=== PATIENT | female | born 1940 | race African-American/Black ===

== ENCOUNTER 2020-01-01 01:48 | Inpatient (IN) | payer MEDICARE, MEDICAID ==
[2020-01-01] VITALS (19 sets, daily range): BP systolic 102–190; BP diastolic 30–92
[~2020-01-01] VITALS: Ht 160 cm; Wt 103.0 kg
[2020-01-01] MEDS ORDERED: NOREPINEPHRINE VIAL 8 MG in IV DEXTROSE 5% 250 ML IV PRN (02:15)
[2020-01-01 03:23] LABS: BASE EXCESS ABG -8 mmol/L (-3-3); HCO3 ABG 16 mmol/L (21-28); PCO2 ABG 29 mmHg (35-46); PO2 ABG 384 mmHg (65-108); SAT O2 ABG 99 % (92-99)
[2020-01-01] MEDS: EPINEPHrine VIAL 5 MG in IV NORMAL SALINE 250ML 250 ML IV PRN ×4 (03:42→10:17)
[2020-01-01] MEDS ORDERED: IV NORMAL SALINE 1000ML BAG 1,000 ML IV SCH (03:45)
[2020-01-01] MEDS: VASOPRESSIN 20 UNIT in IV DEXTROSE 5% 100ML 100 ML IV PRN ×3 (04:19→20:54)
--- NOTE | 2020-01-01 04:42 | RAD ---
AP chest x-ray HISTORY: Intubated. FINDINGS: Endotracheal tube tip 4 cm above the edwige. Nasogastric tube tip coiled left upper quadrant general radiographic region gastric fundus. Heart size normal. Aortic arch calcified plaque. No pneumothorax. Basilar left lower lobe opacity obscuring the diaphragm may be basilar lower lobe atelectasis/pneumonia, a small left pleural effusion is likely present blunting the angle as well. Right lung is clear. IMPRESSION: Lines and tubes as described above. Basilar left lower lobe atelectasis/infiltrate and a small left pleural effusion along the diaphragm. Electronically signed by: Keshawn Cuellar MD (01/01/2020 4:39 AM) [facility]
[2020-01-01 04:44] LABS: FIO2 ABG 100
[2020-01-01] MEDS: DEXTROSE 5% IV PRN ×4 (05:07→17:52)
[2020-01-01] MEDS: NOREPINEPHRINE IV PRN ×4 (05:07→17:52)
[2020-01-01] MEDS ORDERED: PHENYLEPHRINE INJ 50 MG in IV NORMAL SALINE 250ML 250 ML IV PRN (05:30)
[2020-01-01] MEDS: MIDAZOLAM HCL 100 MG in IV NORMAL SALINE 100ML 100 ML IV PRN ×2 (05:49→16:21)
[2020-01-01] MEDS ORDERED: fentaNYL PF VIAL 100 MCG/2 ML VIAL IV PRN (07:00)
--- NOTE | 2020-01-01 07:30 | NUR ---
Pt admitted to ICU room 112 at 0130. Pt brought on bed by 3 foot piece assembler. Pt being ventilated with oxygenated bag valve mask until transferred into ICU bed. Pt then placed on ventilator. Unable to obtain pt BP upon admission. Pt did have pulse upon admission but only carotid was palpable. Unable to palpate or doppler radial and pedal pulses. Pt has only had 20 ml UO all shift. Call placed to pts THERESA, marcy Perez, multiple times starting when patient was admitted. Call placed to Dr. Colby to update on pt status. Received orders for PRN Epi gtt, PRN Vasopressin gtt, PRN Norsynephrine gtt, NS @ 60/hr, consult pulmonology, consult nephrology. Chris CARDENAS, reached at approx 0530. Chris stated to change pt to DNR status, but to keep intubated at this time and keep life-saving medications going. Request for DNR confirmed by two RNs. Order received from Dr. Colby that it was okay to change code status. While titrating PRN BP medications, unable to obtain BP. BP unable to be documented during titration per protocol. Will pass on and continue to monitor.
[2020-01-01 08:36] LABS: BASE EXCESS ABG -23 mmol/L (-3-3); HCO3 ABG 5 mmol/L (21-28); PO2 ABG 329 mmHg (65-108); SAT O2 ABG 99 % (92-99)
[2020-01-01 08:38] LABS: FIO2 ABG 90; PCO2 ABG 18 mmHg (35-46)
[2020-01-01] MEDS ORDERED: SODIUM BICARB ADULT 8.4% 50 MEQ/50 ML DISP.SYRIN. IV ONE ×2 (08:45)
--- NOTE | 2020-01-01 08:59 | RAD ---
CHEST AP ONLY History: Reason: Central line placement / Spl. Instructions: / History: Comparison: January 01, 2020 Findings: Stable endotracheal tube and enteric tube. Interval placement right IJ central line with tip projecting over the lower SVC. Low lung volumes. Patchy bibasilar opacities. Small left pleural effusion. Surgical clips right upper quadrant. No pneumothorax. Unchanged heart size. Impression: 1. Interval placement right IJ central line. No pneumothorax. 2. Low lung points with patchy bibasilar opacities, likely atelectasis. 3. Small left pleural effusion. Electronically signed by: Jarrell Nunez DO (01/01/2020 8:56 AM) [id number]
--- NOTE | 2020-01-01 09:46 | NUR ---
SS following for discharge planning. SS reviewed pt chart and discussed with pt RN. Pt is currently on the vent. COVID19 positive. Per RN, pt now DNR and showing signs of modeling. Prognosis poor. SS will continue to follow for discharge planning.
[2020-01-01] MEDS ORDERED: ENOXAPARIN 30 MG/0.3 ML SYRINGE. SQ SCH (10:15)
--- NOTE | 2020-01-01 10:22 | CONS ---
DATE OF CONSULTATION: 01/01/2020 PULMONARY CONSULTATION ATTENDING PHYSICIAN: Alfredo Colby MD REASON FOR CONSULTATION: Shock, respiratory failure, COVID pneumonia, ARDS. HISTORY OF PRESENT ILLNESS: The patient is 79 years old who initially presented to [facility] Emergency Room in hypoxic respiratory failure. Her saturations are in the low 80s on 6 liters en route and was placed on a nonrebreather mask. She is known positive for COVID-19. She has severe dementia. The patient was kept in the ER, but due to lack of Intensive Care Unit beds, she was transferred to our facility early this morning. The patient has turned for the worse. She was initially on 1 dose pressor, but now she is requiring 4 vasopressors and blood pressure is not even detectable. The patient's arterial blood gases reveals a pH of 7.08, pCO2 of 18 and a pO2 of 329 with a bicarbonate of only 5. This was obtained on 90% FiO2. She is down to 50% FiO2. Her chest x-ray showed mildly prominent interstitial infiltrates. She is on epinephrine, Levophed, vasopressin and Vishal-Synephrine. Her urine output has been decreasing. I gave 2 amps of bicarbonate. Chemistries from today are pending. PAST MEDICAL HISTORY: History of severe dementia, hypertension, hyperlipidemia, Raynaud's. Hyperthyroidism, status post thyroidectomy. PAST SURGICAL HISTORY: , thyroidectomy, tonsillectomy and cholecystectomy. MEDICATIONS: Upon transfer were reviewed. They include 4 vasopressors. REVIEW OF SYSTEMS: Unable to obtain from the patient. SOCIAL HISTORY: Not available. ALLERGIES: None. PHYSICAL EXAMINATION: GENERAL: On examination which was done via visual, she is on assist control mode. 50% FiO2. Mildly tachypneic. EXTREMITIES: Mottled. There were trace pitting edema. LABORATORY DATA: Reviewed. ABGs as discussed in my history of present illness. Blood glucose 164. Her chemistries are pending. Chest x-ray shows faint interstitial infiltrates. IMPRESSION: 1. Acute hypoxic respiratory failure secondary to multisystem organ failure from COVID pneumonia and acute lung injury. 2. Severe metabolic acidosis, which has worsened in the last 24 hours, likely secondary to acute kidney injury and shock/ lactic acidosis 3. Acute kidney injury. Decreasing urine output. We will obtain chemistry results. 4. Abnormal chest x-ray consistent with COVID-19 pneumonia. 5. COVID-19 positive. RECOMMENDATIONS: 1. Per nursing staff, discussion with the son who is the DPOA, the patient was made DNR early this morning. 2. I will call her son and explain him the poor prognosis and very unlikely chance of survival. I would recommend comfort care. 3. Status post 2 amps of bicarbonate. 4. Continue assist control mode. 5. Continue all vasopressors for now. She is status post IV fluid resuscitation. 6. DVT prophylaxis with Lovenox. 7. Stress ulcer prophylaxis. 8. BS antibiotics 9. IV steroids 10. Discussed with RN and RT. Chart reviewed. Labs reviewed and imaging reviewed. Critical care time 37 minutes. ABBEY BEEBE MD DR: ALANA/gia JOB#: [id number] / [id number] KAY
[2020-01-01 10:29] LABS: BASO % 0 % (0-3); EOS % 0 % (0-3); HEMATOCRIT 42.8 % (36.0-47.0); HEMOGLOBIN 12.7 g/dL (12.0-15.5); LYMPH % 16 % (24-48); MEAN CORPUSCULAR HEMOGLOBIN 31 pg (25-35); MEAN CORPUSCULAR HGB CONC 30 g/dL (31-37); MEAN CORPUSCULAR VOLUME 104 fL (79-100); MONO # 1.8 x10^3/uL (0.0-1.1); MONO % 10 % (0-9); NEUT # 13.7 x10^3/uL (1.8-7.7); NEUT % 74 % (31-73); PLATELET COUNT 86 x10^3/uL (140-400); RED CELL DISTRIBUTION WIDTH 16.1 % (11.5-14.5); WHITE BLOOD COUNT 18.5 x10^3/uL (4.0-11.0)
[2020-01-01] MEDS ORDERED: EPINEPHrine VIAL 10 MG in IV NORMAL SALINE 250ML IV PRN (10:30)
[2020-01-01 10:33] LABS: PROTHROMBIN TIME PATIENT 18.4 SEC (11.7-14.0)
[2020-01-01 10:39] LABS: ALBUMIN 2.1 g/dL (3.4-5.0); ALBUMIN/GLOBULIN RATIO 0.5 (1.0-1.7); CALCIUM 7.6 mg/dL (8.5-10.1); CREATININE 7.7 mg/dL (0.6-1.0); GFR 6.1; MAGNESIUM 2.7 mg/dL (1.8-2.4); POTASSIUM 3.5 mmol/L (3.5-5.1); TOTAL BILIRUBIN 0.5 mg/dL (0.2-1.0); TOTAL PROTEIN 6.5 g/dL (6.4-8.2)
--- NOTE | 2020-01-01 10:42 | PN ---
DATE: 01/01/2020 ADDENDUM I have talked to the patient's son, Alhaji, who is also the DPOA. I explained the multisystem organ failure related to COVID infection. He understands that. I told him we will not do any CPR and he is agreeable with that. If the patient continues to deteriorate, we will consider withdrawing care. He also agrees not to initiate dialysis. We will not escalate the doses of current pressors. Continue supportive care for now. additional time 10 min total cct time for today 45 min ABBEY BEEBE MD DR: ALANA/gia JOB#: [id number] / [id number] KAY
[2020-01-01 10:55] LABS: % BANDS 17 % (0-9); % EOS 1 % (0-5); % LYMPHS 14 % (24-48); % METAS 2 % (0-0); % MONOS 6 % (0-10); % SEGS 60 % (35-66); TOXIC VACUOLATION PRESENT
[2020-01-01 10:56] LABS: ANISOCYTOSIS SLIGHT; PLT ESTIMATE DECREASED (ADEQUATE)
--- NOTE | 2020-01-01 11:41 | PDOC2 ---
CONSULT Date of Consult Date of Consult DATE: 01/01/20 TIME: 11:36 Reason for Consult Reason for Consult: JEROME Referring Physician Referring Physician: ISMAEL Identification/Chief Complaint Chief Complaint SEPSIS Source Source: Chart review History of Present Illness Reason for Visit: THIS IS A 79 YR OLD TRANSFERRED HERE FOR[facility]. ADMITTED THERE WITH HYPOXIC RESP FAILURE AND AN NOW ON THE VENT. SHE IS COVID 19 POS. CURRENTLY ON MULTIPLE PRESSORS AND IN RENAL FAILUER. REQUIRING PRESSOR SUPPORT Past Medical History Past Medical History UNABLE TO OBTAIN Past Surgical History Past Surgical History UNKNOWN Family History Family History: No Significant Social History Drugs: None Lives: with Family Current Medications Current Medications Current Medications Norepinephrine Bitartrate 8 mg/ Dextrose 258 ml @ 12.674 mls/ hr CONT PRN IV PER PROTOCOL Last administered on 01/01/20at 02:25; Start 01/01/20 at 02:15; Stop 01/01/20 at 03:19; Status DC Midazolam HCl 100 mg/Sodium Chloride 100 ml @ 1 mls/hr CONT PRN IV SEE I/O RECORD Last administered on 01/01/20at 05:49; Start 01/01/20 at 02:15 Norepinephrine Bitartrate 16 mg/ Dextrose 266 ml @ 6.534 mls/ hr CONT PRN IV PER PROTOCOL Last administered on 01/01/20at 09:37; Start 01/01/20 at 03:30 Epinephrine HCl 5 mg/Sodium Chloride 255 ml @ 20.043 mls/ hr CONT PRN IV SEE I/O RECORD Last administered on 01/01/20at 10:17; Start 01/01/20 at 03:30; Stop 01/01/20 at 12:00 Sodium Chloride 1,000 ml @ 60 mls/hr [id number] IV Last administered on 01/01/20at 04:07; Start 01/01/20 at 03:45 Vasopressin 20 unit/Dextrose 101 ml @ 12 mls/hr CONT PRN IV SEE I/O RECORD Last administered on 01/01/20at 04:19; Start 01/01/20 at 04:15 Phenylephrine HCl 50 mg/Sodium Chloride 255 ml @ 10.022 mls/ hr CONT PRN IV SEE I/O RECORD Last administered on 01/01/20at 05:42; Start 01/01/20 at 05:30 Fentanyl Citrate (Fentanyl 2ml Vial) 25 mcg PRN Q1HR PRN IV SEE COMMENTS; Start 01/01/20 at 07:00 Fentanyl Citrate (Fentanyl 2ml Vial) 50 mcg PRN Q1HR PRN IV SEE COMMENTS; Start 01/01/20 at 07:00 Sodium Bicarbonate (Sodium Bicarb Adult 8.4% Syr) 50 meq 1X ONCE IV Last administered on 01/01/20at 09:18; Start 01/01/20 at 08:45; Stop 01/01/20 at 08:46; Status DC Sodium Bicarbonate (Sodium Bicarb Adult 8.4% Syr) 50 meq 1X ONCE IV Last administered on 01/01/20at 09:18; Start 01/01/20 at 08:45; Stop 01/01/20 at 08:46; Status DC Enoxaparin Sodium (Lovenox 30mg Syringe) 30 mg Q24H SQ ; Start 01/01/20 at 10:15; Stop 01/01/20 at 10:12; Status DC Famotidine (Pepcid Vial) 20 mg DAILY IVP ; Start 01/01/20 at 11:00 Heparin Sodium (Porcine) (Heparin Sodium) 5,000 unit BID SQ ; Start 01/01/20 at 11:00 Epinephrine HCl 10 mg/Sodium Chloride 250 ml @ 9.825 mls/ hr CONT PRN IV SEE I/O RECORD; Start 01/01/20 at 10:30 Allergies Allergies: Coded Allergies: No Known Drug Allergies (Unverified , 01/01/20) ROS Review of System UNABLE TO OBTAIN Physical Exam General: Other (INTUBATED) HEENT: Atraumatic, Other (T TUBE) Lungs: Clear to auscultation Heart: Regular rate Abdomen: Normal bowel sounds Extremities: Other (CYANOTIC AND CLUBBING OF EXTREMITIES) Skin: No significant lesion Neuro: Other (SEDATED) MUSCULOSKELETAL: Other (ON THE VENT) Vitals VITALS Vital Signs Date Time Temp Pulse Resp B/P (MAP) Pulse Ox O2 Delivery O2 Flow Rate FiO2 01/01/20 10:14 108/30 (56) 01/01/20 10:00 101 16 80 Ventilator 01/01/20 08:00 97.9 97.9 Labs Labs Laboratory Tests Test 01/01/20 03:19 01/01/20 03:24 01/01/20 08:25 01/01/20 08:30 O2 Saturation 99 % (92-99) 99 % (92-99) Arterial Blood pH 7.35 (7.35-7.45) 7.08 (7.35-7.45) Arterial Blood pCO2 at Patient Temp 29 mmHg (35-46) 18 mmHg (35-46) Arterial Blood pO2 at Patient Temp 384 mmHg (65-108) 329 mmHg (65-108) Arterial Blood HCO3 16 mmol/L (21-28) 5 mmol/L (21-28) Arterial Blood Base Excess -8 mmol/L (-3-3) -23 mmol/L (-3-3) FiO2 100 90 Glucose (Fingerstick) 164 mg/dL (70-99) White Blood Count 18.5 x10^3/uL (4.0-11.0) Red Blood Count 4.10 x10^6/uL (3.50-5.40) Hemoglobin 12.7 g/dL (12.0-15.5) Hematocrit 42.8 % (36.0-47.0) Mean Corpuscular Volume 104 fL (79-100) Mean Corpuscular Hemoglobin 31 pg (25-35) Mean Corpuscular Hemoglobin Concent 30 g/dL (31-37) Red Cell Distribution Width 16.1 % (11.5-14.5) Platelet Count 86 x10^3/uL (140-400) Neutrophils (%) (Auto) 74 % (31-73) Lymphocytes (%) (Auto) 16 % (24-48) Monocytes (%) (Auto) 10 % (0-9) Eosinophils (%) (Auto) 0 % (0-3) Basophils (%) (Auto) 0 % (0-3) Neutrophils # (Auto) 13.7 x10^3/uL (1.8-7.7) Lymphocytes # (Auto) 3.0 x10^3/uL (1.0-4.8) Monocytes # (Auto) 1.8 x10^3/uL (0.0-1.1) Eosinophils # (Auto) 0.0 x10^3/uL (0.0-0.7) Basophils # (Auto) 0.0 x10^3/uL (0.0-0.2) Segmented Neutrophils % 60 % (35-66) Band Neutrophils % 17 % (0-9) Lymphocytes % 14 % (24-48) Monocytes % 6 % (0-10) Eosinophils % 1 % (0-5) Metamyelocytes % 2 % (0-0) Toxic Vacuolation Present Platelet Estimate Decreased (ADEQUATE) Anisocytosis Slight Prothrombin Time 18.4 SEC (11.7-14.0) Prothromb Time International Ratio 1.6 (0.8-1.1) Sodium Level 166 mmol/L (136-145) Potassium Level 3.5 mmol/L (3.5-5.1) Chloride Level 123 mmol/L (98-107) Carbon Dioxide Level 8 mmol/L (21-32) Anion Gap 35 (6-14) Blood Urea Nitrogen 106 mg/dL (7-20) Creatinine 7.7 mg/dL (0.6-1.0) Estimated GFR (Cockcroft-Gault) 6.1 BUN/Creatinine Ratio 14 (6-20) Glucose Level 361 mg/dL (70-99) Lactic Acid Level 13.4 mmol/L (0.4-2.0) Calcium Level 7.6 mg/dL (8.5-10.1) Magnesium Level 2.7 mg/dL (1.8-2.4) Total Bilirubin 0.5 mg/dL (0.2-1.0) Aspartate Amino Transf (AST/SGOT) 71 U/L (15-37) Alanine Aminotransferase (ALT/SGPT) 60 U/L (14-59) Alkaline Phosphatase 109 U/L (46-116) Total Protein 6.5 g/dL (6.4-8.2) Albumin 2.1 g/dL (3.4-5.0) Albumin/Globulin Ratio 0.5 (1.0-1.7) Laboratory Tests Test 01/01/20 03:19 01/01/20 03:24 01/01/20 08:25 01/01/20 08:30 O2 Saturation 99 % (92-99) 99 % (92-99) Arterial Blood pH 7.35 (7.35-7.45) 7.08 (7.35-7.45) Arterial Blood pCO2 at Patient Temp 29 mmHg (35-46) 18 mmHg (35-46) Arterial Blood pO2 at Patient Temp 384 mmHg (65-108) 329 mmHg (65-108) Arterial Blood HCO3 16 mmol/L (21-28) 5 mmol/L (21-28) Arterial Blood Base Excess -8 mmol/L (-3-3) -23 mmol/L (-3-3) FiO2 100 90 Glucose (Fingerstick) 164 mg/dL (70-99) White Blood Count 18.5 x10^3/uL (4.0-11.0) Red Blood Count 4.10 x10^6/uL (3.50-5.40) Hemoglobin 12.7 g/dL (12.0-15.5) Hematocrit 42.8 % (36.0-47.0) Mean Corpuscular Volume 104 fL (79-100) Mean Corpuscular Hemoglobin 31 pg (25-35) Mean Corpuscular Hemoglobin Concent 30 g/dL (31-37) Red Cell Distribution Width 16.1 % (11.5-14.5) Platelet Count 86 x10^3/uL (140-400) Neutrophils (%) (Auto) 74 % (31-73) Lymphocytes (%) (Auto) 16 % (24-48) Monocytes (%) (Auto) 10 % (0-9) Eosinophils (%) (Auto) 0 % (0-3) Basophils (%) (Auto) 0 % (0-3) Neutrophils # (Auto) 13.7 x10^3/uL (1.8-7.7) Lymphocytes # (Auto) 3.0 x10^3/uL (1.0-4.8) Monocytes # (Auto) 1.8 x10^3/uL (0.0-1.1) Eosinophils # (Auto) 0.0 x10^3/uL (0.0-0.7) Basophils # (Auto) 0.0 x10^3/uL (0.0-0.2) Segmented Neutrophils % 60 % (35-66) Band Neutrophils % 17 % (0-9) Lymphocytes % 14 % (24-48) Monocytes % 6 % (0-10) Eosinophils % 1 % (0-5) Metamyelocytes % 2 % (0-0) Toxic Vacuolation Present Platelet Estimate Decreased (ADEQUATE) Anisocytosis Slight Prothrombin Time 18.4 SEC (11.7-14.0) Prothromb Time International Ratio 1.6 (0.8-1.1) Sodium Level 166 mmol/L (136-145) Potassium Level 3.5 mmol/L (3.5-5.1) Chloride Level 123 mmol/L (98-107) Carbon Dioxide Level 8 mmol/L (21-32) Anion Gap 35 (6-14) Blood Urea Nitrogen 106 mg/dL (7-20) Creatinine 7.7 mg/dL (0.6-1.0) Estimated GFR (Cockcroft-Gault) 6.1 BUN/Creatinine Ratio 14 (6-20) Glucose Level 361 mg/dL (70-99) Lactic Acid Level 13.4 mmol/L (0.4-2.0) Calcium Level 7.6 mg/dL (8.5-10.1) Magnesium Level 2.7 mg/dL (1.8-2.4) Total Bilirubin 0.5 mg/dL (0.2-1.0) Aspartate Amino Transf (AST/SGOT) 71 U/L (15-37) Alanine Aminotransferase (ALT/SGPT) 60 U/L (14-59) Alkaline Phosphatase 109 U/L (46-116) Total Protein 6.5 g/dL (6.4-8.2) Albumin 2.1 g/dL (3.4-5.0) Albumin/Globulin Ratio 0.5 (1.0-1.7) Assessment/Plan Assessment/Plan IMP JEROME-ATN COVID 19 INFECTION ACUTE HYPOXIC RESP FAILURE SEVERE MET ACIDOSIS LEUCOCYTOSIS PLAN VENT SUPPORT PRESSORS HYDRATION NO PLANS FOR DIALYSIS D/W DR BEEBE FAMILY AGREEABLE WILL FOLLOW TIFFANY LOCKWOOD MD Jan 01, 2020 11:41
[2020-01-01] MEDS ORDERED: IV 1/2 NORMAL SALINE 1,000 ML IV ONE (12:00)
[2020-01-01] MEDS: FAMOTIDINE 20 MG/2 ML VIAL IVP SCH (12:20)
[2020-01-01] MEDS: HEPARIN for SUB-Q USE 5,000 UNIT/ML VIAL. SQ SCH ×2 (12:20→21:12)
--- NOTE | 2020-01-01 12:24 | PDOC1 ---
History and Physical Date of Service: DOS: DATE: 01/01/20 TIME: 12:20 Chief Complaint: Chief Complain: Respiratory failure History of Present Illness: HPI: This is an elderly female who has severe dementia who is unfortunately developed severe respiratory failure secondary to Covid-19 She initially went to [facility] [place] but they are out of ICU bed so she was transferred here She is currently been examined in the ICU where she is critically ill and has a lactic acid level of 13.4 She is currently on the ventilator The pulmonary physician has talked to the family we are considering comfort care Past Medical/Surgical History: PMH/PSH: ementia, hypertension, hyperlipidemia, Raynaud's. Hyperthyroidism, status post thyroidectomy. PAST SURGICAL HISTORY: , thyroidectomy, tonsillectomy and cholecystectomy. Allergies: Allergies: Coded Allergies: No Known Drug Allergies (Unverified , 01/01/20) Family History: Family History: Hypertension Social History: Social History: No smoking drinking or drugs Current Medications: Current Medications Current Medications Norepinephrine Bitartrate 8 mg/ Dextrose 258 ml @ 12.674 mls/ hr CONT PRN IV PER PROTOCOL Last administered on 01/01/20at 02:25; Start 01/01/20 at 02:15; Stop 01/01/20 at 03:19; Status DC Midazolam HCl 100 mg/Sodium Chloride 100 ml @ 1 mls/hr CONT PRN IV SEE I/O RECORD Last administered on 01/01/20at 05:49; Start 01/01/20 at 02:15 Norepinephrine Bitartrate 16 mg/ Dextrose 266 ml @ 6.534 mls/ hr CONT PRN IV PER PROTOCOL Last administered on 01/01/20at 11:56; Start 01/01/20 at 03:30 Epinephrine HCl 5 mg/Sodium Chloride 255 ml @ 20.043 mls/ hr CONT PRN IV SEE I/O RECORD Last administered on 01/01/20at 10:17; Start 01/01/20 at 03:30; Stop 01/01/20 at 12:00; Status DC Sodium Chloride 1,000 ml @ 60 mls/hr [id number] IV Last administered on 01/01/20at 04:07; Start 01/01/20 at 03:45 Vasopressin 20 unit/Dextrose 101 ml @ 12 mls/hr CONT PRN IV SEE I/O RECORD Last administered on 01/01/20at 11:50; Start 01/01/20 at 04:15 Phenylephrine HCl 50 mg/Sodium Chloride 255 ml @ 10.022 mls/ hr CONT PRN IV SEE I/O RECORD Last administered on 01/01/20at 05:42; Start 01/01/20 at 05:30 Fentanyl Citrate (Fentanyl 2ml Vial) 25 mcg PRN Q1HR PRN IV SEE COMMENTS; Start 01/01/20 at 07:00 Fentanyl Citrate (Fentanyl 2ml Vial) 50 mcg PRN Q1HR PRN IV SEE COMMENTS; Start 01/01/20 at 07:00 Sodium Bicarbonate (Sodium Bicarb Adult 8.4% Syr) 50 meq 1X ONCE IV Last administered on 01/01/20at 09:18; Start 01/01/20 at 08:45; Stop 01/01/20 at 08:46; Status DC Sodium Bicarbonate (Sodium Bicarb Adult 8.4% Syr) 50 meq 1X ONCE IV Last administered on 01/01/20at 09:18; Start 01/01/20 at 08:45; Stop 01/01/20 at 08:46; Status DC Enoxaparin Sodium (Lovenox 30mg Syringe) 30 mg Q24H SQ ; Start 01/01/20 at 10:15; Stop 01/01/20 at 10:12; Status DC Famotidine (Pepcid Vial) 20 mg DAILY IVP ; Start 01/01/20 at 11:00 Heparin Sodium (Porcine) (Heparin Sodium) 5,000 unit BID SQ ; Start 01/01/20 at 11:00 Epinephrine HCl 10 mg/Sodium Chloride 250 ml @ 9.825 mls/ hr CONT PRN IV SEE I/O RECORD Last administered on 01/01/20at 11:54; Start 01/01/20 at 10:30 Sodium Chloride 1,000 ml @ 150 mls/hr 1X ONCE IV ; Start 01/01/20 at 12:00; Stop 01/01/20 at 18:39 ROS: Review of Systems Unable to obtain Physical Exam: Vital Signs: Vital Signs Date Time Temp Pulse Resp B/P (MAP) Pulse Ox O2 Delivery O2 Flow Rate FiO2 01/01/20 11:45 98 Ventilator 01/01/20 11:00 87 16 160/38 (78) 01/01/20 08:00 97.9 97.9 Physcial Exam: GEN: Sedated on the vent on for IV pressors HEENT: Normal cephalic, atraumatic, external auditory canals are patent EYES: Extraocular muscles are intact, pupil are equally round and reactive to light and accommodation MUSCULOSKELETAL: Well developed , well nourished, good range of motion ENDOCRINE: No thyromegaly was palpated LYMPHATICS: No cervical chain or axillary nodes were noted HEMATOPOIETIC: No bruising NECK: Supple, no JVD, no thyromegaly was noted LUNGS: Coarse throughout HEART: Tachycardia ABDOMEN: Soft, nontender. Positive bowel sounds, no organomegaly, normal bowel sounds EXTREMITIES: 2+ edema NEUROLOGIC: Normal speech and tone. A&O x 3, moves all extremities, no obvious focal deficits PSYCHIATRIC: Normal affect, normal mood. Stable SKIN: Showing some mottling VASCULAR: Slow capillary Labs: Labs: Laboratory Tests Test 01/01/20 03:19 01/01/20 03:24 01/01/20 08:25 01/01/20 08:30 O2 Saturation 99 % (92-99) 99 % (92-99) Arterial Blood pH 7.35 (7.35-7.45) 7.08 (7.35-7.45) Arterial Blood pCO2 at Patient Temp 29 mmHg (35-46) 18 mmHg (35-46) Arterial Blood pO2 at Patient Temp 384 mmHg (65-108) 329 mmHg (65-108) Arterial Blood HCO3 16 mmol/L (21-28) 5 mmol/L (21-28) Arterial Blood Base Excess -8 mmol/L (-3-3) -23 mmol/L (-3-3) FiO2 100 90 Glucose (Fingerstick) 164 mg/dL (70-99) White Blood Count 18.5 x10^3/uL (4.0-11.0) Red Blood Count 4.10 x10^6/uL (3.50-5.40) Hemoglobin 12.7 g/dL (12.0-15.5) Hematocrit 42.8 % (36.0-47.0) Mean Corpuscular Volume 104 fL (79-100) Mean Corpuscular Hemoglobin 31 pg (25-35) Mean Corpuscular Hemoglobin Concent 30 g/dL (31-37) Red Cell Distribution Width 16.1 % (11.5-14.5) Platelet Count 86 x10^3/uL (140-400) Neutrophils (%) (Auto) 74 % (31-73) Lymphocytes (%) (Auto) 16 % (24-48) Monocytes (%) (Auto) 10 % (0-9) Eosinophils (%) (Auto) 0 % (0-3) Basophils (%) (Auto) 0 % (0-3) Neutrophils # (Auto) 13.7 x10^3/uL (1.8-7.7) Lymphocytes # (Auto) 3.0 x10^3/uL (1.0-4.8) Monocytes # (Auto) 1.8 x10^3/uL (0.0-1.1) Eosinophils # (Auto) 0.0 x10^3/uL (0.0-0.7) Basophils # (Auto) 0.0 x10^3/uL (0.0-0.2) Segmented Neutrophils % 60 % (35-66) Band Neutrophils % 17 % (0-9) Lymphocytes % 14 % (24-48) Monocytes % 6 % (0-10) Eosinophils % 1 % (0-5) Metamyelocytes % 2 % (0-0) Toxic Vacuolation Present Platelet Estimate Decreased (ADEQUATE) Anisocytosis Slight Prothrombin Time 18.4 SEC (11.7-14.0) Prothromb Time International Ratio 1.6 (0.8-1.1) Sodium Level 166 mmol/L (136-145) Potassium Level 3.5 mmol/L (3.5-5.1) Chloride Level 123 mmol/L (98-107) Carbon Dioxide Level 8 mmol/L (21-32) Anion Gap 35 (6-14) Blood Urea Nitrogen 106 mg/dL (7-20) Creatinine 7.7 mg/dL (0.6-1.0) Estimated GFR (Cockcroft-Gault) 6.1 BUN/Creatinine Ratio 14 (6-20) Glucose Level 361 mg/dL (70-99) Lactic Acid Level 13.4 mmol/L (0.4-2.0) Calcium Level 7.6 mg/dL (8.5-10.1) Magnesium Level 2.7 mg/dL (1.8-2.4) Total Bilirubin 0.5 mg/dL (0.2-1.0) Aspartate Amino Transf (AST/SGOT) 71 U/L (15-37) Alanine Aminotransferase (ALT/SGPT) 60 U/L (14-59) Alkaline Phosphatase 109 U/L (46-116) Total Protein 6.5 g/dL (6.4-8.2) Albumin 2.1 g/dL (3.4-5.0) Albumin/Globulin Ratio 0.5 (1.0-1.7) Laboratory Tests Test 01/01/20 03:19 01/01/20 03:24 01/01/20 08:25 01/01/20 08:30 O2 Saturation 99 % (92-99) 99 % (92-99) Arterial Blood pH 7.35 (7.35-7.45) 7.08 (7.35-7.45) Arterial Blood pCO2 at Patient Temp 29 mmHg (35-46) 18 mmHg (35-46) Arterial Blood pO2 at Patient Temp 384 mmHg (65-108) 329 mmHg (65-108) Arterial Blood HCO3 16 mmol/L (21-28) 5 mmol/L (21-28) Arterial Blood Base Excess -8 mmol/L (-3-3) -23 mmol/L (-3-3) FiO2 100 90 Glucose (Fingerstick) 164 mg/dL (70-99) White Blood Count 18.5 x10^3/uL (4.0-11.0) Red Blood Count 4.10 x10^6/uL (3.50-5.40) Hemoglobin 12.7 g/dL (12.0-15.5) Hematocrit 42.8 % (36.0-47.0) Mean Corpuscular Volume 104 fL (79-100) Mean Corpuscular Hemoglobin 31 pg (25-35) Mean Corpuscular Hemoglobin Concent 30 g/dL (31-37) Red Cell Distribution Width 16.1 % (11.5-14.5) Platelet Count 86 x10^3/uL (140-400) Neutrophils (%) (Auto) 74 % (31-73) Lymphocytes (%) (Auto) 16 % (24-48) Monocytes (%) (Auto) 10 % (0-9) Eosinophils (%) (Auto) 0 % (0-3) Basophils (%) (Auto) 0 % (0-3) Neutrophils # (Auto) 13.7 x10^3/uL (1.8-7.7) Lymphocytes # (Auto) 3.0 x10^3/uL (1.0-4.8) Monocytes # (Auto) 1.8 x10^3/uL (0.0-1.1) Eosinophils # (Auto) 0.0 x10^3/uL (0.0-0.7) Basophils # (Auto) 0.0 x10^3/uL (0.0-0.2) Segmented Neutrophils % 60 % (35-66) Band Neutrophils % 17 % (0-9) Lymphocytes % 14 % (24-48) Monocytes % 6 % (0-10) Eosinophils % 1 % (0-5) Metamyelocytes % 2 % (0-0) Toxic Vacuolation Present Platelet Estimate Decreased (ADEQUATE) Anisocytosis Slight Prothrombin Time 18.4 SEC (11.7-14.0) Prothromb Time International Ratio 1.6 (0.8-1.1) Sodium Level 166 mmol/L (136-145) Potassium Level 3.5 mmol/L (3.5-5.1) Chloride Level 123 mmol/L (98-107) Carbon Dioxide Level 8 mmol/L (21-32) Anion Gap 35 (6-14) Blood Urea Nitrogen 106 mg/dL (7-20) Creatinine 7.7 mg/dL (0.6-1.0) Estimated GFR (Cockcroft-Gault) 6.1 BUN/Creatinine Ratio 14 (6-20) Glucose Level 361 mg/dL (70-99) Lactic Acid Level 13.4 mmol/L (0.4-2.0) Calcium Level 7.6 mg/dL (8.5-10.1) Magnesium Level 2.7 mg/dL (1.8-2.4) Total Bilirubin 0.5 mg/dL (0.2-1.0) Aspartate Amino Transf (AST/SGOT) 71 U/L (15-37) Alanine Aminotransferase (ALT/SGPT) 60 U/L (14-59) Alkaline Phosphatase 109 U/L (46-116) Total Protein 6.5 g/dL (6.4-8.2) Albumin 2.1 g/dL (3.4-5.0) Albumin/Globulin Ratio 0.5 (1.0-1.7) Assessment/Plan Assessment/Plan Severe respiratory failure secondary to COVID-19 Plan For now we are continuing current care but we are moving towards comfort care ICU monitoring Trying to wean off the for IV pressors but it is unlikely we will be able to Prognosis probably terminal Appreciate pulmonary input Justicifation of Admission Dx: Justifications for Admission: Justification of Admission Dx: Yes Respiratory Failure: Mechanical Ventilation SUMMER BOJORQUEZ III DO Jan 01, 2020 12:24
[2020-01-01] MEDS ORDERED: PIP/TAZO PER PHARMACY MC PRN (14:00)
[2020-01-01] MEDS: methylPREDNISolone SOD SUCC PF 125 MG/2 ML VIAL. IV SCH ×2 (14:39→21:13)
[2020-01-01] MEDS: PIPERACILLIN/TAZOBACTAM 2.25 GM in IV NORMAL SALINE 50ML 50 ML IV SCH ×2 (14:40→22:02)
[2020-01-01] MEDS ORDERED: VANCOMYCIN 1.5 GM in IV NORMAL SALINE 500ML BAG 500 ML IV ONE (15:00)
--- NOTE | 2020-01-01 16:00 | NUR ---
250 ml water flushes Q4 stopped d/t patient not tolerating/vomiting.
[2020-01-01] MEDS: IV 1/2 NORMAL SALINE 1,000 ML IV SCH (19:02)
[2020-01-01] MEDS: VANCOMYCIN PER PHARMACY MC PRN (19:15)
--- NOTE | 2020-01-01 19:26 | NUR ---
Pharmacy Vancomycin Dosing Note S:Consulted to monitor and dose vancomycin started 01/01/20. O:SALLIE RHOADES is a 79 year old F with Sepsis . Height: 5 feet, 3 inches Weight: 65.5 kg [place] Body Weight: 52.40 Adjusted Body Weight: 57.64 Dosing Weight: Other Antibiotics: ZOSYN LABS: Last BUN: 106 Last Creatinine: 7.7 Creatinine Clearance: 5 mL/min Last WBC: 18.5 Last Procalcitonin: - Tmax (past 24 hours): 98.9 Microbiology: I/O: Drug Levels: Last Trough level: on at Last dose given 01/01/20 at 1700 Vancomycin Dosing: Loading Dose: x1 Dosing Weight: Target Trough: 15-20 A: Based on: WEIGHT, RENAL FAILURE, P: 1. GIVE Vancomycin 1500 mg IV One Time 2. Follow up RANDOM level on 01/03/20 at 0500 3. Pharmacy will continue to monitor, follow and adjust therapy as needed. ALEXA CENTENO [facility], 01/01/20 [id number]
[2020-01-02] VITALS (33 sets, daily range): BP systolic 90–140; BP diastolic 43–86
[2020-01-02] MEDS: IV 1/2 NORMAL SALINE 1,000 ML IV SCH ×4 (01:49→22:19)
[2020-01-02] MEDS: PIPERACILLIN/TAZOBACTAM 2.25 GM in IV NORMAL SALINE 50ML 50 ML IV SCH ×3 (05:59→22:17)
[2020-01-02] MEDS: methylPREDNISolone SOD SUCC PF 125 MG/2 ML VIAL. IV SCH ×3 (06:01→22:18)
[2020-01-02 06:52] LABS: CREATININE 3.7 mg/dL (0.6-1.0); GFR 14.3; POTASSIUM 3.2 mmol/L (3.5-5.1)
[2020-01-02] MEDS: VASOPRESSIN 20 UNIT in IV DEXTROSE 5% 100ML 100 ML IV PRN ×2 (06:56→16:49)
[2020-01-02] MEDS: MIDAZOLAM HCL 100 MG in IV NORMAL SALINE 100ML 100 ML IV PRN (06:58)
[2020-01-02 07:49] LABS: HEMATOCRIT 32.7 % (36.0-47.0); HEMOGLOBIN 10.8 g/dL (12.0-15.5); RED BLOOD COUNT 3.44 x10^6/uL (3.50-5.40); WHITE BLOOD COUNT 16.3 x10^3/uL (4.0-11.0)
[2020-01-02] MEDS: DEXTROSE 5% IV PRN (08:40)
[2020-01-02] MEDS: NOREPINEPHRINE IV PRN (08:40)
[2020-01-02 08:54] LABS: BASE EXCESS ABG -7 mmol/L (-3-3); HCO3 ABG 16 mmol/L (21-28); PCO2 ABG 23 mmHg (35-46); PO2 ABG 100 mmHg (65-108); SAT O2 ABG 97 % (92-99)
[2020-01-02 08:59] LABS: FIO2 ABG 40
[2020-01-02] MEDS: HEPARIN for SUB-Q USE 5,000 UNIT/ML VIAL. SQ SCH ×2 (09:00→20:53)
[2020-01-02] MEDS: VANCOMYCIN PER PHARMACY MC PRN (10:00)
--- NOTE | 2020-01-02 10:35 | PDOC ---
PULMONARY PROGRESS NOTES DATE: 01/02/20 TIME: 10:29 Subjective remains intubated/sedated improving pressor requirements improving renal function Vitals Vital Signs Date Time Temp Pulse Resp B/P (MAP) Pulse Ox O2 Delivery O2 Flow Rate FiO2 01/02/20 09:26 99 Ventilator 01/02/20 06:00 47 20 112/52 (72) 01/02/20 04:00 98.2 98.2 Comments visual exam done due to COVID pandemia no soa, no paradoxical breathing no rash Labs Laboratory Tests Test 01/01/20 03:19 01/01/20 03:24 01/01/20 08:25 01/01/20 08:30 O2 Saturation 99 % (92-99) 99 % (92-99) Arterial Blood pH 7.35 (7.35-7.45) 7.08 (7.35-7.45) Arterial Blood pCO2 at Patient Temp 29 mmHg (35-46) 18 mmHg (35-46) Arterial Blood pO2 at Patient Temp 384 mmHg (65-108) 329 mmHg (65-108) Arterial Blood HCO3 16 mmol/L (21-28) 5 mmol/L (21-28) Arterial Blood Base Excess -8 mmol/L (-3-3) -23 mmol/L (-3-3) FiO2 100 90 Glucose (Fingerstick) 164 mg/dL (70-99) White Blood Count 18.5 x10^3/uL (4.0-11.0) Red Blood Count 4.10 x10^6/uL (3.50-5.40) Hemoglobin 12.7 g/dL (12.0-15.5) Hematocrit 42.8 % (36.0-47.0) Mean Corpuscular Volume 104 fL (79-100) Mean Corpuscular Hemoglobin 31 pg (25-35) Mean Corpuscular Hemoglobin Concent 30 g/dL (31-37) Red Cell Distribution Width 16.1 % (11.5-14.5) Platelet Count 86 x10^3/uL (140-400) Neutrophils (%) (Auto) 74 % (31-73) Lymphocytes (%) (Auto) 16 % (24-48) Monocytes (%) (Auto) 10 % (0-9) Eosinophils (%) (Auto) 0 % (0-3) Basophils (%) (Auto) 0 % (0-3) Neutrophils # (Auto) 13.7 x10^3/uL (1.8-7.7) Lymphocytes # (Auto) 3.0 x10^3/uL (1.0-4.8) Monocytes # (Auto) 1.8 x10^3/uL (0.0-1.1) Eosinophils # (Auto) 0.0 x10^3/uL (0.0-0.7) Basophils # (Auto) 0.0 x10^3/uL (0.0-0.2) Segmented Neutrophils % 60 % (35-66) Band Neutrophils % 17 % (0-9) Lymphocytes % 14 % (24-48) Monocytes % 6 % (0-10) Eosinophils % 1 % (0-5) Metamyelocytes % 2 % (0-0) Toxic Vacuolation Present Platelet Estimate Decreased (ADEQUATE) Anisocytosis Slight Prothrombin Time 18.4 SEC (11.7-14.0) Prothromb Time International Ratio 1.6 (0.8-1.1) Sodium Level 166 mmol/L (136-145) Potassium Level 3.5 mmol/L (3.5-5.1) Chloride Level 123 mmol/L (98-107) Carbon Dioxide Level 8 mmol/L (21-32) Anion Gap 35 (6-14) Blood Urea Nitrogen 106 mg/dL (7-20) Creatinine 7.7 mg/dL (0.6-1.0) Estimated GFR (Cockcroft-Gault) 6.1 BUN/Creatinine Ratio 14 (6-20) Glucose Level 361 mg/dL (70-99) Lactic Acid Level 13.4 mmol/L (0.4-2.0) Calcium Level 7.6 mg/dL (8.5-10.1) Magnesium Level 2.7 mg/dL (1.8-2.4) Total Bilirubin 0.5 mg/dL (0.2-1.0) Aspartate Amino Transf (AST/SGOT) 71 U/L (15-37) Alanine Aminotransferase (ALT/SGPT) 60 U/L (14-59) Alkaline Phosphatase 109 U/L (46-116) Total Protein 6.5 g/dL (6.4-8.2) Albumin 2.1 g/dL (3.4-5.0) Albumin/Globulin Ratio 0.5 (1.0-1.7) Test 01/01/20 15:00 01/02/20 06:30 01/02/20 07:35 01/02/20 08:00 Lactic Acid Level 11.1 mmol/L (0.4-2.0) Sodium Level 155 mmol/L (136-145) Potassium Level 3.2 mmol/L (3.5-5.1) Chloride Level 121 mmol/L (98-107) Carbon Dioxide Level 19 mmol/L (21-32) Anion Gap 15 (6-14) Blood Urea Nitrogen 92 mg/dL (7-20) Creatinine 3.7 mg/dL (0.6-1.0) Estimated GFR (Cockcroft-Gault) 14.3 Glucose Level 279 mg/dL (70-99) Calcium Level 7.0 mg/dL (8.5-10.1) White Blood Count 16.3 x10^3/uL (4.0-11.0) Red Blood Count 3.44 x10^6/uL (3.50-5.40) Hemoglobin 10.8 g/dL (12.0-15.5) Hematocrit 32.7 % (36.0-47.0) Mean Corpuscular Volume 95 fL (79-100) Mean Corpuscular Hemoglobin 31 pg (25-35) Mean Corpuscular Hemoglobin Concent 33 g/dL (31-37) Red Cell Distribution Width 14.0 % (11.5-14.5) Platelet Count 60 x10^3/uL (140-400) O2 Saturation 97 % (92-99) Arterial Blood pH 7.45 (7.35-7.45) Arterial Blood pCO2 at Patient Temp 23 mmHg (35-46) Arterial Blood pO2 at Patient Temp 100 mmHg (65-108) Arterial Blood HCO3 16 mmol/L (21-28) Arterial Blood Base Excess -7 mmol/L (-3-3) FiO2 40 Laboratory Tests Test 01/01/20 15:00 01/02/20 06:30 01/02/20 07:35 01/02/20 08:00 Lactic Acid Level 11.1 mmol/L (0.4-2.0) Sodium Level 155 mmol/L (136-145) Potassium Level 3.2 mmol/L (3.5-5.1) Chloride Level 121 mmol/L (98-107) Carbon Dioxide Level 19 mmol/L (21-32) Anion Gap 15 (6-14) Blood Urea Nitrogen 92 mg/dL (7-20) Creatinine 3.7 mg/dL (0.6-1.0) Estimated GFR (Cockcroft-Gault) 14.3 Glucose Level 279 mg/dL (70-99) Calcium Level 7.0 mg/dL (8.5-10.1) White Blood Count 16.3 x10^3/uL (4.0-11.0) Red Blood Count 3.44 x10^6/uL (3.50-5.40) Hemoglobin 10.8 g/dL (12.0-15.5) Hematocrit 32.7 % (36.0-47.0) Mean Corpuscular Volume 95 fL (79-100) Mean Corpuscular Hemoglobin 31 pg (25-35) Mean Corpuscular Hemoglobin Concent 33 g/dL (31-37) Red Cell Distribution Width 14.0 % (11.5-14.5) Platelet Count 60 x10^3/uL (140-400) O2 Saturation 97 % (92-99) Arterial Blood pH 7.45 (7.35-7.45) Arterial Blood pCO2 at Patient Temp 23 mmHg (35-46) Arterial Blood pO2 at Patient Temp 100 mmHg (65-108) Arterial Blood HCO3 16 mmol/L (21-28) Arterial Blood Base Excess -7 mmol/L (-3-3) FiO2 40 Impression . 1. Acute hypoxic respiratory failure secondary to multisystem organ failure from COVID pneumonia and acute lung injury. improving 2. Severe metabolic acidosis, likely secondary to acute kidney injury and shock/ lactic acidosis 3. Acute kidney injury. improving with IVF 4. Abnormal chest x-ray consistent with COVID-19 pneumonia. 5. COVID-19 positive. Plan . 1. d/w son 12/31 who is the DPOA, DNR. continue supportive care 2. clinically improving but still critically ill 3. prn bicarbonate. 4. Continue assist control mode. 5. wean vasopressors.. She is status post IV fluid resuscitation.give more fluids today 6. DVT prophylaxis with Lovenox. 7. Stress ulcer prophylaxis. 8. BS antibiotics 9. IV steroids 10. Discussed with RN and RT. Chart reviewed. Labs reviewed and imaging reviewed. Critical care time 30 minutes. ABBEY BEEBE MD Jan 02, 2020 10:35
[2020-01-02] MEDS: POTASSIUM CHLORIDE 20MEQ 100 ML IV SCH ×2 (10:50→11:57)
--- NOTE | 2020-01-02 11:00 | PDOC ---
Renal-Progress Notes Subjective Notes Notes ON THE VENT History of Present Illness Hx of present illness IMPROVING Vitals Vitals Vital Signs Date Time Temp Pulse Resp B/P (MAP) Pulse Ox O2 Delivery O2 Flow Rate FiO2 01/02/20 09:26 99 Ventilator 01/02/20 06:00 47 20 112/52 (72) 01/02/20 04:00 98.2 98.2 Weight Weight [ ] I.O. Intake and Output Intake and Output 01/02/20 07:00 Intake Total 7592.5 ml Output Total 645 ml Balance 6947.5 ml Intake IV Total 7592.5 ml Output Urine Total 645 ml Labs Labs Laboratory Tests Test 01/01/20 15:00 01/02/20 06:30 01/02/20 07:35 01/02/20 08:00 Lactic Acid Level 11.1 mmol/L (0.4-2.0) Sodium Level 155 mmol/L (136-145) Potassium Level 3.2 mmol/L (3.5-5.1) Chloride Level 121 mmol/L (98-107) Carbon Dioxide Level 19 mmol/L (21-32) Anion Gap 15 (6-14) Blood Urea Nitrogen 92 mg/dL (7-20) Creatinine 3.7 mg/dL (0.6-1.0) Estimated GFR (Cockcroft-Gault) 14.3 Glucose Level 279 mg/dL (70-99) Calcium Level 7.0 mg/dL (8.5-10.1) White Blood Count 16.3 x10^3/uL (4.0-11.0) Red Blood Count 3.44 x10^6/uL (3.50-5.40) Hemoglobin 10.8 g/dL (12.0-15.5) Hematocrit 32.7 % (36.0-47.0) Mean Corpuscular Volume 95 fL (79-100) Mean Corpuscular Hemoglobin 31 pg (25-35) Mean Corpuscular Hemoglobin Concent 33 g/dL (31-37) Red Cell Distribution Width 14.0 % (11.5-14.5) Platelet Count 60 x10^3/uL (140-400) O2 Saturation 97 % (92-99) Arterial Blood pH 7.45 (7.35-7.45) Arterial Blood pCO2 at Patient Temp 23 mmHg (35-46) Arterial Blood pO2 at Patient Temp 100 mmHg (65-108) Arterial Blood HCO3 16 mmol/L (21-28) Arterial Blood Base Excess -7 mmol/L (-3-3) FiO2 40 Review of Systems Constitutional: yes: unresponsive Physical Exam General Appearance: normocephalic, other (ET TUBE) Skin: warm, dry Respiratory: decreased breath sounds Heart: S1S2 Abdomen: soft Genitourinary: bladder flat Extremities: pulses present Neurology: other (SEDATED) Assessment Assessment IMP HYPERNATREMIA-BETTER [id number] WITH CR DOWN TO 3.7 COVID 19 INFECTION ACUTE HYPOXIC RESP FAILURE SEVERE MET ACIDOSIS LEUCOCYTOSIS PLAN START TF NEPRO VENT SUPPORT PRESSORS HYDRATION NO PLANS FOR DIALYSIS D/W DR BEEBE FAMILY AGREEABLE WILL FOLLOW TIFFANY LOCKWOOD MD Jan 02, 2020 11:00
--- NOTE | 2020-01-02 11:38 | PDOC ---
[employer] PROGRESS NOTE Date of Service DOS: DATE: 01/02/20 TIME: 11:35 Chief Complaint Chief Complaint Severe respiratory failure secondary to COVID-19 History of Present Illness History of Present Illness 01/02/2020 Patient seen and examined Intubated, on vent AC//450/40% w/t 5 PEEP and sedated with Discussed with RN Charts reviewed Vitals/I&O Vitals/I&O: Vital Signs Date Time Temp Pulse Resp B/P (MAP) Pulse Ox O2 Delivery O2 Flow Rate FiO2 01/02/20 11:25 99 Ventilator 01/02/20 06:00 47 20 112/52 (72) 01/02/20 04:00 98.2 98.2 I & O 01/01/20 01/01/20 01/02/20 15:00 23:00 07:00 Intake Total 2556 ml 2946 ml 2090.5 ml Output Total 155 ml 235 ml 255 ml Balance 2401 ml 2711 ml 1835.5 ml Physical Exam General: Other (INTUBATED) Heart: Regular rate Abdomen: Normal bowel sounds Extremities: Other (CYANOTIC AND CLUBBING OF EXTREMITIES) Skin: No significant lesion Labs Labs: Laboratory Tests Test 01/01/20 15:00 01/02/20 06:30 01/02/20 07:35 01/02/20 08:00 Lactic Acid Level 11.1 mmol/L (0.4-2.0) Sodium Level 155 mmol/L (136-145) Potassium Level 3.2 mmol/L (3.5-5.1) Chloride Level 121 mmol/L (98-107) Carbon Dioxide Level 19 mmol/L (21-32) Anion Gap 15 (6-14) Blood Urea Nitrogen 92 mg/dL (7-20) Creatinine 3.7 mg/dL (0.6-1.0) Estimated GFR (Cockcroft-Gault) 14.3 Glucose Level 279 mg/dL (70-99) Calcium Level 7.0 mg/dL (8.5-10.1) White Blood Count 16.3 x10^3/uL (4.0-11.0) Red Blood Count 3.44 x10^6/uL (3.50-5.40) Hemoglobin 10.8 g/dL (12.0-15.5) Hematocrit 32.7 % (36.0-47.0) Mean Corpuscular Volume 95 fL (79-100) Mean Corpuscular Hemoglobin 31 pg (25-35) Mean Corpuscular Hemoglobin Concent 33 g/dL (31-37) Red Cell Distribution Width 14.0 % (11.5-14.5) Platelet Count 60 x10^3/uL (140-400) O2 Saturation 97 % (92-99) Arterial Blood pH 7.45 (7.35-7.45) Arterial Blood pCO2 at Patient Temp 23 mmHg (35-46) Arterial Blood pO2 at Patient Temp 100 mmHg (65-108) Arterial Blood HCO3 16 mmol/L (21-28) Arterial Blood Base Excess -7 mmol/L (-3-3) FiO2 40 Assessment and Plan Assessmemt and Plan Assessment Severe respiratory failure secondary to COVID-19 Plan ICU monitoring Continue current care but we are moving towards comfort care Trying to wean off the IV pressors but it is unlikely we will be able to Appreciate pulmonary input Comment Review of Relevant I have reviewed the following items aislinn (where applicable) has been applied. Medications: Current Medications Medications (Trade) Dose Ordered Sig/Pita Route PRN Reason Start Time Stop Time Status Last Admin Dose Admin Sodium Chloride 1,000 ml @ 150 mls/hr 1X ONCE IV 01/01/20 12:00 01/01/20 18:39 DC 01/01/20 12:21 Vancomycin HCl (Vanco Per Pharmacy) 1 each PRN DAILY PRN MC SEE COMMENTS 01/01/20 14:00 01/02/20 10:00 Methylprednisolone Sodium Succinate (SOLU-Medrol 125MG VIAL) 60 mg Q8HRS IV 01/01/20 14:00 01/02/20 06:01 Piperacillin Sod/ Tazobactam Sod 2.25 gm/Sodium Chloride 50 ml @ 100 mls/hr Q8HRS IV 01/01/20 14:30 01/02/20 05:59 Vancomycin HCl 1.5 gm/Sodium Chloride 500 ml @ 250 mls/hr 1X ONCE IV 01/01/20 15:00 01/01/20 16:59 DC 01/01/20 16:43 Sodium Chloride 1,000 ml @ 150 mls/hr Q6H40M IV 01/01/20 19:00 01/02/20 08:39 Potassium Chloride/Water 100 ml @ 100 mls/hr Q1H IV 01/02/20 11:00 01/02/20 12:59 01/02/20 10:50 Justicifation of Admission Dx: Justifications for Admission: Justification of Admission Dx: Yes Respiratory Failure: Mechanical Ventilation SUMMER BOJORQUEZ III DO Jan 02, 2020 11:38
[2020-01-02] MEDS: FAMOTIDINE 20 MG/2 ML VIAL IVP SCH (11:56)
--- NOTE | 2020-01-02 12:18 | NUR ---
SS following up with discharge planning. SS reviewed pt chart and discussed with pt RN. Pt remains on the vent at this time. COVID19 positive. Pt is on IV Zosyn and tube feedings. Pt on two pressors, Vasopressin, and Levo. Pt DNR. SS will continue to follow for discharge planning.
[2020-01-02] MEDS ORDERED: ATROPINE 1 MG/10 ML DISP.SYRINGE. ONE (12:55)
--- NOTE | 2020-01-02 14:16 | PDOC2 ---
CARDIAC CONSULT DATE OF CONSULT Date of Consult DATE: 01/02/20 TIME: 14:13 REASON FOR CONSULT Reason for Consult: bradycardia REFERRING PHYSICIAN Referring Physician: Naun SOURCE Source: Chart review HISTORY OF PRESENT ILLNESS HISTORY OF PRESENT ILLNESS This is a 79yo female admitted for complains of shortness of breath. She was initially at [facility] was noted with respiratory failure and hypotension. She was noted with severe lactic acidosis and was eventually started on vasopressors. She was transferred to [facility] as there was no more bed available at [facility]. She is currently on levophed and vasopressor and renal failure. Her BP is adequate with pressors and currently has sinus bradycardia with no significnat ectopies stable in mid40s. Consult is for bradycardia but currently no heart blocks, pauses that would warrant further intervention. She has significant metabolic derangement with hypernatremia and suspected for covid-19 PAST MEDICAL HISTORY Cardiovascular: HTN, Hyperlipidemia, Other (raynauds) CENTRAL NERVOUS SYSTEM: Dementia Renal/: UTI Endocrine: Hypothyroidism PAST SURGICAL HISTORY Past Surgical History: Cholecystectomy, Tonsillectomy, Other (thyroidectomy) FAMILY HISTORY Family History: Family History Unknown SOCIAL HISTORY Smoke: No ALCOHOL: none Drugs: None Lives: Group Home CURRENT MEDICATIONS CURRENT MEDICATIONS Current Medications Medications (Trade) Dose Ordered Sig/Pita Route PRN Reason Start Time Stop Time Status Last Admin Dose Admin Piperacillin Sod/ Tazobactam Sod 2.25 gm/Sodium Chloride 50 ml @ 100 mls/hr Q8HRS IV 01/01/20 14:30 01/02/20 05:59 Vancomycin HCl 1.5 gm/Sodium Chloride 500 ml @ 250 mls/hr 1X ONCE IV 01/01/20 15:00 01/01/20 16:59 DC 01/01/20 16:43 Sodium Chloride 1,000 ml @ 150 mls/hr Q6H40M IV 01/01/20 19:00 01/02/20 08:39 Potassium Chloride/Water 100 ml @ 100 mls/hr Q1H IV 01/02/20 11:00 01/02/20 12:59 DC 01/02/20 11:57 ALLERGIES ALLERGIES: Coded Allergies: No Known Drug Allergies (Unverified , 01/01/20) ROS Review of System unreliable, intubated PHYSICAL EXAM General: Other (sedated) HEENT: Atraumatic Lungs: Other (intubated with vent) Heart: Regular rate (SB 40s) Abdomen: Soft Extremities: No cyanosis Skin: No breakdown Neuro: Other (edated) MUSCULOSKELETAL: Osteoarthritic changes both hands VITALS/I&O VITALS/I&O: Vital Signs Date Time Temp Pulse Resp B/P (MAP) Pulse Ox O2 Delivery O2 Flow Rate FiO2 01/02/20 12:00 Mechanical Ventilator 01/02/20 12:00 01/02/20 11:25 99 01/02/20 06:00 47 20 01/02/20 04:00 98.2 98.2 I & O 01/01/20 01/01/20 01/02/20 15:00 23:00 07:00 Intake Total 2556 ml 2946 ml 2090.5 ml Output Total 155 ml 235 ml 255 ml Balance 2401 ml 2711 ml 1835.5 ml LABS Lab: Laboratory Tests Test 01/01/20 15:00 01/02/20 06:30 01/02/20 07:35 01/02/20 08:00 Lactic Acid Level 11.1 mmol/L (0.4-2.0) *H Sodium Level 155 mmol/L (136-145) #H Potassium Level 3.2 mmol/L (3.5-5.1) L Chloride Level 121 mmol/L (98-107) H Carbon Dioxide Level 19 mmol/L (21-32) L Anion Gap 15 (6-14) H Blood Urea Nitrogen 92 mg/dL (7-20) H Creatinine 3.7 mg/dL (0.6-1.0) H Estimated GFR (Cockcroft-Gault) 14.3 Glucose Level 279 mg/dL (70-99) H Calcium Level 7.0 mg/dL (8.5-10.1) L White Blood Count 16.3 x10^3/uL (4.0-11.0) H Red Blood Count 3.44 x10^6/uL (3.50-5.40) L Hemoglobin 10.8 g/dL (12.0-15.5) L Hematocrit 32.7 % (36.0-47.0) L Mean Corpuscular Volume 95 fL (79-100) # Mean Corpuscular Hemoglobin 31 pg (25-35) Mean Corpuscular Hemoglobin Concent 33 g/dL (31-37) Red Cell Distribution Width 14.0 % (11.5-14.5) Platelet Count 60 x10^3/uL (140-400) L O2 Saturation 97 % (92-99) Arterial Blood pH 7.45 (7.35-7.45) Arterial Blood pCO2 at Patient Temp 23 mmHg (35-46) L Arterial Blood pO2 at Patient Temp 100 mmHg (65-108) Arterial Blood HCO3 16 mmol/L (21-28) L Arterial Blood Base Excess -7 mmol/L (-3-3) L FiO2 40 Laboratory Tests 01/02/20 07:35 Laboratory Tests 01/02/20 06:30 ASSESSMENT/PLAN ASSESSMENT/PLAN 1. Acute respiratory failure with pneumonia: intubated ?covid 2. Sepsis with multiorgan system failure 3. Severe JEROME with significant metabolic derangement: per nephrology 4. Alzheimers Dementia 5. Hypothyroidism: on home replacement 6. Diastolic CHF 7. Hx of HTN and HLP Recommendations 1. Pressor support. MAP adequate. No heart blocks, pauses with stable sinus bradycardia in the mid40s mean 2. Poor prognosis. No AV lety blocking agents. previously on aricept. Supportive care at this time 3. Awaiting review on prior PCR if no covid then will obtain TTE [employer] APRN Jan 02, 2020 14:16
--- NOTE | 2020-01-02 16:23 | RAD ---
PORTABLE CHEST 1V History: Reason: covid on vent / Spl. Instructions: / History: Comparison: January 01, 2020 Findings: Stable endotracheal tube, enteric tube and right IJ central line. Increased patchy bibasilar opacities. Small left pleural effusion, unchanged. No pneumothorax. Normal heart size. Impression: 1. Increased patchy bibasilar opacities. 2. Small left pleural effusion, unchanged. Electronically signed by: Jarrell Nunez DO (01/02/2020 4:20 PM) [id number]
[2020-01-02] MEDS ORDERED: DEXTROSE 50% 25 GM / 50ML DISP.SYRIN. IV PRN (18:15)
[2020-01-02] MEDS: INSULIN LISPRO 300 UNITS/3 ML VIAL. SQ SCH ×2 (18:23→23:32)
[2020-01-03] VITALS (24 sets, daily range): BP systolic 90–128; BP diastolic 42–62
[2020-01-03] MEDS: VASOPRESSIN 20 UNIT in IV DEXTROSE 5% 100ML 100 ML IV PRN ×3 (01:02→23:16)
[2020-01-03] MEDS: methylPREDNISolone SOD SUCC PF 125 MG/2 ML VIAL. IV SCH ×2 (05:53→13:31)
[2020-01-03] MEDS: PIPERACILLIN/TAZOBACTAM 2.25 GM in IV NORMAL SALINE 50ML 50 ML IV SCH ×3 (05:54→23:16)
[2020-01-03] MEDS: INSULIN LISPRO 300 UNITS/3 ML VIAL. SQ SCH ×3 (05:55→17:54)
[2020-01-03] MEDS ORDERED: VANCOMYCIN RANDOM LEVEL. MC ONE (06:00)
[2020-01-03] MEDS: IV 1/2 NORMAL SALINE 1,000 ML IV SCH ×3 (06:12→23:15)
[2020-01-03 06:24] LABS: CALCIUM 6.6 mg/dL (8.5-10.1); CREATININE 2.1 mg/dL (0.6-1.0); GFR 27.5; MAGNESIUM 1.9 mg/dL (1.8-2.4); PHOSPHORUS 2.5 mg/dL (2.6-4.7); POTASSIUM 3.1 mmol/L (3.5-5.1)
[2020-01-03 06:27] LABS: BASO % 0 % (0-3); EOS % 0 % (0-3); HEMATOCRIT 30.5 % (36.0-47.0); LYMPH # 1.7 x10^3/uL (1.0-4.8); LYMPH % 10 % (24-48); MEAN CORPUSCULAR HEMOGLOBIN 31 pg (25-35); MEAN CORPUSCULAR HGB CONC 33 g/dL (31-37); MEAN CORPUSCULAR VOLUME 95 fL (79-100); MONO # 0.7 x10^3/uL (0.0-1.1); MONO % 4 % (0-9); NEUT # 14.5 x10^3/uL (1.8-7.7); NEUT % 86 % (31-73); RED BLOOD COUNT 3.22 x10^6/uL (3.50-5.40); WHITE BLOOD COUNT 16.9 x10^3/uL (4.0-11.0)
[2020-01-03] MEDS ORDERED: VANCOMYCIN 1 GM in IV NORMAL SALINE 250ML 250 ML IV SCH (08:00)
[2020-01-03 08:08] LABS: PLATELET COUNT 53 x10^3/uL (140-400)
--- NOTE | 2020-01-03 08:41 | PDOC ---
[employer] PROGRESS NOTE Date of Service DOS: DATE: 01/03/20 TIME: 08:38 Chief Complaint Chief Complaint Severe respiratory failure secondary to COVID-19 History of Present Illness History of Present Illness 01/02/2020 Patient seen and examined Intubated, on vent AC/16/450/40% FiO2 w/t 5 PEEP and sedated with Fentanyl OG tube at 20cc/hour Discussed with RN Charts reviewed Vitals/I&O Vitals/I&O: Vital Signs Date Time Temp Pulse Resp B/P (MAP) Pulse Ox O2 Delivery O2 Flow Rate FiO2 01/03/20 08:15 100 Ventilator 01/03/20 06:00 46 16 112/50 (70) 01/03/20 04:00 97.6 97.6 I & O 01/02/20 01/02/20 01/03/20 15:00 23:00 07:00 Intake Total 546.1 ml 2391.75 ml 2155.6 ml Output Total 200 ml 200 ml 245 ml Balance 346.1 ml 2191.75 ml 1910.6 ml Physical Exam General: Other (sedated) Heart: Regular rate (SB 40s) Abdomen: Soft Extremities: No cyanosis Skin: No breakdown Labs Labs: Laboratory Tests Test 01/02/20 18:02 01/02/20 23:09 01/03/20 05:00 01/03/20 05:52 Glucose (Fingerstick) 244 mg/dL (70-99) 203 mg/dL (70-99) 168 mg/dL (70-99) White Blood Count 16.9 x10^3/uL (4.0-11.0) Red Blood Count 3.22 x10^6/uL (3.50-5.40) Hemoglobin 10.0 g/dL (12.0-15.5) Hematocrit 30.5 % (36.0-47.0) Mean Corpuscular Volume 95 fL (79-100) Mean Corpuscular Hemoglobin 31 pg (25-35) Mean Corpuscular Hemoglobin Concent 33 g/dL (31-37) Red Cell Distribution Width 14.0 % (11.5-14.5) Platelet Count 53 x10^3/uL (140-400) Neutrophils (%) (Auto) 86 % (31-73) Lymphocytes (%) (Auto) 10 % (24-48) Monocytes (%) (Auto) 4 % (0-9) Eosinophils (%) (Auto) 0 % (0-3) Basophils (%) (Auto) 0 % (0-3) Neutrophils # (Auto) 14.5 x10^3/uL (1.8-7.7) Lymphocytes # (Auto) 1.7 x10^3/uL (1.0-4.8) Monocytes # (Auto) 0.7 x10^3/uL (0.0-1.1) Eosinophils # (Auto) 0.0 x10^3/uL (0.0-0.7) Basophils # (Auto) 0.0 x10^3/uL (0.0-0.2) Test 01/03/20 05:55 Sodium Level 147 mmol/L (136-145) Potassium Level 3.1 mmol/L (3.5-5.1) Chloride Level 116 mmol/L (98-107) Carbon Dioxide Level 19 mmol/L (21-32) Anion Gap 12 (6-14) Blood Urea Nitrogen 78 mg/dL (7-20) Creatinine 2.1 mg/dL (0.6-1.0) Estimated GFR (Cockcroft-Gault) 27.5 Glucose Level 181 mg/dL (70-99) Calcium Level 6.6 mg/dL (8.5-10.1) Phosphorus Level 2.5 mg/dL (2.6-4.7) Magnesium Level 1.9 mg/dL (1.8-2.4) Random Vancomycin Level 8.2 mcg/mL Assessment and Plan Assessmemt and Plan Assessment Severe respiratory failure secondary to COVID-19 History of dementia, hypertension, hyperlipidemia, Raynaud's. Hyperthyroidism, status post thyroidectomy. , thyroidectomy, tonsillectomy and cholecystectomy. Plan ICU monitoring Replace potassium SCD IV antibiotics IV steroids Wean off the IV pressors Appreciate pulmonary input Comment Review of Relevant I have reviewed the following items aislinn (where applicable) has been applied. Medications: Current Medications Medications (Trade) Dose Ordered Sig/Pita Route PRN Reason Start Time Stop Time Status Last Admin Dose Admin Vancomycin HCl (Vancomycin Random Level) 1 each 1X ONCE MC 01/03/20 06:00 01/03/20 06:01 DC 01/03/20 06:00 Potassium Chloride/Water 100 ml @ 100 mls/hr Q1H IV 01/02/20 11:00 01/02/20 12:59 DC 01/02/20 11:57 Insulin Human Lispro (HumaLOG) 0-5 UNITS Q6HRS SQ 01/02/20 18:30 01/03/20 05:55 Vancomycin HCl 1 gm/Sodium Chloride 250 ml @ 250 mls/hr Q36H IV 01/03/20 08:00 01/03/20 07:59 Justicifation of Admission Dx: Justifications for Admission: Justification of Admission Dx: Yes Respiratory Failure: Mechanical Ventilation SUMMER BOJORQUEZ III DO Jan 03, 2020 08:41
[2020-01-03 08:48] LABS: BASE EXCESS ABG -8 mmol/L (-3-3); HCO3 ABG 15 mmol/L (21-28); PCO2 ABG 24 mmHg (35-46); PO2 ABG 103 mmHg (65-108); SAT O2 ABG 97 % (92-99)
[2020-01-03] MEDS: FAMOTIDINE 20 MG/2 ML VIAL IVP SCH (09:49)
[2020-01-03] MEDS: POTASSIUM CHLORIDE 20MEQ 100 ML IV SCH ×2 (09:50→10:59)
[2020-01-03] MEDS: HEPARIN for SUB-Q USE 5,000 UNIT/ML VIAL. SQ SCH (09:50)
[2020-01-03 09:58] LABS: FIO2 ABG 40
[2020-01-03] MEDS: VANCOMYCIN PER PHARMACY MC PRN (10:14)
--- NOTE | 2020-01-03 10:24 | PDOC ---
Renal-Progress Notes Subjective Notes Notes ON THE VENT History of Present Illness Hx of present illness IMPROVING Vitals Vitals Vital Signs Date Time Temp Pulse Resp B/P (MAP) Pulse Ox O2 Delivery O2 Flow Rate FiO2 01/03/20 08:15 100 Ventilator 01/03/20 08:00 01/03/20 06:00 46 16 01/03/20 04:00 97.6 97.6 Weight Weight [ ] I.O. Intake and Output Intake and Output 01/03/20 07:00 Intake Total 5093.45 ml Output Total 645 ml Balance 4448.45 ml Intake IV Total 3018.45 ml Tube Feeding 1575 ml Other 500 ml Output Urine Total 645 ml Labs Labs Laboratory Tests Test 01/02/20 18:02 01/02/20 23:09 01/03/20 05:00 01/03/20 05:52 Glucose (Fingerstick) 244 mg/dL (70-99) 203 mg/dL (70-99) 168 mg/dL (70-99) White Blood Count 16.9 x10^3/uL (4.0-11.0) Red Blood Count 3.22 x10^6/uL (3.50-5.40) Hemoglobin 10.0 g/dL (12.0-15.5) Hematocrit 30.5 % (36.0-47.0) Mean Corpuscular Volume 95 fL (79-100) Mean Corpuscular Hemoglobin 31 pg (25-35) Mean Corpuscular Hemoglobin Concent 33 g/dL (31-37) Red Cell Distribution Width 14.0 % (11.5-14.5) Platelet Count 53 x10^3/uL (140-400) Neutrophils (%) (Auto) 86 % (31-73) Lymphocytes (%) (Auto) 10 % (24-48) Monocytes (%) (Auto) 4 % (0-9) Eosinophils (%) (Auto) 0 % (0-3) Basophils (%) (Auto) 0 % (0-3) Neutrophils # (Auto) 14.5 x10^3/uL (1.8-7.7) Lymphocytes # (Auto) 1.7 x10^3/uL (1.0-4.8) Monocytes # (Auto) 0.7 x10^3/uL (0.0-1.1) Eosinophils # (Auto) 0.0 x10^3/uL (0.0-0.7) Basophils # (Auto) 0.0 x10^3/uL (0.0-0.2) Test 01/03/20 05:55 01/03/20 08:00 Sodium Level 147 mmol/L (136-145) Potassium Level 3.1 mmol/L (3.5-5.1) Chloride Level 116 mmol/L (98-107) Carbon Dioxide Level 19 mmol/L (21-32) Anion Gap 12 (6-14) Blood Urea Nitrogen 78 mg/dL (7-20) Creatinine 2.1 mg/dL (0.6-1.0) Estimated GFR (Cockcroft-Gault) 27.5 Glucose Level 181 mg/dL (70-99) Calcium Level 6.6 mg/dL (8.5-10.1) Phosphorus Level 2.5 mg/dL (2.6-4.7) Magnesium Level 1.9 mg/dL (1.8-2.4) Random Vancomycin Level 8.2 mcg/mL O2 Saturation 97 % (92-99) Arterial Blood pH 7.42 (7.35-7.45) Arterial Blood pCO2 at Patient Temp 24 mmHg (35-46) Arterial Blood pO2 at Patient Temp 103 mmHg (65-108) Arterial Blood HCO3 15 mmol/L (21-28) Arterial Blood Base Excess -8 mmol/L (-3-3) FiO2 40 Review of Systems Constitutional: yes: unresponsive Physical Exam General Appearance: normocephalic, other (ET TUBE) Skin: warm, dry Respiratory: decreased breath sounds Heart: S1S2 Abdomen: soft Genitourinary: bladder flat Extremities: pulses present Neurology: other (SEDATED) Assessment Assessment IMP HYPERNATREMIA-BETTER [id number] WITH CR DOWN TO 2.1 LOW PO4 COVID 19 INFECTION ACUTE HYPOXIC RESP FAILURE SEVERE MET ACIDOSIS-BETTER LEUCOCYTOSIS PLAN CONT TF NEPRO VENT SUPPORT PRESSORS IF NEEDED HYDRATION NO NEED FOR DIALYSIS D/W DR BEEBE REPLACE K AND PO4 WILL FOLLOW TIFFANY LOCKWOOD MD Jan 03, 2020 10:24
--- NOTE | 2020-01-03 10:41 | PDOC ---
PULMONARY PROGRESS NOTES DATE: 01/03/20 TIME: 10:37 Subjective remains intubated/sedated improving pressor requirements Vitals Vital Signs Date Time Temp Pulse Resp B/P (MAP) Pulse Ox O2 Delivery O2 Flow Rate FiO2 01/03/20 10:00 56 16 108/52 (70) 100 Ventilator 01/03/20 04:00 97.6 97.6 Comments visual exam done due to COVID pandemia no soa, no paradoxical breathing no rash Labs Laboratory Tests Test 01/01/20 15:00 01/02/20 06:30 01/02/20 07:35 01/02/20 08:00 Lactic Acid Level 11.1 mmol/L (0.4-2.0) Sodium Level 155 mmol/L (136-145) Potassium Level 3.2 mmol/L (3.5-5.1) Chloride Level 121 mmol/L (98-107) Carbon Dioxide Level 19 mmol/L (21-32) Anion Gap 15 (6-14) Blood Urea Nitrogen 92 mg/dL (7-20) Creatinine 3.7 mg/dL (0.6-1.0) Estimated GFR (Cockcroft-Gault) 14.3 Glucose Level 279 mg/dL (70-99) Calcium Level 7.0 mg/dL (8.5-10.1) Thyroid Stimulating Hormone (TSH) 2.148 uIU/mL (0.358-3.74) White Blood Count 16.3 x10^3/uL (4.0-11.0) Red Blood Count 3.44 x10^6/uL (3.50-5.40) Hemoglobin 10.8 g/dL (12.0-15.5) Hematocrit 32.7 % (36.0-47.0) Mean Corpuscular Volume 95 fL (79-100) Mean Corpuscular Hemoglobin 31 pg (25-35) Mean Corpuscular Hemoglobin Concent 33 g/dL (31-37) Red Cell Distribution Width 14.0 % (11.5-14.5) Platelet Count 60 x10^3/uL (140-400) O2 Saturation 97 % (92-99) Arterial Blood pH 7.45 (7.35-7.45) Arterial Blood pCO2 at Patient Temp 23 mmHg (35-46) Arterial Blood pO2 at Patient Temp 100 mmHg (65-108) Arterial Blood HCO3 16 mmol/L (21-28) Arterial Blood Base Excess -7 mmol/L (-3-3) FiO2 40 Test 01/02/20 18:02 01/02/20 23:09 01/03/20 05:00 01/03/20 05:52 Glucose (Fingerstick) 244 mg/dL (70-99) 203 mg/dL (70-99) 168 mg/dL (70-99) White Blood Count 16.9 x10^3/uL (4.0-11.0) Red Blood Count 3.22 x10^6/uL (3.50-5.40) Hemoglobin 10.0 g/dL (12.0-15.5) Hematocrit 30.5 % (36.0-47.0) Mean Corpuscular Volume 95 fL (79-100) Mean Corpuscular Hemoglobin 31 pg (25-35) Mean Corpuscular Hemoglobin Concent 33 g/dL (31-37) Red Cell Distribution Width 14.0 % (11.5-14.5) Platelet Count 53 x10^3/uL (140-400) Neutrophils (%) (Auto) 86 % (31-73) Lymphocytes (%) (Auto) 10 % (24-48) Monocytes (%) (Auto) 4 % (0-9) Eosinophils (%) (Auto) 0 % (0-3) Basophils (%) (Auto) 0 % (0-3) Neutrophils # (Auto) 14.5 x10^3/uL (1.8-7.7) Lymphocytes # (Auto) 1.7 x10^3/uL (1.0-4.8) Monocytes # (Auto) 0.7 x10^3/uL (0.0-1.1) Eosinophils # (Auto) 0.0 x10^3/uL (0.0-0.7) Basophils # (Auto) 0.0 x10^3/uL (0.0-0.2) Test 01/03/20 05:55 01/03/20 08:00 Sodium Level 147 mmol/L (136-145) Potassium Level 3.1 mmol/L (3.5-5.1) Chloride Level 116 mmol/L (98-107) Carbon Dioxide Level 19 mmol/L (21-32) Anion Gap 12 (6-14) Blood Urea Nitrogen 78 mg/dL (7-20) Creatinine 2.1 mg/dL (0.6-1.0) Estimated GFR (Cockcroft-Gault) 27.5 Glucose Level 181 mg/dL (70-99) Calcium Level 6.6 mg/dL (8.5-10.1) Phosphorus Level 2.5 mg/dL (2.6-4.7) Magnesium Level 1.9 mg/dL (1.8-2.4) Random Vancomycin Level 8.2 mcg/mL O2 Saturation 97 % (92-99) Arterial Blood pH 7.42 (7.35-7.45) Arterial Blood pCO2 at Patient Temp 24 mmHg (35-46) Arterial Blood pO2 at Patient Temp 103 mmHg (65-108) Arterial Blood HCO3 15 mmol/L (21-28) Arterial Blood Base Excess -8 mmol/L (-3-3) FiO2 40 Laboratory Tests Test 01/02/20 18:02 01/02/20 23:09 01/03/20 05:00 01/03/20 05:52 Glucose (Fingerstick) 244 mg/dL (70-99) 203 mg/dL (70-99) 168 mg/dL (70-99) White Blood Count 16.9 x10^3/uL (4.0-11.0) Red Blood Count 3.22 x10^6/uL (3.50-5.40) Hemoglobin 10.0 g/dL (12.0-15.5) Hematocrit 30.5 % (36.0-47.0) Mean Corpuscular Volume 95 fL (79-100) Mean Corpuscular Hemoglobin 31 pg (25-35) Mean Corpuscular Hemoglobin Concent 33 g/dL (31-37) Red Cell Distribution Width 14.0 % (11.5-14.5) Platelet Count 53 x10^3/uL (140-400) Neutrophils (%) (Auto) 86 % (31-73) Lymphocytes (%) (Auto) 10 % (24-48) Monocytes (%) (Auto) 4 % (0-9) Eosinophils (%) (Auto) 0 % (0-3) Basophils (%) (Auto) 0 % (0-3) Neutrophils # (Auto) 14.5 x10^3/uL (1.8-7.7) Lymphocytes # (Auto) 1.7 x10^3/uL (1.0-4.8) Monocytes # (Auto) 0.7 x10^3/uL (0.0-1.1) Eosinophils # (Auto) 0.0 x10^3/uL (0.0-0.7) Basophils # (Auto) 0.0 x10^3/uL (0.0-0.2) Test 01/03/20 05:55 01/03/20 08:00 Sodium Level 147 mmol/L (136-145) Potassium Level 3.1 mmol/L (3.5-5.1) Chloride Level 116 mmol/L (98-107) Carbon Dioxide Level 19 mmol/L (21-32) Anion Gap 12 (6-14) Blood Urea Nitrogen 78 mg/dL (7-20) Creatinine 2.1 mg/dL (0.6-1.0) Estimated GFR (Cockcroft-Gault) 27.5 Glucose Level 181 mg/dL (70-99) Calcium Level 6.6 mg/dL (8.5-10.1) Phosphorus Level 2.5 mg/dL (2.6-4.7) Magnesium Level 1.9 mg/dL (1.8-2.4) Random Vancomycin Level 8.2 mcg/mL O2 Saturation 97 % (92-99) Arterial Blood pH 7.42 (7.35-7.45) Arterial Blood pCO2 at Patient Temp 24 mmHg (35-46) Arterial Blood pO2 at Patient Temp 103 mmHg (65-108) Arterial Blood HCO3 15 mmol/L (21-28) Arterial Blood Base Excess -8 mmol/L (-3-3) FiO2 40 Comments CXR 01/01 Impression: 1. Increased patchy bibasilar opacities. 2. Small left pleural effusion, unchanged. Impression . 1. Acute hypoxic respiratory failure secondary to multisystem organ failure from COVID pneumonia and acute lung injury. improving 2. Severe metabolic acidosis, likely secondary to acute kidney injury and shock/ lactic acidosis 3. Acute kidney injury. improving with IVF 4. Abnormal chest x-ray consistent with COVID-19 pneumonia. 5. COVID-19 positive. 6. Thrombocytopenia Plan . Cont. current vent support Fi02 40% and PEEP 5 clinically improving but still critically ill prn bicarbonate. wean vasopressors to keep MAP greater than 65 Stress ulcer prophylaxis, D/C SQ heparin 2/2 low plt count continue BS antibiotics Continue IV steroids Discussed with RN and RT. Chart reviewed. Labs reviewed and imaging reviewed. Critical care time 30 minutes. ABBEY BEEBE MD Jan 03, 2020 10:41
[2020-01-03] MEDS ORDERED: SODIUM PHOSPHATE 20 MMOL in IV NORMAL SALINE 250ML 250 ML IV ONE (12:00)
--- NOTE | 2020-01-03 12:22 | PDOC ---
[employer] V[employer] CLERK 01/03/20 1222: CARDIO Progress Notes Date and Time Date of Service 01/03/2020 Time of Evaluation 1130 Subjective Subjective: Other (intubated) Vitals Vitals Vital Signs Date Time Temp Pulse Resp B/P (MAP) Pulse Ox O2 Delivery O2 Flow Rate FiO2 01/03/20 12:00 Mechanical Ventilator 01/03/20 12:00 01/03/20 12:00 97.9 56 16 95 97.9 Weight Weight [ ] Input and Output Intake and Output Intake and Output 01/03/20 07:00 Intake Total 5093.45 ml Output Total 645 ml Balance 4448.45 ml Intake IV Total 3018.45 ml Tube Feeding 1575 ml Other 500 ml Output Urine Total 645 ml Laboratory Labs Laboratory Tests Test 01/02/20 12:20 01/02/20 18:02 01/02/20 23:09 01/03/20 05:00 Coronavirus (PCR) Detected (Not Detected) Glucose (Fingerstick) 244 mg/dL (70-99) 203 mg/dL (70-99) White Blood Count 16.9 x10^3/uL (4.0-11.0) Red Blood Count 3.22 x10^6/uL (3.50-5.40) Hemoglobin 10.0 g/dL (12.0-15.5) Hematocrit 30.5 % (36.0-47.0) Mean Corpuscular Volume 95 fL (79-100) Mean Corpuscular Hemoglobin 31 pg (25-35) Mean Corpuscular Hemoglobin Concent 33 g/dL (31-37) Red Cell Distribution Width 14.0 % (11.5-14.5) Platelet Count 53 x10^3/uL (140-400) Neutrophils (%) (Auto) 86 % (31-73) Lymphocytes (%) (Auto) 10 % (24-48) Monocytes (%) (Auto) 4 % (0-9) Eosinophils (%) (Auto) 0 % (0-3) Basophils (%) (Auto) 0 % (0-3) Neutrophils # (Auto) 14.5 x10^3/uL (1.8-7.7) Lymphocytes # (Auto) 1.7 x10^3/uL (1.0-4.8) Monocytes # (Auto) 0.7 x10^3/uL (0.0-1.1) Eosinophils # (Auto) 0.0 x10^3/uL (0.0-0.7) Basophils # (Auto) 0.0 x10^3/uL (0.0-0.2) Test 01/03/20 05:52 01/03/20 05:55 01/03/20 08:00 01/03/20 11:20 Glucose (Fingerstick) 168 mg/dL (70-99) 171 mg/dL (70-99) Sodium Level 147 mmol/L (136-145) Potassium Level 3.1 mmol/L (3.5-5.1) Chloride Level 116 mmol/L (98-107) Carbon Dioxide Level 19 mmol/L (21-32) Anion Gap 12 (6-14) Blood Urea Nitrogen 78 mg/dL (7-20) Creatinine 2.1 mg/dL (0.6-1.0) Estimated GFR (Cockcroft-Gault) 27.5 Glucose Level 181 mg/dL (70-99) Calcium Level 6.6 mg/dL (8.5-10.1) Phosphorus Level 2.5 mg/dL (2.6-4.7) Magnesium Level 1.9 mg/dL (1.8-2.4) Random Vancomycin Level 8.2 mcg/mL O2 Saturation 97 % (92-99) Arterial Blood pH 7.42 (7.35-7.45) Arterial Blood pCO2 at Patient Temp 24 mmHg (35-46) Arterial Blood pO2 at Patient Temp 103 mmHg (65-108) Arterial Blood HCO3 15 mmol/L (21-28) Arterial Blood Base Excess -8 mmol/L (-3-3) FiO2 40 Review of Systems Constitutional: yes: unresponsive Physical Exam Chest: Symmetric LUNGS: Other (vent) Heart: RRR (SR/SB) Abdomen: Other (soft) Neurology: other (SEDATED) Assessment Assessment 1. Acute respiratory failure with covid pneumonia 2. Sepsis with multiorgan system failure 3. Severe JEROME with significant metabolic derangement: improving. per nephrology. 4. Alzheimers Dementia 5. Hypothyroidism: on home replacement, TSH 6. Diastolic CHF 7. Hx of HTN and HLP 8. Coagulopathy/Thrombocytopenia; INR 1.6. PLT 53 9. Sinus bradycardia: No heart blocks, pauses with stable sinus bradycardia was in mid40s now 50s Recommendations 1. Still needing vasopressin. MAP adequate. Replace K No AV lety blocking agents. previously on aricept. 3. Supportive care. Justicifation of Admission Dx: Justifications for Admission: Justification of Admission Dx: Yes Respiratory Failure: Mechanical Ventilation PRITI QUACH MD 01/03/202043: CARDIO Progress Notes Assessment Assessment Agree with SPECIAL LIBRARY LIBRARIAN's assessment and plan. ARF from COVID PNA and multiorgan failure s/p intubation and needing pressor support Simus sunitha probably vagally mediated - no significant pauses Will continue to monitor tele Nephrology following for JEROME [employer] APRN Jan 03, 2020 12:22 PRITI QUACH MD Jan 03, 2020 20:44
[2020-01-04] VITALS (24 sets, daily range): BP systolic 102–142; BP diastolic 52–70
[2020-01-04] MEDS: methylPREDNISolone SOD SUCC PF 125 MG/2 ML VIAL. IV SCH ×4 (00:01→23:51)
[2020-01-04] MEDS: INSULIN LISPRO 300 UNITS/3 ML VIAL. SQ SCH ×5 (00:54→23:52)
[2020-01-04] MEDS: PIPERACILLIN/TAZOBACTAM 2.25 GM in IV NORMAL SALINE 50ML 50 ML IV SCH ×3 (05:37→23:51)
[2020-01-04] MEDS: IV 1/2 NORMAL SALINE 1,000 ML IV SCH ×3 (05:37→17:04)
[2020-01-04 06:04] LABS: CREATININE 1.4 mg/dL (0.6-1.0); GFR 43.9; MAGNESIUM 1.6 mg/dL (1.8-2.4); PHOSPHORUS 2.4 mg/dL (2.6-4.7)
[2020-01-04] MEDS ORDERED: MAGNESIUM SULFATE 4GM 100 ML IV ONE (07:30)
[2020-01-04] MEDS: POTASSIUM CHLORIDE 20MEQ 100 ML IV SCH ×2 (07:33→08:41)
[2020-01-04 08:28] LABS: BASE EXCESS ABG -9 mmol/L (-3-3); HCO3 ABG 13 mmol/L (21-28); PO2 ABG 93 mmHg (65-108); SAT O2 ABG 97 % (92-99)
[2020-01-04 08:31] LABS: FIO2 ABG 40; PCO2 ABG 20 mmHg (35-46)
[2020-01-04] MEDS ORDERED: SODIUM BICARB ADULT 8.4% 50 MEQ/50 ML DISP.SYRIN. IV ONE ×2 (09:00→13:30)
[2020-01-04] MEDS ORDERED: PROPOFOL 100 ML IV PRN (09:00)
[2020-01-04] MEDS: FAMOTIDINE 20 MG/2 ML VIAL IVP SCH (09:10)
[2020-01-04 09:30] LABS: BASO % 0 % (0-3); EOS % 0 % (0-3); HEMATOCRIT 29.7 % (36.0-47.0); HEMOGLOBIN 9.7 g/dL (12.0-15.5); LYMPH # 1.7 x10^3/uL (1.0-4.8); LYMPH % 12 % (24-48); MEAN CORPUSCULAR HEMOGLOBIN 31 pg (25-35); MEAN CORPUSCULAR HGB CONC 33 g/dL (31-37); MEAN CORPUSCULAR VOLUME 95 fL (79-100); MONO # 0.5 x10^3/uL (0.0-1.1); MONO % 3 % (0-9); NEUT # 12.9 x10^3/uL (1.8-7.7); NEUT % 85 % (31-73); PLATELET COUNT 53 x10^3/uL (140-400); RED BLOOD COUNT 3.12 x10^6/uL (3.50-5.40); RED CELL DISTRIBUTION WIDTH 13.8 % (11.5-14.5); WHITE BLOOD COUNT 15.1 x10^3/uL (4.0-11.0)
--- NOTE | 2020-01-04 09:38 | PDOC ---
PULMONARY PROGRESS NOTES DATE: 01/04/20 TIME: 09:33 Subjective remains intubated/sedated off pressor doing paradoxical breathing off sedation met acidosis today Vitals Vital Signs Date Time Temp Pulse Resp B/P (MAP) Pulse Ox O2 Delivery O2 Flow Rate FiO2 01/04/20 08:25 99 Ventilator 01/04/20 06:00 66 22 130/65 (86) 01/04/20 04:00 97.9 97.9 Comments visual exam done due to COVID pandemia no soa, paradoxical breathing while off sedation no rash Labs Laboratory Tests Test 01/02/20 12:20 01/02/20 18:02 01/02/20 23:09 01/03/20 05:00 Coronavirus (PCR) Detected (Not Detected) Glucose (Fingerstick) 244 mg/dL (70-99) 203 mg/dL (70-99) White Blood Count 16.9 x10^3/uL (4.0-11.0) Red Blood Count 3.22 x10^6/uL (3.50-5.40) Hemoglobin 10.0 g/dL (12.0-15.5) Hematocrit 30.5 % (36.0-47.0) Mean Corpuscular Volume 95 fL (79-100) Mean Corpuscular Hemoglobin 31 pg (25-35) Mean Corpuscular Hemoglobin Concent 33 g/dL (31-37) Red Cell Distribution Width 14.0 % (11.5-14.5) Platelet Count 53 x10^3/uL (140-400) Neutrophils (%) (Auto) 86 % (31-73) Lymphocytes (%) (Auto) 10 % (24-48) Monocytes (%) (Auto) 4 % (0-9) Eosinophils (%) (Auto) 0 % (0-3) Basophils (%) (Auto) 0 % (0-3) Neutrophils # (Auto) 14.5 x10^3/uL (1.8-7.7) Lymphocytes # (Auto) 1.7 x10^3/uL (1.0-4.8) Monocytes # (Auto) 0.7 x10^3/uL (0.0-1.1) Eosinophils # (Auto) 0.0 x10^3/uL (0.0-0.7) Basophils # (Auto) 0.0 x10^3/uL (0.0-0.2) Test 01/03/20 05:52 01/03/20 05:55 01/03/20 08:00 01/03/20 11:20 Glucose (Fingerstick) 168 mg/dL (70-99) 171 mg/dL (70-99) Sodium Level 147 mmol/L (136-145) Potassium Level 3.1 mmol/L (3.5-5.1) Chloride Level 116 mmol/L (98-107) Carbon Dioxide Level 19 mmol/L (21-32) Anion Gap 12 (6-14) Blood Urea Nitrogen 78 mg/dL (7-20) Creatinine 2.1 mg/dL (0.6-1.0) Estimated GFR (Cockcroft-Gault) 27.5 Glucose Level 181 mg/dL (70-99) Calcium Level 6.6 mg/dL (8.5-10.1) Phosphorus Level 2.5 mg/dL (2.6-4.7) Magnesium Level 1.9 mg/dL (1.8-2.4) Random Vancomycin Level 8.2 mcg/mL O2 Saturation 97 % (92-99) Arterial Blood pH 7.42 (7.35-7.45) Arterial Blood pCO2 at Patient Temp 24 mmHg (35-46) Arterial Blood pO2 at Patient Temp 103 mmHg (65-108) Arterial Blood HCO3 15 mmol/L (21-28) Arterial Blood Base Excess -8 mmol/L (-3-3) FiO2 40 Test 01/03/20 13:10 01/03/20 17:52 01/04/20 00:31 01/04/20 05:00 Prothrombin Time 18.0 SEC (11.7-14.0) Prothromb Time International Ratio 1.5 (0.8-1.1) Glucose (Fingerstick) 168 mg/dL (70-99) 227 mg/dL (70-99) Sodium Level 141 mmol/L (136-145) Potassium Level 3.0 mmol/L (3.5-5.1) Chloride Level 111 mmol/L (98-107) Carbon Dioxide Level 18 mmol/L (21-32) Anion Gap 12 (6-14) Blood Urea Nitrogen 65 mg/dL (7-20) Creatinine 1.4 mg/dL (0.6-1.0) Estimated GFR (Cockcroft-Gault) 43.9 Glucose Level 261 mg/dL (70-99) Calcium Level 7.0 mg/dL (8.5-10.1) Phosphorus Level 2.4 mg/dL (2.6-4.7) Magnesium Level 1.6 mg/dL (1.8-2.4) Test 01/04/20 05:11 01/04/20 08:25 Glucose (Fingerstick) 256 mg/dL (70-99) O2 Saturation 97 % (92-99) Arterial Blood pH 7.45 (7.35-7.45) Arterial Blood pCO2 at Patient Temp 20 mmHg (35-46) Arterial Blood pO2 at Patient Temp 93 mmHg (65-108) Arterial Blood HCO3 13 mmol/L (21-28) Arterial Blood Base Excess -9 mmol/L (-3-3) FiO2 40 Laboratory Tests Test 01/03/20 11:20 01/03/20 13:10 01/03/20 17:52 01/04/20 00:31 Glucose (Fingerstick) 171 mg/dL (70-99) 168 mg/dL (70-99) 227 mg/dL (70-99) Prothrombin Time 18.0 SEC (11.7-14.0) Prothromb Time International Ratio 1.5 (0.8-1.1) Test 01/04/20 05:00 01/04/20 05:11 01/04/20 08:25 Sodium Level 141 mmol/L (136-145) Potassium Level 3.0 mmol/L (3.5-5.1) Chloride Level 111 mmol/L (98-107) Carbon Dioxide Level 18 mmol/L (21-32) Anion Gap 12 (6-14) Blood Urea Nitrogen 65 mg/dL (7-20) Creatinine 1.4 mg/dL (0.6-1.0) Estimated GFR (Cockcroft-Gault) 43.9 Glucose Level 261 mg/dL (70-99) Calcium Level 7.0 mg/dL (8.5-10.1) Phosphorus Level 2.4 mg/dL (2.6-4.7) Magnesium Level 1.6 mg/dL (1.8-2.4) Glucose (Fingerstick) 256 mg/dL (70-99) O2 Saturation 97 % (92-99) Arterial Blood pH 7.45 (7.35-7.45) Arterial Blood pCO2 at Patient Temp 20 mmHg (35-46) Arterial Blood pO2 at Patient Temp 93 mmHg (65-108) Arterial Blood HCO3 13 mmol/L (21-28) Arterial Blood Base Excess -9 mmol/L (-3-3) FiO2 40 Comments CXR 01/01 Impression: 1. Increased patchy bibasilar opacities. 2. Small left pleural effusion, unchanged. Impression . 1. Acute hypoxic respiratory failure secondary to multisystem organ failure from COVID pneumonia and acute lung injury. improving 2. Severe metabolic acidosis, likely secondary to acute kidney injury and shock/ lactic acidosis 3. Acute kidney injury. improving with IVF 4. Abnormal chest x-ray consistent with COVID-19 pneumonia. 5. COVID-19 positive. 6. Thrombocytopenia Plan . Cont. current vent support Fi02 40% and PEEP 5 re sedate patient IV bicarb, repeat lactic acid clinically improving but still critically ill off vasopressors . keep MAP greater than 65 Stress ulcer prophylaxis, off SQ heparin 2/2 low plt count continue BS antibiotics Continue IV steroids thrombocytopenia due to sepsis Discussed with RN and RT. Chart reviewed. Labs reviewed and imaging reviewed. Critical care time 30 minutes. ABBEY BEEBE MD Jan 04, 2020 09:38
[2020-01-04] MEDS ORDERED: IV NORMAL SALINE 500ML BAG 500 ML IV PRN (10:00)
[2020-01-04] MEDS ORDERED: ATROPINE 0.5 MG/5 ML DISP.SYRINGE. IV PRN (10:00)
[2020-01-04] MEDS ORDERED: DEXMEDETOMIDINE 400 MCG in IV NORMAL SALINE 100ML 96 ML IV PRN (10:00)
[2020-01-04] MEDS: VANCOMYCIN 1 GM in IV NORMAL SALINE 250ML 250 ML IV SCH (10:03)
[2020-01-04] MEDS: VANCOMYCIN PER PHARMACY MC PRN (10:03)
--- NOTE | 2020-01-04 10:03 | NUR ---
Pharmacy Vancomycin Dosing Note S:Consulted to monitor and dose vancomycin started 01/01/20. O:SALLIE RHOADES is a 79 year old F with Sepsis . Height: 5 feet, 3 inches Weight: 80.0 kg [place] Body Weight: 52.40 Adjusted Body Weight: 63.44 Dosing Weight: Other Antibiotics: ZOSYN LABS: Last BUN: 65 Last Creatinine: 1.4 Creatinine Clearance: 32 mL/min Last WBC: 16.3 Last Procalcitonin: - Tmax (past 24 hours): 99 Microbiology: 01/03 NONE I/O: 7167/7167 Drug Levels: Last Random level: 8.2 on 01/03/20 at 0550 Last dose given 01/03/20 at 0759 Vancomycin Dosing: Loading Dose: x1 Dosing Weight: Target Trough: 15-20 A: Based on: IMPROVED RENAL FUNCTION, P: 1. CHANGE DOSE TO Vancomycin 1000 mg IV q24h 2. Follow up Trough level on 01/06/20 at 1030 3. Pharmacy will continue to monitor, follow and adjust therapy as needed. ALEXA CENTENO [facility], 01/04/20 1005
--- NOTE | 2020-01-04 11:28 | PDOC ---
Renal-Progress Notes Subjective Notes Notes INTUBATED History of Present Illness Hx of present illness IMPROVING Vitals Vitals Vital Signs Date Time Temp Pulse Resp B/P (MAP) Pulse Ox O2 Delivery O2 Flow Rate FiO2 01/04/20 11:00 60 18 102/52 (69) 100 Ventilator 01/04/20 08:00 97.4 97.4 Weight Weight [ ] I.O. Intake and Output Intake and Output 01/04/20 07:00 Intake Total 7167.84 ml Output Total 715 ml Balance 6452.84 ml Intake IV Total 4026.84 ml Tube Feeding 2141 ml Other 1000 ml Output Urine Total 715 ml Labs Labs Laboratory Tests Test 01/03/20 13:10 01/03/20 17:52 01/04/20 00:31 01/04/20 05:00 Prothrombin Time 18.0 SEC (11.7-14.0) Prothromb Time International Ratio 1.5 (0.8-1.1) Glucose (Fingerstick) 168 mg/dL (70-99) 227 mg/dL (70-99) White Blood Count 15.1 x10^3/uL (4.0-11.0) Red Blood Count 3.12 x10^6/uL (3.50-5.40) Hemoglobin 9.7 g/dL (12.0-15.5) Hematocrit 29.7 % (36.0-47.0) Mean Corpuscular Volume 95 fL (79-100) Mean Corpuscular Hemoglobin 31 pg (25-35) Mean Corpuscular Hemoglobin Concent 33 g/dL (31-37) Red Cell Distribution Width 13.8 % (11.5-14.5) Platelet Count 53 x10^3/uL (140-400) Neutrophils (%) (Auto) 85 % (31-73) Lymphocytes (%) (Auto) 12 % (24-48) Monocytes (%) (Auto) 3 % (0-9) Eosinophils (%) (Auto) 0 % (0-3) Basophils (%) (Auto) 0 % (0-3) Neutrophils # (Auto) 12.9 x10^3/uL (1.8-7.7) Lymphocytes # (Auto) 1.7 x10^3/uL (1.0-4.8) Monocytes # (Auto) 0.5 x10^3/uL (0.0-1.1) Eosinophils # (Auto) 0.0 x10^3/uL (0.0-0.7) Basophils # (Auto) 0.0 x10^3/uL (0.0-0.2) Sodium Level 141 mmol/L (136-145) Potassium Level 3.0 mmol/L (3.5-5.1) Chloride Level 111 mmol/L (98-107) Carbon Dioxide Level 18 mmol/L (21-32) Anion Gap 12 (6-14) Blood Urea Nitrogen 65 mg/dL (7-20) Creatinine 1.4 mg/dL (0.6-1.0) Estimated GFR (Cockcroft-Gault) 43.9 Glucose Level 261 mg/dL (70-99) Calcium Level 7.0 mg/dL (8.5-10.1) Phosphorus Level 2.4 mg/dL (2.6-4.7) Magnesium Level 1.6 mg/dL (1.8-2.4) Test 01/04/20 05:11 01/04/20 08:25 01/04/20 09:20 Glucose (Fingerstick) 256 mg/dL (70-99) O2 Saturation 97 % (92-99) Arterial Blood pH 7.45 (7.35-7.45) Arterial Blood pCO2 at Patient Temp 20 mmHg (35-46) Arterial Blood pO2 at Patient Temp 93 mmHg (65-108) Arterial Blood HCO3 13 mmol/L (21-28) Arterial Blood Base Excess -9 mmol/L (-3-3) FiO2 40 Lactic Acid Level 2.5 mmol/L (0.4-2.0) Review of Systems Constitutional: yes: unresponsive Physical Exam General Appearance: normocephalic, other (ET TUBE) Skin: warm, dry Respiratory: decreased breath sounds Heart: S1S2 Abdomen: soft Genitourinary: bladder flat Extremities: pulses present Neurology: other (SEDATED) Assessment Assessment IMP HYPERNATREMIA-BETTER [id number] WITH CR DOWN TO 1.4 LOW PO4-BETTER LOW K COVID 19 INFECTION ACUTE HYPOXIC RESP FAILURE SEVERE MET ACIDOSIS-BETTER LEUCOCYTOSIS PLAN CONT TF NEPRO VENT SUPPORT PRESSORS IF NEEDED HYDRATION D/W DR BEEBE REPLACE K AND PO4 NEEDED WILL FOLLOW TIFFANY LOCKWOOD MD Jan 04, 2020 11:28
--- NOTE | 2020-01-04 11:57 | PDOC ---
[employer] PROGRESS NOTE Date of Service DOS: DATE: 01/04/20 TIME: 11:56 Chief Complaint Chief Complaint Severe respiratory failure secondary to COVID-19 History of Present Illness History of Present Illness 01/04/2020 Patient seen and examined Intubated, on vent AC/16/450/40% FiO2 w/t 5 PEEP and sedated with Prededex Discussed with RN Charts reviewed 01/03/2020 Patient seen and examined Intubated, on vent AC/16/450/40% FiO2 w/t 5 PEEP and sedated with Fentanyl OG tube at 20cc/hour Discussed with RN Charts reviewed Vitals/I&O Vitals/I&O: Vital Signs Date Time Temp Pulse Resp B/P (MAP) Pulse Ox O2 Delivery O2 Flow Rate FiO2 01/04/20 11:51 Mechanical Ventilator 01/04/20 11:00 60 18 102/52 (69) 100 01/04/20 08:00 97.4 97.4 I & O 01/03/20 01/03/20 01/04/20 15:00 23:00 07:00 Intake Total 850 ml 3881.94 ml 2435.9 ml Output Total 220 ml 165 ml 330 ml Balance 630 ml 3716.94 ml 2105.9 ml Physical Exam General: Other (sedated) Heart: Regular rate (SB 40s) Abdomen: Soft Extremities: No cyanosis Skin: No breakdown Labs Labs: Laboratory Tests Test 01/03/20 13:10 01/03/20 17:52 01/04/20 00:31 01/04/20 05:00 Prothrombin Time 18.0 SEC (11.7-14.0) Prothromb Time International Ratio 1.5 (0.8-1.1) Glucose (Fingerstick) 168 mg/dL (70-99) 227 mg/dL (70-99) White Blood Count 15.1 x10^3/uL (4.0-11.0) Red Blood Count 3.12 x10^6/uL (3.50-5.40) Hemoglobin 9.7 g/dL (12.0-15.5) Hematocrit 29.7 % (36.0-47.0) Mean Corpuscular Volume 95 fL (79-100) Mean Corpuscular Hemoglobin 31 pg (25-35) Mean Corpuscular Hemoglobin Concent 33 g/dL (31-37) Red Cell Distribution Width 13.8 % (11.5-14.5) Platelet Count 53 x10^3/uL (140-400) Neutrophils (%) (Auto) 85 % (31-73) Lymphocytes (%) (Auto) 12 % (24-48) Monocytes (%) (Auto) 3 % (0-9) Eosinophils (%) (Auto) 0 % (0-3) Basophils (%) (Auto) 0 % (0-3) Neutrophils # (Auto) 12.9 x10^3/uL (1.8-7.7) Lymphocytes # (Auto) 1.7 x10^3/uL (1.0-4.8) Monocytes # (Auto) 0.5 x10^3/uL (0.0-1.1) Eosinophils # (Auto) 0.0 x10^3/uL (0.0-0.7) Basophils # (Auto) 0.0 x10^3/uL (0.0-0.2) Sodium Level 141 mmol/L (136-145) Potassium Level 3.0 mmol/L (3.5-5.1) Chloride Level 111 mmol/L (98-107) Carbon Dioxide Level 18 mmol/L (21-32) Anion Gap 12 (6-14) Blood Urea Nitrogen 65 mg/dL (7-20) Creatinine 1.4 mg/dL (0.6-1.0) Estimated GFR (Cockcroft-Gault) 43.9 Glucose Level 261 mg/dL (70-99) Calcium Level 7.0 mg/dL (8.5-10.1) Phosphorus Level 2.4 mg/dL (2.6-4.7) Magnesium Level 1.6 mg/dL (1.8-2.4) Test 01/04/20 05:11 01/04/20 08:25 01/04/20 09:20 Glucose (Fingerstick) 256 mg/dL (70-99) O2 Saturation 97 % (92-99) Arterial Blood pH 7.45 (7.35-7.45) Arterial Blood pCO2 at Patient Temp 20 mmHg (35-46) Arterial Blood pO2 at Patient Temp 93 mmHg (65-108) Arterial Blood HCO3 13 mmol/L (21-28) Arterial Blood Base Excess -9 mmol/L (-3-3) FiO2 40 Lactic Acid Level 2.5 mmol/L (0.4-2.0) Assessment and Plan Assessmemt and Plan Assessment Severe respiratory failure secondary to COVID-19 History of dementia, hypertension, hyperlipidemia, Raynaud's. Hyperthyroidism, status post thyroidectomy. , thyroidectomy, tonsillectomy and cholecystectomy. Plan ICU monitoring Respiratory isolation Trend labs (lactic acid, Potassium and Mg) Replace potassium and Mg SCD IV antibiotics IV steroids Wean off IV pressors Total time 32-minute Comment Review of Relevant I have reviewed the following items aislinn (where applicable) has been applied. Medications: Current Medications Medications (Trade) Dose Ordered Sig/Pita Route PRN Reason Start Time Stop Time Status Last Admin Dose Admin Sodium Phosphate 20 mmol/Sodium Chloride 256.6667 ml @ 64.167 m... 1X ONCE IV 01/03/20 12:00 01/03/20 15:59 DC 01/03/20 12:29 Magnesium Sulfate 100 ml @ 25 mls/hr 1X ONCE IV 01/04/20 07:30 01/04/20 11:29 DC 01/04/20 07:34 Potassium Chloride/Water 100 ml @ 100 mls/hr Q1H IV 01/04/20 07:30 01/04/20 09:29 DC 01/04/20 08:41 Sodium Bicarbonate (Sodium Bicarb Adult 8.4% Syr) 100 meq 1X ONCE IV 01/04/20 09:00 01/04/20 09:01 DC 01/04/20 09:10 Propofol 100 ml @ 1.2 mls/hr CONT PRN IV SEE I/O RECORD 01/04/20 09:00 01/04/20 09:11 Vancomycin HCl 1 gm/Sodium Chloride 250 ml @ 250 mls/hr Q24H IV 01/04/20 11:00 01/04/20 10:03 Dexmedetomidine HCl 400 mcg/ Sodium Chloride 100 ml @ 4 mls/hr CONT PRN IV SEE COMMENTS 01/04/20 10:00 01/04/20 10:56 Justicifation of Admission Dx: Justifications for Admission: Justification of Admission Dx: Yes Respiratory Failure: Mechanical Ventilation SUMMER BOJORQUEZ III DO Jan 04, 2020 11:57
--- NOTE | 2020-01-04 13:10 | NUR ---
Versed infusion stopped at 0500, patient was paradoxically breathing and CO2 was decreased. Orders received to re-sedate using either propofol or precedex. Propofol was started, patient became hypotensive so was stopped. Precedex was started, patient became bradycardic in the 40s and BP decreased to 80s/60s, vasopressin restarted and precedex turned off. Propofol turned back on a low dose and tolerating ok so far. Notified Dr. Magallon of eye deviation towards the lower right, will continue to monitor for now.
[2020-01-04 13:20] LABS: BASE EXCESS ABG -7 mmol/L (-3-3); HCO3 ABG 16 mmol/L (21-28); PCO2 ABG 26 mmHg (35-46); PO2 ABG 105 mmHg (65-108); SAT O2 ABG 97 % (92-99)
--- NOTE | 2020-01-04 13:23 | NUR ---
SS following up with discharge planning. SS reviewed pt chart and discussed with pt RN. COVID19 positive. Pt currently on the vent 40% FiO2 w/t 5 PEEP and sedated with Fentanyl. Pt on IV Vancomycin and Zosyn. SS will continue to follow for discharge planning.
[2020-01-04 13:24] LABS: FIO2 ABG 40
--- NOTE | 2020-01-04 16:38 | PDOC ---
PROGRESS NOTES Date of Service: DATE: 01/04/20 TIME: 16:38 Subjective Subjective Intubated, needing pressor support Objective Objective Vital Signs Date Time Temp Pulse Resp B/P (MAP) Pulse Ox O2 Delivery O2 Flow Rate FiO2 01/04/20 16:00 01/04/20 16:00 97.1 63 18 99 Ventilator 97.1 Intake and Output 01/04/20 07:00 Intake Total 7167.84 ml Output Total 715 ml Balance 6452.84 ml Intake IV Total 4026.84 ml Tube Feeding 2141 ml Other 1000 ml Output Urine Total 715 ml Physical Exam Abdomen: Soft Heart: Regular rate (SB 40s) Extremities: No cyanosis General: Other (sedated) HEENT: Atraumatic Lungs: Other (intubated with vent) MUSCULOSKELETAL: Osteoarthritic changes both hands Neuro: Other (edated) Skin: No breakdown Assessment Assessment 1. Acute respiratory failure with covid pneumonia s/p intubation. Pulm following 2. Sepsis with multiorgan system failure, on vasopressin 3. Severe JEROME with significant metabolic derangement: improving. per nephrology. 4. Alzheimers Dementia 5. Hypothyroidism: on home replacement, TSH 6. Diastolic CHF, appears compensated 7. Hx of HTN and HLP 8. Coagulopathy/Thrombocytopenia; 9. Sinus bradycardia: No heart blocks, pauses with stable sinus bradycardia Comment Review of Relevant I have reviewed the following items aislinn (where applicable) has been applied. Labs Laboratory Tests Test 01/03/20 17:52 01/04/20 00:31 01/04/20 05:00 01/04/20 05:11 Glucose (Fingerstick) 168 mg/dL (70-99) 227 mg/dL (70-99) 256 mg/dL (70-99) White Blood Count 15.1 x10^3/uL (4.0-11.0) Red Blood Count 3.12 x10^6/uL (3.50-5.40) Hemoglobin 9.7 g/dL (12.0-15.5) Hematocrit 29.7 % (36.0-47.0) Mean Corpuscular Volume 95 fL (79-100) Mean Corpuscular Hemoglobin 31 pg (25-35) Mean Corpuscular Hemoglobin Concent 33 g/dL (31-37) Red Cell Distribution Width 13.8 % (11.5-14.5) Platelet Count 53 x10^3/uL (140-400) Neutrophils (%) (Auto) 85 % (31-73) Lymphocytes (%) (Auto) 12 % (24-48) Monocytes (%) (Auto) 3 % (0-9) Eosinophils (%) (Auto) 0 % (0-3) Basophils (%) (Auto) 0 % (0-3) Neutrophils # (Auto) 12.9 x10^3/uL (1.8-7.7) Lymphocytes # (Auto) 1.7 x10^3/uL (1.0-4.8) Monocytes # (Auto) 0.5 x10^3/uL (0.0-1.1) Eosinophils # (Auto) 0.0 x10^3/uL (0.0-0.7) Basophils # (Auto) 0.0 x10^3/uL (0.0-0.2) Sodium Level 141 mmol/L (136-145) Potassium Level 3.0 mmol/L (3.5-5.1) Chloride Level 111 mmol/L (98-107) Carbon Dioxide Level 18 mmol/L (21-32) Anion Gap 12 (6-14) Blood Urea Nitrogen 65 mg/dL (7-20) Creatinine 1.4 mg/dL (0.6-1.0) Estimated GFR (Cockcroft-Gault) 43.9 Glucose Level 261 mg/dL (70-99) Calcium Level 7.0 mg/dL (8.5-10.1) Phosphorus Level 2.4 mg/dL (2.6-4.7) Magnesium Level 1.6 mg/dL (1.8-2.4) Test 01/04/20 08:25 01/04/20 09:20 01/04/20 11:45 01/04/20 12:30 O2 Saturation 97 % (92-99) Arterial Blood pH 7.45 (7.35-7.45) Arterial Blood pCO2 at Patient Temp 20 mmHg (35-46) Arterial Blood pO2 at Patient Temp 93 mmHg (65-108) Arterial Blood HCO3 13 mmol/L (21-28) Arterial Blood Base Excess -9 mmol/L (-3-3) FiO2 40 Lactic Acid Level 2.5 mmol/L (0.4-2.0) 2.2 mmol/L (0.4-2.0) Glucose (Fingerstick) 220 mg/dL (70-99) Test 01/04/20 13:10 O2 Saturation 97 % (92-99) Arterial Blood pH 7.41 (7.35-7.45) Arterial Blood pCO2 at Patient Temp 26 mmHg (35-46) Arterial Blood pO2 at Patient Temp 105 mmHg (65-108) Arterial Blood HCO3 16 mmol/L (21-28) Arterial Blood Base Excess -7 mmol/L (-3-3) FiO2 40 Medications Current Medications Atropine Sulfate (ATROPINE 0.5mg SYRINGE) 0.5 mg PRN Q5MIN PRN IV SEE COMMENTS; Start 01/04/20 at 10:00 Dexmedetomidine HCl 400 mcg/ Sodium Chloride 100 ml @ 4 mls/hr CONT PRN IV SEE COMMENTS Last administered on 01/04/20at 10:56; Start 01/04/20 at 10:00 Magnesium Sulfate 100 ml @ 25 mls/hr 1X ONCE IV Last administered on 0at 07:34; Start 01/04/20 at 07:30; Stop 01/04/20 at 11:29; Status DC Potassium Chloride/Water 100 ml @ 100 mls/hr Q1H IV Last administered on 01/04/20at 08:41; Start 01/04/20 at 07:30; Stop 01/04/20 at 09:29; Status DC Propofol 100 ml @ 1.2 mls/hr CONT PRN IV SEE I/O RECORD Last administered on 01/04/20at 09:11; Start 01/04/20 at 09:00 Sodium Bicarbonate (Sodium Bicarb Adult 8.4% Syr) 100 meq 1X ONCE IV Last administered on 01/04/20at 09:10; Start 01/04/20 at 09:00; Stop 01/04/20 at 09:01; Status DC Sodium Bicarbonate (Sodium Bicarb Adult 8.4% Syr) 100 meq 1X ONCE IV Last administered on 01/04/20at 13:29; Start 01/04/20 at 13:30; Stop 01/04/20 at 13:31; Status DC Sodium Chloride 500 ml @ 500 mls/hr 1X PRN PRN IV SEE COMMENTS; Start 01/04/20 at 10:00 Vancomycin HCl (Vancomycin Trough Level) 1 each 1X ONCE MC ; Start 01/06/20 at 10:30; Stop 01/06/20 at 10:31 Vancomycin HCl 1 gm/Sodium Chloride 250 ml @ 250 mls/hr Q24H IV Last administered on 01/04/20at 10:03; Start 01/04/20 at 11:00 Vitals/I & O Vital Sign - Last 24 Hours 01/03/20 01/03/20 01/03/20 01/03/20 17:00 17:12 18:00 19:00 Pulse 56 68 68 Resp 16 16 16 B/P (MAP) 108/56 (73) 110/52 (71) 118/56 (76) Pulse Ox 100 100 99 99 O2 Delivery Ventilator Ventilator Ventilator Ventilator 01/03/20 01/03/20 01/03/20 01/03/20 20:00 20:00 20:00 21:00 Temp 98.9 98.9 Pulse 68 68 Resp 16 16 B/P (MAP) 114/56 (75) 126/60 (82) Pulse Ox 99 99 O2 Delivery Mechanical Ventilator Ventilator Ventilator 01/03/20 01/03/20 01/03/20 01/03/20 21:38 22:00 23:00 23:40 Pulse 68 68 Resp 16 16 B/P (MAP) 128/60 (82) 128/62 (84) Pulse Ox 100 99 99 100 O2 Delivery Ventilator Ventilator Ventilator Ventilator 01/03/20 01/04/20 01/04/20 01/04/20 23:59 00:00 00:00 01:00 Temp 99.0 99.0 Pulse 68 63 Resp 16 16 B/P (MAP) 128/62 (84) 123/58 (79) Pulse Ox 99 100 O2 Delivery Mechanical Ventilator Ventilator Ventilator 01/04/20 01/04/20 01/04/20 01/04/20 02:00 03:00 03:30 04:00 Pulse 62 67 Resp 16 23 B/P (MAP) 117/58 (77) 125/61 (82) Pulse Ox 100 100 100 O2 Delivery Ventilator Ventilator Ventilator Mechanical Ventilator 01/04/20 01/04/20 01/04/20 01/04/20 04:00 04:00 05:00 06:00 Temp 97.9 97.9 Pulse 65 67 66 Resp 23 22 22 B/P (MAP) 125/63 (83) 128/64 (85) 130/65 (86) Pulse Ox 100 100 100 O2 Delivery Ventilator Ventilator Ventilator 01/04/20 01/04/20 01/04/20 01/04/20 07:00 08:00 08:00 08:00 Temp 97.4 97.4 Pulse 66 65 Resp 18 16 B/P (MAP) 136/70 (92) 134/70 (91) () Pulse Ox 100 98 O2 Delivery Ventilator Ventilator Mechanical Ventilator 01/04/20 01/04/20 01/04/20 01/04/20 08:25 09:00 10:00 11:00 Pulse 62 62 60 Resp 18 16 18 B/P (MAP) 124/66 (85) 106/56 (73) 102/52 (69) Pulse Ox 99 99 100 100 O2 Delivery Ventilator Ventilator Ventilator Ventilator 01/04/20 01/04/20 01/04/20 01/04/20 11:48 11:51 12:00 12:00 Temp 97.8 97.8 Pulse 48 Resp 18 B/P (MAP) 126/62 (83) Pulse Ox 96 100 O2 Delivery Ventilator Mechanical Ventilator Ventilator 01/04/20 01/04/20 01/04/20 01/04/20 13:00 14:00 15:00 15:31 Pulse 46 56 52 Resp 16 16 16 B/P (MAP) 119/56 (77) 120/58 (78) 131/64 (86) Pulse Ox 99 95 99 99 O2 Delivery Ventilator Ventilator Ventilator Ventilator 01/04/20 01/04/20 01/04/20 16:00 16:00 16:00 Temp 97.1 97.1 Pulse 63 Resp 18 B/P (MAP) 142/69 (93) Pulse Ox 99 O2 Delivery Mechanical Ventilator Ventilator Intake and Output 01/03/20 01/03/20 01/04/20 15:00 23:00 07:00 Intake Total 850 ml 3881.94 ml 2435.9 ml Output Total 220 ml 165 ml 330 ml Balance 630 ml 3716.94 ml 2105.9 ml PRITI QUACH MD Jan 04, 2020 16:38
[2020-01-05] VITALS (24 sets, daily range): BP systolic 108–155; BP diastolic 52–79
[2020-01-05] MEDS: IV 1/2 NORMAL SALINE 1,000 ML IV SCH ×4 (00:33→20:01)
[2020-01-05] MEDS: methylPREDNISolone SOD SUCC PF 125 MG/2 ML VIAL. IV SCH ×3 (05:34→21:54)
[2020-01-05] MEDS: PIPERACILLIN/TAZOBACTAM 2.25 GM in IV NORMAL SALINE 50ML 50 ML IV SCH ×4 (05:34→23:47)
[2020-01-05] MEDS: INSULIN LISPRO 300 UNITS/3 ML VIAL. SQ SCH ×4 (06:16→23:47)
[2020-01-05 06:37] LABS: BASO % 0 % (0-3); EOS % 0 % (0-3); HEMATOCRIT 28.9 % (36.0-47.0); HEMOGLOBIN 9.5 g/dL (12.0-15.5); LYMPH # 1.6 x10^3/uL (1.0-4.8); LYMPH % 10 % (24-48); MEAN CORPUSCULAR HEMOGLOBIN 31 pg (25-35); MEAN CORPUSCULAR HGB CONC 33 g/dL (31-37); MEAN CORPUSCULAR VOLUME 93 fL (79-100); MONO # 0.5 x10^3/uL (0.0-1.1); MONO % 3 % (0-9); NEUT # 13.4 x10^3/uL (1.8-7.7); NEUT % 86 % (31-73); PLATELET COUNT 54 x10^3/uL (140-400); RED CELL DISTRIBUTION WIDTH 13.4 % (11.5-14.5); WHITE BLOOD COUNT 15.5 x10^3/uL (4.0-11.0)
[2020-01-05 06:54] LABS: CALCIUM 7.4 mg/dL (8.5-10.1); CREATININE 1.1 mg/dL (0.6-1.0); MAGNESIUM 2.5 mg/dL (1.8-2.4); PHOSPHORUS 1.9 mg/dL (2.6-4.7)
[2020-01-05 08:08] LABS: BASE EXCESS ABG -5 mmol/L (-3-3); HCO3 ABG 18 mmol/L (21-28); PCO2 ABG 25 mmHg (35-46); PO2 ABG 109 mmHg (65-108); SAT O2 ABG 97 % (92-99)
[2020-01-05 08:16] LABS: FIO2 ABG 40%+5
[2020-01-05] MEDS: FAMOTIDINE 20 MG/2 ML VIAL IVP SCH (08:31)
[2020-01-05] MEDS: MIDAZOLAM HCL 100 MG in IV NORMAL SALINE 100ML 100 ML IV PRN (08:43)
[2020-01-05] MEDS: POTASSIUM PHOS,M-BASIC-D-BASIC 13.6 MMOL in IV NORMAL SALINE 250ML 250 ML IV SCH ×2 (09:06→11:14)
--- NOTE | 2020-01-05 09:34 | PDOC ---
PULMONARY PROGRESS NOTES DATE: 01/05/20 TIME: 09:31 Subjective remains intubated/sedated off pressor doing paradoxical breathing off sedation met acidosis today Vitals Vital Signs Date Time Temp Pulse Resp B/P (MAP) Pulse Ox O2 Delivery O2 Flow Rate FiO2 01/05/20 09:00 54 20 147/71 (96) 100 Ventilator 01/05/20 08:00 97.1 97.1 Comments visual exam done due to COVID pandemia no soa, paradoxical breathing while off sedation no rash Labs Laboratory Tests Test 01/03/20 11:20 01/03/20 13:10 01/03/20 17:52 01/04/20 00:31 Glucose (Fingerstick) 171 mg/dL (70-99) 168 mg/dL (70-99) 227 mg/dL (70-99) Prothrombin Time 18.0 SEC (11.7-14.0) Prothromb Time International Ratio 1.5 (0.8-1.1) Test 01/04/20 05:00 01/04/20 05:11 01/04/20 08:25 01/04/20 09:20 White Blood Count 15.1 x10^3/uL (4.0-11.0) Red Blood Count 3.12 x10^6/uL (3.50-5.40) Hemoglobin 9.7 g/dL (12.0-15.5) Hematocrit 29.7 % (36.0-47.0) Mean Corpuscular Volume 95 fL (79-100) Mean Corpuscular Hemoglobin 31 pg (25-35) Mean Corpuscular Hemoglobin Concent 33 g/dL (31-37) Red Cell Distribution Width 13.8 % (11.5-14.5) Platelet Count 53 x10^3/uL (140-400) Neutrophils (%) (Auto) 85 % (31-73) Lymphocytes (%) (Auto) 12 % (24-48) Monocytes (%) (Auto) 3 % (0-9) Eosinophils (%) (Auto) 0 % (0-3) Basophils (%) (Auto) 0 % (0-3) Neutrophils # (Auto) 12.9 x10^3/uL (1.8-7.7) Lymphocytes # (Auto) 1.7 x10^3/uL (1.0-4.8) Monocytes # (Auto) 0.5 x10^3/uL (0.0-1.1) Eosinophils # (Auto) 0.0 x10^3/uL (0.0-0.7) Basophils # (Auto) 0.0 x10^3/uL (0.0-0.2) Sodium Level 141 mmol/L (136-145) Potassium Level 3.0 mmol/L (3.5-5.1) Chloride Level 111 mmol/L (98-107) Carbon Dioxide Level 18 mmol/L (21-32) Anion Gap 12 (6-14) Blood Urea Nitrogen 65 mg/dL (7-20) Creatinine 1.4 mg/dL (0.6-1.0) Estimated GFR (Cockcroft-Gault) 43.9 Glucose Level 261 mg/dL (70-99) Calcium Level 7.0 mg/dL (8.5-10.1) Phosphorus Level 2.4 mg/dL (2.6-4.7) Magnesium Level 1.6 mg/dL (1.8-2.4) Glucose (Fingerstick) 256 mg/dL (70-99) O2 Saturation 97 % (92-99) Arterial Blood pH 7.45 (7.35-7.45) Arterial Blood pCO2 at Patient Temp 20 mmHg (35-46) Arterial Blood pO2 at Patient Temp 93 mmHg (65-108) Arterial Blood HCO3 13 mmol/L (21-28) Arterial Blood Base Excess -9 mmol/L (-3-3) FiO2 40 Lactic Acid Level 2.5 mmol/L (0.4-2.0) Test 01/04/20 11:45 01/04/20 12:30 01/04/20 13:10 01/04/20 17:59 Glucose (Fingerstick) 220 mg/dL (70-99) 236 mg/dL (70-99) Lactic Acid Level 2.2 mmol/L (0.4-2.0) O2 Saturation 97 % (92-99) Arterial Blood pH 7.41 (7.35-7.45) Arterial Blood pCO2 at Patient Temp 26 mmHg (35-46) Arterial Blood pO2 at Patient Temp 105 mmHg (65-108) Arterial Blood HCO3 16 mmol/L (21-28) Arterial Blood Base Excess -7 mmol/L (-3-3) FiO2 40 Test 01/04/20 23:18 01/05/20 05:50 01/05/20 07:55 Glucose (Fingerstick) 232 mg/dL (70-99) White Blood Count 15.5 x10^3/uL (4.0-11.0) Red Blood Count 3.10 x10^6/uL (3.50-5.40) Hemoglobin 9.5 g/dL (12.0-15.5) Hematocrit 28.9 % (36.0-47.0) Mean Corpuscular Volume 93 fL (79-100) Mean Corpuscular Hemoglobin 31 pg (25-35) Mean Corpuscular Hemoglobin Concent 33 g/dL (31-37) Red Cell Distribution Width 13.4 % (11.5-14.5) Platelet Count 54 x10^3/uL (140-400) Neutrophils (%) (Auto) 86 % (31-73) Lymphocytes (%) (Auto) 10 % (24-48) Monocytes (%) (Auto) 3 % (0-9) Eosinophils (%) (Auto) 0 % (0-3) Basophils (%) (Auto) 0 % (0-3) Neutrophils # (Auto) 13.4 x10^3/uL (1.8-7.7) Lymphocytes # (Auto) 1.6 x10^3/uL (1.0-4.8) Monocytes # (Auto) 0.5 x10^3/uL (0.0-1.1) Eosinophils # (Auto) 0.0 x10^3/uL (0.0-0.7) Basophils # (Auto) 0.0 x10^3/uL (0.0-0.2) Sodium Level 144 mmol/L (136-145) Potassium Level 3.0 mmol/L (3.5-5.1) Chloride Level 112 mmol/L (98-107) Carbon Dioxide Level 21 mmol/L (21-32) Anion Gap 11 (6-14) Blood Urea Nitrogen 50 mg/dL (7-20) Creatinine 1.1 mg/dL (0.6-1.0) Estimated GFR (Cockcroft-Gault) 58.0 Glucose Level 236 mg/dL (70-99) Calcium Level 7.4 mg/dL (8.5-10.1) Phosphorus Level 1.9 mg/dL (2.6-4.7) Magnesium Level 2.5 mg/dL (1.8-2.4) O2 Saturation 97 % (92-99) Arterial Blood pH 7.47 (7.35-7.45) Arterial Blood pCO2 at Patient Temp 25 mmHg (35-46) Arterial Blood pO2 at Patient Temp 109 mmHg (65-108) Arterial Blood HCO3 18 mmol/L (21-28) Arterial Blood Base Excess -5 mmol/L (-3-3) FiO2 40%+5 Laboratory Tests Test 01/04/20 11:45 01/04/20 12:30 01/04/20 13:10 01/04/20 17:59 Glucose (Fingerstick) 220 mg/dL (70-99) 236 mg/dL (70-99) Lactic Acid Level 2.2 mmol/L (0.4-2.0) O2 Saturation 97 % (92-99) Arterial Blood pH 7.41 (7.35-7.45) Arterial Blood pCO2 at Patient Temp 26 mmHg (35-46) Arterial Blood pO2 at Patient Temp 105 mmHg (65-108) Arterial Blood HCO3 16 mmol/L (21-28) Arterial Blood Base Excess -7 mmol/L (-3-3) FiO2 40 Test 01/04/20 23:18 01/05/20 05:50 01/05/20 07:55 Glucose (Fingerstick) 232 mg/dL (70-99) White Blood Count 15.5 x10^3/uL (4.0-11.0) Red Blood Count 3.10 x10^6/uL (3.50-5.40) Hemoglobin 9.5 g/dL (12.0-15.5) Hematocrit 28.9 % (36.0-47.0) Mean Corpuscular Volume 93 fL (79-100) Mean Corpuscular Hemoglobin 31 pg (25-35) Mean Corpuscular Hemoglobin Concent 33 g/dL (31-37) Red Cell Distribution Width 13.4 % (11.5-14.5) Platelet Count 54 x10^3/uL (140-400) Neutrophils (%) (Auto) 86 % (31-73) Lymphocytes (%) (Auto) 10 % (24-48) Monocytes (%) (Auto) 3 % (0-9) Eosinophils (%) (Auto) 0 % (0-3) Basophils (%) (Auto) 0 % (0-3) Neutrophils # (Auto) 13.4 x10^3/uL (1.8-7.7) Lymphocytes # (Auto) 1.6 x10^3/uL (1.0-4.8) Monocytes # (Auto) 0.5 x10^3/uL (0.0-1.1) Eosinophils # (Auto) 0.0 x10^3/uL (0.0-0.7) Basophils # (Auto) 0.0 x10^3/uL (0.0-0.2) Sodium Level 144 mmol/L (136-145) Potassium Level 3.0 mmol/L (3.5-5.1) Chloride Level 112 mmol/L (98-107) Carbon Dioxide Level 21 mmol/L (21-32) Anion Gap 11 (6-14) Blood Urea Nitrogen 50 mg/dL (7-20) Creatinine 1.1 mg/dL (0.6-1.0) Estimated GFR (Cockcroft-Gault) 58.0 Glucose Level 236 mg/dL (70-99) Calcium Level 7.4 mg/dL (8.5-10.1) Phosphorus Level 1.9 mg/dL (2.6-4.7) Magnesium Level 2.5 mg/dL (1.8-2.4) O2 Saturation 97 % (92-99) Arterial Blood pH 7.47 (7.35-7.45) Arterial Blood pCO2 at Patient Temp 25 mmHg (35-46) Arterial Blood pO2 at Patient Temp 109 mmHg (65-108) Arterial Blood HCO3 18 mmol/L (21-28) Arterial Blood Base Excess -5 mmol/L (-3-3) FiO2 40%+5 Comments CXR 01/01 Impression: 1. Increased patchy bibasilar opacities. 2. Small left pleural effusion, unchanged. Impression . 1. Acute hypoxic respiratory failure secondary to multisystem organ failure from COVID pneumonia and acute lung injury. improving 2. Severe metabolic acidosis, likely secondary to acute kidney injury and shock/ lactic acidosis--improved 3. Acute kidney injury. improving 4. Abnormal chest x-ray consistent with COVID-19 pneumonia. 5. COVID-19 positive. 6. Thrombocytopenia 7. persistent azotemia could be related to steroids Plan . Cont. current vent support Fi02 40% and PEEP 5 Stress ulcer prophylaxis, off SQ heparin 2/2 low plt count continue BS antibiotics Follow cardiology recs Follow renal recs continued azotemia could be related to steroids will begin tapering dose and wi ll give IVF bolus thrombocytopenia due to sepsis clinically improving but still critically ill Discussed with RN and RT. Chart reviewed. Labs reviewed and imaging reviewed. Critical care time 30 minutes. ABBEY BEEBE MD Jan 05, 2020 09:34
[2020-01-05] MEDS ORDERED: IV NORMAL SALINE 500ML BAG 500 ML IV ONE (09:45)
--- NOTE | 2020-01-05 10:42 | PDOC ---
[employer] PROGRESS NOTE Date of Service DOS: DATE: 01/05/20 TIME: 10:37 Chief Complaint Chief Complaint Severe respiratory failure secondary to COVID-19 History of Present Illness History of Present Illness 01/05/2020 Patient seen and examined Intubated, on vent AC/16/450/40% FiO2 w/t 5 PEEP and sedated with Precedex and propafol Successfully weaned off pressors OG tube at 35cc/hour Discussed with RN Charts reviewed 01/04/2020 Patient seen and examined Intubated, on vent AC/16/450/40% FiO2 w/t 5 PEEP and sedated with Precedex Discussed with RN Charts reviewed 01/03/2020 Patient seen and examined Intubated, on vent AC/16/450/40% FiO2 w/t 5 PEEP and sedated with Fentanyl OG tube at 20cc/hour Discussed with RN Charts reviewed Vitals/I&O Vitals/I&O: Vital Signs Date Time Temp Pulse Resp B/P (MAP) Pulse Ox O2 Delivery O2 Flow Rate FiO2 01/05/20 10:00 57 18 153/70 (97) 100 Ventilator 01/05/20 08:00 97.1 97.1 I & O 01/04/20 01/04/20 01/05/20 15:00 23:00 07:00 Intake Total 1100 ml 2320 ml 2043 ml Output Total 665 ml 240 ml 470 ml Balance 435 ml 2080 ml 1573 ml Physical Exam General: Other (sedated) Heart: Regular rate (SB 40s) Abdomen: Soft Extremities: No cyanosis Skin: No breakdown Labs Labs: Laboratory Tests Test 01/04/20 11:45 01/04/20 12:30 01/04/20 13:10 01/04/20 17:59 Glucose (Fingerstick) 220 mg/dL (70-99) 236 mg/dL (70-99) Lactic Acid Level 2.2 mmol/L (0.4-2.0) O2 Saturation 97 % (92-99) Arterial Blood pH 7.41 (7.35-7.45) Arterial Blood pCO2 at Patient Temp 26 mmHg (35-46) Arterial Blood pO2 at Patient Temp 105 mmHg (65-108) Arterial Blood HCO3 16 mmol/L (21-28) Arterial Blood Base Excess -7 mmol/L (-3-3) FiO2 40 Test 01/04/20 23:18 01/05/20 05:50 01/05/20 07:55 Glucose (Fingerstick) 232 mg/dL (70-99) White Blood Count 15.5 x10^3/uL (4.0-11.0) Red Blood Count 3.10 x10^6/uL (3.50-5.40) Hemoglobin 9.5 g/dL (12.0-15.5) Hematocrit 28.9 % (36.0-47.0) Mean Corpuscular Volume 93 fL (79-100) Mean Corpuscular Hemoglobin 31 pg (25-35) Mean Corpuscular Hemoglobin Concent 33 g/dL (31-37) Red Cell Distribution Width 13.4 % (11.5-14.5) Platelet Count 54 x10^3/uL (140-400) Neutrophils (%) (Auto) 86 % (31-73) Lymphocytes (%) (Auto) 10 % (24-48) Monocytes (%) (Auto) 3 % (0-9) Eosinophils (%) (Auto) 0 % (0-3) Basophils (%) (Auto) 0 % (0-3) Neutrophils # (Auto) 13.4 x10^3/uL (1.8-7.7) Lymphocytes # (Auto) 1.6 x10^3/uL (1.0-4.8) Monocytes # (Auto) 0.5 x10^3/uL (0.0-1.1) Eosinophils # (Auto) 0.0 x10^3/uL (0.0-0.7) Basophils # (Auto) 0.0 x10^3/uL (0.0-0.2) Sodium Level 144 mmol/L (136-145) Potassium Level 3.0 mmol/L (3.5-5.1) Chloride Level 112 mmol/L (98-107) Carbon Dioxide Level 21 mmol/L (21-32) Anion Gap 11 (6-14) Blood Urea Nitrogen 50 mg/dL (7-20) Creatinine 1.1 mg/dL (0.6-1.0) Estimated GFR (Cockcroft-Gault) 58.0 Glucose Level 236 mg/dL (70-99) Calcium Level 7.4 mg/dL (8.5-10.1) Phosphorus Level 1.9 mg/dL (2.6-4.7) Magnesium Level 2.5 mg/dL (1.8-2.4) O2 Saturation 97 % (92-99) Arterial Blood pH 7.47 (7.35-7.45) Arterial Blood pCO2 at Patient Temp 25 mmHg (35-46) Arterial Blood pO2 at Patient Temp 109 mmHg (65-108) Arterial Blood HCO3 18 mmol/L (21-28) Arterial Blood Base Excess -5 mmol/L (-3-3) FiO2 40%+5 Assessment and Plan Assessmemt and Plan Assessment Severe respiratory failure secondary to COVID-19 Plan ICU monitoring Respiratory isolation Replace potassium and Phosphorus Trend labs (lactic acid, Potassium, Phos) SCD IV antibiotics IV steroids DVT prophylaxis Prognosis guarded Total time 33 minutes Comment Review of Relevant I have reviewed the following items aislinn (where applicable) has been applied. Medications: Current Medications Medications (Trade) Dose Ordered Sig/Pita Route PRN Reason Start Time Stop Time Status Last Admin Dose Admin Vancomycin HCl 1 gm/Sodium Chloride 250 ml @ 250 mls/hr Q24H IV 01/04/20 11:00 01/04/20 10:03 Sodium Bicarbonate (Sodium Bicarb Adult 8.4% Syr) 100 meq 1X ONCE IV 01/04/20 13:30 01/04/20 13:31 DC 01/04/20 13:29 Potassium Phosphate 13.6 mmol/Sodium Chloride 254.5333 ml @ 127.... Q2H IV 01/05/20 09:00 01/05/20 12:59 01/05/20 09:06 Justicifation of Admission Dx: Justifications for Admission: Justification of Admission Dx: Yes Respiratory Failure: Mechanical Ventilation SUMMER BOJORQUEZ III DO Jan 05, 2020 10:42
[2020-01-05] MEDS: VANCOMYCIN 1 GM in IV NORMAL SALINE 250ML 250 ML IV SCH (10:50)
--- NOTE | 2020-01-05 11:24 | PDOC ---
Renal-Progress Notes Subjective Notes Notes NO COMPLAINTS History of Present Illness Hx of present illness STABLE Vitals Vitals Vital Signs Date Time Temp Pulse Resp B/P (MAP) Pulse Ox O2 Delivery O2 Flow Rate FiO2 01/05/20 11:00 59 18 153/77 (102) 99 Ventilator 01/05/20 08:00 97.1 97.1 Weight Weight [ ] I.O. Intake and Output Intake and Output 01/05/20 07:00 Intake Total 5463 ml Output Total 1375 ml Balance 4088 ml Intake IV Total 2420 ml Tube Feeding 2293 ml Other 750 ml Output Urine Total 1375 ml # Bowel Movements 1 Labs Labs Laboratory Tests Test 01/04/20 11:45 01/04/20 12:30 01/04/20 13:10 01/04/20 17:59 Glucose (Fingerstick) 220 mg/dL (70-99) 236 mg/dL (70-99) Lactic Acid Level 2.2 mmol/L (0.4-2.0) O2 Saturation 97 % (92-99) Arterial Blood pH 7.41 (7.35-7.45) Arterial Blood pCO2 at Patient Temp 26 mmHg (35-46) Arterial Blood pO2 at Patient Temp 105 mmHg (65-108) Arterial Blood HCO3 16 mmol/L (21-28) Arterial Blood Base Excess -7 mmol/L (-3-3) FiO2 40 Test 01/04/20 23:18 01/05/20 05:50 01/05/20 07:55 Glucose (Fingerstick) 232 mg/dL (70-99) White Blood Count 15.5 x10^3/uL (4.0-11.0) Red Blood Count 3.10 x10^6/uL (3.50-5.40) Hemoglobin 9.5 g/dL (12.0-15.5) Hematocrit 28.9 % (36.0-47.0) Mean Corpuscular Volume 93 fL (79-100) Mean Corpuscular Hemoglobin 31 pg (25-35) Mean Corpuscular Hemoglobin Concent 33 g/dL (31-37) Red Cell Distribution Width 13.4 % (11.5-14.5) Platelet Count 54 x10^3/uL (140-400) Neutrophils (%) (Auto) 86 % (31-73) Lymphocytes (%) (Auto) 10 % (24-48) Monocytes (%) (Auto) 3 % (0-9) Eosinophils (%) (Auto) 0 % (0-3) Basophils (%) (Auto) 0 % (0-3) Neutrophils # (Auto) 13.4 x10^3/uL (1.8-7.7) Lymphocytes # (Auto) 1.6 x10^3/uL (1.0-4.8) Monocytes # (Auto) 0.5 x10^3/uL (0.0-1.1) Eosinophils # (Auto) 0.0 x10^3/uL (0.0-0.7) Basophils # (Auto) 0.0 x10^3/uL (0.0-0.2) Sodium Level 144 mmol/L (136-145) Potassium Level 3.0 mmol/L (3.5-5.1) Chloride Level 112 mmol/L (98-107) Carbon Dioxide Level 21 mmol/L (21-32) Anion Gap 11 (6-14) Blood Urea Nitrogen 50 mg/dL (7-20) Creatinine 1.1 mg/dL (0.6-1.0) Estimated GFR (Cockcroft-Gault) 58.0 Glucose Level 236 mg/dL (70-99) Calcium Level 7.4 mg/dL (8.5-10.1) Phosphorus Level 1.9 mg/dL (2.6-4.7) Magnesium Level 2.5 mg/dL (1.8-2.4) O2 Saturation 97 % (92-99) Arterial Blood pH 7.47 (7.35-7.45) Arterial Blood pCO2 at Patient Temp 25 mmHg (35-46) Arterial Blood pO2 at Patient Temp 109 mmHg (65-108) Arterial Blood HCO3 18 mmol/L (21-28) Arterial Blood Base Excess -5 mmol/L (-3-3) FiO2 40%+5 Review of Systems Constitutional: yes: unresponsive Physical Exam General Appearance: normocephalic, other (ET TUBE) Skin: warm, dry Respiratory: decreased breath sounds Heart: S1S2 Abdomen: soft Genitourinary: bladder flat Extremities: pulses present Neurology: other (SEDATED) Assessment Assessment IMP HYPERNATREMIA-BETTER [id number] WITH CR DOWN TO 1.4 LOW PO4-BETTER LOW K COVID 19 INFECTION ACUTE HYPOXIC RESP FAILURE SEVERE MET ACIDOSIS-BETTER LEUCOCYTOSIS PLAN CONT TF NEPRO VENT SUPPORT PRESSORS IF NEEDED HYDRATION D/W DR BEEBE REPLACE K AND PO4 NEEDED WILL FOLLOW TIFFANY LOCKWOOD MD Jan 05, 2020 11:24
[2020-01-05] MEDS: VANCOMYCIN PER PHARMACY MC PRN ×3 (11:43→12:07)
--- NOTE | 2020-01-05 15:14 | NUR ---
SS following up with discharge planning. SS reviewed pt chart and discussed with pt RN. Pt remains on the vent at this time. COVID19 positive. Pt on IV Vancomycin and IV Zosyn. SS will continue to follow for discharge planning.
[2020-01-05] MEDS: POTASSIUM CHLORIDE 20MEQ 100 ML IV SCH ×2 (16:04→17:37)
--- NOTE | 2020-01-05 23:47 | PDOC ---
CARDIOLOGY PROGRESS NOTE SUBJECTIVE: Non-responsive, intubated, sedated. OBJECTIVE: Vital Signs/I&O: Vital Signs Date Time Temp Pulse Resp B/P (MAP) Pulse Ox O2 Delivery O2 Flow Rate FiO2 01/05/20 23:00 62 18 152/70 (97) 99 Ventilator 01/05/20 20:00 97.6 97.6 I & O 01/04/20 01/04/20 01/05/20 15:00 23:00 07:00 Intake Total 1100 ml 2320 ml 2043 ml Output Total 665 ml 240 ml 470 ml Balance 435 ml 2080 ml 1573 ml Objective: GEN.: No apparent distress. HEENT: Head is normocephalic, atraumatic NECK: Supple. LUNGS: Clear to auscultation. HEART: RRR, S1, S2 present. Peripheral pulses intact ABDOMEN: Soft, nontender. Positive bowel sounds. EXTREMITIES: Without any cyanosis. NEUROLOGIC: Normal speech, normal tone PSYCHIATRIC: Normal affect, normal mood. SKIN: No ulcerations CURRENT MEDICATIONS: Current Medications Medications (Trade) Dose Ordered Sig/Pita Route PRN Reason Start Time Stop Time Status Last Admin Dose Admin Potassium Phosphate 13.6 mmol/Sodium Chloride 254.5333 ml @ 127.... Q2H IV 01/05/20 09:00 01/05/20 13:05 DC 01/05/20 11:14 Methylprednisolone Sodium Succinate (SOLU-Medrol 125MG VIAL) 40 mg Q8HRS IV 01/05/20 14:00 01/05/20 21:54 Sodium Chloride 500 ml @ 500 mls/hr 1X ONCE IV 01/05/20 09:45 01/05/20 10:44 DC 01/05/20 12:29 Piperacillin Sod/ Tazobactam Sod 2.25 gm/Sodium Chloride 50 ml @ 100 mls/hr Q6HRS IV 01/05/20 12:00 01/05/20 17:37 Potassium Chloride/Water 100 ml @ 100 mls/hr Q1H IV 01/05/20 16:00 01/05/20 17:59 DC 01/05/20 17:37 DIAGNOSTIC TESTING: Labs: Laboratory Tests 01/05/20 05:50 Laboratory Tests Test 01/05/20 05:50 01/05/20 06:12 01/05/20 07:55 8/14/20 11:36 White Blood Count 15.5 x10^3/uL (4.0-11.0) H Red Blood Count 3.10 x10^6/uL (3.50-5.40) L Hemoglobin 9.5 g/dL (12.0-15.5) L Hematocrit 28.9 % (36.0-47.0) L Mean Corpuscular Volume 93 fL (79-100) Mean Corpuscular Hemoglobin 31 pg (25-35) Mean Corpuscular Hemoglobin Concent 33 g/dL (31-37) Red Cell Distribution Width 13.4 % (11.5-14.5) Platelet Count 54 x10^3/uL (140-400) L Neutrophils (%) (Auto) 86 % (31-73) H Lymphocytes (%) (Auto) 10 % (24-48) L Monocytes (%) (Auto) 3 % (0-9) Eosinophils (%) (Auto) 0 % (0-3) Basophils (%) (Auto) 0 % (0-3) Neutrophils # (Auto) 13.4 x10^3/uL (1.8-7.7) H Lymphocytes # (Auto) 1.6 x10^3/uL (1.0-4.8) Monocytes # (Auto) 0.5 x10^3/uL (0.0-1.1) Eosinophils # (Auto) 0.0 x10^3/uL (0.0-0.7) Basophils # (Auto) 0.0 x10^3/uL (0.0-0.2) Sodium Level 144 mmol/L (136-145) Potassium Level 3.0 mmol/L (3.5-5.1) L Chloride Level 112 mmol/L (98-107) H Carbon Dioxide Level 21 mmol/L (21-32) Anion Gap 11 (6-14) Blood Urea Nitrogen 50 mg/dL (7-20) H Creatinine 1.1 mg/dL (0.6-1.0) H Estimated GFR (Cockcroft-Gault) 58.0 Glucose Level 236 mg/dL (70-99) H Calcium Level 7.4 mg/dL (8.5-10.1) L Phosphorus Level 1.9 mg/dL (2.6-4.7) L Glucose (Fingerstick) 215 mg/dL (70-99) H 180 mg/dL (70-99) H O2 Saturation 97 % (92-99) Arterial Blood pH 7.47 (7.35-7.45) H Arterial Blood pCO2 at Patient Temp 25 mmHg (35-46) L Arterial Blood pO2 at Patient Temp 109 mmHg (65-108) H Arterial Blood HCO3 18 mmol/L (21-28) L Arterial Blood Base Excess -5 mmol/L (-3-3) L FiO2 40%+5 Test 01/05/20 17:48 Glucose (Fingerstick) 177 mg/dL (70-99) H ASSESSMENT: 1. Acute respiratory failure with covid pneumonia s/p intubation. Pulm following 2. Sepsis with multiorgan system failure 3. Severe JEROME with significant metabolic derangement: improving. per nephrology. 4. Alzheimers Dementia 5. Hypothyroidism: on home replacement, TSH 6. Diastolic CHF, appears compensated 7. Hx of HTN and HLP 8. Coagulopathy/Thrombocytopenia; 9. Sinus bradycardia: No heart blocks, pauses with stable sinus bradycardia PLAN: 1. Continue supportive care. Off pressors today. Consider palliative care, defer to primary. -No significant CV issues. Thanks Justicifation of Admission Dx: Justifications for Admission: Justification of Admission Dx: Yes Respiratory Failure: Mechanical Ventilation ANGLE HERNANDEZ MD Jan 05, 2020 23:47
[2020-01-06] VITALS (24 sets, daily range): BP systolic 112–176; BP diastolic 54–80
[2020-01-06 05:30] LABS: BASO % 0 % (0-3); CALCIUM 7.6 mg/dL (8.5-10.1); CREATININE 1.1 mg/dL (0.6-1.0); EOS % 0 % (0-3); HEMATOCRIT 32.9 % (36.0-47.0); LYMPH # 1.5 x10^3/uL (1.0-4.8); LYMPH % 7 % (24-48); MAGNESIUM 2.6 mg/dL (1.8-2.4); MEAN CORPUSCULAR HEMOGLOBIN 31 pg (25-35); MEAN CORPUSCULAR HGB CONC 34 g/dL (31-37); MEAN CORPUSCULAR VOLUME 94 fL (79-100); MONO # 0.6 x10^3/uL (0.0-1.1); MONO % 3 % (0-9); NEUT # 19.1 x10^3/uL (1.8-7.7); NEUT % 90 % (31-73); PHOSPHORUS 2.5 mg/dL (2.6-4.7); PLATELET COUNT 75 x10^3/uL (140-400); POTASSIUM 3.7 mmol/L (3.5-5.1); RED BLOOD COUNT 3.51 x10^6/uL (3.50-5.40); RED CELL DISTRIBUTION WIDTH 13.8 % (11.5-14.5); WHITE BLOOD COUNT 21.2 x10^3/uL (4.0-11.0)
[2020-01-06] MEDS: methylPREDNISolone SOD SUCC PF 125 MG/2 ML VIAL. IV SCH ×3 (05:30→22:04)
[2020-01-06] MEDS: PIPERACILLIN/TAZOBACTAM 2.25 GM in IV NORMAL SALINE 50ML 50 ML IV SCH (05:31)
[2020-01-06] MEDS: IV 1/2 NORMAL SALINE 1,000 ML IV SCH ×4 (06:05→22:02)
[2020-01-06] MEDS: INSULIN LISPRO 300 UNITS/3 ML VIAL. SQ SCH ×3 (06:07→18:09)
--- NOTE | 2020-01-06 06:52 | PDOC ---
PULMONARY PROGRESS NOTES DATE: 01/06/20 TIME: 06:50 Subjective remains intubated/sedated on versed, mod ett secretion off pressor Vitals Vital Signs Date Time Temp Pulse Resp B/P (MAP) Pulse Ox O2 Delivery O2 Flow Rate FiO2 01/06/20 06:00 68 18 164/78 (106) 97 Ventilator 01/06/20 00:00 97.2 97.2 Comments visual exam done due to COVID pandemia on vent sedated nc at no accessory muscle use RRR no rash no edema Labs Laboratory Tests Test 01/04/20 08:25 01/04/20 09:20 01/04/20 11:45 01/04/20 12:30 O2 Saturation 97 % (92-99) Arterial Blood pH 7.45 (7.35-7.45) Arterial Blood pCO2 at Patient Temp 20 mmHg (35-46) Arterial Blood pO2 at Patient Temp 93 mmHg (65-108) Arterial Blood HCO3 13 mmol/L (21-28) Arterial Blood Base Excess -9 mmol/L (-3-3) FiO2 40 Lactic Acid Level 2.5 mmol/L (0.4-2.0) 2.2 mmol/L (0.4-2.0) Glucose (Fingerstick) 220 mg/dL (70-99) Test 01/04/20 13:10 01/04/20 17:59 01/04/20 23:18 01/05/20 05:50 O2 Saturation 97 % (92-99) Arterial Blood pH 7.41 (7.35-7.45) Arterial Blood pCO2 at Patient Temp 26 mmHg (35-46) Arterial Blood pO2 at Patient Temp 105 mmHg (65-108) Arterial Blood HCO3 16 mmol/L (21-28) Arterial Blood Base Excess -7 mmol/L (-3-3) FiO2 40 Glucose (Fingerstick) 236 mg/dL (70-99) 232 mg/dL (70-99) White Blood Count 15.5 x10^3/uL (4.0-11.0) Red Blood Count 3.10 x10^6/uL (3.50-5.40) Hemoglobin 9.5 g/dL (12.0-15.5) Hematocrit 28.9 % (36.0-47.0) Mean Corpuscular Volume 93 fL (79-100) Mean Corpuscular Hemoglobin 31 pg (25-35) Mean Corpuscular Hemoglobin Concent 33 g/dL (31-37) Red Cell Distribution Width 13.4 % (11.5-14.5) Platelet Count 54 x10^3/uL (140-400) Neutrophils (%) (Auto) 86 % (31-73) Lymphocytes (%) (Auto) 10 % (24-48) Monocytes (%) (Auto) 3 % (0-9) Eosinophils (%) (Auto) 0 % (0-3) Basophils (%) (Auto) 0 % (0-3) Neutrophils # (Auto) 13.4 x10^3/uL (1.8-7.7) Lymphocytes # (Auto) 1.6 x10^3/uL (1.0-4.8) Monocytes # (Auto) 0.5 x10^3/uL (0.0-1.1) Eosinophils # (Auto) 0.0 x10^3/uL (0.0-0.7) Basophils # (Auto) 0.0 x10^3/uL (0.0-0.2) Sodium Level 144 mmol/L (136-145) Potassium Level 3.0 mmol/L (3.5-5.1) Chloride Level 112 mmol/L (98-107) Carbon Dioxide Level 21 mmol/L (21-32) Anion Gap 11 (6-14) Blood Urea Nitrogen 50 mg/dL (7-20) Creatinine 1.1 mg/dL (0.6-1.0) Estimated GFR (Cockcroft-Gault) 58.0 Glucose Level 236 mg/dL (70-99) Calcium Level 7.4 mg/dL (8.5-10.1) Phosphorus Level 1.9 mg/dL (2.6-4.7) Magnesium Level 2.5 mg/dL (1.8-2.4) Test 01/05/20 06:12 01/05/20 07:55 01/05/20 11:36 01/05/20 17:48 Glucose (Fingerstick) 215 mg/dL (70-99) 180 mg/dL (70-99) 177 mg/dL (70-99) O2 Saturation 97 % (92-99) Arterial Blood pH 7.47 (7.35-7.45) Arterial Blood pCO2 at Patient Temp 25 mmHg (35-46) Arterial Blood pO2 at Patient Temp 109 mmHg (65-108) Arterial Blood HCO3 18 mmol/L (21-28) Arterial Blood Base Excess -5 mmol/L (-3-3) FiO2 40%+5 Test 01/05/20 23:45 01/06/20 05:00 Glucose (Fingerstick) 171 mg/dL (70-99) White Blood Count 21.2 x10^3/uL (4.0-11.0) Red Blood Count 3.51 x10^6/uL (3.50-5.40) Hemoglobin 11.0 g/dL (12.0-15.5) Hematocrit 32.9 % (36.0-47.0) Mean Corpuscular Volume 94 fL (79-100) Mean Corpuscular Hemoglobin 31 pg (25-35) Mean Corpuscular Hemoglobin Concent 34 g/dL (31-37) Red Cell Distribution Width 13.8 % (11.5-14.5) Platelet Count 75 x10^3/uL (140-400) Neutrophils (%) (Auto) 90 % (31-73) Lymphocytes (%) (Auto) 7 % (24-48) Monocytes (%) (Auto) 3 % (0-9) Eosinophils (%) (Auto) 0 % (0-3) Basophils (%) (Auto) 0 % (0-3) Neutrophils # (Auto) 19.1 x10^3/uL (1.8-7.7) Lymphocytes # (Auto) 1.5 x10^3/uL (1.0-4.8) Monocytes # (Auto) 0.6 x10^3/uL (0.0-1.1) Eosinophils # (Auto) 0.0 x10^3/uL (0.0-0.7) Basophils # (Auto) 0.0 x10^3/uL (0.0-0.2) Sodium Level 143 mmol/L (136-145) Potassium Level 3.7 mmol/L (3.5-5.1) Chloride Level 113 mmol/L (98-107) Carbon Dioxide Level 20 mmol/L (21-32) Anion Gap 10 (6-14) Blood Urea Nitrogen 37 mg/dL (7-20) Creatinine 1.1 mg/dL (0.6-1.0) Estimated GFR (Cockcroft-Gault) 58.0 Glucose Level 211 mg/dL (70-99) Calcium Level 7.6 mg/dL (8.5-10.1) Phosphorus Level 2.5 mg/dL (2.6-4.7) Magnesium Level 2.6 mg/dL (1.8-2.4) Laboratory Tests Test 01/05/20 07:55 01/05/20 11:36 01/05/20 17:48 01/05/20 23:45 O2 Saturation 97 % (92-99) Arterial Blood pH 7.47 (7.35-7.45) Arterial Blood pCO2 at Patient Temp 25 mmHg (35-46) Arterial Blood pO2 at Patient Temp 109 mmHg (65-108) Arterial Blood HCO3 18 mmol/L (21-28) Arterial Blood Base Excess -5 mmol/L (-3-3) FiO2 40%+5 Glucose (Fingerstick) 180 mg/dL (70-99) 177 mg/dL (70-99) 171 mg/dL (70-99) Test 01/06/20 05:00 White Blood Count 21.2 x10^3/uL (4.0-11.0) Red Blood Count 3.51 x10^6/uL (3.50-5.40) Hemoglobin 11.0 g/dL (12.0-15.5) Hematocrit 32.9 % (36.0-47.0) Mean Corpuscular Volume 94 fL (79-100) Mean Corpuscular Hemoglobin 31 pg (25-35) Mean Corpuscular Hemoglobin Concent 34 g/dL (31-37) Red Cell Distribution Width 13.8 % (11.5-14.5) Platelet Count 75 x10^3/uL (140-400) Neutrophils (%) (Auto) 90 % (31-73) Lymphocytes (%) (Auto) 7 % (24-48) Monocytes (%) (Auto) 3 % (0-9) Eosinophils (%) (Auto) 0 % (0-3) Basophils (%) (Auto) 0 % (0-3) Neutrophils # (Auto) 19.1 x10^3/uL (1.8-7.7) Lymphocytes # (Auto) 1.5 x10^3/uL (1.0-4.8) Monocytes # (Auto) 0.6 x10^3/uL (0.0-1.1) Eosinophils # (Auto) 0.0 x10^3/uL (0.0-0.7) Basophils # (Auto) 0.0 x10^3/uL (0.0-0.2) Sodium Level 143 mmol/L (136-145) Potassium Level 3.7 mmol/L (3.5-5.1) Chloride Level 113 mmol/L (98-107) Carbon Dioxide Level 20 mmol/L (21-32) Anion Gap 10 (6-14) Blood Urea Nitrogen 37 mg/dL (7-20) Creatinine 1.1 mg/dL (0.6-1.0) Estimated GFR (Cockcroft-Gault) 58.0 Glucose Level 211 mg/dL (70-99) Calcium Level 7.6 mg/dL (8.5-10.1) Phosphorus Level 2.5 mg/dL (2.6-4.7) Magnesium Level 2.6 mg/dL (1.8-2.4) Comments CXR 01/01 Impression: 1. Increased patchy bibasilar opacities. 2. Small left pleural effusion, unchanged. Impression . 1. Acute hypoxic respiratory failure secondary to multisystem organ failure from COVID pneumonia and acute lung injury. improving 2. Severe metabolic acidosis, likely secondary to acute kidney injury and shock/ lactic acidosis--improved 3. Acute kidney injury. improving 4. Abnormal chest x-ray consistent with COVID-19 pneumonia. 5. COVID-19 positive. 6. Thrombocytopenia, improving 7. persistent azotemia could be related to steroids, improving 8. leukocytosis worsening Plan . Cont. current vent support Fi02 40% and PEEP 5, will taper off sedation sbt when more awake Stress ulcer prophylaxis, off SQ heparin 2/2 low plt count continue BS antibiotics Follow cardiology recs Follow renal recs continued azotemia could be related to steroids will begin tapering dose and will give IVF bolus thrombocytopenia due to sepsis clinically improving but still critically ill Discussed with RN and RT. Chart reviewed. Labs reviewed and imaging reviewed. critically ill Critical care time 30 minutes. no overlap YULISA DURAN MD Jan 06, 2020 06:52
[2020-01-06 07:41] LABS: BASE EXCESS ABG -7 mmol/L (-3-3); HCO3 ABG 16 mmol/L (21-28); PCO2 ABG 25 mmHg (35-46); PO2 ABG 67 mmHg (65-108); SAT O2 ABG 92 % (92-99)
[2020-01-06 07:45] LABS: FIO2 ABG 40
[2020-01-06] MEDS: FAMOTIDINE 20 MG/2 ML VIAL IVP SCH (11:31)
--- NOTE | 2020-01-06 12:07 | PDOC ---
[facility] PROGRESS NOTE Date of Service DOS: DATE: 01/06/20 TIME: 12:05 Chief Complaint Chief Complaint Severe respiratory failure secondary to COVID-19 History of Present Illness History of Present Illness 01/06/2020 Patient seen and examined in the COVID-19 ICU She remains mechanically ventilated Assist-control/06/09 50/40% with 5 of PEEP Discussed with RN Chart reviewed She remains critically ill 01/05/2020 Patient seen and examined Intubated, on vent AC/16/450/40% FiO2 w/t 5 PEEP and sedated with Precedex and propafol Successfully weaned off pressors OG tube at 35cc/hour Discussed with RN Charts reviewed 01/04/2020 Patient seen and examined Intubated, on vent AC/16/450/40% FiO2 w/t 5 PEEP and sedated with Precedex Discussed with RN Charts reviewed 01/03/2020 Patient seen and examined Intubated, on vent AC/16/450/40% FiO2 w/t 5 PEEP and sedated with Fentanyl OG tube at 20cc/hour Discussed with RN Charts reviewed Vitals/I&O Vitals/I&O: Vital Signs Date Time Temp Pulse Resp B/P (MAP) Pulse Ox O2 Delivery O2 Flow Rate FiO2 01/06/20 09:00 66 18 152/74 (100) 97 Ventilator 01/06/20 08:00 97.7 97.7 I & O 01/05/20 01/05/20 01/06/20 15:00 23:00 07:00 Intake Total 1860 ml 2296 ml 2883 ml Output Total 625 ml 575 ml 270 ml Balance 1235 ml 1721 ml 2613 ml Physical Exam General: Other (sedated) Heart: Regular rate (SB 40s) Abdomen: Soft Extremities: No cyanosis Skin: No breakdown Labs Labs: Laboratory Tests Test 01/05/20 17:48 01/05/20 23:45 01/06/20 05:00 01/06/20 07:30 Glucose (Fingerstick) 177 mg/dL (70-99) 171 mg/dL (70-99) White Blood Count 21.2 x10^3/uL (4.0-11.0) Red Blood Count 3.51 x10^6/uL (3.50-5.40) Hemoglobin 11.0 g/dL (12.0-15.5) Hematocrit 32.9 % (36.0-47.0) Mean Corpuscular Volume 94 fL (79-100) Mean Corpuscular Hemoglobin 31 pg (25-35) Mean Corpuscular Hemoglobin Concent 34 g/dL (31-37) Red Cell Distribution Width 13.8 % (11.5-14.5) Platelet Count 75 x10^3/uL (140-400) Neutrophils (%) (Auto) 90 % (31-73) Lymphocytes (%) (Auto) 7 % (24-48) Monocytes (%) (Auto) 3 % (0-9) Eosinophils (%) (Auto) 0 % (0-3) Basophils (%) (Auto) 0 % (0-3) Neutrophils # (Auto) 19.1 x10^3/uL (1.8-7.7) Lymphocytes # (Auto) 1.5 x10^3/uL (1.0-4.8) Monocytes # (Auto) 0.6 x10^3/uL (0.0-1.1) Eosinophils # (Auto) 0.0 x10^3/uL (0.0-0.7) Basophils # (Auto) 0.0 x10^3/uL (0.0-0.2) Sodium Level 143 mmol/L (136-145) Potassium Level 3.7 mmol/L (3.5-5.1) Chloride Level 113 mmol/L (98-107) Carbon Dioxide Level 20 mmol/L (21-32) Anion Gap 10 (6-14) Blood Urea Nitrogen 37 mg/dL (7-20) Creatinine 1.1 mg/dL (0.6-1.0) Estimated GFR (Cockcroft-Gault) 58.0 Glucose Level 211 mg/dL (70-99) Calcium Level 7.6 mg/dL (8.5-10.1) Phosphorus Level 2.5 mg/dL (2.6-4.7) Magnesium Level 2.6 mg/dL (1.8-2.4) O2 Saturation 92 % (92-99) Arterial Blood pH 7.42 (7.35-7.45) Arterial Blood pCO2 at Patient Temp 25 mmHg (35-46) Arterial Blood pO2 at Patient Temp 67 mmHg (65-108) Arterial Blood HCO3 16 mmol/L (21-28) Arterial Blood Base Excess -7 mmol/L (-3-3) FiO2 40 Test 01/06/20 11:41 Glucose (Fingerstick) 207 mg/dL (70-99) Assessment and Plan Assessmemt and Plan Assessment Severe respiratory failure secondary to COVID-19 Plan ICU monitoring Respiratory isolation Trend labs (lactic acid, Potassium, Phos) SCD Vent weaning IV antibiotics IV steroids DVT prophylaxis Prognosis guarded Appreciate subspecialist input Total time 32 minutes Comment Review of Relevant I have reviewed the following items aislinn (where applicable) has been applied. Medications: Current Medications Medications (Trade) Dose Ordered Sig/Pita Route PRN Reason Start Time Stop Time Status Last Admin Dose Admin Methylprednisolone Sodium Succinate (SOLU-Medrol 125MG VIAL) 40 mg Q8HRS IV 01/05/20 14:00 01/06/20 05:30 Potassium Chloride/Water 100 ml @ 100 mls/hr Q1H IV 01/05/20 16:00 01/05/20 17:59 DC 01/05/20 17:37 Justicifation of Admission Dx: Justifications for Admission: Justification of Admission Dx: Yes Respiratory Failure: Mechanical Ventilation SUMMER BOJORQUEZ III DO Jan 06, 2020 12:07
[2020-01-06 12:45] LABS: VANC TR 13.9 mcg/mL (10.0-20.0)
--- NOTE | 2020-01-06 12:51 | PDOC ---
PROGRESS NOTES Date of Service DATE: 01/06/20 TIME: 12:49 Subjective Subjective IN FOLLOW UP OF ARF . PATIENT IS COVID 19 + Objective Objective Vital Signs Date Time Temp Pulse Resp B/P (MAP) Pulse Ox O2 Delivery O2 Flow Rate FiO2 01/06/20 12:38 97 01/06/20 12:08 Ventilator 01/06/20 12:00 98.0 62 18 146/68 (94) 98.0 Intake and Output 01/06/20 07:00 Intake Total 7039 ml Output Total 1470 ml Balance 5569 ml Intake IV Total 4196 ml Tube Feeding 2343 ml Other 500 ml Output Urine Total 1470 ml Physical Exam Physical Exam COVID 19+ SO BEDSIDE EXAM NOT PURSUED Diagnosis RENAL FAILURE: Acute (Acute tubular necrosis) Plan Plan of Care RENAL FUNCTION CONT TO IMPROVE. CONT FLUID AND NUTRITIONAL SUPPORT PER LAB. RE NAL WILL SIGN OFF Comment Review of Relevant I have reviewed the following items aislinn (where applicable) has been applied. Labs Laboratory Tests Test 01/04/20 13:10 01/04/20 17:59 01/04/20 23:18 01/05/20 05:50 O2 Saturation 97 % (92-99) Arterial Blood pH 7.41 (7.35-7.45) Arterial Blood pCO2 at Patient Temp 26 mmHg (35-46) Arterial Blood pO2 at Patient Temp 105 mmHg (65-108) Arterial Blood HCO3 16 mmol/L (21-28) Arterial Blood Base Excess -7 mmol/L (-3-3) FiO2 40 Glucose (Fingerstick) 236 mg/dL (70-99) 232 mg/dL (70-99) White Blood Count 15.5 x10^3/uL (4.0-11.0) Red Blood Count 3.10 x10^6/uL (3.50-5.40) Hemoglobin 9.5 g/dL (12.0-15.5) Hematocrit 28.9 % (36.0-47.0) Mean Corpuscular Volume 93 fL (79-100) Mean Corpuscular Hemoglobin 31 pg (25-35) Mean Corpuscular Hemoglobin Concent 33 g/dL (31-37) Red Cell Distribution Width 13.4 % (11.5-14.5) Platelet Count 54 x10^3/uL (140-400) Neutrophils (%) (Auto) 86 % (31-73) Lymphocytes (%) (Auto) 10 % (24-48) Monocytes (%) (Auto) 3 % (0-9) Eosinophils (%) (Auto) 0 % (0-3) Basophils (%) (Auto) 0 % (0-3) Neutrophils # (Auto) 13.4 x10^3/uL (1.8-7.7) Lymphocytes # (Auto) 1.6 x10^3/uL (1.0-4.8) Monocytes # (Auto) 0.5 x10^3/uL (0.0-1.1) Eosinophils # (Auto) 0.0 x10^3/uL (0.0-0.7) Basophils # (Auto) 0.0 x10^3/uL (0.0-0.2) Sodium Level 144 mmol/L (136-145) Potassium Level 3.0 mmol/L (3.5-5.1) Chloride Level 112 mmol/L (98-107) Carbon Dioxide Level 21 mmol/L (21-32) Anion Gap 11 (6-14) Blood Urea Nitrogen 50 mg/dL (7-20) Creatinine 1.1 mg/dL (0.6-1.0) Estimated GFR (Cockcroft-Gault) 58.0 Glucose Level 236 mg/dL (70-99) Calcium Level 7.4 mg/dL (8.5-10.1) Phosphorus Level 1.9 mg/dL (2.6-4.7) Magnesium Level 2.5 mg/dL (1.8-2.4) Test 01/05/20 06:12 01/05/20 07:55 01/05/20 11:36 01/05/20 17:48 Glucose (Fingerstick) 215 mg/dL (70-99) 180 mg/dL (70-99) 177 mg/dL (70-99) O2 Saturation 97 % (92-99) Arterial Blood pH 7.47 (7.35-7.45) Arterial Blood pCO2 at Patient Temp 25 mmHg (35-46) Arterial Blood pO2 at Patient Temp 109 mmHg (65-108) Arterial Blood HCO3 18 mmol/L (21-28) Arterial Blood Base Excess -5 mmol/L (-3-3) FiO2 40%+5 Test 01/05/20 23:45 01/06/20 05:00 01/06/20 07:30 01/06/20 11:41 Glucose (Fingerstick) 171 mg/dL (70-99) 207 mg/dL (70-99) White Blood Count 21.2 x10^3/uL (4.0-11.0) Red Blood Count 3.51 x10^6/uL (3.50-5.40) Hemoglobin 11.0 g/dL (12.0-15.5) Hematocrit 32.9 % (36.0-47.0) Mean Corpuscular Volume 94 fL (79-100) Mean Corpuscular Hemoglobin 31 pg (25-35) Mean Corpuscular Hemoglobin Concent 34 g/dL (31-37) Red Cell Distribution Width 13.8 % (11.5-14.5) Platelet Count 75 x10^3/uL (140-400) Neutrophils (%) (Auto) 90 % (31-73) Lymphocytes (%) (Auto) 7 % (24-48) Monocytes (%) (Auto) 3 % (0-9) Eosinophils (%) (Auto) 0 % (0-3) Basophils (%) (Auto) 0 % (0-3) Neutrophils # (Auto) 19.1 x10^3/uL (1.8-7.7) Lymphocytes # (Auto) 1.5 x10^3/uL (1.0-4.8) Monocytes # (Auto) 0.6 x10^3/uL (0.0-1.1) Eosinophils # (Auto) 0.0 x10^3/uL (0.0-0.7) Basophils # (Auto) 0.0 x10^3/uL (0.0-0.2) Sodium Level 143 mmol/L (136-145) Potassium Level 3.7 mmol/L (3.5-5.1) Chloride Level 113 mmol/L (98-107) Carbon Dioxide Level 20 mmol/L (21-32) Anion Gap 10 (6-14) Blood Urea Nitrogen 37 mg/dL (7-20) Creatinine 1.1 mg/dL (0.6-1.0) Estimated GFR (Cockcroft-Gault) 58.0 Glucose Level 211 mg/dL (70-99) Calcium Level 7.6 mg/dL (8.5-10.1) Phosphorus Level 2.5 mg/dL (2.6-4.7) Magnesium Level 2.6 mg/dL (1.8-2.4) O2 Saturation 92 % (92-99) Arterial Blood pH 7.42 (7.35-7.45) Arterial Blood pCO2 at Patient Temp 25 mmHg (35-46) Arterial Blood pO2 at Patient Temp 67 mmHg (65-108) Arterial Blood HCO3 16 mmol/L (21-28) Arterial Blood Base Excess -7 mmol/L (-3-3) FiO2 40 Laboratory Tests Test 01/05/20 17:48 01/05/20 23:45 01/06/20 05:00 01/06/20 07:30 Glucose (Fingerstick) 177 mg/dL (70-99) 171 mg/dL (70-99) White Blood Count 21.2 x10^3/uL (4.0-11.0) Red Blood Count 3.51 x10^6/uL (3.50-5.40) Hemoglobin 11.0 g/dL (12.0-15.5) Hematocrit 32.9 % (36.0-47.0) Mean Corpuscular Volume 94 fL (79-100) Mean Corpuscular Hemoglobin 31 pg (25-35) Mean Corpuscular Hemoglobin Concent 34 g/dL (31-37) Red Cell Distribution Width 13.8 % (11.5-14.5) Platelet Count 75 x10^3/uL (140-400) Neutrophils (%) (Auto) 90 % (31-73) Lymphocytes (%) (Auto) 7 % (24-48) Monocytes (%) (Auto) 3 % (0-9) Eosinophils (%) (Auto) 0 % (0-3) Basophils (%) (Auto) 0 % (0-3) Neutrophils # (Auto) 19.1 x10^3/uL (1.8-7.7) Lymphocytes # (Auto) 1.5 x10^3/uL (1.0-4.8) Monocytes # (Auto) 0.6 x10^3/uL (0.0-1.1) Eosinophils # (Auto) 0.0 x10^3/uL (0.0-0.7) Basophils # (Auto) 0.0 x10^3/uL (0.0-0.2) Sodium Level 143 mmol/L (136-145) Potassium Level 3.7 mmol/L (3.5-5.1) Chloride Level 113 mmol/L (98-107) Carbon Dioxide Level 20 mmol/L (21-32) Anion Gap 10 (6-14) Blood Urea Nitrogen 37 mg/dL (7-20) Creatinine 1.1 mg/dL (0.6-1.0) Estimated GFR (Cockcroft-Gault) 58.0 Glucose Level 211 mg/dL (70-99) Calcium Level 7.6 mg/dL (8.5-10.1) Phosphorus Level 2.5 mg/dL (2.6-4.7) Magnesium Level 2.6 mg/dL (1.8-2.4) O2 Saturation 92 % (92-99) Arterial Blood pH 7.42 (7.35-7.45) Arterial Blood pCO2 at Patient Temp 25 mmHg (35-46) Arterial Blood pO2 at Patient Temp 67 mmHg (65-108) Arterial Blood HCO3 16 mmol/L (21-28) Arterial Blood Base Excess -7 mmol/L (-3-3) FiO2 40 Test 01/06/20 11:41 Glucose (Fingerstick) 207 mg/dL (70-99) Medications Current Medications Norepinephrine Bitartrate 8 mg/ Dextrose 258 ml @ 12.674 mls/ hr CONT PRN IV PER PROTOCOL Last administered on 01/01/20at 02:25; Start 01/01/20 at 02:15; Stop 01/01/20 at 03:19; Status DC Midazolam HCl 100 mg/Sodium Chloride 100 ml @ 1 mls/hr CONT PRN IV SEE I/O RECORD Last administered on 01/05/20at 08:43; Start 01/01/20 at 02:15 Norepinephrine Bitartrate 16 mg/ Dextrose 266 ml @ 6.534 mls/ hr CONT PRN IV PER PROTOCOL Last administered on 01/02/20at 08:40; Start 01/01/20 at 03:30; Stop 01/05/20 at 09:35; Status DC Epinephrine HCl 5 mg/Sodium Chloride 255 ml @ 20.043 mls/ hr CONT PRN IV SEE I/O RECORD Last administered on 01/01/20at 10:17; Start 01/01/20 at 03:30; Stop 01/01/20 at 12:00; Status DC Sodium Chloride 1,000 ml @ 60 mls/hr [id number] IV Last administered on 01/01/20at 04:07; Start 01/01/20 at 03:45; Stop 01/01/20 at 13:22; Status DC Vasopressin 20 unit/Dextrose 101 ml @ 12 mls/hr CONT PRN IV SEE I/O RECORD Last administered on 01/03/20at 23:16; Start 01/01/20 at 04:15; Stop 01/05/20 at 09:35; Status DC Phenylephrine HCl 50 mg/Sodium Chloride 255 ml @ 10.022 mls/ hr CONT PRN IV SEE I/O RECORD Last administered on 01/01/20at 05:42; Start 01/01/20 at 05:30; Stop 01/05/20 at 09:35; Status DC Fentanyl Citrate (Fentanyl 2ml Vial) 25 mcg PRN Q1HR PRN IV SEE COMMENTS; Start 01/01/20 at 07:00 Fentanyl Citrate (Fentanyl 2ml Vial) 50 mcg PRN Q1HR PRN IV SEE COMMENTS; Start 01/01/20 at 07:00 Sodium Bicarbonate (Sodium Bicarb Adult 8.4% Syr) 50 meq 1X ONCE IV Last administered on 01/01/20at 09:18; Start 01/01/20 at 08:45; Stop 01/01/20 at 08:46; Status DC Sodium Bicarbonate (Sodium Bicarb Adult 8.4% Syr) 50 meq 1X ONCE IV Last administered on 01/01/20at 09:18; Start 01/01/20 at 08:45; Stop 01/01/20 at 08:46; Status DC Enoxaparin Sodium (Lovenox 30mg Syringe) 30 mg Q24H SQ ; Start 01/01/20 at 10:15; Stop 01/01/20 at 10:12; Status DC Famotidine (Pepcid Vial) 20 mg DAILY IVP Last administered on 01/06/20at 11:31; Start 01/01/20 at 11:00 Heparin Sodium (Porcine) (Heparin Sodium) 5,000 unit BID SQ Last administered on 01/01/20at 21:12; Start 01/01/20 at 11:00; Stop 01/03/20 at 10:40; Status DC Epinephrine HCl 10 mg/Sodium Chloride 250 ml @ 9.825 mls/ hr CONT PRN IV SEE I/O RECORD Last administered on 01/01/20at 11:54; Start 01/01/20 at 10:30 Sodium Chloride 1,000 ml @ 150 mls/hr 1X ONCE IV Last administered on 01/01/20at 12:21; Start 01/01/20 at 12:00; Stop 01/01/20 at 18:39; Status DC Vancomycin HCl (Vanco Per Pharmacy) 1 each PRN DAILY PRN MC SEE COMMENTS Last administered on 01/05/20at 12:07; Start 01/01/20 at 14:00 Piperacillin Sod/ Tazobactam Sod (Zosyn Per Pharmacy) 1 each PRN DAILY PRN MC SEE COMMENTS; Start 01/01/20 at 14:00 Methylprednisolone Sodium Succinate (SOLU-Medrol 125MG VIAL) 60 mg Q8HRS IV Last administered on 01/05/20at 05:34; Start 01/01/20 at 14:00; Stop 01/05/20 at 09:35; Status DC Piperacillin Sod/ Tazobactam Sod 2.25 gm/Sodium Chloride 50 ml @ 100 mls/hr Q8HRS IV Last administered on 01/05/20at 05:34; Start 01/01/20 at 14:30; Stop 01/05/20 at 11:54; Status DC Vancomycin HCl 1.5 gm/Sodium Chloride 500 ml @ 250 mls/hr 1X ONCE IV Last administered on 01/01/20at 16:43; Start 01/01/20 at 15:00; Stop 01/01/20 at 16 :59; Status DC Sodium Chloride 1,000 ml @ 150 mls/hr Q6H40M IV Last administered on 01/06/20at 09:49; Start 01/01/20 at 19:00 Vancomycin HCl (Vancomycin Random Level) 1 each 1X ONCE MC Last administered on 01/03/20at 06:00; Start 01/03/20 at 06:00; Stop 01/03/20 at 06:01; Status DC Potassium Chloride/Water 100 ml @ 100 mls/hr Q1H IV Last administered on 01/02/20at 11:57; Start 01/02/20 at 11:00; Stop 01/02/20 at 12:59; Status DC Atropine Sulfate (ATROPINE 1mg SYRINGE) 1 mg STK-MED ONCE .ROUTE ; Start 01/02/20 at 12:55; Stop 01/02/20 at 12:55; Status DC Insulin Human Lispro (HumaLOG) 0-5 UNITS Q6HRS SQ Last administered on at 11:51; Start 01/02/20 at 18:30 Dextrose (Dextrose 50%-Water Syringe) 12.5 gm PRN Q15MIN PRN IV SEE COMMENTS; Start 01/02/20 at 18:15 Vancomycin HCl 1 gm/Sodium Chloride 250 ml @ 250 mls/hr Q36H IV Last administered on 01/03/20at 07:59; Start 01/03/20 at 08:00; Stop 01/04/20 at 09:50; Status DC Potassium Chloride/Water 100 ml @ 100 mls/hr Q1H IV Last administered on 12/22 07/13at 10:59; Start 01/03/20 at 09:00; Stop 01/03/20 at 10:59; Status DC Sodium Phosphate 20 mmol/Sodium Chloride 256.6667 ml @ 64.167 m... 1X ONCE IV Last administered on 01/03/20at 12:29; Start 01/03/20 at 12:00; Stop 01/03/20 at 15:59; Status DC Magnesium Sulfate 100 ml @ 25 mls/hr 1X ONCE IV Last administered on 01/04/20at 07:34; Start 01/04/20 at 07:30; Stop 01/04/20 at 11:29; Status DC Potassium Chloride/Water 100 ml @ 100 mls/hr Q1H IV Last administered on 01/04/20at 08:41; Start 01/04/20 at 07:30; Stop 01/04/20 at 09:29; Status DC Sodium Bicarbonate (Sodium Bicarb Adult 8.4% Syr) 100 meq 1X ONCE IV Last administered on 01/04/20at 09:10; Start 01/04/20 at 09:00; Stop 01/04/20 at 09:01; Status DC Propofol 100 ml @ 1.2 mls/hr CONT PRN IV SEE I/O RECORD Last administered on 01/04/20at 09:11; Start 01/04/20 at 09:00 Vancomycin HCl 1 gm/Sodium Chloride 250 ml @ 250 mls/hr Q24H IV Last administered on 01/05/20at 10:50; Start 01/04/20 at 11:00 Vancomycin HCl (Vancomycin Trough Level) 1 each 1X ONCE MC ; Start 01/06/20 at 10:30; Stop 01/06/20 at 10:31; Status DC Dexmedetomidine HCl 400 mcg/ Sodium Chloride 100 ml @ 4 mls/hr CONT PRN IV SEE COMMENTS Last administered on 01/04/20at 10:56; Start 01/04/20 at 10:00 Sodium Chloride 500 ml @ 500 mls/hr 1X PRN PRN IV SEE COMMENTS; Start 01/04/20 at 10:00 Atropine Sulfate (ATROPINE 0.5mg SYRINGE) 0.5 mg PRN Q5MIN PRN IV SEE COMMENTS; Start 01/04/20 at 10:00 Sodium Bicarbonate (Sodium Bicarb Adult 8.4% Syr) 100 meq 1X ONCE IV Last administered on 01/04/20at 13:29; Start 01/04/20 at 13:30; Stop 01/04/20 at 13:31; Status DC Potassium Phosphate 13.6 mmol/Sodium Chloride 254.5333 ml @ 127.... Q2H IV Last administered on 01/05/20at 11:14; Start 01/05/20 at 09:00; Stop 01/05/20 at 13:05; Status DC Methylprednisolone Sodium Succinate (SOLU-Medrol 125MG VIAL) 40 mg Q8HRS IV Last administered on 01/06/20at 05:30; Start 01/05/20 at 14:00 Sodium Chloride 500 ml @ 500 mls/hr 1X ONCE IV Last administered on 01/05/20at 12:29; Start 01/05/20 at 09:45; Stop 01/05/20 at 10:44; Status DC Piperacillin Sod/ Tazobactam Sod 2.25 gm/Sodium Chloride 50 ml @ 100 mls/hr Q6HRS IV Last administered on 01/06/20at 05:31; Start 01/05/20 at 12:00; Stop 01/06/20 at 09:43; Status DC Potassium Chloride/Water 100 ml @ 100 mls/hr Q1H IV Last administered on 01/05/20at 17:37; Start 01/05/20 at 16:00; Stop 01/05/20 at 17:59; Status DC Piperacillin Sod/ Tazobactam Sod 3.375 gm/Sodium Chloride 50 ml @ 100 mls/hr Q6HRS IV ; Start 01/06/20 at 12:00 Fentanyl Citrate 30 ml @ 0 mls/hr CONT PRN IV SEE PROTOCOL Last administered on 01/06/20at 12:08; Start 01/06/20 at 12:00 Vitals/I & O Vital Sign - Last 24 Hours 01/05/20 01/05/20 01/05/20 01/05/20 12:55 13:52 15:00 15:01 Pulse 57 54 68 Resp 18 18 18 B/P (MAP) 149/71 (97) 128/65 (86) 136/72 (93) Pulse Ox 97 98 97 98 O2 Delivery Ventilator Ventilator Ventilator Ventilator 01/05/20 01/05/20 01/05/20 01/05/20 15:59 16:00 16:00 16:49 Temp 97.4 97.4 Pulse 62 57 Resp 17 16 B/P (MAP) 135/68 (90) 138/67 (90) Pulse Ox 97 95 O2 Delivery Mechanical Ventilator Ventilator Ventilator 01/05/20 01/05/20 01/05/20 01/05/20 18:00 19:00 20:00 20:15 Temp 97.6 97.6 Pulse 63 56 58 Resp 18 18 18 B/P (MAP) 144/71 (95) 138/64 (88) 138/66 (90) Pulse Ox 99 97 98 O2 Delivery Ventilator Ventilator Ventilator 01/05/20 01/05/20 01/05/20 01/05/20 20:15 20:35 21:00 22:00 Pulse 75 64 Resp 18 18 B/P (MAP) 145/73 (97) 154/73 (100) Pulse Ox 98 99 99 O2 Delivery Mechanical Ventilator Ventilator Ventilator Ventilator 01/05/20 01/05/20 01/05/20 01/05/20 23:00 23:45 23:53 23:53 Pulse 62 Resp 18 B/P (MAP) 152/70 (97) Pulse Ox 99 98 O2 Delivery Ventilator Ventilator Mechanical Ventilator 01/06/20 01/06/20 01/06/20 01/06/20 00:00 01:00 02:00 03:00 Temp 97.2 97.2 Pulse 62 65 62 66 Resp 18 18 18 18 B/P (MAP) 159/71 (100) 166/77 (106) 152/67 (95) 160/72 (101) Pulse Ox 97 96 96 96 O2 Delivery Ventilator Ventilator Ventilator Ventilator 01/06/20 01/06/20 01/06/20 01/06/20 04:00 04:08 04:10 04:10 Pulse 76 Resp 18 B/P (MAP) 164/76 (105) Pulse Ox 96 98 O2 Delivery Ventilator Ventilator Mechanical Ventilator 01/06/20 01/06/20 01/06/20 01/06/20 05:00 06:00 07:00 07:25 Pulse 69 68 59 Resp 18 18 18 B/P (MAP) 162/78 (106) 164/78 (106) 176/73 (107) Pulse Ox 97 97 97 98 O2 Delivery Ventilator Ventilator Ventilator Ventilator 01/06/20 01/06/20 01/06/20 01/06/20 08:00 08:00 08:00 09:00 Temp 97.7 97.7 Pulse 64 66 Resp 18 18 B/P (MAP) 150/72 (98) 152/74 (100) Pulse Ox 97 97 O2 Delivery Ventilator Mechanical Ventilator Ventilator 01/06/20 01/06/20 01/06/20 01/06/20 10:00 11:00 12:00 12:00 Pulse 74 70 Resp 18 18 B/P (MAP) 162/80 (107) 158/76 (103) Pulse Ox 97 97 O2 Delivery Ventilator Ventilator Mechanical Ventilator 01/06/20 01/06/20 01/06/20 12:00 12:08 12:38 Temp 98.0 98.0 Pulse 62 Resp 18 B/P (MAP) 146/68 (94) Pulse Ox 96 97 97 O2 Delivery Ventilator Ventilator Intake and Output 01/05/20 01/05/20 01/06/20 15:00 23:00 07:00 Intake Total 1860 ml 2296 ml 2883 ml Output Total 625 ml 575 ml 270 ml Balance 1235 ml 1721 ml 2613 ml Justicifation of Admission Dx: Justifications for Admission: Justification of Admission Dx: Yes Respiratory Failure: Mechanical Ventilation Nutrition Consultation Dietary Evaluation: Recommendations by RD: Dietary education by RD, Increase Calorie Intake Comments: Continue w/TFs as ordered per Catrina DUNHAM@goal rate 35 ml/hr w/250 ml water flusehs q6 hrs Expected Outcomes/Goals: New goal 01/02: TFs to meet >65% est needs while pt remains intubated - met, goal ongoing Malnutrition Findings: Body Fat Depletion (Non Severe: Mild Depletion Weight Status: Appropriate YESICA VASQUEZ MD Jan 06, 2020 12:51
[2020-01-06] MEDS: VANCOMYCIN PER PHARMACY MC PRN (12:58)
--- NOTE | 2020-01-06 12:59 | NUR ---
Pharmacy Vancomycin Dosing Note S: Consulted to monitor and dose vancomycin started 01/01/20. O: SALLIE RHOADES is a 79 year old F with Sepsis Other Antibiotics: ZOSYN LABS: Last BUN: 50 Last Creatinine: 1.1 Creatinine Clearance: about 40 mL/min Last WBC: 15.5 Last Procalcitonin: - Tmax (past 24 hours): 99 Microbiology: 01/03 NONE - originally went to [facility]. Unsure if cultures drawn there I/O: 7039/1470 Drug Levels: Last Trough level: 13.9 on 01/06/20 at 1200 Last dose given 01/05/20 at 1050 Vancomycin Dosing: Dosing Weight: Target Trough: 15-20 A: Based on: trough and renal function P: 1. Continue Vancomycin 1000 mg IV q24h 2. Follow up Trough level on 01/06/20 at 1030 3. Pharmacy will continue to monitor, follow and adjust therapy as needed. Genet Herrera [facility], 01/06/20 [id number]
[2020-01-06] MEDS: PIPERACILLIN/TAZOBACTAM 3.375 GM in IV NORMAL SALINE 50ML 50 ML IV SCH ×2 (13:05→18:08)
[2020-01-06] MEDS: VANCOMYCIN 1 GM in IV NORMAL SALINE 250ML 250 ML IV SCH (13:05)
[2020-01-07] VITALS (24 sets, daily range): BP systolic 108–164; BP diastolic 55–76
[2020-01-07] MEDS: PIPERACILLIN/TAZOBACTAM 3.375 GM in IV NORMAL SALINE 50ML 50 ML IV SCH ×4 (00:06→17:33)
[2020-01-07] MEDS: IV 1/2 NORMAL SALINE 1,000 ML IV SCH ×2 (00:53→06:08)
[2020-01-07] MEDS: methylPREDNISolone SOD SUCC PF 125 MG/2 ML VIAL. IV SCH ×3 (06:06→21:28)
[2020-01-07] MEDS: INSULIN LISPRO 300 UNITS/3 ML VIAL. SQ SCH ×4 (06:07→17:38)
[2020-01-07 08:07] LABS: BASE EXCESS ABG -6 mmol/L (-3-3); HCO3 ABG 18 mmol/L (21-28); PCO2 ABG 29 mmHg (35-46); PO2 ABG 88 mmHg (65-108); SAT O2 ABG 96 % (92-99)
[2020-01-07 08:09] LABS: FIO2 ABG 40
[2020-01-07] MEDS: FAMOTIDINE 20 MG/2 ML VIAL IVP SCH (10:31)
[2020-01-07] MEDS: VANCOMYCIN 1 GM in IV NORMAL SALINE 250ML 250 ML IV SCH (10:33)
[2020-01-07 10:52] LABS: HEMATOCRIT 29.4 % (36.0-47.0); HEMOGLOBIN 9.7 g/dL (12.0-15.5); RED BLOOD COUNT 3.09 x10^6/uL (3.50-5.40); RED CELL DISTRIBUTION WIDTH 13.6 % (11.5-14.5); WHITE BLOOD COUNT 18.4 x10^3/uL (4.0-11.0)
[2020-01-07 10:58] LABS: ALBUMIN 1.4 g/dL (3.4-5.0); ALBUMIN/GLOBULIN RATIO 0.5 (1.0-1.7); CALCIUM 7.4 mg/dL (8.5-10.1); CREATININE 0.9 mg/dL (0.6-1.0); GFR 73.1; POTASSIUM 3.8 mmol/L (3.5-5.1); TOTAL BILIRUBIN 0.5 mg/dL (0.2-1.0); TOTAL PROTEIN 4.4 g/dL (6.4-8.2)
--- NOTE | 2020-01-07 11:12 | RAD ---
Examination: KUB History: Reason: OG placement; Covid positive / Spl. Instructions: / History: Comparison/Correlation: None Findings: Frontal view of the abdomen was obtained by portable technique with the patient supine. Enteric tube terminates at the mid body of the stomach which is moderately distended with gas. Right upper quadrant surgical clips are present. Visualized lung bases are unremarkable. Impression: Enteric tube in place. Electronically signed by: Vance Faust MD (01/07/2020 11:10 AM) [id number]
--- NOTE | 2020-01-07 11:33 | PDOC ---
PULMONARY PROGRESS NOTES DATE: 01/07/20 TIME: 11:32 Subjective remains intubated/sedated on versed, fentanyl, mod ett secretion off pressor Vitals Vital Signs Date Time Temp Pulse Resp B/P (MAP) Pulse Ox O2 Delivery O2 Flow Rate FiO2 01/07/20 09:00 54 16 128/58 (81) 97 Ventilator 01/07/20 08:00 98.4 98.4 Comments visual exam done due to COVID pandemia on vent sedated nc at no accessory muscle use no paradoxical abd motion RRR no rash no edema Labs Laboratory Tests Test 01/05/20 11:36 01/05/20 17:48 01/05/20 23:45 01/06/20 05:00 Glucose (Fingerstick) 180 mg/dL (70-99) 177 mg/dL (70-99) 171 mg/dL (70-99) White Blood Count 21.2 x10^3/uL (4.0-11.0) Red Blood Count 3.51 x10^6/uL (3.50-5.40) Hemoglobin 11.0 g/dL (12.0-15.5) Hematocrit 32.9 % (36.0-47.0) Mean Corpuscular Volume 94 fL (79-100) Mean Corpuscular Hemoglobin 31 pg (25-35) Mean Corpuscular Hemoglobin Concent 34 g/dL (31-37) Red Cell Distribution Width 13.8 % (11.5-14.5) Platelet Count 75 x10^3/uL (140-400) Neutrophils (%) (Auto) 90 % (31-73) Lymphocytes (%) (Auto) 7 % (24-48) Monocytes (%) (Auto) 3 % (0-9) Eosinophils (%) (Auto) 0 % (0-3) Basophils (%) (Auto) 0 % (0-3) Neutrophils # (Auto) 19.1 x10^3/uL (1.8-7.7) Lymphocytes # (Auto) 1.5 x10^3/uL (1.0-4.8) Monocytes # (Auto) 0.6 x10^3/uL (0.0-1.1) Eosinophils # (Auto) 0.0 x10^3/uL (0.0-0.7) Basophils # (Auto) 0.0 x10^3/uL (0.0-0.2) Sodium Level 143 mmol/L (136-145) Potassium Level 3.7 mmol/L (3.5-5.1) Chloride Level 113 mmol/L (98-107) Carbon Dioxide Level 20 mmol/L (21-32) Anion Gap 10 (6-14) Blood Urea Nitrogen 37 mg/dL (7-20) Creatinine 1.1 mg/dL (0.6-1.0) Estimated GFR (Cockcroft-Gault) 58.0 Glucose Level 211 mg/dL (70-99) Calcium Level 7.6 mg/dL (8.5-10.1) Phosphorus Level 2.5 mg/dL (2.6-4.7) Magnesium Level 2.6 mg/dL (1.8-2.4) Test 01/06/20 07:30 01/06/20 11:41 01/06/20 12:00 01/06/20 18:03 O2 Saturation 92 % (92-99) Arterial Blood pH 7.42 (7.35-7.45) Arterial Blood pCO2 at Patient Temp 25 mmHg (35-46) Arterial Blood pO2 at Patient Temp 67 mmHg (65-108) Arterial Blood HCO3 16 mmol/L (21-28) Arterial Blood Base Excess -7 mmol/L (-3-3) FiO2 40 Glucose (Fingerstick) 207 mg/dL (70-99) 180 mg/dL (70-99) Vancomycin Level Trough 13.9 mcg/mL (10.0-20.0) Vancomycin Last Dose Date 01/05/20 Vancomycin Last Dose Time 1100 Test 01/07/20 00:16 01/07/20 05:09 01/07/20 05:15 01/07/20 08:00 Glucose (Fingerstick) 144 mg/dL (70-99) 197 mg/dL (70-99) White Blood Count 18.4 x10^3/uL (4.0-11.0) Red Blood Count 3.09 x10^6/uL (3.50-5.40) Hemoglobin 9.7 g/dL (12.0-15.5) Hematocrit 29.4 % (36.0-47.0) Mean Corpuscular Volume 95 fL (79-100) Mean Corpuscular Hemoglobin 31 pg (25-35) Mean Corpuscular Hemoglobin Concent 33 g/dL (31-37) Red Cell Distribution Width 13.6 % (11.5-14.5) Platelet Count 81 x10^3/uL (140-400) Sodium Level 143 mmol/L (136-145) Potassium Level 3.8 mmol/L (3.5-5.1) Chloride Level 112 mmol/L (98-107) Carbon Dioxide Level 22 mmol/L (21-32) Anion Gap 9 (6-14) Blood Urea Nitrogen 32 mg/dL (7-20) Creatinine 0.9 mg/dL (0.6-1.0) Estimated GFR (Cockcroft-Gault) 73.1 BUN/Creatinine Ratio 36 (6-20) Glucose Level 191 mg/dL (70-99) Calcium Level 7.4 mg/dL (8.5-10.1) Total Bilirubin 0.5 mg/dL (0.2-1.0) Aspartate Amino Transf (AST/SGOT) 284 U/L (15-37) Alanine Aminotransferase (ALT/SGPT) 368 U/L (14-59) Alkaline Phosphatase 186 U/L (46-116) Total Protein 4.4 g/dL (6.4-8.2) Albumin 1.4 g/dL (3.4-5.0) Albumin/Globulin Ratio 0.5 (1.0-1.7) O2 Saturation 96 % (92-99) Arterial Blood pH 7.40 (7.35-7.45) Arterial Blood pCO2 at Patient Temp 29 mmHg (35-46) Arterial Blood pO2 at Patient Temp 88 mmHg (65-108) Arterial Blood HCO3 18 mmol/L (21-28) Arterial Blood Base Excess -6 mmol/L (-3-3) FiO2 40 Test 01/07/20 11:23 Glucose (Fingerstick) 160 mg/dL (70-99) Laboratory Tests Test 01/06/20 11:41 01/06/20 12:00 01/06/20 18:03 01/07/20 00:16 Glucose (Fingerstick) 207 mg/dL (70-99) 180 mg/dL (70-99) 144 mg/dL (70-99) Vancomycin Level Trough 13.9 mcg/mL (10.0-20.0) Vancomycin Last Dose Date 01/05/20 Vancomycin Last Dose Time 1100 Test 01/07/20 05:09 01/07/20 05:15 01/07/20 08:00 01/07/20 11:23 Glucose (Fingerstick) 197 mg/dL (70-99) 160 mg/dL (70-99) White Blood Count 18.4 x10^3/uL (4.0-11.0) Red Blood Count 3.09 x10^6/uL (3.50-5.40) Hemoglobin 9.7 g/dL (12.0-15.5) Hematocrit 29.4 % (36.0-47.0) Mean Corpuscular Volume 95 fL (79-100) Mean Corpuscular Hemoglobin 31 pg (25-35) Mean Corpuscular Hemoglobin Concent 33 g/dL (31-37) Red Cell Distribution Width 13.6 % (11.5-14.5) Platelet Count 81 x10^3/uL (140-400) Sodium Level 143 mmol/L (136-145) Potassium Level 3.8 mmol/L (3.5-5.1) Chloride Level 112 mmol/L (98-107) Carbon Dioxide Level 22 mmol/L (21-32) Anion Gap 9 (6-14) Blood Urea Nitrogen 32 mg/dL (7-20) Creatinine 0.9 mg/dL (0.6-1.0) Estimated GFR (Cockcroft-Gault) 73.1 BUN/Creatinine Ratio 36 (6-20) Glucose Level 191 mg/dL (70-99) Calcium Level 7.4 mg/dL (8.5-10.1) Total Bilirubin 0.5 mg/dL (0.2-1.0) Aspartate Amino Transf (AST/SGOT) 284 U/L (15-37) Alanine Aminotransferase (ALT/SGPT) 368 U/L (14-59) Alkaline Phosphatase 186 U/L (46-116) Total Protein 4.4 g/dL (6.4-8.2) Albumin 1.4 g/dL (3.4-5.0) Albumin/Globulin Ratio 0.5 (1.0-1.7) O2 Saturation 96 % (92-99) Arterial Blood pH 7.40 (7.35-7.45) Arterial Blood pCO2 at Patient Temp 29 mmHg (35-46) Arterial Blood pO2 at Patient Temp 88 mmHg (65-108) Arterial Blood HCO3 18 mmol/L (21-28) Arterial Blood Base Excess -6 mmol/L (-3-3) FiO2 40 Comments CXR 01/01 Impression: 1. Increased patchy bibasilar opacities. 2. Small left pleural effusion, unchanged. Impression . 1. Acute hypoxic respiratory failure secondary to multisystem organ failure from COVID pneumonia and acute lung injury. improving 2. Severe metabolic acidosis, likely secondary to acute kidney injury and shock/ lactic acidosis--improved 3. Acute kidney injury. improving 4. Abnormal chest x-ray consistent with COVID-19 pneumonia. 5. COVID-19 positive. 6. Thrombocytopenia, improving 7. persistent azotemia could be related to steroids, improving 8. leukocytosis improving Plan . Cont. current vent support Fi02 40% and PEEP 5, will taper off sedation sbt when more awake Stress ulcer prophylaxis, scds, off SQ heparin 2/2 low plt count continue BS antibiotics Follow cardiology recs Follow renal recs continued azotemia improving thrombocytopenia due to sepsis, improving clinically improving but still critically ill Discussed with RN and RT. Chart reviewed. Labs reviewed and imaging reviewed. critically ill Critical care time 30 minutes. no overlap YULISA DURAN MD Jan 07, 2020 11:33
--- NOTE | 2020-01-07 12:07 | PDOC ---
[employer] PROGRESS NOTE Date of Service DOS: DATE: 01/07/20 TIME: 12:06 Chief Complaint Chief Complaint Severe respiratory failure secondary to COVID-19 History of the following; Dementia, hypertension, hyperlipidemia, Raynaud's. Hyperthyroidism, status post thyroidectomy. , thyroidectomy, tonsillectomy and cholecystectomy. History of Present Illness History of Present Illness 01/07/2020 Patient seen and examined She remains in the [place] [address] ICU on the vent Assist-control//4 50/40% with 5 of PEEP Discussed with RN Chart reviewed She is still critically ill 01/06/2020 Patient seen and examined in the [place] [address] ICU She remains mechanically ventilated Assist-control/16/4 50/40% with 5 of PEEP Discussed with RN Chart reviewed She remains critically ill 01/05/2020 Patient seen and examined Intubated, on vent AC/16/450/40% FiO2 w/t 5 PEEP and sedated with Precedex and propafol Successfully weaned off pressors OG tube at 35cc/hour Discussed with RN Charts reviewed 01/04/2020 Patient seen and examined Intubated, on vent AC/16/450/40% FiO2 w/t 5 PEEP and sedated with Precedex Discussed with RN Charts reviewed 01/03/2020 Patient seen and examined Intubated, on vent AC/16/450/40% FiO2 w/t 5 PEEP and sedated with Fentanyl OG tube at 20cc/hour Discussed with RN Charts reviewed Vitals/I&O Vitals/I&O: Vital Signs Date Time Temp Pulse Resp B/P (MAP) Pulse Ox O2 Delivery O2 Flow Rate FiO2 01/07/20 11:24 98 Ventilator 01/07/20 09:00 54 16 128/58 (81) 01/07/20 08:00 98.4 98.4 I & O 01/06/20 01/06/20 01/07/20 15:00 23:00 07:00 Intake Total 500 ml 2893.21 ml 2103.2 ml Output Total 485 ml 175 ml 700 ml Balance 15 ml 2718.21 ml 1403.2 ml Physical Exam General: Other (sedated) Heart: Regular rate (SB 40s) Lungs: Crackles Abdomen: Soft Extremities: No cyanosis Skin: No breakdown Labs Labs: Laboratory Tests Test 01/06/20 18:03 01/07/20 00:16 01/07/20 05:09 01/07/20 05:15 Glucose (Fingerstick) 180 mg/dL (70-99) 144 mg/dL (70-99) 197 mg/dL (70-99) White Blood Count 18.4 x10^3/uL (4.0-11.0) Red Blood Count 3.09 x10^6/uL (3.50-5.40) Hemoglobin 9.7 g/dL (12.0-15.5) Hematocrit 29.4 % (36.0-47.0) Mean Corpuscular Volume 95 fL (79-100) Mean Corpuscular Hemoglobin 31 pg (25-35) Mean Corpuscular Hemoglobin Concent 33 g/dL (31-37) Red Cell Distribution Width 13.6 % (11.5-14.5) Platelet Count 81 x10^3/uL (140-400) Sodium Level 143 mmol/L (136-145) Potassium Level 3.8 mmol/L (3.5-5.1) Chloride Level 112 mmol/L (98-107) Carbon Dioxide Level 22 mmol/L (21-32) Anion Gap 9 (6-14) Blood Urea Nitrogen 32 mg/dL (7-20) Creatinine 0.9 mg/dL (0.6-1.0) Estimated GFR (Cockcroft-Gault) 73.1 BUN/Creatinine Ratio 36 (6-20) Glucose Level 191 mg/dL (70-99) Calcium Level 7.4 mg/dL (8.5-10.1) Total Bilirubin 0.5 mg/dL (0.2-1.0) Aspartate Amino Transf (AST/SGOT) 284 U/L (15-37) Alanine Aminotransferase (ALT/SGPT) 368 U/L (14-59) Alkaline Phosphatase 186 U/L (46-116) Total Protein 4.4 g/dL (6.4-8.2) Albumin 1.4 g/dL (3.4-5.0) Albumin/Globulin Ratio 0.5 (1.0-1.7) Test 01/07/20 08:00 01/07/20 11:23 O2 Saturation 96 % (92-99) Arterial Blood pH 7.40 (7.35-7.45) Arterial Blood pCO2 at Patient Temp 29 mmHg (35-46) Arterial Blood pO2 at Patient Temp 88 mmHg (65-108) Arterial Blood HCO3 18 mmol/L (21-28) Arterial Blood Base Excess -6 mmol/L (-3-3) FiO2 40 Glucose (Fingerstick) 160 mg/dL (70-99) Assessment and Plan Assessmemt and Plan Assessment Severe respiratory failure secondary to COVID-19 History of the following; Dementia, hypertension, hyperlipidemia, Raynaud's. Hyperthyroidism, status post thyroidectomy. , thyroidectomy, tonsillectomy and cholecystectomy. Plan ICU monitoring Respiratory isolation Trend labs (lactic acid, Potassium, Phos) SCD Vent weaning IV antibiotics IV steroids DVT prophylaxis Prognosis guarded Appreciate subspecialist input Total time 33 minutes Comment Review of Relevant I have reviewed the following items aislinn (where applicable) has been applied. Justicifation of Admission Dx: Justifications for Admission: Justification of Admission Dx: Yes Respiratory Failure: Mechanical Ventilation SUMMER BOJORQUEZ III DO Jan 07, 2020 12:07
[2020-01-07] MEDS ORDERED: FUROSEMIDE 40 MG/4 ML VIAL. IVP ONE (14:00)
[2020-01-07] MEDS ORDERED: PROPOFOL 100 ML IV PRN (16:30)
--- NOTE | 2020-01-07 18:37 | NUR ---
Sedation off at 1100 for sedation vacation. Patient still not awake as of 1836. Propofol added to MAR for resedation if BP will tolerate.
[2020-01-08] VITALS (21 sets, daily range): BP systolic 121–170; BP diastolic 53–97
[2020-01-08] MEDS: PIPERACILLIN/TAZOBACTAM 3.375 GM in IV NORMAL SALINE 50ML 50 ML IV SCH ×4 (00:24→17:36)
[2020-01-08] MEDS: INSULIN LISPRO 300 UNITS/3 ML VIAL. SQ SCH ×5 (06:00→23:59)
[2020-01-08] MEDS: methylPREDNISolone SOD SUCC PF 125 MG/2 ML VIAL. IV SCH ×3 (06:47→21:16)
[2020-01-08] MEDS: fentaNYL PF VIAL 100 MCG/2 ML VIAL IV PRN ×2 (07:25→23:42)
[2020-01-08 07:57] LABS: BASE EXCESS ABG -5 mmol/L (-3-3); HCO3 ABG 18 mmol/L (21-28); PCO2 ABG 28 mmHg (35-46); PO2 ABG 103 mmHg (65-108); SAT O2 ABG 97 % (92-99)
[2020-01-08] MEDS: FAMOTIDINE 20 MG/2 ML VIAL IVP SCH (08:38)
[2020-01-08 08:48] LABS: FIO2 ABG 40
--- NOTE | 2020-01-08 09:30 | RAD ---
CHEST AP ONLY INDICATION: Reason: Vent/ covid + / Spl. Instructions: / History: . COMPARISON STUDY: 04/12/2020. FINDINGS: Life Support Devices: Stable endotracheal tube, enteric tube, right IJ central venous catheter. Lungs: Normal lung volume. Stable patchy bilateral basilar opacities. Pleura: Small left pleural effusion. Heart and Mediastinum: Stable cardiomediastinal silhouette and great vessels. IMPRESSION: 1. Stable life support devices. 2. Stable patchy bibasilar opacities. 3. Small left pleural effusion. Electronically signed by: Ubaldo Dahl MD (01/08/2020 9:27 AM) [id number]
[2020-01-08] MEDS: VANCOMYCIN 1 GM in IV NORMAL SALINE 250ML 250 ML IV SCH (10:21)
--- NOTE | 2020-01-08 10:59 | PDOC ---
PULMONARY PROGRESS NOTES DATE: 01/08/20 TIME: 10:57 Subjective remains intubated/weaning off sedation off pressor Vitals Vital Signs Date Time Temp Pulse Resp B/P (MAP) Pulse Ox O2 Delivery O2 Flow Rate FiO2 01/08/20 10:00 62 16 140/68 (92) 98 Ventilator 01/08/20 08:00 98.8 98.8 Comments visual exam done due to COVID pandemia on vent no accessory muscle use no paradoxical abd motion RRR no rash no edema Labs Laboratory Tests Test 01/06/20 11:41 01/06/20 12:00 01/06/20 18:03 01/07/20 00:16 Glucose (Fingerstick) 207 mg/dL (70-99) 180 mg/dL (70-99) 144 mg/dL (70-99) Vancomycin Level Trough 13.9 mcg/mL (10.0-20.0) Vancomycin Last Dose Date 01/05/20 Vancomycin Last Dose Time 1100 Test 01/07/20 05:09 01/07/20 05:15 01/07/20 08:00 01/07/20 11:23 Glucose (Fingerstick) 197 mg/dL (70-99) 160 mg/dL (70-99) White Blood Count 18.4 x10^3/uL (4.0-11.0) Red Blood Count 3.09 x10^6/uL (3.50-5.40) Hemoglobin 9.7 g/dL (12.0-15.5) Hematocrit 29.4 % (36.0-47.0) Mean Corpuscular Volume 95 fL (79-100) Mean Corpuscular Hemoglobin 31 pg (25-35) Mean Corpuscular Hemoglobin Concent 33 g/dL (31-37) Red Cell Distribution Width 13.6 % (11.5-14.5) Platelet Count 81 x10^3/uL (140-400) Sodium Level 143 mmol/L (136-145) Potassium Level 3.8 mmol/L (3.5-5.1) Chloride Level 112 mmol/L (98-107) Carbon Dioxide Level 22 mmol/L (21-32) Anion Gap 9 (6-14) Blood Urea Nitrogen 32 mg/dL (7-20) Creatinine 0.9 mg/dL (0.6-1.0) Estimated GFR (Cockcroft-Gault) 73.1 BUN/Creatinine Ratio 36 (6-20) Glucose Level 191 mg/dL (70-99) Calcium Level 7.4 mg/dL (8.5-10.1) Total Bilirubin 0.5 mg/dL (0.2-1.0) Aspartate Amino Transf (AST/SGOT) 284 U/L (15-37) Alanine Aminotransferase (ALT/SGPT) 368 U/L (14-59) Alkaline Phosphatase 186 U/L (46-116) Total Protein 4.4 g/dL (6.4-8.2) Albumin 1.4 g/dL (3.4-5.0) Albumin/Globulin Ratio 0.5 (1.0-1.7) O2 Saturation 96 % (92-99) Arterial Blood pH 7.40 (7.35-7.45) Arterial Blood pCO2 at Patient Temp 29 mmHg (35-46) Arterial Blood pO2 at Patient Temp 88 mmHg (65-108) Arterial Blood HCO3 18 mmol/L (21-28) Arterial Blood Base Excess -6 mmol/L (-3-3) FiO2 40 Test 01/07/20 17:37 01/08/20 01:20 01/08/20 06:02 01/08/20 07:35 Glucose (Fingerstick) 211 mg/dL (70-99) 198 mg/dL (70-99) 193 mg/dL (70-99) O2 Saturation 97 % (92-99) Arterial Blood pH 7.43 (7.35-7.45) Arterial Blood pCO2 at Patient Temp 28 mmHg (35-46) Arterial Blood pO2 at Patient Temp 103 mmHg (65-108) Arterial Blood HCO3 18 mmol/L (21-28) Arterial Blood Base Excess -5 mmol/L (-3-3) FiO2 40 Laboratory Tests Test 01/07/20 11:23 01/07/20 17:37 01/08/20 01:20 01/08/20 06:02 Glucose (Fingerstick) 160 mg/dL (70-99) 211 mg/dL (70-99) 198 mg/dL (70-99) 193 mg/dL (70-99) Test 01/08/20 07:35 O2 Saturation 97 % (92-99) Arterial Blood pH 7.43 (7.35-7.45) Arterial Blood pCO2 at Patient Temp 28 mmHg (35-46) Arterial Blood pO2 at Patient Temp 103 mmHg (65-108) Arterial Blood HCO3 18 mmol/L (21-28) Arterial Blood Base Excess -5 mmol/L (-3-3) FiO2 40 Comments CXR 01/07 reviewed small LLL effusion Impression . 1. Acute hypoxic respiratory failure secondary to multisystem organ failure from COVID pneumonia and acute lung injury. improving 2. Severe metabolic acidosis, likely secondary to acute kidney injury and shock/ lactic acidosis--improved 3. Acute kidney injury. improving 4. Abnormal chest x-ray consistent with COVID-19 pneumonia., improved 5. COVID-19 positive. 6. Thrombocytopenia, improving 7. persistent azotemia could be related to steroids, improving 8. leukocytosis improving Plan . Cont. current vent support Fi02 40% and PEEP 5, off sedation sbt when more awake Stress ulcer prophylaxis, scds, off SQ heparin 2/2 low plt count continue BS antibiotics Follow cardiology recs Follow renal recs continued azotemia improving thrombocytopenia due to sepsis, improving clinically improving but still critically ill Discussed with RN and RT. Chart reviewed. Labs reviewed and imaging reviewed. critically ill Critical care time 30 minutes. no overlap ABBEY BEEBE MD Jan 08, 2020 10:59
[2020-01-08] MEDS: VANCOMYCIN PER PHARMACY MC PRN (11:12)
--- NOTE | 2020-01-08 13:23 | PDOC ---
[employer] PROGRESS NOTE Date of Service DOS: DATE: 01/08/20 TIME: 13:22 Chief Complaint Chief Complaint Severe respiratory failure secondary to COVID-19 History of the following; Dementia, hypertension, hyperlipidemia, Raynaud's. Hyperthyroidism, status post thyroidectomy. , thyroidectomy, tonsillectomy and cholecystectomy. History of Present Illness History of Present Illness 01/08/2020 Patient seen and examined in the ICU [place] [address] unit She remains mechanically ventilated Assist-control/16/4 50/40% with 5 of PEEP Chart reviewed Discussed with RN She remains critically ill 01/07/2020 Patient seen and examined She remains in the [place] [address] ICU on the vent Assist-control/16/4 50/40% with 5 of PEEP Discussed with RN Chart reviewed She is still critically ill 01/06/2020 Patient seen and examined in the [place] [address] ICU She remains mechanically ventilated Assist-control/16/4 50/40% with 5 of PEEP Discussed with RN Chart reviewed She remains critically ill 01/05/2020 Patient seen and examined Intubated, on vent AC/16/450/40% FiO2 w/t 5 PEEP and sedated with Precedex and propafol Successfully weaned off pressors OG tube at 35cc/hour Discussed with RN Charts reviewed 01/04/2020 Patient seen and examined Intubated, on vent AC/16/450/40% FiO2 w/t 5 PEEP and sedated with Precedex Discussed with RN Charts reviewed 01/03/2020 Patient seen and examined Intubated, on vent AC/16/450/40% FiO2 w/t 5 PEEP and sedated with Fentanyl OG tube at 20cc/hour Discussed with RN Charts reviewed Vitals/I&O Vitals/I&O: Vital Signs Date Time Temp Pulse Resp B/P (MAP) Pulse Ox O2 Delivery O2 Flow Rate FiO2 01/08/20 13:00 84 16 162/89 (113) 97 Ventilator 01/08/20 12:00 99.3 99.3 I & O 01/07/20 01/07/20 01/08/20 15:00 23:00 07:00 Intake Total 1996.61 ml 1673.1 ml 1406 ml Output Total 760 ml 800 ml 405 ml Balance 1236.61 ml 873.1 ml 1001 ml Physical Exam General: Other (sedated) Heart: Regular rate (SB 40s) Abdomen: Soft Extremities: No cyanosis Skin: No breakdown Labs Labs: Laboratory Tests Test 01/07/20 17:37 01/08/20 01:20 01/08/20 06:02 01/08/20 07:35 Glucose (Fingerstick) 211 mg/dL (70-99) 198 mg/dL (70-99) 193 mg/dL (70-99) O2 Saturation 97 % (92-99) Arterial Blood pH 7.43 (7.35-7.45) Arterial Blood pCO2 at Patient Temp 28 mmHg (35-46) Arterial Blood pO2 at Patient Temp 103 mmHg (65-108) Arterial Blood HCO3 18 mmol/L (21-28) Arterial Blood Base Excess -5 mmol/L (-3-3) FiO2 40 Test 01/08/20 11:53 Glucose (Fingerstick) 189 mg/dL (70-99) Assessment and Plan Assessmemt and Plan Assessment Severe respiratory failure secondary to COVID-19 History of the following; Dementia, hypertension, hyperlipidemia, Raynaud's. Hyperthyroidism, status post thyroidectomy. , thyroidectomy, tonsillectomy and cholecystectomy. Plan ICU monitoring Respiratory isolation Trend labs (lactic acid, Potassium, Phos) SCD Vent weaning IV antibiotics IV steroids DVT prophylaxis Prognosis guarded Appreciate subspecialist input Total time 34 minutes Comment Review of Relevant I have reviewed the following items aislinn (where applicable) has been applied. Medications: Current Medications Medications (Trade) Dose Ordered Sig/Pita Route PRN Reason Start Time Stop Time Status Last Admin Dose Admin Furosemide (Lasix) 40 mg 1X ONCE IVP 01/07/20 14:00 01/07/20 14:01 DC 01/07/20 13:38 Justicifation of Admission Dx: Justifications for Admission: Justification of Admission Dx: Yes Respiratory Failure: Mechanical Ventilation SUMMER BOJORQUEZ III DO Jan 08, 2020 13:23
--- NOTE | 2020-01-08 13:58 | PDOC ---
ZHANE RIDLEY CLERICAL DENTIST ASSISTANT 01/08/20 1358: CARDIO Progress Notes Date and Time Date of Service 01/08/20 Time of Evaluation 1400 Subjective Subjective: Other (intubated) Vitals Vitals Vital Signs Date Time Temp Pulse Resp B/P (MAP) Pulse Ox O2 Delivery O2 Flow Rate FiO2 01/08/20 13:00 84 16 162/89 (113) 97 Ventilator 01/08/20 12:00 99.3 99.3 Weight Weight [ ] Input and Output Intake and Output Intake and Output 01/08/20 07:00 Intake Total 5075.71 ml Output Total 1965 ml Balance 3110.71 ml Intake IV Total 1622.71 ml Tube Feeding 2428 ml Blood Product IV Normal Saline Flush 1025 ml Output Urine Total 1965 ml Laboratory Labs Laboratory Tests Test 01/07/20 17:37 01/08/20 01:20 01/08/20 06:02 01/08/20 07:35 Glucose (Fingerstick) 211 mg/dL (70-99) 198 mg/dL (70-99) 193 mg/dL (70-99) O2 Saturation 97 % (92-99) Arterial Blood pH 7.43 (7.35-7.45) Arterial Blood pCO2 at Patient Temp 28 mmHg (35-46) Arterial Blood pO2 at Patient Temp 103 mmHg (65-108) Arterial Blood HCO3 18 mmol/L (21-28) Arterial Blood Base Excess -5 mmol/L (-3-3) FiO2 40 Test 01/08/20 11:53 Glucose (Fingerstick) 189 mg/dL (70-99) Review of Systems Constitutional: yes: unresponsive Physical Exam HEENT: Neck Supple W Full Motion Chest: Symmetric LUNGS: Other (vent) Heart: RRR (SR) Abdomen: Other (soft) Extremities: No Edema Neurology: other (sedated ) Assessment Assessment 1. Acute respiratory failure with COVID pneumonia s/p intubation. Pulm following 2. Sepsis with multiorgan system failure; off pressure support 3. Severe JEROME with significant metabolic derangement: improving. per nephrology. 4. Alzheimers Dementia 5. Hypothyroidism: on home replacement, TSH WNL 6. Diastolic CHF, appears compensated 7. Hx of HTN and HLP 8. Thrombocytopenia 9. Bradycardia; resolved. 10. Transaminitis Justicifation of Admission Dx: Justifications for Admission: Justification of Admission Dx: Yes Respiratory Failure: Mechanical Ventilation PRITI QUACH MD 01/08/20 2143: CARDIO Progress Notes Assessment Assessment Agree with GENERAL OFFICE DISPATCHER's assessment and plan. ARF s/p intubation, sedation being weaned off, pulm following Off pressors, continue current treatment of COVID PNA Chr diast HF compensated Tele did not show any arrhythmias JEROME improved, nephrology following ZHANE RIDLEY APRN Jan 08, 2020 13:58 PRITI QUACH MD Jan 08, 2020 21:43
--- NOTE | 2020-01-08 14:42 | NUR ---
SS following up with discharge planing. SS reviewed pt chart and discussed with pt RN. COVID19 positive. Pt remains on the vent at this time. Sedation off today. Pt on IV Zosyn and IV Vancomycin. SS will continue to follow for discharge planning.
[2020-01-09] VITALS (24 sets, daily range): BP systolic 113–152; BP diastolic 59–102
[2020-01-09] MEDS: PIPERACILLIN/TAZOBACTAM 3.375 GM in IV NORMAL SALINE 50ML 50 ML IV SCH ×4 (00:28→17:56)
[2020-01-09] MEDS ORDERED: DIGOXIN IV 500 MCG/2 ML AMPUL. IV ONE ×2 (00:30→03:00)
--- NOTE | 2020-01-09 01:45 | NUR ---
After bath around midnight, patient went into Afib RVR sustaining a rate of 140s, BP stable. Dr. Lynch notified, orders received to give 0.5 mg Digoxin and call if patient has not converted back in a few hours. Currently, patient HR is 100s-110s. Will call Dr. Lynch back if patient still in afib at 0215.
--- NOTE | 2020-01-09 05:57 | NUR ---
Patient converted to SR around 05.
[2020-01-09] MEDS: INSULIN LISPRO 300 UNITS/3 ML VIAL. SQ SCH ×3 (05:58→20:00)
[2020-01-09] MEDS: methylPREDNISolone SOD SUCC PF 125 MG/2 ML VIAL. IV SCH ×3 (06:05→21:31)
[2020-01-09 06:06] LABS: BASO % 0 % (0-3); EOS % 0 % (0-3); HEMATOCRIT 32.2 % (36.0-47.0); HEMOGLOBIN 10.8 g/dL (12.0-15.5); LYMPH # 0.8 x10^3/uL (1.0-4.8); LYMPH % 5 % (24-48); MEAN CORPUSCULAR HEMOGLOBIN 31 pg (25-35); MEAN CORPUSCULAR HGB CONC 34 g/dL (31-37); MEAN CORPUSCULAR VOLUME 94 fL (79-100); MONO # 0.7 x10^3/uL (0.0-1.1); MONO % 5 % (0-9); NEUT # 13.3 x10^3/uL (1.8-7.7); NEUT % 90 % (31-73); PLATELET COUNT 108 x10^3/uL (140-400); RED BLOOD COUNT 3.44 x10^6/uL (3.50-5.40); RED CELL DISTRIBUTION WIDTH 13.5 % (11.5-14.5); WHITE BLOOD COUNT 14.8 x10^3/uL (4.0-11.0)
[2020-01-09 06:12] LABS: GFR 64.7; POTASSIUM 3.1 mmol/L (3.5-5.1)
[2020-01-09] MEDS: FAMOTIDINE 20 MG/2 ML VIAL IVP SCH (08:35)
[2020-01-09 09:31] LABS: BASE EXCESS ABG -6 mmol/L (-3-3); HCO3 ABG 17 mmol/L (21-28); PCO2 ABG 24 mmHg (35-46); PO2 ABG 84 mmHg (65-108); SAT O2 ABG 96 % (92-99)
[2020-01-09 10:06] LABS: FIO2 ABG 40%+5
[2020-01-09] MEDS: VANCOMYCIN 1 GM in IV NORMAL SALINE 250ML 250 ML IV SCH (11:04)
--- NOTE | 2020-01-09 12:27 | PDOC ---
[employer] PROGRESS NOTE Date of Service DOS: DATE: 01/09/20 TIME: 12:26 Chief Complaint Chief Complaint Severe respiratory failure secondary to COVID-19 History of the following; Dementia, hypertension, hyperlipidemia, Raynaud's. Hyperthyroidism, status post thyroidectomy. , thyroidectomy, tonsillectomy and cholecystectomy. History of Present Illness History of Present Illness 01/09/2020 Patient seen and examined in the [place] [address] unit She is still on the vent Assist-control/16/4 50/40% with 5 of PEEP and she is satting 99% She is sedated with PRN Versed Still critically ill Discussed with RN Chart review 01/08/2020 Patient seen and examined in the ICU [place] [address] unit She remains mechanically ventilated Assist-control/16/4 50/40% with 5 of PEEP Chart reviewed Discussed with RN She remains critically ill 01/07/2020 Patient seen and examined She remains in the [place] [address] ICU on the vent Assist-control/16/4 50/40% with 5 of PEEP Discussed with RN Chart reviewed She is still critically ill 01/06/2020 Patient seen and examined in the [place] [address] ICU She remains mechanically ventilated Assist-control/16/4 50/40% with 5 of PEEP Discussed with RN Chart reviewed She remains critically ill 01/05/2020 Patient seen and examined Intubated, on vent AC/16/450/40% FiO2 w/t 5 PEEP and sedated with Precedex and propafol Successfully weaned off pressors OG tube at 35cc/hour Discussed with RN Charts reviewed 01/04/2020 Patient seen and examined Intubated, on vent AC/16/450/40% FiO2 w/t 5 PEEP and sedated with Precedex Discussed with RN Charts reviewed 01/03/2020 Patient seen and examined Intubated, on vent AC/16/450/40% FiO2 w/t 5 PEEP and sedated with Fentanyl OG tube at 20cc/hour Discussed with RN Charts reviewed Vitals/I&O Vitals/I&O: Vital Signs Date Time Temp Pulse Resp B/P (MAP) Pulse Ox O2 Delivery O2 Flow Rate FiO2 01/09/20 11:48 99 Ventilator 01/09/20 11:00 56 16 140/73 (95) 01/09/20 07:00 98.9 98.9 I & O 01/08/20 01/08/20 01/09/20 14:59 22:59 06:59 Intake Total 750 ml 1189 ml 1097 ml Output Total 1250 ml 680 ml 400 ml Balance -500 ml 509 ml 697 ml Physical Exam General: Other (sedated) Heart: Regular rate (SB 40s) Lungs: Crackles Abdomen: Soft Extremities: No cyanosis Skin: No breakdown Labs Labs: Laboratory Tests Test 01/08/20 17:12 01/08/20 23:49 01/09/20 05:35 01/09/20 05:45 Glucose (Fingerstick) 208 mg/dL (70-99) 204 mg/dL (70-99) 173 mg/dL (70-99) White Blood Count 14.8 x10^3/uL (4.0-11.0) Red Blood Count 3.44 x10^6/uL (3.50-5.40) Hemoglobin 10.8 g/dL (12.0-15.5) Hematocrit 32.2 % (36.0-47.0) Mean Corpuscular Volume 94 fL (79-100) Mean Corpuscular Hemoglobin 31 pg (25-35) Mean Corpuscular Hemoglobin Concent 34 g/dL (31-37) Red Cell Distribution Width 13.5 % (11.5-14.5) Platelet Count 108 x10^3/uL (140-400) Neutrophils (%) (Auto) 90 % (31-73) Lymphocytes (%) (Auto) 5 % (24-48) Monocytes (%) (Auto) 5 % (0-9) Eosinophils (%) (Auto) 0 % (0-3) Basophils (%) (Auto) 0 % (0-3) Neutrophils # (Auto) 13.3 x10^3/uL (1.8-7.7) Lymphocytes # (Auto) 0.8 x10^3/uL (1.0-4.8) Monocytes # (Auto) 0.7 x10^3/uL (0.0-1.1) Eosinophils # (Auto) 0.0 x10^3/uL (0.0-0.7) Basophils # (Auto) 0.0 x10^3/uL (0.0-0.2) Sodium Level 145 mmol/L (136-145) Potassium Level 3.1 mmol/L (3.5-5.1) Chloride Level 112 mmol/L (98-107) Carbon Dioxide Level 25 mmol/L (21-32) Anion Gap 8 (6-14) Blood Urea Nitrogen 31 mg/dL (7-20) Creatinine 1.0 mg/dL (0.6-1.0) Estimated GFR (Cockcroft-Gault) 64.7 Glucose Level 192 mg/dL (70-99) Calcium Level 8.0 mg/dL (8.5-10.1) Test 01/09/20 08:42 01/09/20 09:10 Glucose (Fingerstick) 168 mg/dL (70-99) O2 Saturation 96 % (92-99) Arterial Blood pH 7.46 (7.35-7.45) Arterial Blood pCO2 at Patient Temp 24 mmHg (35-46) Arterial Blood pO2 at Patient Temp 84 mmHg (65-108) Arterial Blood HCO3 17 mmol/L (21-28) Arterial Blood Base Excess -6 mmol/L (-3-3) FiO2 40%+5 Assessment and Plan Assessmemt and Plan Assessment Severe respiratory failure secondary to COVID-19 History of the following; Dementia, hypertension, hyperlipidemia, Raynaud's. Hyperthyroidism, status post thyroidectomy. , thyroidectomy, tonsillectomy and cholecystectomy. Plan ICU monitoring Respiratory isolation Trend labs (lactic acid, Potassium, Phos) SCD Vent weaning IV antibiotics IV steroids DVT prophylaxis Prognosis guarded Appreciate subspecialist input Total time 31 minutes Comment Review of Relevant I have reviewed the following items aislinn (where applicable) has been applied. Medications: Current Medications Medications (Trade) Dose Ordered Sig/Pita Route PRN Reason Start Time Stop Time Status Last Admin Dose Admin Digoxin (Lanoxin) 500 mcg 1X ONCE IV 01/09/20 00:30 01/09/20 00:31 DC 01/09/20 00:08 Digoxin (Lanoxin) 250 mcg 1X ONCE IV 01/09/20 03:00 01/09/20 03:01 DC 01/09/20 02:46 Justicifation of Admission Dx: Justifications for Admission: Justification of Admission Dx: Yes Respiratory Failure: Mechanical Ventilation SUMMER BOJORQUEZ III DO Jan 09, 2020 12:27
--- NOTE | 2020-01-09 13:01 | NUR ---
SS following up with discharge planning. SS reviewed pt chart and discussed with pt RN. Pt remains on the vent at this time. COVID19 positive. SS spoke with pt's son via phone about LTACH and pt's son agreeable and requested [facility], ; fax [phone], as first choice and [facility], ; fax [phone], as second choice. Dr. Lynne contacting pt's son to discuss goals of care and further needs. SS phoned and faxed referral to [facility]. SS will await acceptance decision and will proceed accordingly. Pt's RN notified.
--- NOTE | 2020-01-09 13:07 | PDOC ---
PULMONARY PROGRESS NOTES DATE: 01/09/20 TIME: 13:01 Subjective remains intubated/weaning off sedation off pressor ,not waking up Vitals Vital Signs Date Time Temp Pulse Resp B/P (MAP) Pulse Ox O2 Delivery O2 Flow Rate FiO2 01/09/20 11:48 99 Ventilator 01/09/20 11:00 56 16 140/73 (95) 01/09/20 07:00 98.9 98.9 Comments visual exam done due to COVID pandemia on vent no accessory muscle use no paradoxical abd motion RRR no rash no edema Lungs: Crackles Labs Laboratory Tests Test 01/07/20 17:37 01/08/20 01:20 01/08/20 06:02 01/08/20 07:35 Glucose (Fingerstick) 211 mg/dL (70-99) 198 mg/dL (70-99) 193 mg/dL (70-99) O2 Saturation 97 % (92-99) Arterial Blood pH 7.43 (7.35-7.45) Arterial Blood pCO2 at Patient Temp 28 mmHg (35-46) Arterial Blood pO2 at Patient Temp 103 mmHg (65-108) Arterial Blood HCO3 18 mmol/L (21-28) Arterial Blood Base Excess -5 mmol/L (-3-3) FiO2 40 Test 01/08/20 11:53 01/08/20 17:12 01/08/20 23:49 01/09/20 05:35 Glucose (Fingerstick) 189 mg/dL (70-99) 208 mg/dL (70-99) 204 mg/dL (70-99) White Blood Count 14.8 x10^3/uL (4.0-11.0) Red Blood Count 3.44 x10^6/uL (3.50-5.40) Hemoglobin 10.8 g/dL (12.0-15.5) Hematocrit 32.2 % (36.0-47.0) Mean Corpuscular Volume 94 fL (79-100) Mean Corpuscular Hemoglobin 31 pg (25-35) Mean Corpuscular Hemoglobin Concent 34 g/dL (31-37) Red Cell Distribution Width 13.5 % (11.5-14.5) Platelet Count 108 x10^3/uL (140-400) Neutrophils (%) (Auto) 90 % (31-73) Lymphocytes (%) (Auto) 5 % (24-48) Monocytes (%) (Auto) 5 % (0-9) Eosinophils (%) (Auto) 0 % (0-3) Basophils (%) (Auto) 0 % (0-3) Neutrophils # (Auto) 13.3 x10^3/uL (1.8-7.7) Lymphocytes # (Auto) 0.8 x10^3/uL (1.0-4.8) Monocytes # (Auto) 0.7 x10^3/uL (0.0-1.1) Eosinophils # (Auto) 0.0 x10^3/uL (0.0-0.7) Basophils # (Auto) 0.0 x10^3/uL (0.0-0.2) Sodium Level 145 mmol/L (136-145) Potassium Level 3.1 mmol/L (3.5-5.1) Chloride Level 112 mmol/L (98-107) Carbon Dioxide Level 25 mmol/L (21-32) Anion Gap 8 (6-14) Blood Urea Nitrogen 31 mg/dL (7-20) Creatinine 1.0 mg/dL (0.6-1.0) Estimated GFR (Cockcroft-Gault) 64.7 Glucose Level 192 mg/dL (70-99) Calcium Level 8.0 mg/dL (8.5-10.1) Test 01/09/20 05:45 01/09/20 08:42 01/09/20 09:10 Glucose (Fingerstick) 173 mg/dL (70-99) 168 mg/dL (70-99) O2 Saturation 96 % (92-99) Arterial Blood pH 7.46 (7.35-7.45) Arterial Blood pCO2 at Patient Temp 24 mmHg (35-46) Arterial Blood pO2 at Patient Temp 84 mmHg (65-108) Arterial Blood HCO3 17 mmol/L (21-28) Arterial Blood Base Excess -6 mmol/L (-3-3) FiO2 40%+5 Laboratory Tests Test 01/08/20 17:12 01/08/20 23:49 01/09/20 05:35 01/09/20 05:45 Glucose (Fingerstick) 208 mg/dL (70-99) 204 mg/dL (70-99) 173 mg/dL (70-99) White Blood Count 14.8 x10^3/uL (4.0-11.0) Red Blood Count 3.44 x10^6/uL (3.50-5.40) Hemoglobin 10.8 g/dL (12.0-15.5) Hematocrit 32.2 % (36.0-47.0) Mean Corpuscular Volume 94 fL (79-100) Mean Corpuscular Hemoglobin 31 pg (25-35) Mean Corpuscular Hemoglobin Concent 34 g/dL (31-37) Red Cell Distribution Width 13.5 % (11.5-14.5) Platelet Count 108 x10^3/uL (140-400) Neutrophils (%) (Auto) 90 % (31-73) Lymphocytes (%) (Auto) 5 % (24-48) Monocytes (%) (Auto) 5 % (0-9) Eosinophils (%) (Auto) 0 % (0-3) Basophils (%) (Auto) 0 % (0-3) Neutrophils # (Auto) 13.3 x10^3/uL (1.8-7.7) Lymphocytes # (Auto) 0.8 x10^3/uL (1.0-4.8) Monocytes # (Auto) 0.7 x10^3/uL (0.0-1.1) Eosinophils # (Auto) 0.0 x10^3/uL (0.0-0.7) Basophils # (Auto) 0.0 x10^3/uL (0.0-0.2) Sodium Level 145 mmol/L (136-145) Potassium Level 3.1 mmol/L (3.5-5.1) Chloride Level 112 mmol/L (98-107) Carbon Dioxide Level 25 mmol/L (21-32) Anion Gap 8 (6-14) Blood Urea Nitrogen 31 mg/dL (7-20) Creatinine 1.0 mg/dL (0.6-1.0) Estimated GFR (Cockcroft-Gault) 64.7 Glucose Level 192 mg/dL (70-99) Calcium Level 8.0 mg/dL (8.5-10.1) Test 01/09/20 08:42 01/09/20 09:10 Glucose (Fingerstick) 168 mg/dL (70-99) O2 Saturation 96 % (92-99) Arterial Blood pH 7.46 (7.35-7.45) Arterial Blood pCO2 at Patient Temp 24 mmHg (35-46) Arterial Blood pO2 at Patient Temp 84 mmHg (65-108) Arterial Blood HCO3 17 mmol/L (21-28) Arterial Blood Base Excess -6 mmol/L (-3-3) FiO2 40%+5 Comments CXR 01/07 reviewed small LLL effusion Impression . 1. Acute hypoxic respiratory failure secondary to multisystem organ failure from COVID pneumonia and acute lung injury. improving 2. Severe metabolic acidosis, likely secondary to acute kidney injury and shock/ lactic acidosis--improved 3. Acute kidney injury. improving 4. Abnormal chest x-ray consistent with COVID-19 pneumonia., improved 5. COVID-19 positive. 6. Thrombocytopenia, improving 7. persistent azotemia could be related to steroids, improving 8. leukocytosis improving Plan . Cont. current vent support Fi02 40% and PEEP 5, off sedation sbt when more awake. Not awake yet Stress ulcer prophylaxis, scds, off SQ heparin 2/2 low plt count continue BS antibiotics Follow cardiology recs Follow renal recs continued azotemia improving thrombocytopenia due to sepsis, improving clinically improving but still critically ill d/w son in detail. If she does not wake up till end of week, he would with [facility].I concur Discussed with RN and RT. Chart reviewed. Labs reviewed and imaging reviewed. critically ill Critical care time 30 minutes. no overlap ABBEY BEEBE MD Jan 09, 2020 13:06
[2020-01-09] MEDS: VANCOMYCIN PER PHARMACY MC PRN (14:12)
[2020-01-09] MEDS: ENOXAPARIN 40 MG/0.4 ML SYRINGE. SQ SCH (14:16)
[2020-01-09] MEDS: POTASSIUM CHLORIDE 20MEQ 100 ML IV SCH ×2 (14:59→16:24)
[2020-01-10] VITALS (24 sets, daily range): BP systolic 105–156; BP diastolic 54–82
[2020-01-10] MEDS: PIPERACILLIN/TAZOBACTAM 3.375 GM in IV NORMAL SALINE 50ML 50 ML IV SCH ×5 (00:28→23:32)
[2020-01-10] MEDS: methylPREDNISolone SOD SUCC PF 125 MG/2 ML VIAL. IV SCH ×3 (05:46→21:40)
[2020-01-10] MEDS: INSULIN LISPRO 300 UNITS/3 ML VIAL. SQ SCH ×4 (06:00→17:44)
[2020-01-10 07:28] LABS: BASO % 0 % (0-3); EOS % 0 % (0-3); HEMATOCRIT 30.5 % (36.0-47.0); HEMOGLOBIN 10.2 g/dL (12.0-15.5); LYMPH # 0.5 x10^3/uL (1.0-4.8); LYMPH % 4 % (24-48); MEAN CORPUSCULAR HEMOGLOBIN 31 pg (25-35); MEAN CORPUSCULAR HGB CONC 33 g/dL (31-37); MEAN CORPUSCULAR VOLUME 94 fL (79-100); MONO # 0.6 x10^3/uL (0.0-1.1); MONO % 4 % (0-9); NEUT # 11.7 x10^3/uL (1.8-7.7); NEUT % 91 % (31-73); PLATELET COUNT 106 x10^3/uL (140-400); RED BLOOD COUNT 3.25 x10^6/uL (3.50-5.40); RED CELL DISTRIBUTION WIDTH 13.6 % (11.5-14.5); WHITE BLOOD COUNT 12.8 x10^3/uL (4.0-11.0)
[2020-01-10] MEDS: FAMOTIDINE 20 MG/2 ML VIAL IVP SCH (07:47)
[2020-01-10] MEDS: VANCOMYCIN PER PHARMACY MC PRN (08:24)
[2020-01-10 08:26] LABS: BASE EXCESS ABG -4 mmol/L (-3-3); HCO3 ABG 18 mmol/L (21-28); PCO2 ABG 25 mmHg (35-46); PO2 ABG 95 mmHg (65-108); SAT O2 ABG 97 % (92-99)
[2020-01-10 08:27] LABS: CREATININE 0.8 mg/dL (0.6-1.0); GFR 83.7; POTASSIUM 3.7 mmol/L (3.5-5.1)
[2020-01-10 08:28] LABS: CALCIUM 7.7 mg/dL (8.5-10.1)
[2020-01-10 08:28] LABS: FIO2 ABG 40
--- NOTE | 2020-01-10 10:06 | PDOC ---
PULMONARY PROGRESS NOTES DATE: 01/10/20 TIME: 10:05 Subjective remains intubated/off sedation off pressor ,not waking up Vitals Vital Signs Date Time Temp Pulse Resp B/P (MAP) Pulse Ox O2 Delivery O2 Flow Rate FiO2 01/10/20 10:00 51 16 148/67 (94) 99 Ventilator 01/10/20 08:00 99.1 99.1 Comments visual exam done due to COVID pandemia on vent no accessory muscle use no paradoxical abd motion RRR no rash no edema Labs Laboratory Tests Test 01/08/20 11:53 01/08/20 17:12 01/08/20 23:49 01/09/20 05:35 Glucose (Fingerstick) 189 mg/dL (70-99) 208 mg/dL (70-99) 204 mg/dL (70-99) White Blood Count 14.8 x10^3/uL (4.0-11.0) Red Blood Count 3.44 x10^6/uL (3.50-5.40) Hemoglobin 10.8 g/dL (12.0-15.5) Hematocrit 32.2 % (36.0-47.0) Mean Corpuscular Volume 94 fL (79-100) Mean Corpuscular Hemoglobin 31 pg (25-35) Mean Corpuscular Hemoglobin Concent 34 g/dL (31-37) Red Cell Distribution Width 13.5 % (11.5-14.5) Platelet Count 108 x10^3/uL (140-400) Neutrophils (%) (Auto) 90 % (31-73) Lymphocytes (%) (Auto) 5 % (24-48) Monocytes (%) (Auto) 5 % (0-9) Eosinophils (%) (Auto) 0 % (0-3) Basophils (%) (Auto) 0 % (0-3) Neutrophils # (Auto) 13.3 x10^3/uL (1.8-7.7) Lymphocytes # (Auto) 0.8 x10^3/uL (1.0-4.8) Monocytes # (Auto) 0.7 x10^3/uL (0.0-1.1) Eosinophils # (Auto) 0.0 x10^3/uL (0.0-0.7) Basophils # (Auto) 0.0 x10^3/uL (0.0-0.2) Sodium Level 145 mmol/L (136-145) Potassium Level 3.1 mmol/L (3.5-5.1) Chloride Level 112 mmol/L (98-107) Carbon Dioxide Level 25 mmol/L (21-32) Anion Gap 8 (6-14) Blood Urea Nitrogen 31 mg/dL (7-20) Creatinine 1.0 mg/dL (0.6-1.0) Estimated GFR (Cockcroft-Gault) 64.7 Glucose Level 192 mg/dL (70-99) Calcium Level 8.0 mg/dL (8.5-10.1) Test 01/09/20 05:45 01/09/20 08:42 01/09/20 09:10 01/09/20 12:49 Glucose (Fingerstick) 173 mg/dL (70-99) 168 mg/dL (70-99) 212 mg/dL (70-99) O2 Saturation 96 % (92-99) Arterial Blood pH 7.46 (7.35-7.45) Arterial Blood pCO2 at Patient Temp 24 mmHg (35-46) Arterial Blood pO2 at Patient Temp 84 mmHg (65-108) Arterial Blood HCO3 17 mmol/L (21-28) Arterial Blood Base Excess -6 mmol/L (-3-3) FiO2 40%+5 Test 01/09/20 20:24 01/09/20 23:47 01/10/20 05:50 01/10/20 05:59 Glucose (Fingerstick) 234 mg/dL (70-99) 209 mg/dL (70-99) 208 mg/dL (70-99) White Blood Count 12.8 x10^3/uL (4.0-11.0) Red Blood Count 3.25 x10^6/uL (3.50-5.40) Hemoglobin 10.2 g/dL (12.0-15.5) Hematocrit 30.5 % (36.0-47.0) Mean Corpuscular Volume 94 fL (79-100) Mean Corpuscular Hemoglobin 31 pg (25-35) Mean Corpuscular Hemoglobin Concent 33 g/dL (31-37) Red Cell Distribution Width 13.6 % (11.5-14.5) Platelet Count 106 x10^3/uL (140-400) Neutrophils (%) (Auto) 91 % (31-73) Lymphocytes (%) (Auto) 4 % (24-48) Monocytes (%) (Auto) 4 % (0-9) Eosinophils (%) (Auto) 0 % (0-3) Basophils (%) (Auto) 0 % (0-3) Neutrophils # (Auto) 11.7 x10^3/uL (1.8-7.7) Lymphocytes # (Auto) 0.5 x10^3/uL (1.0-4.8) Monocytes # (Auto) 0.6 x10^3/uL (0.0-1.1) Eosinophils # (Auto) 0.0 x10^3/uL (0.0-0.7) Basophils # (Auto) 0.0 x10^3/uL (0.0-0.2) Sodium Level 147 mmol/L (136-145) Potassium Level 3.7 mmol/L (3.5-5.1) Chloride Level 115 mmol/L (98-107) Carbon Dioxide Level 24 mmol/L (21-32) Anion Gap 8 (6-14) Blood Urea Nitrogen 28 mg/dL (7-20) Creatinine 0.8 mg/dL (0.6-1.0) Estimated GFR (Cockcroft-Gault) 83.7 Glucose Level 217 mg/dL (70-99) Calcium Level 7.7 mg/dL (8.5-10.1) Magnesium Level 1.9 mg/dL (1.8-2.4) Test 01/10/20 08:20 O2 Saturation 97 % (92-99) Arterial Blood pH 7.48 (7.35-7.45) Arterial Blood pCO2 at Patient Temp 25 mmHg (35-46) Arterial Blood pO2 at Patient Temp 95 mmHg (65-108) Arterial Blood HCO3 18 mmol/L (21-28) Arterial Blood Base Excess -4 mmol/L (-3-3) FiO2 40 Laboratory Tests Test 01/09/20 12:49 01/09/20 20:24 01/09/20 23:47 01/10/20 05:50 Glucose (Fingerstick) 212 mg/dL (70-99) 234 mg/dL (70-99) 209 mg/dL (70-99) White Blood Count 12.8 x10^3/uL (4.0-11.0) Red Blood Count 3.25 x10^6/uL (3.50-5.40) Hemoglobin 10.2 g/dL (12.0-15.5) Hematocrit 30.5 % (36.0-47.0) Mean Corpuscular Volume 94 fL (79-100) Mean Corpuscular Hemoglobin 31 pg (25-35) Mean Corpuscular Hemoglobin Concent 33 g/dL (31-37) Red Cell Distribution Width 13.6 % (11.5-14.5) Platelet Count 106 x10^3/uL (140-400) Neutrophils (%) (Auto) 91 % (31-73) Lymphocytes (%) (Auto) 4 % (24-48) Monocytes (%) (Auto) 4 % (0-9) Eosinophils (%) (Auto) 0 % (0-3) Basophils (%) (Auto) 0 % (0-3) Neutrophils # (Auto) 11.7 x10^3/uL (1.8-7.7) Lymphocytes # (Auto) 0.5 x10^3/uL (1.0-4.8) Monocytes # (Auto) 0.6 x10^3/uL (0.0-1.1) Eosinophils # (Auto) 0.0 x10^3/uL (0.0-0.7) Basophils # (Auto) 0.0 x10^3/uL (0.0-0.2) Sodium Level 147 mmol/L (136-145) Potassium Level 3.7 mmol/L (3.5-5.1) Chloride Level 115 mmol/L (98-107) Carbon Dioxide Level 24 mmol/L (21-32) Anion Gap 8 (6-14) Blood Urea Nitrogen 28 mg/dL (7-20) Creatinine 0.8 mg/dL (0.6-1.0) Estimated GFR (Cockcroft-Gault) 83.7 Glucose Level 217 mg/dL (70-99) Calcium Level 7.7 mg/dL (8.5-10.1) Magnesium Level 1.9 mg/dL (1.8-2.4) Test 01/10/20 05:59 01/10/20 08:20 Glucose (Fingerstick) 208 mg/dL (70-99) O2 Saturation 97 % (92-99) Arterial Blood pH 7.48 (7.35-7.45) Arterial Blood pCO2 at Patient Temp 25 mmHg (35-46) Arterial Blood pO2 at Patient Temp 95 mmHg (65-108) Arterial Blood HCO3 18 mmol/L (21-28) Arterial Blood Base Excess -4 mmol/L (-3-3) FiO2 40 Comments CXR 01/07 reviewed small LLL effusion Impression . 1. Acute hypoxic respiratory failure secondary to multisystem organ failure from COVID pneumonia and acute lung injury. improved 2. Severe metabolic acidosis, likely secondary to acute kidney injury and shock/ lactic acidosis--improved 3. Acute kidney injury. improving 4. Abnormal chest x-ray consistent with COVID-19 pneumonia., improved 5. COVID-19 positive. 6. Thrombocytopenia, improving 7. persistent azotemia could be related to steroids, improving 8. leukocytosis improving Plan . Cont. current vent support Fi02 40% and PEEP 5, off sedation sbt when more awake. Not awake yet Stress ulcer prophylaxis, scds, off SQ heparin 2/2 low plt count continue BS antibiotics Follow cardiology recs Follow renal recs continued azotemia improving thrombocytopenia due to sepsis, improving clinically improving but still critically ill d/w son in detail. If she does not wake up till end of week, he would with draw care.I concur Discussed with RN and RT. Chart reviewed. Labs reviewed and imaging reviewed. critically ill Critical care time 30 minutes. no overlap ABBEY BEEBE MD Jan 10, 2020 10:06
[2020-01-10] MEDS: VANCOMYCIN 1 GM in IV NORMAL SALINE 250ML 250 ML IV SCH (10:44)
[2020-01-10 10:45] LABS: % BANDS 8 % (0-9); % LYMPHS 4 % (24-48); % METAS 1 % (0-0); % MONOS 2 % (0-10); % SEGS 85 % (35-66)
[2020-01-10 10:46] LABS: PLT ESTIMATE DECREASED (ADEQUATE)
[2020-01-10] MEDS: ENOXAPARIN 40 MG/0.4 ML SYRINGE. SQ SCH (13:26)
--- NOTE | 2020-01-10 15:36 | NUR ---
SS following up with discharge planning. SS reviewed pt chart and discussed with pt RN. COVID19 positive. Pt remains on the vent at this time. [facility] reported that they no longer accept COVID19 positive pt's[address] Dr. Lynne spoke with pt's son and if not awake by the end of the week may withdraw care. SS will continue to follow for discharge planning.
--- NOTE | 2020-01-10 22:25 | PDOC ---
PROGRESS NOTES Date of Service: DATE: 01/10/20 TIME: 22:17 Chief Complaint Chief Complaint Severe respiratory failure secondary to COVID-19 History of the following; Dementia, hypertension, hyperlipidemia, Raynaud's. Hyperthyroidism, status post thyroidectomy. , thyroidectomy, tonsillectomy and cholecystectomy. Plan: follow recommendations from design sales consultant cain with supportive measures further recommendations based on clinical course discussed with RN History of Present Illness History of Present Illness 01/10/2020 Patient with no acute events reported overnight, patient remains intubated unable to proceed with weaning trial follow recommendations from pulmonary design sales consultant 01/09/2020 Patient seen and examined in the [place] [facility] [address] unit She is still on the vent Assist-control/16/4 50/40% with 5 of PEEP and she is satting 99% She is sedated with PRN Versed Still critically ill Discussed with RN Chart review 01/08/2020 Patient seen and examined in the ICU [place] [address] unit She remains mechanically ventilated Assist-control/16/4 50/40% with 5 of PEEP Chart reviewed Discussed with RN She remains critically ill 01/07/2020 Patient seen and examined She remains in the [place] [address] ICU on the vent Assist-control/16/4 50/40% with 5 of PEEP Discussed with RN Chart reviewed She is still critically ill 01/06/2020 Patient seen and examined in the [place] [address] ICU She remains mechanically ventilated Assist-control/16/4 50/40% with 5 of PEEP Discussed with RN Chart reviewed She remains critically ill 01/05/2020 Patient seen and examined Intubated, on vent AC/16/450/40% FiO2 w/t 5 PEEP and sedated with Precedex and propafol Successfully weaned off pressors OG tube at 35cc/hour Discussed with RN Charts reviewed 01/04/2020 Patient seen and examined Intubated, on vent AC/16/450/40% FiO2 w/t 5 PEEP and sedated with Precedex Discussed with RN Charts reviewed 01/03/2020 Patient seen and examined Intubated, on vent AC/16/450/40% FiO2 w/t 5 PEEP and sedated with Fentanyl OG tube at 20cc/hour Discussed with RN Charts reviewed Vitals Vitals Vital Signs Date Time Temp Pulse Resp B/P (MAP) Pulse Ox O2 Delivery O2 Flow Rate FiO2 01/10/20 20:02 100 Ventilator 01/10/20 20:00 99.4 52 16 147/71 (96) 99.4 Physical Exam Physical Exam General: Other (sedated) Heart: Regular rate (SB 40s) Lungs: Crackles Abdomen: Soft Extremities: No cyanosis Skin: No breakdown General: Other (sedated) Heart: Regular rate (SB 40s) Abdomen: Soft Extremities: No cyanosis Skin: No breakdown Labs LABS Laboratory Tests Test 01/09/20 23:47 01/10/20 05:50 01/10/20 05:59 01/10/20 08:20 Glucose (Fingerstick) 209 mg/dL (70-99) 208 mg/dL (70-99) White Blood Count 12.8 x10^3/uL (4.0-11.0) Red Blood Count 3.25 x10^6/uL (3.50-5.40) Hemoglobin 10.2 g/dL (12.0-15.5) Hematocrit 30.5 % (36.0-47.0) Mean Corpuscular Volume 94 fL (79-100) Mean Corpuscular Hemoglobin 31 pg (25-35) Mean Corpuscular Hemoglobin Concent 33 g/dL (31-37) Red Cell Distribution Width 13.6 % (11.5-14.5) Platelet Count 106 x10^3/uL (140-400) Neutrophils (%) (Auto) 91 % (31-73) Lymphocytes (%) (Auto) 4 % (24-48) Monocytes (%) (Auto) 4 % (0-9) Eosinophils (%) (Auto) 0 % (0-3) Basophils (%) (Auto) 0 % (0-3) Neutrophils # (Auto) 11.7 x10^3/uL (1.8-7.7) Lymphocytes # (Auto) 0.5 x10^3/uL (1.0-4.8) Monocytes # (Auto) 0.6 x10^3/uL (0.0-1.1) Eosinophils # (Auto) 0.0 x10^3/uL (0.0-0.7) Basophils # (Auto) 0.0 x10^3/uL (0.0-0.2) Segmented Neutrophils % 85 % (35-66) Band Neutrophils % 8 % (0-9) Lymphocytes % 4 % (24-48) Monocytes % 2 % (0-10) Metamyelocytes % 1 % (0-0) Platelet Estimate Decreased (ADEQUATE) Large Platelets Occ Sodium Level 147 mmol/L (136-145) Potassium Level 3.7 mmol/L (3.5-5.1) Chloride Level 115 mmol/L (98-107) Carbon Dioxide Level 24 mmol/L (21-32) Anion Gap 8 (6-14) Blood Urea Nitrogen 28 mg/dL (7-20) Creatinine 0.8 mg/dL (0.6-1.0) Estimated GFR (Cockcroft-Gault) 83.7 Glucose Level 217 mg/dL (70-99) Calcium Level 7.7 mg/dL (8.5-10.1) Magnesium Level 1.9 mg/dL (1.8-2.4) O2 Saturation 97 % (92-99) Arterial Blood pH 7.48 (7.35-7.45) Arterial Blood pCO2 at Patient Temp 25 mmHg (35-46) Arterial Blood pO2 at Patient Temp 95 mmHg (65-108) Arterial Blood HCO3 18 mmol/L (21-28) Arterial Blood Base Excess -4 mmol/L (-3-3) FiO2 40 Test 01/10/20 11:23 01/10/20 17:38 Glucose (Fingerstick) 246 mg/dL (70-99) 240 mg/dL (70-99) Comment Review of Relevant I have reviewed the following items aislinn (where applicable) has been applied. Labs Laboratory Tests Test 01/08/20 23:49 01/09/20 05:35 01/09/20 05:45 01/09/20 08:42 Glucose (Fingerstick) 204 mg/dL (70-99) 173 mg/dL (70-99) 168 mg/dL (70-99) White Blood Count 14.8 x10^3/uL (4.0-11.0) Red Blood Count 3.44 x10^6/uL (3.50-5.40) Hemoglobin 10.8 g/dL (12.0-15.5) Hematocrit 32.2 % (36.0-47.0) Mean Corpuscular Volume 94 fL (79-100) Mean Corpuscular Hemoglobin 31 pg (25-35) Mean Corpuscular Hemoglobin Concent 34 g/dL (31-37) Red Cell Distribution Width 13.5 % (11.5-14.5) Platelet Count 108 x10^3/uL (140-400) Neutrophils (%) (Auto) 90 % (31-73) Lymphocytes (%) (Auto) 5 % (24-48) Monocytes (%) (Auto) 5 % (0-9) Eosinophils (%) (Auto) 0 % (0-3) Basophils (%) (Auto) 0 % (0-3) Neutrophils # (Auto) 13.3 x10^3/uL (1.8-7.7) Lymphocytes # (Auto) 0.8 x10^3/uL (1.0-4.8) Monocytes # (Auto) 0.7 x10^3/uL (0.0-1.1) Eosinophils # (Auto) 0.0 x10^3/uL (0.0-0.7) Basophils # (Auto) 0.0 x10^3/uL (0.0-0.2) Sodium Level 145 mmol/L (136-145) Potassium Level 3.1 mmol/L (3.5-5.1) Chloride Level 112 mmol/L (98-107) Carbon Dioxide Level 25 mmol/L (21-32) Anion Gap 8 (6-14) Blood Urea Nitrogen 31 mg/dL (7-20) Creatinine 1.0 mg/dL (0.6-1.0) Estimated GFR (Cockcroft-Gault) 64.7 Glucose Level 192 mg/dL (70-99) Calcium Level 8.0 mg/dL (8.5-10.1) Test 01/09/20 09:10 01/09/20 12:49 01/09/20 20:24 01/09/20 23:47 O2 Saturation 96 % (92-99) Arterial Blood pH 7.46 (7.35-7.45) Arterial Blood pCO2 at Patient Temp 24 mmHg (35-46) Arterial Blood pO2 at Patient Temp 84 mmHg (65-108) Arterial Blood HCO3 17 mmol/L (21-28) Arterial Blood Base Excess -6 mmol/L (-3-3) FiO2 40%+5 Glucose (Fingerstick) 212 mg/dL (70-99) 234 mg/dL (70-99) 209 mg/dL (70-99) Test 01/10/20 05:50 01/10/20 05:59 01/10/20 08:20 01/10/20 11:23 White Blood Count 12.8 x10^3/uL (4.0-11.0) Red Blood Count 3.25 x10^6/uL (3.50-5.40) Hemoglobin 10.2 g/dL (12.0-15.5) Hematocrit 30.5 % (36.0-47.0) Mean Corpuscular Volume 94 fL (79-100) Mean Corpuscular Hemoglobin 31 pg (25-35) Mean Corpuscular Hemoglobin Concent 33 g/dL (31-37) Red Cell Distribution Width 13.6 % (11.5-14.5) Platelet Count 106 x10^3/uL (140-400) Neutrophils (%) (Auto) 91 % (31-73) Lymphocytes (%) (Auto) 4 % (24-48) Monocytes (%) (Auto) 4 % (0-9) Eosinophils (%) (Auto) 0 % (0-3) Basophils (%) (Auto) 0 % (0-3) Neutrophils # (Auto) 11.7 x10^3/uL (1.8-7.7) Lymphocytes # (Auto) 0.5 x10^3/uL (1.0-4.8) Monocytes # (Auto) 0.6 x10^3/uL (0.0-1.1) Eosinophils # (Auto) 0.0 x10^3/uL (0.0-0.7) Basophils # (Auto) 0.0 x10^3/uL (0.0-0.2) Segmented Neutrophils % 85 % (35-66) Band Neutrophils % 8 % (0-9) Lymphocytes % 4 % (24-48) Monocytes % 2 % (0-10) Metamyelocytes % 1 % (0-0) Platelet Estimate Decreased (ADEQUATE) Large Platelets Occ Sodium Level 147 mmol/L (136-145) Potassium Level 3.7 mmol/L (3.5-5.1) Chloride Level 115 mmol/L (98-107) Carbon Dioxide Level 24 mmol/L (21-32) Anion Gap 8 (6-14) Blood Urea Nitrogen 28 mg/dL (7-20) Creatinine 0.8 mg/dL (0.6-1.0) Estimated GFR (Cockcroft-Gault) 83.7 Glucose Level 217 mg/dL (70-99) Calcium Level 7.7 mg/dL (8.5-10.1) Magnesium Level 1.9 mg/dL (1.8-2.4) Glucose (Fingerstick) 208 mg/dL (70-99) 246 mg/dL (70-99) O2 Saturation 97 % (92-99) Arterial Blood pH 7.48 (7.35-7.45) Arterial Blood pCO2 at Patient Temp 25 mmHg (35-46) Arterial Blood pO2 at Patient Temp 95 mmHg (65-108) Arterial Blood HCO3 18 mmol/L (21-28) Arterial Blood Base Excess -4 mmol/L (-3-3) FiO2 40 Test 01/10/20 17:38 Glucose (Fingerstick) 240 mg/dL (70-99) Laboratory Tests Test 01/09/20 23:47 01/10/20 05:50 01/10/20 05:59 01/10/20 08:20 Glucose (Fingerstick) 209 mg/dL (70-99) 208 mg/dL (70-99) White Blood Count 12.8 x10^3/uL (4.0-11.0) Red Blood Count 3.25 x10^6/uL (3.50-5.40) Hemoglobin 10.2 g/dL (12.0-15.5) Hematocrit 30.5 % (36.0-47.0) Mean Corpuscular Volume 94 fL (79-100) Mean Corpuscular Hemoglobin 31 pg (25-35) Mean Corpuscular Hemoglobin Concent 33 g/dL (31-37) Red Cell Distribution Width 13.6 % (11.5-14.5) Platelet Count 106 x10^3/uL (140-400) Neutrophils (%) (Auto) 91 % (31-73) Lymphocytes (%) (Auto) 4 % (24-48) Monocytes (%) (Auto) 4 % (0-9) Eosinophils (%) (Auto) 0 % (0-3) Basophils (%) (Auto) 0 % (0-3) Neutrophils # (Auto) 11.7 x10^3/uL (1.8-7.7) Lymphocytes # (Auto) 0.5 x10^3/uL (1.0-4.8) Monocytes # (Auto) 0.6 x10^3/uL (0.0-1.1) Eosinophils # (Auto) 0.0 x10^3/uL (0.0-0.7) Basophils # (Auto) 0.0 x10^3/uL (0.0-0.2) Segmented Neutrophils % 85 % (35-66) Band Neutrophils % 8 % (0-9) Lymphocytes % 4 % (24-48) Monocytes % 2 % (0-10) Metamyelocytes % 1 % (0-0) Platelet Estimate Decreased (ADEQUATE) Large Platelets Occ Sodium Level 147 mmol/L (136-145) Potassium Level 3.7 mmol/L (3.5-5.1) Chloride Level 115 mmol/L (98-107) Carbon Dioxide Level 24 mmol/L (21-32) Anion Gap 8 (6-14) Blood Urea Nitrogen 28 mg/dL (7-20) Creatinine 0.8 mg/dL (0.6-1.0) Estimated GFR (Cockcroft-Gault) 83.7 Glucose Level 217 mg/dL (70-99) Calcium Level 7.7 mg/dL (8.5-10.1) Magnesium Level 1.9 mg/dL (1.8-2.4) O2 Saturation 97 % (92-99) Arterial Blood pH 7.48 (7.35-7.45) Arterial Blood pCO2 at Patient Temp 25 mmHg (35-46) Arterial Blood pO2 at Patient Temp 95 mmHg (65-108) Arterial Blood HCO3 18 mmol/L (21-28) Arterial Blood Base Excess -4 mmol/L (-3-3) FiO2 40 Test 01/10/20 11:23 01/10/20 17:38 Glucose (Fingerstick) 246 mg/dL (70-99) 240 mg/dL (70-99) Medications Current Medications Norepinephrine Bitartrate 8 mg/ Dextrose 258 ml @ 12.674 mls/ hr CONT PRN IV PER PROTOCOL Last administered on 01/01/20at 02:25; Start 01/01/20 at 02:15; Stop 01/01/20 at 03:19; Status DC Midazolam HCl 100 mg/Sodium Chloride 100 ml @ 1 mls/hr CONT PRN IV SEE I/O RECORD Last administered on 01/05/20at 08:43; Start 01/01/20 at 02:15 Norepinephrine Bitartrate 16 mg/ Dextrose 266 ml @ 6.534 mls/ hr CONT PRN IV PER PROTOCOL Last administered on 01/02/20at 08:40; Start 01/01/20 at 03:30; Stop 01/05/20 at 09:35; Status DC Epinephrine HCl 5 mg/Sodium Chloride 255 ml @ 20.043 mls/ hr CONT PRN IV SEE I/O RECORD Last administered on 01/01/20at 10:17; Start 01/01/20 at 03:30; Stop 01/01/20 at 12:00; Status DC Sodium Chloride 1,000 ml @ 60 mls/hr [id number] IV Last administered on 01/01/20at 04:07; Start 01/01/20 at 03:45; Stop 01/01/20 at 13:22; Status DC Vasopressin 20 unit/Dextrose 101 ml @ 12 mls/hr CONT PRN IV SEE I/O RECORD Last administered on 01/03/20at 23:16; Start 01/01/20 at 04:15; Stop 01/05/20 at 09:35; Status DC Phenylephrine HCl 50 mg/Sodium Chloride 255 ml @ 10.022 mls/ hr CONT PRN IV SEE I/O RECORD Last administered on 01/01/20at 05:42; Start 01/01/20 at 05:30; Stop 01/05/20 at 09:35; Status DC Fentanyl Citrate (Fentanyl 2ml Vial) 25 mcg PRN Q1HR PRN IV SEE COMMENTS; Start 01/01/20 at 07:00 Fentanyl Citrate (Fentanyl 2ml Vial) 50 mcg PRN Q1HR PRN IV SEE COMMENTS Last administered on 01/08/20at 23:42; Start 01/01/20 at 07:00 Sodium Bicarbonate (Sodium Bicarb Adult 8.4% Syr) 50 meq 1X ONCE IV Last administered on 01/01/20at 09:18; Start 01/01/20 at 08:45; Stop 01/01/20 at 08:46; Status DC Sodium Bicarbonate (Sodium Bicarb Adult 8.4% Syr) 50 meq 1X ONCE IV Last administered on 01/01/20at 09:18; Start 01/01/20 at 08:45; Stop 01/01/20 at 08:46; Status DC Enoxaparin Sodium (Lovenox 30mg Syringe) 30 mg Q24H SQ ; Start 01/01/20 at 10:15; Stop 01/01/20 at 10:12; Status DC Famotidine (Pepcid Vial) 20 mg DAILY IVP Last administered on 01/10/20at 07:47; Start 01/01/20 at 11:00 Heparin Sodium (Porcine) (Heparin Sodium) 5,000 unit BID SQ Last administered on 01/01/20at 21:12; Start 01/01/20 at 11:00; Stop 01/03/20 at 10:40; Status DC Epinephrine HCl 10 mg/Sodium Chloride 250 ml @ 9.825 mls/ hr CONT PRN IV SEE I/O RECORD Last administered on 01/01/20at 11:54; Start 01/01/20 at 10:30 Sodium Chloride 1,000 ml @ 150 mls/hr 1X ONCE IV Last administered on 01/01/20at 12:21; Start 01/01/20 at 12:00; Stop 01/01/20 at 18:39; Status DC Vancomycin HCl (Vanco Per Pharmacy) 1 each PRN DAILY PRN MC SEE COMMENTS Last administered on 01/10/20at 08:24; Start 01/01/20 at 14:00 Piperacillin Sod/ Tazobactam Sod (Zosyn Per Pharmacy) 1 each PRN DAILY PRN MC SEE COMMENTS; Start 01/01/20 at 14:00 Methylprednisolone Sodium Succinate (SOLU-Medrol 125MG VIAL) 60 mg Q8HRS IV Last administered on 01/05/20at 05:34; Start 01/01/20 at 14:00; Stop 01/05/20 at 09:35; Status DC Piperacillin Sod/ Tazobactam Sod 2.25 gm/Sodium Chloride 50 ml @ 100 mls/hr Q8HRS IV Last administered on 01/05/20at 05:34; Start 01/01/20 at 14:30; Stop 01/05/20 at 11:54; Status DC Vancomycin HCl 1.5 gm/Sodium Chloride 500 ml @ 250 mls/hr 1X ONCE IV Last administered on 01/01/20at 16:43; Start 01/01/20 at 15:00; Stop 01/01/20 at 16:59; Status DC Sodium Chloride 1,000 ml @ 150 mls/hr Q6H40M IV Last administered on 01/07/20at 06:08; Start 01/01/20 at 19:00; Stop 01/07/20 at 13:22; Status DC Vancomycin HCl (Vancomycin Random Level) 1 each 1X ONCE MC Last administered on 01/03/20at 06:00; Start 01/03/20 at 06:00; Stop 01/03/20 at 06:01; Status DC Potassium Chloride/Water 100 ml @ 100 mls/hr Q1H IV Last administered on 01/02/20at 11:57; Start 01/02/20 at 11:00; Stop 01/02/20 at 12:59; Status DC Atropine Sulfate (ATROPINE 1mg SYRINGE) 1 mg STK-MED ONCE .ROUTE ; Start 01/02/20 at 12:55; Stop 01/02/20 at 12:55; Status DC Insulin Human Lispro (HumaLOG) 0-5 UNITS Q6HRS SQ Last administered on 01/10/20at 17:44; Start 01/02/20 at 18:30 Dextrose (Dextrose 50%-Water Syringe) 12.5 gm PRN Q15MIN PRN IV SEE COMMENTS; Start 01/02/20 at 18:15 Vancomycin HCl 1 gm/Sodium Chloride 250 ml @ 250 mls/hr Q36H IV Last administered on 01/03/20at 07:59; Start 01/03/20 at 08:00; Stop 01/04/20 at 09:50; Status DC Potassium Chloride/Water 100 ml @ 100 mls/hr Q1H IV Last administered on 01/03/20at 10:59; Start 01/03/20 at 09:00; Stop 01/03/20 at 10:59; Status DC Sodium Phosphate 20 mmol/Sodium Chloride 256.6667 ml @ 64.167 m... 1X ONCE IV Last administered on 01/03/20at 12:29; Start 01/03/20 at 12:00; Stop 01/03/20 at 15:59; Status DC Magnesium Sulfate 100 ml @ 25 mls/hr 1X ONCE IV Last administered on 01/04/20at 07:34; Start 01/04/20 at 07:30; Stop 01/04/20 at 11:29; Status DC Potassium Chloride/Water 100 ml @ 100 mls/hr Q1H IV Last administered on 01/04/20at 08:41; Start 01/04/20 at 07:30; Stop 01/04/20 at 09:29; Status DC Sodium Bicarbonate (Sodium Bicarb Adult 8.4% Syr) 100 meq 1X ONCE IV Last administered on 01/04/20at 09:10; Start 01/04/20 at 09:00; Stop 01/04/20 at 09 :01; Status DC Propofol 100 ml @ 1.2 mls/hr CONT PRN IV SEE I/O RECORD Last administered on 01/04/20at 09:11; Start 01/04/20 at 09:00; Stop 01/07/20 at 16:32; Status DC Vancomycin HCl 1 gm/Sodium Chloride 250 ml @ 250 mls/hr Q24H IV Last administered on 01/10/20at 10:44; Start 01/04/20 at 11:00 Vancomycin HCl (Vancomycin Trough Level) 1 each 1X ONCE MC ; Start 01/06/20 at 10:30; Stop 01/06/20 at 10:31; Status DC Dexmedetomidine HCl 400 mcg/ Sodium Chloride 100 ml @ 4 mls/hr CONT PRN IV SEE COMMENTS Last administered on 01/04/20at 10:56; Start 01/04/20 at 10:00 Sodium Chloride 500 ml @ 500 mls/hr 1X PRN PRN IV SEE COMMENTS; Start 01/04/20 at 10:00 Atropine Sulfate (ATROPINE 0.5mg SYRINGE) 0.5 mg PRN Q5MIN PRN IV SEE COMMENTS; Start 01/04/20 at 10:00 Sodium Bicarbonate (Sodium Bicarb Adult 8.4% Syr) 100 meq 1X ONCE IV Last administered on 01/04/20at 13:29; Start 01/04/20 at 13:30; Stop 01/04/20 at 13:31; Status DC Potassium Phosphate 13.6 mmol/Sodium Chloride 254.5333 ml @ 127.... Q2H IV Last administered on 01/05/20at 11:14; Start 01/05/20 at 09:00; Stop 01/05/20 at 13:05; Status DC Methylprednisolone Sodium Succinate (SOLU-Medrol 125MG VIAL) 40 mg Q8HRS IV Last administered on 01/10/20at 21:40; Start 01/05/20 at 14:00 Sodium Chloride 500 ml @ 500 mls/hr 1X ONCE IV Last administered on 01/05/20at 12:29; Start 01/05/20 at 09:45; Stop 01/05/20 at 10:44; Status DC Piperacillin Sod/ Tazobactam Sod 2.25 gm/Sodium Chloride 50 ml @ 100 mls/hr Q6HRS IV Last administered on 01/06/20at 05:31; Start 01/05/20 at 12:00; Stop 01/06/20 at 09:43; Status DC Potassium Chloride/Water 100 ml @ 100 mls/hr Q1H IV Last administered on at 17:37; Start 01/05/20 at 16:00; Stop 01/05/20 at 17:59; Status DC Piperacillin Sod/ Tazobactam Sod 3.375 gm/Sodium Chloride 50 ml @ 100 mls/hr Q6HRS IV Last administered on 01/10/20at 17:34; Start 01/06/20 at 12:00 Fentanyl Citrate 30 ml @ 0 mls/hr CONT PRN IV SEE PROTOCOL Last administered on 01/07/20at 00:07; Start 01/06/20 at 12:00 Furosemide (Lasix) 40 mg 1X ONCE IVP Last administered on 01/07/20at 13:38; Start 01/07/20 at 14:00; Stop 01/07/20 at 14:01; Status DC Propofol 100 ml @ 1.337 mls/ hr CONT PRN IV SEE I/O RECORD; Start 01/07/20 at 16:30 Digoxin (Lanoxin) 500 mcg 1X ONCE IV Last administered on 01/09/20at 00:08; Start 01/09/20 at 00:30; Stop 01/09/20 at 00:31; Status DC Digoxin (Lanoxin) 250 mcg 1X ONCE IV Last administered on 01/09/20at 02:46; Start 01/09/20 at 03:00; Stop 01/09/20 at 03:01; Status DC Enoxaparin Sodium (Lovenox 40mg Syringe) 40 mg Q24H SQ Last administered on 01/10/20at 13:26; Start 01/09/20 at 14:00 Potassium Chloride/Water 100 ml @ 100 mls/hr Q1H IV Last administered on 01/09/20at 16:24; Start 01/09/20 at 15:00; Stop 01/09/20 at 16:59; Status DC Vancomycin HCl (Vancomycin Trough Level) 1 each 1X ONCE MC ; Start 01/11/20 at 10:30; Stop 01/11/20 at 10:31 Vitals/I & O Vital Sign - Last 24 Hours 01/09/20 01/10/20 01/10/20 01/10/20 23:00 00:00 00:00 00:12 Temp 98.8 98.8 Pulse 54 54 Resp 19 17 B/P (MAP) 140/68 (92) 138/67 (90) Pulse Ox 98 100 99 O2 Delivery Ventilator Mechanical Ventilator Ventilator Ventilator 01/10/20 01/10/20 01/10/20 01/10/20 01:00 02:00 03:00 03:55 Pulse 51 56 49 Resp 16 16 18 B/P (MAP) 143/72 (95) 150/75 (100) 112/55 (74) Pulse Ox 99 100 100 99 O2 Delivery Ventilator Ventilator Ventilator Ventilator 01/10/20 01/10/20 01/10/20 01/10/20 04:00 04:00 05:00 06:00 Temp 99.0 99.0 Pulse 48 38 45 Resp 17 16 16 B/P (MAP) 132/67 (88) 105/54 (71) 134/75 (94) Pulse Ox 100 99 99 O2 Delivery Mechanical Ventilator Ventilator Ventilator Ventilator 01/10/20 01/10/20 01/10/20 01/10/20 07:00 08:00 08:00 08:15 Temp 99.1 99.1 Pulse 40 47 Resp 16 16 B/P (MAP) 127/57 (80) 152/66 (94) Pulse Ox 98 100 99 O2 Delivery Ventilator Mechanical Ventilator Ventilator Ventilator 01/10/20 01/10/20 01/10/20 01/10/20 09:00 10:00 11:00 11:53 Pulse 45 51 91 Resp 16 16 16 B/P (MAP) 137/62 (87) 148/67 (94) 156/74 (101) Pulse Ox 100 99 100 100 O2 Delivery Ventilator Ventilator Ventilator Ventilator 01/10/20 01/10/20 01/10/20 01/10/20 12:00 12:00 13:00 14:00 Temp 98.5 98.5 Pulse 63 60 49 Resp 16 16 16 B/P (MAP) 146/68 (94) 151/75 (100) 141/64 (89) Pulse Ox 98 98 100 O2 Delivery Ventilator Mechanical Ventilator Ventilator Ventilator 01/10/20 01/10/20 01/10/20 01/10/20 15:00 15:39 15:43 16:00 Pulse 46 53 Resp 16 16 B/P (MAP) 149/67 (94) 150/69 (96) Pulse Ox 99 100 100 O2 Delivery Ventilator Ventilator Mechanical Ventilator Ventilator 01/10/20 01/10/20 01/10/20 01/10/20 17:00 17:54 18:00 19:00 Pulse 43 60 50 Resp 16 16 16 B/P (MAP) 147/79 (101) 137/82 (100) 141/78 (99) Pulse Ox 100 100 100 100 O2 Delivery Ventilator Ventilator Ventilator Ventilator 01/10/20 01/10/20 01/10/20 20:00 20:00 20:02 Temp 99.4 99.4 Pulse 52 Resp 16 B/P (MAP) 147/71 (96) Pulse Ox 100 100 O2 Delivery Mechanical Ventilator Ventilator Ventilator Intake and Output 01/09/20 01/09/20 01/10/20 15:00 23:00 07:00 Intake Total 450 ml 1005 ml 851 ml Output Total 335 ml 220 ml 1360 ml Balance 115 ml 785 ml -509 ml Nutrition Consultation Dietary Evaluation: Recommendations by RD: Dietary education by RD, Increase Calorie Intake Comments: REC adjust TFs to following: VitalAF@goal rate 45 ml/hr w/75 ml water flushes q4 hrs, ok to adjust TFs per RN report Expected Outcomes/Goals: New goal 01/02: TFs to meet >65% est needs while pt remains intubated - met, goal ongoing Malnutrition Findings: Body Fat Depletion (Non Severe: Mild Depletion Weight Status: Appropriate Justicifation of Admission Dx: Justifications for Admission: Justification of Admission Dx: Yes Respiratory Failure: Mechanical Ventilation ISABELLA MORA MD Jan 10, 2020 22:25
[2020-01-11] VITALS (24 sets, daily range): BP systolic 117–171; BP diastolic 65–86
[2020-01-11] MEDS: INSULIN LISPRO 300 UNITS/3 ML VIAL. SQ SCH ×4 (06:00→18:11)
[2020-01-11] MEDS: methylPREDNISolone SOD SUCC PF 125 MG/2 ML VIAL. IV SCH ×3 (06:01→22:19)
[2020-01-11] MEDS: PIPERACILLIN/TAZOBACTAM 3.375 GM in IV NORMAL SALINE 50ML 50 ML IV SCH ×3 (06:02→18:04)
[2020-01-11 06:31] LABS: CALCIUM 7.9 mg/dL (8.5-10.1); CREATININE 0.7 mg/dL (0.6-1.0); GFR 97.7; POTASSIUM 3.4 mmol/L (3.5-5.1)
[2020-01-11] MEDS: FAMOTIDINE 20 MG/2 ML VIAL IVP SCH (08:20)
[2020-01-11 08:27] LABS: BASE EXCESS ABG -5 mmol/L (-3-3); HCO3 ABG 17 mmol/L (21-28); PCO2 ABG 24 mmHg (35-46); PO2 ABG 83 mmHg (65-108); SAT O2 ABG 96 % (92-99)
[2020-01-11 08:37] LABS: FIO2 ABG 40
[2020-01-11] MEDS ORDERED: SODIUM BICARB ADULT 8.4% 50 MEQ/50 ML DISP.SYRIN. IV ONE (09:30)
--- NOTE | 2020-01-11 09:30 | PDOC ---
PROGRESS NOTES Date of Service: DATE: 01/11/20 TIME: 09:27 Chief Complaint Chief Complaint Severe respiratory failure secondary to COVID-19 History of the following; History Dementia, essential hypertension, hyperlipidemia, Raynaud's. Hyperthyroidism, status post thyroidectomy. Plan: follow recommendations from sec reporting consultant Cont. current vent support Fi02 40% and PEEP 5, off sedation sbt when more awake. Not awake yet Stress ulcer prophylaxis, scds, off SQ heparin 2/2 low plt count continue BS antibiotics Follow cardiology recs Follow renal recs continued azotemia improving thrombocytopenia due to sepsis, improving clinically improving but still critically ill d/w son in detail. If she does not wake up till end of week, he would with [facility] care.I concur Discussed with RN and RT. Chart reviewed. Labs reviewed and imaging reviewed. critically ill continue with supportive measures further recommendations based on clinical course discussed with RN History of Present Illness History of Present Illness 01/11/2020 No acute events reported overnight, case discussed with nursing staff patient in no acute distress no complaints during my visit 01/10/2020 Patient with no acute events reported overnight, patient remains intubated unable to proceed with weaning trial follow recommendations from pulmonary sec reporting consultant 01/09/2020 Patient seen and examined in the [place] [address] unit She is still on the vent Assist-control/16/4 50/40% with 5 of PEEP and she is satting 99% She is sedated with PRN Versed Still critically ill Discussed with RN Chart review 01/08/2020 Patient seen and examined in the ICU [place] [address] unit She remains mechanically ventilated Assist-control/16/4 50/40% with 5 of PEEP Chart reviewed Discussed with RN She remains critically ill 01/07/2020 Patient seen and examined She remains in the [place] [address] ICU on the vent Assist-control/16/4 50/40% with 5 of PEEP Discussed with RN Chart reviewed She is still critically ill 01/06/2020 Patient seen and examined in the [place] [address] ICU She remains mechanically ventilated Assist-control/16/4 50/40% with 5 of PEEP Discussed with RN Chart reviewed She remains critically ill 01/05/2020 Patient seen and examined Intubated, on vent AC/16/450/40% FiO2 w/t 5 PEEP and sedated with Precedex and propafol Successfully weaned off pressors OG tube at 35cc/hour Discussed with RN Charts reviewed 01/04/2020 Patient seen and examined Intubated, on vent AC/16/450/40% FiO2 w/t 5 PEEP and sedated with Precedex Discussed with RN Charts reviewed 01/03/2020 Patient seen and examined Intubated, on vent AC/16/450/40% FiO2 w/t 5 PEEP and sedated with Fentanyl OG tube at 20cc/hour Discussed with RN Charts reviewed Vitals Vitals Vital Signs Date Time Temp Pulse Resp B/P (MAP) Pulse Ox O2 Delivery O2 Flow Rate FiO2 01/11/20 09:00 49 16 117/69 (85) 100 Ventilator 01/11/20 08:00 98.8 98.8 Physical Exam Physical Exam General: Other (sedated) Heart: Regular rate (SB 40s) Lungs: Crackles Abdomen: Soft Extremities: No cyanosis Skin: No breakdown General: Other (sedated) Heart: Regular rate (SB 40s) Abdomen: Soft Extremities: No cyanosis Skin: No breakdown Labs LABS Laboratory Tests Test 01/10/20 11:23 01/10/20 17:38 01/10/20 23:46 01/11/20 05:29 Glucose (Fingerstick) 246 mg/dL (70-99) 240 mg/dL (70-99) 272 mg/dL (70-99) 249 mg/dL (70-99) Test 01/11/20 05:30 01/11/20 08:00 Sodium Level 149 mmol/L (136-145) Potassium Level 3.4 mmol/L (3.5-5.1) Chloride Level 115 mmol/L (98-107) Carbon Dioxide Level 25 mmol/L (21-32) Anion Gap 9 (6-14) Blood Urea Nitrogen 28 mg/dL (7-20) Creatinine 0.7 mg/dL (0.6-1.0) Estimated GFR (Cockcroft-Gault) 97.7 Glucose Level 273 mg/dL (70-99) Calcium Level 7.9 mg/dL (8.5-10.1) O2 Saturation 96 % (92-99) Arterial Blood pH 7.48 (7.35-7.45) Arterial Blood pCO2 at Patient Temp 24 mmHg (35-46) Arterial Blood pO2 at Patient Temp 83 mmHg (65-108) Arterial Blood HCO3 17 mmol/L (21-28) Arterial Blood Base Excess -5 mmol/L (-3-3) FiO2 40 Comment Review of Relevant I have reviewed the following items aislinn (where applicable) has been applied. Labs Laboratory Tests Test 01/09/20 12:49 01/09/20 20:24 01/09/20 23:47 01/10/20 05:50 Glucose (Fingerstick) 212 mg/dL (70-99) 234 mg/dL (70-99) 209 mg/dL (70-99) White Blood Count 12.8 x10^3/uL (4.0-11.0) Red Blood Count 3.25 x10^6/uL (3.50-5.40) Hemoglobin 10.2 g/dL (12.0-15.5) Hematocrit 30.5 % (36.0-47.0) Mean Corpuscular Volume 94 fL (79-100) Mean Corpuscular Hemoglobin 31 pg (25-35) Mean Corpuscular Hemoglobin Concent 33 g/dL (31-37) Red Cell Distribution Width 13.6 % (11.5-14.5) Platelet Count 106 x10^3/uL (140-400) Neutrophils (%) (Auto) 91 % (31-73) Lymphocytes (%) (Auto) 4 % (24-48) Monocytes (%) (Auto) 4 % (0-9) Eosinophils (%) (Auto) 0 % (0-3) Basophils (%) (Auto) 0 % (0-3) Neutrophils # (Auto) 11.7 x10^3/uL (1.8-7.7) Lymphocytes # (Auto) 0.5 x10^3/uL (1.0-4.8) Monocytes # (Auto) 0.6 x10^3/uL (0.0-1.1) Eosinophils # (Auto) 0.0 x10^3/uL (0.0-0.7) Basophils # (Auto) 0.0 x10^3/uL (0.0-0.2) Segmented Neutrophils % 85 % (35-66) Band Neutrophils % 8 % (0-9) Lymphocytes % 4 % (24-48) Monocytes % 2 % (0-10) Metamyelocytes % 1 % (0-0) Platelet Estimate Decreased (ADEQUATE) Large Platelets Occ Sodium Level 147 mmol/L (136-145) Potassium Level 3.7 mmol/L (3.5-5.1) Chloride Level 115 mmol/L (98-107) Carbon Dioxide Level 24 mmol/L (21-32) Anion Gap 8 (6-14) Blood Urea Nitrogen 28 mg/dL (7-20) Creatinine 0.8 mg/dL (0.6-1.0) Estimated GFR (Cockcroft-Gault) 83.7 Glucose Level 217 mg/dL (70-99) Calcium Level 7.7 mg/dL (8.5-10.1) Magnesium Level 1.9 mg/dL (1.8-2.4) Test 01/10/20 05:59 01/10/20 08:20 01/10/20 11:23 01/10/20 17:38 Glucose (Fingerstick) 208 mg/dL (70-99) 246 mg/dL (70-99) 240 mg/dL (70-99) O2 Saturation 97 % (92-99) Arterial Blood pH 7.48 (7.35-7.45) Arterial Blood pCO2 at Patient Temp 25 mmHg (35-46) Arterial Blood pO2 at Patient Temp 95 mmHg (65-108) Arterial Blood HCO3 18 mmol/L (21-28) Arterial Blood Base Excess -4 mmol/L (-3-3) FiO2 40 Test 01/10/20 23:46 01/11/20 05:29 01/11/20 05:30 01/11/20 08:00 Glucose (Fingerstick) 272 mg/dL (70-99) 249 mg/dL (70-99) Sodium Level 149 mmol/L (136-145) Potassium Level 3.4 mmol/L (3.5-5.1) Chloride Level 115 mmol/L (98-107) Carbon Dioxide Level 25 mmol/L (21-32) Anion Gap 9 (6-14) Blood Urea Nitrogen 28 mg/dL (7-20) Creatinine 0.7 mg/dL (0.6-1.0) Estimated GFR (Cockcroft-Gault) 97.7 Glucose Level 273 mg/dL (70-99) Calcium Level 7.9 mg/dL (8.5-10.1) O2 Saturation 96 % (92-99) Arterial Blood pH 7.48 (7.35-7.45) Arterial Blood pCO2 at Patient Temp 24 mmHg (35-46) Arterial Blood pO2 at Patient Temp 83 mmHg (65-108) Arterial Blood HCO3 17 mmol/L (21-28) Arterial Blood Base Excess -5 mmol/L (-3-3) FiO2 40 Laboratory Tests Test 01/10/20 11:23 01/10/20 17:38 01/10/20 23:46 01/11/20 05:29 Glucose (Fingerstick) 246 mg/dL (70-99) 240 mg/dL (70-99) 272 mg/dL (70-99) 249 mg/dL (70-99) Test 01/11/20 05:30 01/11/20 08:00 Sodium Level 149 mmol/L (136-145) Potassium Level 3.4 mmol/L (3.5-5.1) Chloride Level 115 mmol/L (98-107) Carbon Dioxide Level 25 mmol/L (21-32) Anion Gap 9 (6-14) Blood Urea Nitrogen 28 mg/dL (7-20) Creatinine 0.7 mg/dL (0.6-1.0) Estimated GFR (Cockcroft-Gault) 97.7 Glucose Level 273 mg/dL (70-99) Calcium Level 7.9 mg/dL (8.5-10.1) O2 Saturation 96 % (92-99) Arterial Blood pH 7.48 (7.35-7.45) Arterial Blood pCO2 at Patient Temp 24 mmHg (35-46) Arterial Blood pO2 at Patient Temp 83 mmHg (65-108) Arterial Blood HCO3 17 mmol/L (21-28) Arterial Blood Base Excess -5 mmol/L (-3-3) FiO2 40 Medications Current Medications Norepinephrine Bitartrate 8 mg/ Dextrose 258 ml @ 12.674 mls/ hr CONT PRN IV PER PROTOCOL Last administered on 01/01/20at 02:25; Start 01/01/20 at 02:15; Stop 01/01/20 at 03:19; Status DC Midazolam HCl 100 mg/Sodium Chloride 100 ml @ 1 mls/hr CONT PRN IV SEE I/O RECORD Last administered on 01/05/20at 08:43; Start 01/01/20 at 02:15 Norepinephrine Bitartrate 16 mg/ Dextrose 266 ml @ 6.534 mls/ hr CONT PRN IV PER PROTOCOL Last administered on 01/02/20at 08:40; Start 01/01/20 at 03:30; Stop 01/05/20 at 09:35; Status DC Epinephrine HCl 5 mg/Sodium Chloride 255 ml @ 20.043 mls/ hr CONT PRN IV SEE I/O RECORD Last administered on 01/01/20at 10:17; Start 01/01/20 at 03:30; Stop 01/01/20 at 12:00; Status DC Sodium Chloride 1,000 ml @ 60 mls/hr [id number] IV Last administered on 01/01/20at 04:07; Start 01/01/20 at 03:45; Stop 01/01/20 at 13:22; Status DC Vasopressin 20 unit/Dextrose 101 ml @ 12 mls/hr CONT PRN IV SEE I/O RECORD Last administered on 01/03/20at 23:16; Start 01/01/20 at 04:15; Stop 01/05/20 at 09:35; Status DC Phenylephrine HCl 50 mg/Sodium Chloride 255 ml @ 10.022 mls/ hr CONT PRN IV SEE I/O RECORD Last administered on 01/01/20at 05:42; Start 01/01/20 at 05:30; Stop 01/05/20 at 09:35; Status DC Fentanyl Citrate (Fentanyl 2ml Vial) 25 mcg PRN Q1HR PRN IV SEE COMMENTS; Start 01/01/20 at 07:00 Fentanyl Citrate (Fentanyl 2ml Vial) 50 mcg PRN Q1HR PRN IV SEE COMMENTS Last administered on 01/08/20at 23:42; Start 01/01/20 at 07:00 Sodium Bicarbonate (Sodium Bicarb Adult 8.4% Syr) 50 meq 1X ONCE IV Last administered on 01/01/20at 09:18; Start 01/01/20 at 08:45; Stop 01/01/20 at 08:46; Status DC Sodium Bicarbonate (Sodium Bicarb Adult 8.4% Syr) 50 meq 1X ONCE IV Last administered on 01/01/20at 09:18; Start 01/01/20 at 08:45; Stop 01/01/20 at 08:46; Status DC Enoxaparin Sodium (Lovenox 30mg Syringe) 30 mg Q24H SQ ; Start 01/01/20 at 10:15; Stop 01/01/20 at 10:12; Status DC Famotidine (Pepcid Vial) 20 mg DAILY IVP Last administered on 01/11/20at 08:20; Start 01/01/20 at 11:00 Heparin Sodium (Porcine) (Heparin Sodium) 5,000 unit BID SQ Last administered on 01/01/20at 21:12; Start 01/01/20 at 11:00; Stop 01/03/20 at 10:40; Status DC Epinephrine HCl 10 mg/Sodium Chloride 250 ml @ 9.825 mls/ hr CONT PRN IV SEE I/O RECORD Last administered on 01/01/20at 11:54; Start 01/01/20 at 10:30 Sodium Chloride 1,000 ml @ 150 mls/hr 1X ONCE IV Last administered on 01/01/20at 12:21; Start 01/01/20 at 12:00; Stop 01/01/20 at 18:39; Status DC Vancomycin HCl (Vanco Per Pharmacy) 1 each PRN DAILY PRN MC SEE COMMENTS Last administered on 01/10/20at 08:24; Start 01/01/20 at 14:00 Piperacillin Sod/ Tazobactam Sod (Zosyn Per Pharmacy) 1 each PRN DAILY PRN MC SEE COMMENTS; Start 01/01/20 at 14:00 Methylprednisolone Sodium Succinate (SOLU-Medrol 125MG VIAL) 60 mg Q8HRS IV Last administered on 01/05/20at 05:34; Start 01/01/20 at 14:00; Stop 01/05/20 at 09:35; Status DC Piperacillin Sod/ Tazobactam Sod 2.25 gm/Sodium Chloride 50 ml @ 100 mls/hr Q8HRS IV Last administered on 01/05/20at 05:34; Start 01/01/20 at 14:30; Stop 01/05/20 at 11:54; Status DC Vancomycin HCl 1.5 gm/Sodium Chloride 500 ml @ 250 mls/hr 1X ONCE IV Last administered on 01/01/20at 16:43; Start 01/01/20 at 15:00; Stop 01/01/20 at 16:59; Status DC Sodium Chloride 1,000 ml @ 150 mls/hr Q6H40M IV Last administered on 01/07/20at 06:08; Start 01/01/20 at 19:00; Stop 01/07/20 at 13:22; Status DC Vancomycin HCl (Vancomycin Random Level) 1 each 1X ONCE MC Last administered on 01/03/20at 06:00; Start 01/03/20 at 06:00; Stop 01/03/20 at 06:01; Status DC Potassium Chloride/Water 100 ml @ 100 mls/hr Q1H IV Last administered on 01/02/20at 11:57; Start 01/02/20 at 11:00; Stop 01/02/20 at 12:59; Status DC Atropine Sulfate (ATROPINE 1mg SYRINGE) 1 mg STK-MED ONCE .ROUTE ; Start 01/02/20 at 12:55; Stop 01/02/20 at 12:55; Status DC Insulin Human Lispro (HumaLOG) 0-5 UNITS Q6HRS SQ Last administered on 01/11/20at 06:00; Start 01/02/20 at 18:30 Dextrose (Dextrose 50%-Water Syringe) 12.5 gm PRN Q15MIN PRN IV SEE COMMENTS; Start 01/02/20 at 18:15 Vancomycin HCl 1 gm/Sodium Chloride 250 ml @ 250 mls/hr Q36H IV Last administered on 01/03/20at 07:59; Start 01/03/20 at 08:00; Stop 01/04/20 at 0 9:50; Status DC Potassium Chloride/Water 100 ml @ 100 mls/hr Q1H IV Last administered on 01/03/20at 10:59; Start 01/03/20 at 09:00; Stop 01/03/20 at 10:59; Status DC Sodium Phosphate 20 mmol/Sodium Chloride 256.6667 ml @ 64.167 m... 1X ONCE IV Last administered on 01/03/20at 12:29; Start 01/03/20 at 12:00; Stop 01/03/20 at 15:59; Status DC Magnesium Sulfate 100 ml @ 25 mls/hr 1X ONCE IV Last administered on 01/04/20at 07:34; Start 01/04/20 at 07:30; Stop 01/04/20 at 11:29; Status DC Potassium Chloride/Water 100 ml @ 100 mls/hr Q1H IV Last administered on 01/04/20at 08:41; Start 01/04/20 at 07:30; Stop 01/04/20 at 09:29; Status DC Sodium Bicarbonate (Sodium Bicarb Adult 8.4% Syr) 100 meq 1X ONCE IV Last administered on 01/04/20at 09:10; Start 01/04/20 at 09:00; Stop 01/04/20 at 09:01; Status DC Propofol 100 ml @ 1.2 mls/hr CONT PRN IV SEE I/O RECORD Last administered on 01/04/20at 09:11; Start 01/04/20 at 09:00; Stop 01/07/20 at 16:32; Status DC Vancomycin HCl 1 gm/Sodium Chloride 250 ml @ 250 mls/hr Q24H IV Last administered on 01/10/20at 10:44; Start 01/04/20 at 11:00 Vancomycin HCl (Vancomycin Trough Level) 1 each 1X ONCE MC ; Start 01/06/20 at 10:30; Stop 01/06/20 at 10:31; Status DC Dexmedetomidine HCl 400 mcg/ Sodium Chloride 100 ml @ 4 mls/hr CONT PRN IV SEE COMMENTS Last administered on 01/04/20at 10:56; Start 01/04/20 at 10:00 Sodium Chloride 500 ml @ 500 mls/hr 1X PRN PRN IV SEE COMMENTS; Start 01/04/20 at 10:00 Atropine Sulfate (ATROPINE 0.5mg SYRINGE) 0.5 mg PRN Q5MIN PRN IV SEE COMMENTS; Start 01/04/20 at 10:00 Sodium Bicarbonate (Sodium Bicarb Adult 8.4% Syr) 100 meq 1X ONCE IV Last administered on 01/04/20at 13:29; Start 01/04/20 at 13:30; Stop 01/04/20 at 13:31; Status DC Potassium Phosphate 13.6 mmol/Sodium Chloride 254.5333 ml @ 127.... Q2H IV Last administered on 01/05/20at 11:14; Start 01/05/20 at 09:00; Stop 01/05/20 at 13:05; Status DC Methylprednisolone Sodium Succinate (SOLU-Medrol 125MG VIAL) 40 mg Q8HRS IV Last administered on 01/11/20at 06:01; Start 01/05/20 at 14:00 Sodium Chloride 500 ml @ 500 mls/hr 1X ONCE IV Last administered on 01/05/20at 12:29; Start 01/05/20 at 09:45; Stop 01/05/20 at 10:44; Status DC Piperacillin Sod/ Tazobactam Sod 2.25 gm/Sodium Chloride 50 ml @ 100 mls/hr Q6HRS IV Last administered on 01/06/20at 05:31; Start 01/05/20 at 12:00; Stop 01/06/20 at 09:43; Status DC Potassium Chloride/Water 100 ml @ 100 mls/hr Q1H IV Last administered on 01/05/20at 17:37; Start 01/05/20 at 16:00; Stop 01/05/20 at 17:59; Status DC Piperacillin Sod/ Tazobactam Sod 3.375 gm/Sodium Chloride 50 ml @ 100 mls/hr Q6HRS IV Last administered on 01/11/20at 06:02; Start 01/06/20 at 12:00 Fentanyl Citrate 30 ml @ 0 mls/hr CONT PRN IV SEE PROTOCOL Last administered on 01/07/20at 00:07; Start 01/06/20 at 12:00 Furosemide (Lasix) 40 mg 1X ONCE IVP Last administered on 01/07/20at 13:38; Start 01/07/20 at 14:00; Stop 01/07/20 at 14:01; Status DC Propofol 100 ml @ 1.337 mls/ hr CONT PRN IV SEE I/O RECORD; Start 01/07/20 at 16:30 Digoxin (Lanoxin) 500 mcg 1X ONCE IV Last administered on 01/09/20at 00:08; Start 01/09/20 at 00:30; Stop 01/09/20 at 00:31; Status DC Digoxin (Lanoxin) 250 mcg 1X ONCE IV Last administered on 01/09/20at 02:46; Start 01/09/20 at 03:00; Stop 01/09/20 at 03:01; Status DC Enoxaparin Sodium (Lovenox 40mg Syringe) 40 mg Q24H SQ Last administered on 01/10/20at 13:26; Start 01/09/20 at 14:00 Potassium Chloride/Water 100 ml @ 100 mls/hr Q1H IV Last administered on 01/09/20at 16:24; Start 01/09/20 at 15:00; Stop 01/09/20 at 16:59; Status DC Vancomycin HCl (Vancomycin Trough Level) 1 each 1X ONCE MC ; Start 01/11/20 at 10:30; Stop 01/11/20 at 10:31 Sodium Bicarbonate (Sodium Bicarb Adult 8.4% Syr) 50 meq 1X ONCE IV ; Start 01/11/20 at 09:30; Stop 01/11/20 at 09:31 Vitals/I & O Vital Sign - Last 24 Hours 01/10/20 01/10/20 01/10/20 01/10/20 10:00 11:00 11:53 12:00 Temp 98.5 98.5 Pulse 51 91 63 Resp 16 16 16 B/P (MAP) 148/67 (94) 156/74 (101) 146/68 (94) Pulse Ox 99 100 100 98 O2 Delivery Ventilator Ventilator Ventilator Ventilator 01/10/20 01/10/20 01/10/20 01/10/20 12:00 13:00 14:00 15:00 Pulse 60 49 46 Resp 16 16 16 B/P (MAP) 151/75 (100) 141/64 (89) 149/67 (94) Pulse Ox 98 100 99 O2 Delivery Mechanical Ventilator Ventilator Ventilator Ventilator 01/10/20 01/10/20 01/10/20 01/10/20 15:39 15:43 16:00 17:00 Pulse 53 43 Resp 16 16 B/P (MAP) 150/69 (96) 147/79 (101) Pulse Ox 100 100 100 O2 Delivery Ventilator Mechanical Ventilator Ventilator Ventilator 01/10/20 01/10/20 01/10/20 01/10/20 17:54 18:00 19:00 20:00 Pulse 60 50 Resp 16 16 B/P (MAP) 137/82 (100) 141/78 (99) Pulse Ox 100 100 100 O2 Delivery Ventilator Ventilator Ventilator Mechanical Ventilator 01/10/20 01/10/20 01/10/20 01/10/20 20:00 20:02 21:00 22:00 Temp 99.4 99.4 Pulse 52 54 54 Resp 16 16 16 B/P (MAP) 147/71 (96) 140/65 (90) 130/68 (88) Pulse Ox 100 100 99 100 O2 Delivery Ventilator Ventilator Ventilator Ventilator 01/10/20 01/11/20 01/11/20 01/11/20 23:00 00:00 00:00 00:16 Temp 99.1 99.1 Pulse 62 52 Resp 18 18 B/P (MAP) 142/69 (93) 142/69 (93) Pulse Ox 98 97 100 O2 Delivery Ventilator Mechanical Ventilator Ventilator Ventilator 01/11/20 01/11/20 01/11/20 01/11/20 01:00 02:00 03:00 04:00 Temp 98.9 98.9 Pulse 62 54 43 51 Resp 16 18 16 16 B/P (MAP) 150/68 (95) 149/71 (97) 135/68 (90) 118/66 (83) Pulse Ox 99 98 97 96 O2 Delivery Ventilator Ventilator Ventilator Ventilator 01/11/20 01/11/20 01/11/20 01/11/20 04:00 04:29 05:00 06:00 Pulse 48 66 Resp 16 17 B/P (MAP) 119/65 (83) 155/80 (105) Pulse Ox 100 95 98 O2 Delivery Mechanical Ventilator Ventilator Ventilator Ventilator 01/11/20 01/11/20 01/11/20 01/11/20 07:00 08:00 08:00 08:22 Temp 98.8 98.8 Pulse 52 68 Resp 16 16 B/P (MAP) 145/70 (95) 119/67 (84) Pulse Ox 99 98 98 O2 Delivery Ventilator Mechanical Ventilator Ventilator Ventilator 01/11/20 09:00 Pulse 49 Resp 16 B/P (MAP) 117/69 (85) Pulse Ox 100 O2 Delivery Ventilator Intake and Output 01/10/20 01/10/20 01/11/20 15:00 23:00 07:00 Intake Total 500 ml 864 ml 1214 ml Output Total 290 ml 200 ml 635 ml Balance 210 ml 664 ml 579 ml Nutrition Consultation Dietary Evaluation: Recommendations by RD: Dietary education by RD, Increase Calorie Intake Comments: REC adjust TFs to following: VitalAF@goal rate 45 ml/hr w/75 ml water flushes q4 hrs, ok to adjust TFs per RN report Expected Outcomes/Goals: New goal 01/02: TFs to meet >65% est needs while pt remains intubated - met, goal ongoing Malnutrition Findings: Body Fat Depletion (Non Severe: Mild Depletion Weight Status: Appropriate Justicifation of Admission Dx: Justifications for Admission: Justification of Admission Dx: Yes Respiratory Failure: Mechanical Ventilation IASBELLA MORA MD Jan 11, 2020 09:30
--- NOTE | 2020-01-11 09:38 | PDOC ---
PULMONARY PROGRESS NOTES DATE: 01/11/20 TIME: 09:35 Subjective remains intubated/off sedation opens eyes, doesn't follow commands Vitals Vital Signs Date Time Temp Pulse Resp B/P (MAP) Pulse Ox O2 Delivery O2 Flow Rate FiO2 01/11/20 09:00 49 16 117/69 (85) 100 Ventilator 01/11/20 08:00 98.8 98.8 Comments visual exam done due to COVID pandemia on vent no accessory muscle use no paradoxical abd motion RRR no rash no edema Labs Laboratory Tests Test 01/09/20 12:49 01/09/20 20:24 01/09/20 23:47 01/10/20 05:50 Glucose (Fingerstick) 212 mg/dL (70-99) 234 mg/dL (70-99) 209 mg/dL (70-99) White Blood Count 12.8 x10^3/uL (4.0-11.0) Red Blood Count 3.25 x10^6/uL (3.50-5.40) Hemoglobin 10.2 g/dL (12.0-15.5) Hematocrit 30.5 % (36.0-47.0) Mean Corpuscular Volume 94 fL (79-100) Mean Corpuscular Hemoglobin 31 pg (25-35) Mean Corpuscular Hemoglobin Concent 33 g/dL (31-37) Red Cell Distribution Width 13.6 % (11.5-14.5) Platelet Count 106 x10^3/uL (140-400) Neutrophils (%) (Auto) 91 % (31-73) Lymphocytes (%) (Auto) 4 % (24-48) Monocytes (%) (Auto) 4 % (0-9) Eosinophils (%) (Auto) 0 % (0-3) Basophils (%) (Auto) 0 % (0-3) Neutrophils # (Auto) 11.7 x10^3/uL (1.8-7.7) Lymphocytes # (Auto) 0.5 x10^3/uL (1.0-4.8) Monocytes # (Auto) 0.6 x10^3/uL (0.0-1.1) Eosinophils # (Auto) 0.0 x10^3/uL (0.0-0.7) Basophils # (Auto) 0.0 x10^3/uL (0.0-0.2) Segmented Neutrophils % 85 % (35-66) Band Neutrophils % 8 % (0-9) Lymphocytes % 4 % (24-48) Monocytes % 2 % (0-10) Metamyelocytes % 1 % (0-0) Platelet Estimate Decreased (ADEQUATE) Large Platelets Occ Sodium Level 147 mmol/L (136-145) Potassium Level 3.7 mmol/L (3.5-5.1) Chloride Level 115 mmol/L (98-107) Carbon Dioxide Level 24 mmol/L (21-32) Anion Gap 8 (6-14) Blood Urea Nitrogen 28 mg/dL (7-20) Creatinine 0.8 mg/dL (0.6-1.0) Estimated GFR (Cockcroft-Gault) 83.7 Glucose Level 217 mg/dL (70-99) Calcium Level 7.7 mg/dL (8.5-10.1) Magnesium Level 1.9 mg/dL (1.8-2.4) Test 01/10/20 05:59 01/10/20 08:20 01/10/20 11:23 01/10/20 17:38 Glucose (Fingerstick) 208 mg/dL (70-99) 246 mg/dL (70-99) 240 mg/dL (70-99) O2 Saturation 97 % (92-99) Arterial Blood pH 7.48 (7.35-7.45) Arterial Blood pCO2 at Patient Temp 25 mmHg (35-46) Arterial Blood pO2 at Patient Temp 95 mmHg (65-108) Arterial Blood HCO3 18 mmol/L (21-28) Arterial Blood Base Excess -4 mmol/L (-3-3) FiO2 40 Test 01/10/20 23:46 01/11/20 05:29 01/11/20 05:30 01/11/20 08:00 Glucose (Fingerstick) 272 mg/dL (70-99) 249 mg/dL (70-99) Sodium Level 149 mmol/L (136-145) Potassium Level 3.4 mmol/L (3.5-5.1) Chloride Level 115 mmol/L (98-107) Carbon Dioxide Level 25 mmol/L (21-32) Anion Gap 9 (6-14) Blood Urea Nitrogen 28 mg/dL (7-20) Creatinine 0.7 mg/dL (0.6-1.0) Estimated GFR (Cockcroft-Gault) 97.7 Glucose Level 273 mg/dL (70-99) Calcium Level 7.9 mg/dL (8.5-10.1) O2 Saturation 96 % (92-99) Arterial Blood pH 7.48 (7.35-7.45) Arterial Blood pCO2 at Patient Temp 24 mmHg (35-46) Arterial Blood pO2 at Patient Temp 83 mmHg (65-108) Arterial Blood HCO3 17 mmol/L (21-28) Arterial Blood Base Excess -5 mmol/L (-3-3) FiO2 40 Laboratory Tests Test 01/10/20 11:23 01/10/20 17:38 01/10/20 23:46 01/11/20 05:29 Glucose (Fingerstick) 246 mg/dL (70-99) 240 mg/dL (70-99) 272 mg/dL (70-99) 249 mg/dL (70-99) Test 01/11/20 05:30 01/11/20 08:00 Sodium Level 149 mmol/L (136-145) Potassium Level 3.4 mmol/L (3.5-5.1) Chloride Level 115 mmol/L (98-107) Carbon Dioxide Level 25 mmol/L (21-32) Anion Gap 9 (6-14) Blood Urea Nitrogen 28 mg/dL (7-20) Creatinine 0.7 mg/dL (0.6-1.0) Estimated GFR (Cockcroft-Gault) 97.7 Glucose Level 273 mg/dL (70-99) Calcium Level 7.9 mg/dL (8.5-10.1) O2 Saturation 96 % (92-99) Arterial Blood pH 7.48 (7.35-7.45) Arterial Blood pCO2 at Patient Temp 24 mmHg (35-46) Arterial Blood pO2 at Patient Temp 83 mmHg (65-108) Arterial Blood HCO3 17 mmol/L (21-28) Arterial Blood Base Excess -5 mmol/L (-3-3) FiO2 40 Comments CXR 01/07 reviewed small LLL effusion Impression . 1. Acute hypoxic respiratory failure secondary to multisystem organ failure from COVID pneumonia and acute lung injury. improved 2. Severe metabolic acidosis, likely secondary to acute kidney injury and shock/ lactic acidosis--improved 3. Acute kidney injury. improving 4. Abnormal chest x-ray consistent with COVID-19 pneumonia., improved 5. COVID-19 positive. 6. Thrombocytopenia, improving 7. persistent azotemia could be related to steroids, improving 8. leukocytosis improving Plan . Cont. current vent support Fi02 40% and PEEP 5, off sedation sbt when more awake. Follow CXR and ABG -- will give 1 AMP bicarb today continue BS antibiotics Follow cardiology recs Follow renal recs thrombocytopenia due to sepsis, improving Will discuss with Family again this , plan to withdrawal care on Wednesday if continue to not improve. Discussed with RN and RT. Chart reviewed. Labs reviewed and imaging reviewed. iCritical care time 30 minutes. no overlap ABBEY BEEBE MD Jan 11, 2020 09:38
[2020-01-11 11:20] LABS: VANC TR 10.3 mcg/mL (10.0-20.0)
[2020-01-11] MEDS: VANCOMYCIN 1 GM in IV NORMAL SALINE 250ML 250 ML IV SCH (11:31)
[2020-01-11] MEDS: VANCOMYCIN PER PHARMACY MC PRN ×4 (13:15→13:33)
[2020-01-11] MEDS: ENOXAPARIN 40 MG/0.4 ML SYRINGE. SQ SCH (14:32)
--- NOTE | 2020-01-11 16:21 | NUR ---
SS following up with discharge planning. SS reviewed pt chart and discussed with pt RN. COVID19 positive. Pt remains on the vent at this time. Possible withdrawal of care on Wednesday if not improved. Dr. Lynne to discuss with family this weekend. SS will continue to follow for discharge planning.
[2020-01-11 16:59] LABS: BASE EXCESS ABG -5 mmol/L (-3-3); FIO2 ABG 40/CPAP 10-5; HCO3 ABG 17 mmol/L (21-28); PCO2 ABG 23 mmHg (35-46); PO2 ABG 108 mmHg (65-108); SAT O2 ABG 98 % (92-99)
[2020-01-12] VITALS (24 sets, daily range): BP systolic 98–165; BP diastolic 55–100
[2020-01-12] MEDS: PIPERACILLIN/TAZOBACTAM 3.375 GM in IV NORMAL SALINE 50ML 50 ML IV SCH ×6 (00:44→23:31)
[2020-01-12] MEDS: methylPREDNISolone SOD SUCC PF 125 MG/2 ML VIAL. IV SCH ×3 (05:50→22:07)
[2020-01-12] MEDS: INSULIN LISPRO 300 UNITS/3 ML VIAL. SQ SCH ×4 (05:51→21:00)
[2020-01-12 06:01] LABS: BASO % 0 % (0-3); EOS % 0 % (0-3); HEMATOCRIT 31.6 % (36.0-47.0); HEMOGLOBIN 10.4 g/dL (12.0-15.5); LYMPH # 0.7 x10^3/uL (1.0-4.8); LYMPH % 4 % (24-48); MEAN CORPUSCULAR HEMOGLOBIN 31 pg (25-35); MEAN CORPUSCULAR HGB CONC 33 g/dL (31-37); MEAN CORPUSCULAR VOLUME 93 fL (79-100); MONO # 0.6 x10^3/uL (0.0-1.1); MONO % 3 % (0-9); NEUT # 14.9 x10^3/uL (1.8-7.7); NEUT % 92 % (31-73); PLATELET COUNT 137 x10^3/uL (140-400); RED BLOOD COUNT 3.38 x10^6/uL (3.50-5.40); RED CELL DISTRIBUTION WIDTH 14.2 % (11.5-14.5); WHITE BLOOD COUNT 16.1 x10^3/uL (4.0-11.0)
[2020-01-12 06:23] LABS: CALCIUM 7.9 mg/dL (8.5-10.1); CREATININE 0.7 mg/dL (0.6-1.0); GFR 97.7; POTASSIUM 3.3 mmol/L (3.5-5.1)
--- NOTE | 2020-01-12 08:31 | PDOC ---
PROGRESS NOTES Date of Service: DATE: 01/12/20 TIME: 08:29 Chief Complaint Chief Complaint Severe respiratory failure secondary to COVID-19 History of the following; History Dementia, essential hypertension, hyperlipidemia, Raynaud's. Hyperthyroidism, status post thyroidectomy. Hypernatremia secondary to insensible losses Plan: follow recommendations from contract consultant Cont. current vent support Fi02 40% and PEEP 5, off sedation sbt when more awake. Not awake yet Stress ulcer prophylaxis, scds, off SQ heparin 2/2 low plt count continue BS antibiotics Follow cardiology recs Follow renal recs continued azotemia improving thrombocytopenia due to sepsis, improving clinically improving but still critically ill d/w son in detail. If she does not wake up till end of week, he would with [facility].I concur Discussed with RN and RT. Chart reviewed. Labs reviewed and imaging reviewed. May need to increase water in order to address hypernatremia critically ill continue with supportive measures further recommendations based on clinical course discussed with RN History of Present Illness History of Present Illness 01/12/2020 No acute events reported overnight, case discussed with nursing staff patient in no acute distress no complaints during my visit Very guarded prognosis does not seem to be progressing at all hopefully family members realize the guarded prognosis and we can transition to a comfort measures only type of treatment plan 01/11/2020 No acute events reported overnight, case discussed with nursing staff patient in no acute distress no complaints during my visit 01/10/2020 Patient with no acute events reported overnight, patient remains intubated unable to proceed with weaning trial follow recommendations from pulmonary contract consultant 01/09/2020 Patient seen and examined in the [place] [address] unit She is still on the vent Assist-control//4 50/40% with 5 of PEEP and she is satting 99% She is sedated with PRN Versed Still critically ill Discussed with RN Chart review 01/08/2020 Patient seen and examined in the ICU [place] [address] unit She remains mechanically ventilated Assist-control/16/4 50/40% with 5 of PEEP Chart reviewed Discussed with RN She remains critically ill 01/07/2020 Patient seen and examined She remains in the [place] [address] ICU on the vent Assist-control/16/4 50/40% with 5 of PEEP Discussed with RN Chart reviewed She is still critically ill 01/06/2020 Patient seen and examined in the [place] [address] ICU She remains mechanically ventilated Assist-control/16/4 50/40% with 5 of PEEP Discussed with RN Chart reviewed She remains critically ill 01/05/2020 Patient seen and examined Intubated, on vent AC/16/450/40% FiO2 w/t 5 PEEP and sedated with Precedex and propafol Successfully weaned off pressors OG tube at 35cc/hour Discussed with RN Charts reviewed 01/04/2020 Patient seen and examined Intubated, on vent AC/16/450/40% FiO2 w/t 5 PEEP and sedated with Precedex Discussed with RN Charts reviewed 01/03/2020 Patient seen and examined Intubated, on vent AC/16/450/40% FiO2 w/t 5 PEEP and sedated with Fentanyl OG tube at 20cc/hour Discussed with RN Charts reviewed Vitals Vitals Vital Signs Date Time Temp Pulse Resp B/P (MAP) Pulse Ox O2 Delivery O2 Flow Rate FiO2 01/12/20 07:57 100 Ventilator 01/12/20 06:00 56 14 145/75 (98) 01/12/20 04:00 98.8 98.8 Physical Exam Physical Exam General: Other (sedated) Heart: Regular rate (SB 40s) Lungs: Crackles Abdomen: Soft Extremities: No cyanosis Skin: No breakdown General: Other (sedated) Heart: Regular rate (SB 40s) Abdomen: Soft Extremities: No cyanosis Skin: No breakdown Labs LABS Laboratory Tests Test 01/11/20 10:55 01/11/20 12:34 01/11/20 16:50 01/11/20 18:08 Vancomycin Level Trough 10.3 mcg/mL (10.0-20.0) Vancomycin Last Dose Date 01/10/2020 Vancomycin Last Dose Time 1100 Glucose (Fingerstick) 227 mg/dL (70-99) 241 mg/dL (70-99) O2 Saturation 98 % (92-99) Arterial Blood pH 7.49 (7.35-7.45) Arterial Blood pCO2 at Patient Temp 23 mmHg (35-46) Arterial Blood pO2 at Patient Temp 108 mmHg (65-108) Arterial Blood HCO3 17 mmol/L (21-28) Arterial Blood Base Excess -5 mmol/L (-3-3) FiO2 40/cpap 10-5 Test 01/11/20 23:40 01/12/20 05:30 01/12/20 05:32 Glucose (Fingerstick) 220 mg/dL (70-99) 235 mg/dL (70-99) White Blood Count 16.1 x10^3/uL (4.0-11.0) Red Blood Count 3.38 x10^6/uL (3.50-5.40) Hemoglobin 10.4 g/dL (12.0-15.5) Hematocrit 31.6 % (36.0-47.0) Mean Corpuscular Volume 93 fL (79-100) Mean Corpuscular Hemoglobin 31 pg (25-35) Mean Corpuscular Hemoglobin Concent 33 g/dL (31-37) Red Cell Distribution Width 14.2 % (11.5-14.5) Platelet Count 137 x10^3/uL (140-400) Neutrophils (%) (Auto) 92 % (31-73) Lymphocytes (%) (Auto) 4 % (24-48) Monocytes (%) (Auto) 3 % (0-9) Eosinophils (%) (Auto) 0 % (0-3) Basophils (%) (Auto) 0 % (0-3) Neutrophils # (Auto) 14.9 x10^3/uL (1.8-7.7) Lymphocytes # (Auto) 0.7 x10^3/uL (1.0-4.8) Monocytes # (Auto) 0.6 x10^3/uL (0.0-1.1) Eosinophils # (Auto) 0.0 x10^3/uL (0.0-0.7) Basophils # (Auto) 0.0 x10^3/uL (0.0-0.2) Sodium Level 149 mmol/L (136-145) Potassium Level 3.3 mmol/L (3.5-5.1) Chloride Level 117 mmol/L (98-107) Carbon Dioxide Level 26 mmol/L (21-32) Anion Gap 6 (6-14) Blood Urea Nitrogen 27 mg/dL (7-20) Creatinine 0.7 mg/dL (0.6-1.0) Estimated GFR (Cockcroft-Gault) 97.7 Glucose Level 259 mg/dL (70-99) Calcium Level 7.9 mg/dL (8.5-10.1) Comment Review of Relevant I have reviewed the following items aislinn (where applicable) has been applied. Labs Laboratory Tests Test 01/10/20 11:23 01/10/20 17:38 01/10/20 23:46 01/11/20 05:29 Glucose (Fingerstick) 246 mg/dL (70-99) 240 mg/dL (70-99) 272 mg/dL (70-99) 249 mg/dL (70-99) Test 01/11/20 05:30 01/11/20 08:00 01/11/20 10:55 01/11/20 12:34 Sodium Level 149 mmol/L (136-145) Potassium Level 3.4 mmol/L (3.5-5.1) Chloride Level 115 mmol/L (98-107) Carbon Dioxide Level 25 mmol/L (21-32) Anion Gap 9 (6-14) Blood Urea Nitrogen 28 mg/dL (7-20) Creatinine 0.7 mg/dL (0.6-1.0) Estimated GFR (Cockcroft-Gault) 97.7 Glucose Level 273 mg/dL (70-99) Calcium Level 7.9 mg/dL (8.5-10.1) O2 Saturation 96 % (92-99) Arterial Blood pH 7.48 (7.35-7.45) Arterial Blood pCO2 at Patient Temp 24 mmHg (35-46) Arterial Blood pO2 at Patient Temp 83 mmHg (65-108) Arterial Blood HCO3 17 mmol/L (21-28) Arterial Blood Base Excess -5 mmol/L (-3-3) FiO2 40 Vancomycin Level Trough 10.3 mcg/mL (10.0-20.0) Vancomycin Last Dose Date 01/10/2020 Vancomycin Last Dose Time 1100 Glucose (Fingerstick) 227 mg/dL (70-99) Test 01/11/20 16:50 01/11/20 18:08 01/11/20 23:40 01/12/20 05:30 O2 Saturation 98 % (92-99) Arterial Blood pH 7.49 (7.35-7.45) Arterial Blood pCO2 at Patient Temp 23 mmHg (35-46) Arterial Blood pO2 at Patient Temp 108 mmHg (65-108) Arterial Blood HCO3 17 mmol/L (21-28) Arterial Blood Base Excess -5 mmol/L (-3-3) FiO2 40/cpap 10-5 Glucose (Fingerstick) 241 mg/dL (70-99) 220 mg/dL (70-99) White Blood Count 16.1 x10^3/uL (4.0-11.0) Red Blood Count 3.38 x10^6/uL (3.50-5.40) Hemoglobin 10.4 g/dL (12.0-15.5) Hematocrit 31.6 % (36.0-47.0) Mean Corpuscular Volume 93 fL (79-100) Mean Corpuscular Hemoglobin 31 pg (25-35) Mean Corpuscular Hemoglobin Concent 33 g/dL (31-37) Red Cell Distribution Width 14.2 % (11.5-14.5) Platelet Count 137 x10^3/uL (140-400) Neutrophils (%) (Auto) 92 % (31-73) Lymphocytes (%) (Auto) 4 % (24-48) Monocytes (%) (Auto) 3 % (0-9) Eosinophils (%) (Auto) 0 % (0-3) Basophils (%) (Auto) 0 % (0-3) Neutrophils # (Auto) 14.9 x10^3/uL (1.8-7.7) Lymphocytes # (Auto) 0.7 x10^3/uL (1.0-4.8) Monocytes # (Auto) 0.6 x10^3/uL (0.0-1.1) Eosinophils # (Auto) 0.0 x10^3/uL (0.0-0.7) Basophils # (Auto) 0.0 x10^3/uL (0.0-0.2) Sodium Level 149 mmol/L (136-145) Potassium Level 3.3 mmol/L (3.5-5.1) Chloride Level 117 mmol/L (98-107) Carbon Dioxide Level 26 mmol/L (21-32) Anion Gap 6 (6-14) Blood Urea Nitrogen 27 mg/dL (7-20) Creatinine 0.7 mg/dL (0.6-1.0) Estimated GFR (Cockcroft-Gault) 97.7 Glucose Level 259 mg/dL (70-99) Calcium Level 7.9 mg/dL (8.5-10.1) Test 01/12/20 05:32 Glucose (Fingerstick) 235 mg/dL (70-99) Laboratory Tests Test 01/11/20 10:55 01/11/20 12:34 01/11/20 16:50 01/11/20 18:08 Vancomycin Level Trough 10.3 mcg/mL (10.0-20.0) Vancomycin Last Dose Date 01/10/2020 Vancomycin Last Dose Time 1100 Glucose (Fingerstick) 227 mg/dL (70-99) 241 mg/dL (70-99) O2 Saturation 98 % (92-99) Arterial Blood pH 7.49 (7.35-7.45) Arterial Blood pCO2 at Patient Temp 23 mmHg (35-46) Arterial Blood pO2 at Patient Temp 108 mmHg (65-108) Arterial Blood HCO3 17 mmol/L (21-28) Arterial Blood Base Excess -5 mmol/L (-3-3) FiO2 40/cpap 10-5 Test 01/11/20 23:40 01/12/20 05:30 01/12/20 05:32 Glucose (Fingerstick) 220 mg/dL (70-99) 235 mg/dL (70-99) White Blood Count 16.1 x10^3/uL (4.0-11.0) Red Blood Count 3.38 x10^6/uL (3.50-5.40) Hemoglobin 10.4 g/dL (12.0-15.5) Hematocrit 31.6 % (36.0-47.0) Mean Corpuscular Volume 93 fL (79-100) Mean Corpuscular Hemoglobin 31 pg (25-35) Mean Corpuscular Hemoglobin Concent 33 g/dL (31-37) Red Cell Distribution Width 14.2 % (11.5-14.5) Platelet Count 137 x10^3/uL (140-400) Neutrophils (%) (Auto) 92 % (31-73) Lymphocytes (%) (Auto) 4 % (24-48) Monocytes (%) (Auto) 3 % (0-9) Eosinophils (%) (Auto) 0 % (0-3) Basophils (%) (Auto) 0 % (0-3) Neutrophils # (Auto) 14.9 x10^3/uL (1.8-7.7) Lymphocytes # (Auto) 0.7 x10^3/uL (1.0-4.8) Monocytes # (Auto) 0.6 x10^3/uL (0.0-1.1) Eosinophils # (Auto) 0.0 x10^3/uL (0.0-0.7) Basophils # (Auto) 0.0 x10^3/uL (0.0-0.2) Sodium Level 149 mmol/L (136-145) Potassium Level 3.3 mmol/L (3.5-5.1) Chloride Level 117 mmol/L (98-107) Carbon Dioxide Level 26 mmol/L (21-32) Anion Gap 6 (6-14) Blood Urea Nitrogen 27 mg/dL (7-20) Creatinine 0.7 mg/dL (0.6-1.0) Estimated GFR (Cockcroft-Gault) 97.7 Glucose Level 259 mg/dL (70-99) Calcium Level 7.9 mg/dL (8.5-10.1) Medications Current Medications Norepinephrine Bitartrate 8 mg/ Dextrose 258 ml @ 12.674 mls/ hr CONT PRN IV PER PROTOCOL Last administered on 01/01/20at 02:25; Start 01/01/20 at 02:15; Stop 01/01/20 at 03:19; Status DC Midazolam HCl 100 mg/Sodium Chloride 100 ml @ 1 mls/hr CONT PRN IV SEE I/O RECORD Last administered on 01/05/20at 08:43; Start 01/01/20 at 02:15 Norepinephrine Bitartrate 16 mg/ Dextrose 266 ml @ 6.534 mls/ hr CONT PRN IV PER PROTOCOL Last administered on 01/02/20at 08:40; Start 01/01/20 at 03:30; Stop 01/05/20 at 09:35; Status DC Epinephrine HCl 5 mg/Sodium Chloride 255 ml @ 20.043 mls/ hr CONT PRN IV SEE I/O RECORD Last administered on 01/01/20at 10:17; Start 01/01/20 at 03:30; Stop 01/01/20 at 12:00; Status DC Sodium Chloride 1,000 ml @ 60 mls/hr [id number] IV Last administered on 01/01/20at 04:07; Start 01/01/20 at 03:45; Stop 01/01/20 at 13:22; Status DC Vasopressin 20 unit/Dextrose 101 ml @ 12 mls/hr CONT PRN IV SEE I/O RECORD Last administered on 01/03/20at 23:16; Start 01/01/20 at 04:15; Stop 01/05/20 at 09:35; Status DC Phenylephrine HCl 50 mg/Sodium Chloride 255 ml @ 10.022 mls/ hr CONT PRN IV SEE I/O RECORD Last administered on 01/01/20at 05:42; Start 01/01/20 at 05:30; Stop 01/05/20 at 09:35; Status DC Fentanyl Citrate (Fentanyl 2ml Vial) 25 mcg PRN Q1HR PRN IV SEE COMMENTS; Start 01/01/20 at 07:00 Fentanyl Citrate (Fentanyl 2ml Vial) 50 mcg PRN Q1HR PRN IV SEE COMMENTS Last administered on 01/08/20at 23:42; Start 01/01/20 at 07:00 Sodium Bicarbonate (Sodium Bicarb Adult 8.4% Syr) 50 meq 1X ONCE IV Last administered on 01/01/20at 09:18; Start 01/01/20 at 08:45; Stop 01/01/20 at 08:46; Status DC Sodium Bicarbonate (Sodium Bicarb Adult 8.4% Syr) 50 meq 1X ONCE IV Last administered on 01/01/20at 09:18; Start 01/01/20 at 08:45; Stop 01/01/20 at 08: 46; Status DC Enoxaparin Sodium (Lovenox 30mg Syringe) 30 mg Q24H SQ ; Start 01/01/20 at 10:15; Stop 01/01/20 at 10:12; Status DC Famotidine (Pepcid Vial) 20 mg DAILY IVP Last administered on 01/11/20at 08:20; Start 01/01/20 at 11:00 Heparin Sodium (Porcine) (Heparin Sodium) 5,000 unit BID SQ Last administered on 01/01/20at 21:12; Start 01/01/20 at 11:00; Stop 01/03/20 at 10:40; Status DC Epinephrine HCl 10 mg/Sodium Chloride 250 ml @ 9.825 mls/ hr CONT PRN IV SEE I/O RECORD Last administered on 01/01/20at 11:54; Start 01/01/20 at 10:30 Sodium Chloride 1,000 ml @ 150 mls/hr 1X ONCE IV Last administered on 01/01/20at 12:21; Start 01/01/20 at 12:00; Stop 01/01/20 at 18:39; Status DC Vancomycin HCl (Vanco Per Pharmacy) 1 each PRN DAILY PRN MC SEE COMMENTS Last administered on 01/11/20at 13:33; Start 01/01/20 at 14:00 Piperacillin Sod/ Tazobactam Sod (Zosyn Per Pharmacy) 1 each PRN DAILY PRN MC SEE COMMENTS; Start 01/01/20 at 14:00 Methylprednisolone Sodium Succinate (SOLU-Medrol 125MG VIAL) 60 mg Q8HRS IV Last administered on 01/05/20at 05:34; Start 01/01/20 at 14:00; Stop 01/05/20 at 09:35; Status DC Piperacillin Sod/ Tazobactam Sod 2.25 gm/Sodium Chloride 50 ml @ 100 mls/hr Q8HRS IV Last administered on 01/05/20at 05:34; Start 01/01/20 at 14:30; Stop 01/05/20 at 11:54; Status DC Vancomycin HCl 1.5 gm/Sodium Chloride 500 ml @ 250 mls/hr 1X ONCE IV Last administered on 01/01/20at 16:43; Start 01/01/20 at 15:00; Stop 01/01/20 at 16:59; Status DC Sodium Chloride 1,000 ml @ 150 mls/hr Q6H40M IV Last administered on 01/07/20at 06:08; Start 01/01/20 at 19:00; Stop 01/07/20 at 13:22; Status DC Vancomycin HCl (Vancomycin Random Level) 1 each 1X ONCE MC Last administered on 01/03/20at 06:00; Start 01/03/20 at 06:00; Stop 01/03/20 at 06:01; Status DC Potassium Chloride/Water 100 ml @ 100 mls/hr Q1H IV Last administered on 01/02/20at 11:57; Start 01/02/20 at 11:00; Stop 01/02/20 at 12:59; Status DC Atropine Sulfate (ATROPINE 1mg SYRINGE) 1 mg STK-MED ONCE .ROUTE ; Start 01/02/20 at 12:55; Stop 01/02/20 at 12:55; Status DC Insulin Human Lispro (HumaLOG) 0-5 UNITS Q6HRS SQ Last administered on 01/12/20at 05:51; Start 01/02/20 at 18:30 Dextrose (Dextrose 50%-Water Syringe) 12.5 gm PRN Q15MIN PRN IV SEE COMMENTS; Start 01/02/20 at 18:15 Vancomycin HCl 1 gm/Sodium Chloride 250 ml @ 250 mls/hr Q36H IV Last administered on 01/03/20at 07:59; Start 01/03/20 at 08:00; Stop 01/04/20 at 09:5 0; Status DC Potassium Chloride/Water 100 ml @ 100 mls/hr Q1H IV Last administered on 01/03/20at 10:59; Start 01/03/20 at 09:00; Stop 01/03/20 at 10:59; Status DC Sodium Phosphate 20 mmol/Sodium Chloride 256.6667 ml @ 64.167 m... 1X ONCE IV Last administered on 01/03/20at 12:29; Start 01/03/20 at 12:00; Stop 01/03/20 at 15:59; Status DC Magnesium Sulfate 100 ml @ 25 mls/hr 1X ONCE IV Last administered on 01/04/20at 07:34; Start 01/04/20 at 07:30; Stop 01/04/20 at 11:29; Status DC Potassium Chloride/Water 100 ml @ 100 mls/hr Q1H IV Last administered on 01/04/20at 08:41; Start 01/04/20 at 07:30; Stop 01/04/20 at 09:29; Status DC Sodium Bicarbonate (Sodium Bicarb Adult 8.4% Syr) 100 meq 1X ONCE IV Last administered on 01/04/20at 09:10; Start 01/04/20 at 09:00; Stop 01/04/20 at 09:01; Status DC Propofol 100 ml @ 1.2 mls/hr CONT PRN IV SEE I/O RECORD Last administered on 01/04/20at 09:11; Start 01/04/20 at 09:00; Stop 01/07/20 at 16:32; Status DC Vancomycin HCl 1 gm/Sodium Chloride 250 ml @ 250 mls/hr Q24H IV Last administered on 01/11/20at 11:31; Start 01/04/20 at 11:00; Stop 01/11/20 at 13:17; Status DC Vancomycin HCl (Vancomycin Trough Level) 1 each 1X ONCE MC ; Start 01/06/20 at 10:30; Stop 01/06/20 at 10:31; Status DC Dexmedetomidine HCl 400 mcg/ Sodium Chloride 100 ml @ 4 mls/hr CONT PRN IV SEE COMMENTS Last administered on 01/04/20at 10:56; Start 01/04/20 at 10:00 Sodium Chloride 500 ml @ 500 mls/hr 1X PRN PRN IV SEE COMMENTS; Start 01/04/20 at 10:00 Atropine Sulfate (ATROPINE 0.5mg SYRINGE) 0.5 mg PRN Q5MIN PRN IV SEE COMMENTS; Start 01/04/20 at 10:00 Sodium Bicarbonate (Sodium Bicarb Adult 8.4% Syr) 100 meq 1X ONCE IV Last administered on 01/04/20at 13:29; Start 01/04/20 at 13:30; Stop 01/04/20 at 13:31; Status DC Potassium Phosphate 13.6 mmol/Sodium Chloride 254.5333 ml @ 127.... Q2H IV Last administered on 01/05/20at 11:14; Start 01/05/20 at 09:00; Stop 01/05/20 at 13:05; Status DC Methylprednisolone Sodium Succinate (SOLU-Medrol 125MG VIAL) 40 mg Q8HRS IV Last administered on 01/12/20at 05:50; Start 01/05/20 at 14:00 Sodium Chloride 500 ml @ 500 mls/hr 1X ONCE IV Last administered on 01/05/20at 12:29; Start 01/05/20 at 09:45; Stop 01/05/20 at 10:44; Status DC Piperacillin Sod/ Tazobactam Sod 2.25 gm/Sodium Chloride 50 ml @ 100 mls/hr Q6HRS IV Last administered on 01/06/20at 05:31; Start 01/05/20 at 12:00; Stop 01/06/20 at 09:43; Status DC Potassium Chloride/Water 100 ml @ 100 mls/hr Q1H IV Last administered on 01/05/20at 17:37; Start 01/05/20 at 16:00; Stop 01/05/20 at 17:59; Status DC Piperacillin Sod/ Tazobactam Sod 3.375 gm/Sodium Chloride 50 ml @ 100 mls/hr Q6HRS IV Last administered on 01/12/20at 05:51; Start 01/06/20 at 12:00 Fentanyl Citrate 30 ml @ 0 mls/hr CONT PRN IV SEE PROTOCOL Last administered on 01/07/20at 00:07; Start 01/06/20 at 12:00 Furosemide (Lasix) 40 mg 1X ONCE IVP Last administered on 01/07/20at 13:38; Start 01/07/20 at 14:00; Stop 01/07/20 at 14:01; Status DC Propofol 100 ml @ 1.337 mls/ hr CONT PRN IV SEE I/O RECORD; Start 01/07/20 at 16:30 Digoxin (Lanoxin) 500 mcg 1X ONCE IV Last administered on 01/09/20at 00:08; Start 01/09/20 at 00:30; Stop 01/09/20 at 00:31; Status DC Digoxin (Lanoxin) 250 mcg 1X ONCE IV Last administered on 01/09/20at 02:46; Start 01/09/20 at 03:00; Stop 01/09/20 at 03:01; Status DC Enoxaparin Sodium (Lovenox 40mg Syringe) 40 mg Q24H SQ Last administered on 01/11/20at 14:32; Start 01/09/20 at 14:00 Potassium Chloride/Water 100 ml @ 100 mls/hr Q1H IV Last administered on 01/09/20at 16:24; Start 01/09/20 at 15:00; Stop 01/09/20 at 16:59; Status DC Vancomycin HCl (Vancomycin Trough Level) 1 each 1X ONCE MC Last administered on 01/11/20at 10:30; Start 01/11/20 at 10:30; Stop 01/11/20 at 10:31; Status DC Sodium Bicarbonate (Sodium Bicarb Adult 8.4% Syr) 50 meq 1X ONCE IV Last administered on 01/11/20at 09:50; Start 01/11/20 at 09:30; Stop 01/11/20 at 09:31; Status DC Vancomycin HCl 1.25 gm/Sodium Chloride 250 ml @ 167 mls/hr Q24H IV ; Start 01/12/20 at 12:00; Status Cancel Vancomycin HCl 1.5 gm/Sodium Chloride 500 ml @ 250 mls/hr Q24H IV ; Start 01/12/20 at 12:00 Vancomycin HCl (Vancomycin Trough Level) 1 each 1X ONCE MC ; Start 01/14/20 at 11:30; Stop 01/14/20 at 11:31; Status Cancel Vitals/I & O Vital Sign - Last 24 Hours 01/11/20 01/11/20 01/11/20 01/11/20 09:00 10:00 11:00 11:54 Pulse 49 62 48 Resp 16 16 16 B/P (MAP) 117/69 (85) 151/74 (99) 145/79 (101) Pulse Ox 100 94 93 96 O2 Delivery Ventilator Ventilator Ventilator Ventilator 01/11/20 01/11/20 01/11/20 01/11/20 12:00 12:00 13:00 14:00 Temp 99.1 99.1 Pulse 81 54 55 Resp 16 16 16 B/P (MAP) 150/86 (107) 163/71 (101) 154/67 (96) Pulse Ox 95 100 99 O2 Delivery Ventilator Mechanical Ventilator Ventilator Ventilator 01/11/20 01/11/20 01/11/20 01/11/20 15:00 15:45 15:55 16:00 Temp 98.3 98.3 Pulse 54 55 Resp 16 12 B/P (MAP) 153/74 (100) 164/76 (105) Pulse Ox 99 100 100 O2 Delivery Ventilator Mechanical Ventilator Ventilator CPAP trial on vent 01/11/20 01/11/20 01/11/20 01/11/20 16:03 17:00 17:22 18:00 Pulse 55 65 Resp 16 16 B/P (MAP) 163/76 (105) 171/80 (110) Pulse Ox 100 100 100 100 O2 Delivery Ventilator Ventilator Ventilator Ventilator 01/11/20 01/11/20 01/11/20 01/11/20 19:00 20:00 20:00 20:36 Temp 98.5 98.5 Pulse 62 57 Resp 16 15 B/P (MAP) 167/78 (107) 168/82 (110) Pulse Ox 100 99 100 O2 Delivery Ventilator Mechanical Ventilator Ventilator Ventilator 01/11/20 01/11/20 01/11/20 01/12/20 21:00 22:00 23:00 00:00 Pulse 55 58 56 Resp 14 15 16 B/P (MAP) 154/72 (99) 156/73 (100) 156/72 (100) Pulse Ox 99 99 100 O2 Delivery Ventilator Ventilator Ventilator Mechanical Ventilator 801/12/20 01/12/20 01/12/20 00:00 00:47 01:00 02:00 Temp 99.1 99.1 Pulse 106 52 48 Resp 17 16 14 B/P (MAP) 165/100 (121) 144/62 (89) 121/55 (77) Pulse Ox 99 100 99 98 O2 Delivery Ventilator Ventilator Ventilator Ventilator 01/12/20 01/12/20 01/12/20 01/12/20 03:00 04:00 04:00 04:31 Temp 98.8 98.8 Pulse 45 53 Resp 14 14 B/P (MAP) 122/62 (82) 130/63 (85) Pulse Ox 99 100 100 O2 Delivery Ventilator Ventilator Mechanical Ventilator Ventilator 01/12/20 01/12/20 01/12/20 05:00 06:00 07:57 Pulse 56 56 Resp 15 14 B/P (MAP) 141/70 (93) 145/75 (98) Pulse Ox 99 99 100 O2 Delivery Ventilator Ventilator Ventilator Intake and Output 01/11/20 01/11/20 01/12/20 15:00 23:00 07:00 Intake Total 150 ml 733 ml 1066 ml Output Total 278 ml 273 ml 805 ml Balance -128 ml 460 ml 261 ml Nutrition Consultation Dietary Evaluation: Recommendations by RD: Dietary education by RD, Increase Calorie Intake Comments: Continue w/TFs as currently ordered for nutrition needs while pt remains intubated Expected Outcomes/Goals: New goal 01/02: TFs to meet >65% est needs while pt remains intubated - met, goal ongoing Malnutrition Findings: Body Fat Depletion (Non Severe: Mild Depletion Weight Status: Appropriate Justicifation of Admission Dx: Justifications for Admission: Justification of Admission Dx: Yes Respiratory Failure: Mechanical Ventilation ISABELLA MORA MD Jan 12, 2020 08:31
[2020-01-12 08:38] LABS: BASE EXCESS ABG -4 mmol/L (-3-3); HCO3 ABG 19 mmol/L (21-28); PCO2 ABG 27 mmHg (35-46); PO2 ABG 85 mmHg (65-108); SAT O2 ABG 96 % (92-99)
[2020-01-12 08:40] LABS: FIO2 ABG 40
--- NOTE | 2020-01-12 09:28 | PDOC ---
PULMONARY PROGRESS NOTES DATE: 01/12/20 TIME: 09:25 Subjective remains intubated/off sedation more responsive today following commands no overnight concerns from nursing Vitals Vital Signs Date Time Temp Pulse Resp B/P (MAP) Pulse Ox O2 Delivery O2 Flow Rate FiO2 01/12/20 07:57 100 Ventilator 01/12/20 06:00 56 14 145/75 (98) 01/12/20 04:00 98.8 98.8 Comments visual exam done due to COVID pandemia on vent no accessory muscle use no paradoxical abd motion RRR no rash no edema Labs Laboratory Tests Test 01/10/20 11:23 01/10/20 17:38 01/10/20 23:46 01/11/20 05:29 Glucose (Fingerstick) 246 mg/dL (70-99) 240 mg/dL (70-99) 272 mg/dL (70-99) 249 mg/dL (70-99) Test 01/11/20 05:30 01/11/20 08:00 01/11/20 10:55 01/11/20 12:34 Sodium Level 149 mmol/L (136-145) Potassium Level 3.4 mmol/L (3.5-5.1) Chloride Level 115 mmol/L (98-107) Carbon Dioxide Level 25 mmol/L (21-32) Anion Gap 9 (6-14) Blood Urea Nitrogen 28 mg/dL (7-20) Creatinine 0.7 mg/dL (0.6-1.0) Estimated GFR (Cockcroft-Gault) 97.7 Glucose Level 273 mg/dL (70-99) Calcium Level 7.9 mg/dL (8.5-10.1) O2 Saturation 96 % (92-99) Arterial Blood pH 7.48 (7.35-7.45) Arterial Blood pCO2 at Patient Temp 24 mmHg (35-46) Arterial Blood pO2 at Patient Temp 83 mmHg (65-108) Arterial Blood HCO3 17 mmol/L (21-28) Arterial Blood Base Excess -5 mmol/L (-3-3) FiO2 40 Vancomycin Level Trough 10.3 mcg/mL (10.0-20.0) Vancomycin Last Dose Date 01/10/2020 Vancomycin Last Dose Time 1100 Glucose (Fingerstick) 227 mg/dL (70-99) Test 01/11/20 16:50 01/11/20 18:08 01/11/20 23:40 01/12/20 05:30 O2 Saturation 98 % (92-99) Arterial Blood pH 7.49 (7.35-7.45) Arterial Blood pCO2 at Patient Temp 23 mmHg (35-46) Arterial Blood pO2 at Patient Temp 108 mmHg (65-108) Arterial Blood HCO3 17 mmol/L (21-28) Arterial Blood Base Excess -5 mmol/L (-3-3) FiO2 40/cpap 10-5 Glucose (Fingerstick) 241 mg/dL (70-99) 220 mg/dL (70-99) White Blood Count 16.1 x10^3/uL (4.0-11.0) Red Blood Count 3.38 x10^6/uL (3.50-5.40) Hemoglobin 10.4 g/dL (12.0-15.5) Hematocrit 31.6 % (36.0-47.0) Mean Corpuscular Volume 93 fL (79-100) Mean Corpuscular Hemoglobin 31 pg (25-35) Mean Corpuscular Hemoglobin Concent 33 g/dL (31-37) Red Cell Distribution Width 14.2 % (11.5-14.5) Platelet Count 137 x10^3/uL (140-400) Neutrophils (%) (Auto) 92 % (31-73) Lymphocytes (%) (Auto) 4 % (24-48) Monocytes (%) (Auto) 3 % (0-9) Eosinophils (%) (Auto) 0 % (0-3) Basophils (%) (Auto) 0 % (0-3) Neutrophils # (Auto) 14.9 x10^3/uL (1.8-7.7) Lymphocytes # (Auto) 0.7 x10^3/uL (1.0-4.8) Monocytes # (Auto) 0.6 x10^3/uL (0.0-1.1) Eosinophils # (Auto) 0.0 x10^3/uL (0.0-0.7) Basophils # (Auto) 0.0 x10^3/uL (0.0-0.2) Sodium Level 149 mmol/L (136-145) Potassium Level 3.3 mmol/L (3.5-5.1) Chloride Level 117 mmol/L (98-107) Carbon Dioxide Level 26 mmol/L (21-32) Anion Gap 6 (6-14) Blood Urea Nitrogen 27 mg/dL (7-20) Creatinine 0.7 mg/dL (0.6-1.0) Estimated GFR (Cockcroft-Gault) 97.7 Glucose Level 259 mg/dL (70-99) Calcium Level 7.9 mg/dL (8.5-10.1) Test 01/12/20 05:32 01/12/20 08:34 Glucose (Fingerstick) 235 mg/dL (70-99) O2 Saturation 96 % (92-99) Arterial Blood pH 7.46 (7.35-7.45) Arterial Blood pCO2 at Patient Temp 27 mmHg (35-46) Arterial Blood pO2 at Patient Temp 85 mmHg (65-108) Arterial Blood HCO3 19 mmol/L (21-28) Arterial Blood Base Excess -4 mmol/L (-3-3) FiO2 40 Laboratory Tests Test 01/11/20 10:55 01/11/20 12:34 01/11/20 16:50 01/11/20 18:08 Vancomycin Level Trough 10.3 mcg/mL (10.0-20.0) Vancomycin Last Dose Date 01/10/2020 Vancomycin Last Dose Time 1100 Glucose (Fingerstick) 227 mg/dL (70-99) 241 mg/dL (70-99) O2 Saturation 98 % (92-99) Arterial Blood pH 7.49 (7.35-7.45) Arterial Blood pCO2 at Patient Temp 23 mmHg (35-46) Arterial Blood pO2 at Patient Temp 108 mmHg (65-108) Arterial Blood HCO3 17 mmol/L (21-28) Arterial Blood Base Excess -5 mmol/L (-3-3) FiO2 40/cpap 10-5 Test 01/11/20 23:40 01/12/20 05:30 01/12/20 05:32 01/12/20 08:34 Glucose (Fingerstick) 220 mg/dL (70-99) 235 mg/dL (70-99) White Blood Count 16.1 x10^3/uL (4.0-11.0) Red Blood Count 3.38 x10^6/uL (3.50-5.40) Hemoglobin 10.4 g/dL (12.0-15.5) Hematocrit 31.6 % (36.0-47.0) Mean Corpuscular Volume 93 fL (79-100) Mean Corpuscular Hemoglobin 31 pg (25-35) Mean Corpuscular Hemoglobin Concent 33 g/dL (31-37) Red Cell Distribution Width 14.2 % (11.5-14.5) Platelet Count 137 x10^3/uL (140-400) Neutrophils (%) (Auto) 92 % (31-73) Lymphocytes (%) (Auto) 4 % (24-48) Monocytes (%) (Auto) 3 % (0-9) Eosinophils (%) (Auto) 0 % (0-3) Basophils (%) (Auto) 0 % (0-3) Neutrophils # (Auto) 14.9 x10^3/uL (1.8-7.7) Lymphocytes # (Auto) 0.7 x10^3/uL (1.0-4.8) Monocytes # (Auto) 0.6 x10^3/uL (0.0-1.1) Eosinophils # (Auto) 0.0 x10^3/uL (0.0-0.7) Basophils # (Auto) 0.0 x10^3/uL (0.0-0.2) Sodium Level 149 mmol/L (136-145) Potassium Level 3.3 mmol/L (3.5-5.1) Chloride Level 117 mmol/L (98-107) Carbon Dioxide Level 26 mmol/L (21-32) Anion Gap 6 (6-14) Blood Urea Nitrogen 27 mg/dL (7-20) Creatinine 0.7 mg/dL (0.6-1.0) Estimated GFR (Cockcroft-Gault) 97.7 Glucose Level 259 mg/dL (70-99) Calcium Level 7.9 mg/dL (8.5-10.1) O2 Saturation 96 % (92-99) Arterial Blood pH 7.46 (7.35-7.45) Arterial Blood pCO2 at Patient Temp 27 mmHg (35-46) Arterial Blood pO2 at Patient Temp 85 mmHg (65-108) Arterial Blood HCO3 19 mmol/L (21-28) Arterial Blood Base Excess -4 mmol/L (-3-3) FiO2 40 Comments CXR 01/07 reviewed small LLL effusion Impression . 1. Acute hypoxic respiratory failure secondary to multisystem organ failure from COVID pneumonia and acute lung injury. improved 2. Severe metabolic acidosis, likely secondary to acute kidney injury and shock/ lactic acidosis--improved 3. Acute kidney injury. improving 4. Abnormal chest x-ray consistent with COVID-19 pneumonia., improved 5. COVID-19 positive. 6. Thrombocytopenia, improving 7. persistent azotemia could be related to steroids, improving 8. leukocytosis improving Plan . Cont. current vent support Fi02 40% and PEEP 5, will proceed with CPAP trial and extubation Follow CXR and ABG continue BS antibiotics Follow cardiology recs Follow renal recs thrombocytopenia due to sepsis, improving Discussed with RN and RT. Chart reviewed. Labs reviewed and imaging reviewed. Critical care time 30 minutes. no overlap CODE: ABBEY KNOWLES MD Jan 12, 2020 09:28
[2020-01-12] MEDS: VANCOMYCIN PER PHARMACY MC PRN (10:46)
[2020-01-12] MEDS ORDERED: VANCOMYCIN 1.25 GM in IV NORMAL SALINE 250ML 250 ML IV SCH (12:00)
[2020-01-12] MEDS: FAMOTIDINE 20 MG/2 ML VIAL IVP SCH (13:12)
[2020-01-12] MEDS: VANCOMYCIN 1.5 GM in IV NORMAL SALINE 500ML BAG 500 ML IV SCH (13:17)
--- NOTE | 2020-01-12 14:02 | RAD ---
EXAM: CHEST ONE VIEW. HISTORY: Shortness of breath. COMPARISON: 01/08/2020. FINDINGS: A frontal view of the chest is obtained. A right internal jugular central venous catheter has its tip in the superior cavoatrial junction. The left hemidiaphragm is mildly elevated with mild left basilar atelectasis. There is no pneumothorax or pleural effusion. The heart is not enlarged. Cholecystectomy clips are noted. There are atherosclerotic calcifications of the aorta. A dense focus within the left proximal humeral metaphysis may reflect a bone island within the biceps tendon sheath on comparison with the prior study. IMPRESSION: 1. Mild left basilar atelectasis. No confluent infiltrates. Electronically signed by: Mary Gao MD (01/12/2020 1:59 PM) [id number]
[2020-01-12] MEDS: ENOXAPARIN 40 MG/0.4 ML SYRINGE. SQ SCH (14:29)
--- NOTE | 2020-01-12 14:40 | NUR ---
SS following up with discharge planning. SS reviewed pt chart and discussed with pt RN. Pt woke up and extubated. Pt now on nasal canula oxygen. COVID19 positive. Pt on IV Vancomycin and IV Zosyn. SS phoned and faxed referral to [facility], ; fax [phone]. SS awaiting acceptance decision. SS will continue to follow for discharge planning.
--- NOTE | 2020-01-12 17:13 | NUR ---
1200 Zosyn missed accidentally
[2020-01-13] VITALS (10 sets, daily range): BP systolic 116–149; BP diastolic 63–89
[2020-01-13] MEDS: methylPREDNISolone SOD SUCC PF 125 MG/2 ML VIAL. IV SCH (05:39)
[2020-01-13] MEDS: PIPERACILLIN/TAZOBACTAM 3.375 GM in IV NORMAL SALINE 50ML 50 ML IV SCH ×3 (05:40→18:38)
[2020-01-13] MEDS: VANCOMYCIN PER PHARMACY MC PRN (07:36)
--- NOTE | 2020-01-13 09:07 | PDOC ---
PULMONARY PROGRESS NOTES DATE: 01/13/20 TIME: 09:02 Subjective Extubated on 01/12/2020 Now on Room air more responsive today following commands no overnight concerns from nursing Vitals Vital Signs Date Time Temp Pulse Resp B/P (MAP) Pulse Ox O2 Delivery O2 Flow Rate FiO2 01/13/20 05:36 56 01/13/20 04:10 98.6 98.6 01/13/20 04:10 14 149/83 (105) 96 Room Air 01/13/20 00:01 3.0 Comments visual exam done due to COVID pandemia on vent no accessory muscle use no paradoxical abd motion RRR no rash no edema Labs Laboratory Tests Test 01/11/20 10:55 01/11/20 12:34 01/11/20 16:50 01/11/20 18:08 Vancomycin Level Trough 10.3 mcg/mL (10.0-20.0) Vancomycin Last Dose Date 01/10/2020 Vancomycin Last Dose Time 1100 Glucose (Fingerstick) 227 mg/dL (70-99) 241 mg/dL (70-99) O2 Saturation 98 % (92-99) Arterial Blood pH 7.49 (7.35-7.45) Arterial Blood pCO2 at Patient Temp 23 mmHg (35-46) Arterial Blood pO2 at Patient Temp 108 mmHg (65-108) Arterial Blood HCO3 17 mmol/L (21-28) Arterial Blood Base Excess -5 mmol/L (-3-3) FiO2 40/cpap 10-5 Test 01/11/20 23:40 01/12/20 05:30 01/12/20 05:32 01/12/20 08:34 Glucose (Fingerstick) 220 mg/dL (70-99) 235 mg/dL (70-99) White Blood Count 16.1 x10^3/uL (4.0-11.0) Red Blood Count 3.38 x10^6/uL (3.50-5.40) Hemoglobin 10.4 g/dL (12.0-15.5) Hematocrit 31.6 % (36.0-47.0) Mean Corpuscular Volume 93 fL (79-100) Mean Corpuscular Hemoglobin 31 pg (25-35) Mean Corpuscular Hemoglobin Concent 33 g/dL (31-37) Red Cell Distribution Width 14.2 % (11.5-14.5) Platelet Count 137 x10^3/uL (140-400) Neutrophils (%) (Auto) 92 % (31-73) Lymphocytes (%) (Auto) 4 % (24-48) Monocytes (%) (Auto) 3 % (0-9) Eosinophils (%) (Auto) 0 % (0-3) Basophils (%) (Auto) 0 % (0-3) Neutrophils # (Auto) 14.9 x10^3/uL (1.8-7.7) Lymphocytes # (Auto) 0.7 x10^3/uL (1.0-4.8) Monocytes # (Auto) 0.6 x10^3/uL (0.0-1.1) Eosinophils # (Auto) 0.0 x10^3/uL (0.0-0.7) Basophils # (Auto) 0.0 x10^3/uL (0.0-0.2) Sodium Level 149 mmol/L (136-145) Potassium Level 3.3 mmol/L (3.5-5.1) Chloride Level 117 mmol/L (98-107) Carbon Dioxide Level 26 mmol/L (21-32) Anion Gap 6 (6-14) Blood Urea Nitrogen 27 mg/dL (7-20) Creatinine 0.7 mg/dL (0.6-1.0) Estimated GFR (Cockcroft-Gault) 97.7 Glucose Level 259 mg/dL (70-99) Calcium Level 7.9 mg/dL (8.5-10.1) O2 Saturation 96 % (92-99) Arterial Blood pH 7.46 (7.35-7.45) Arterial Blood pCO2 at Patient Temp 27 mmHg (35-46) Arterial Blood pO2 at Patient Temp 85 mmHg (65-108) Arterial Blood HCO3 19 mmol/L (21-28) Arterial Blood Base Excess -4 mmol/L (-3-3) FiO2 40 Test 01/12/20 13:55 01/12/20 21:00 Glucose (Fingerstick) 234 mg/dL (70-99) 246 mg/dL (70-99) Laboratory Tests Test 01/12/20 13:55 01/12/20 21:00 Glucose (Fingerstick) 234 mg/dL (70-99) 246 mg/dL (70-99) Comments CXR 01/07 reviewed small LLL effusion Impression . 1. Acute hypoxic respiratory failure secondary to multisystem organ failure from COVID pneumonia and acute lung injury---resolved 2. Severe metabolic acidosis, likely secondary to acute kidney injury and shock/ lactic acidosis--improved 3. Acute kidney injury. improving 4. Abnormal chest x-ray consistent with COVID-19 pneumonia., improved 5. COVID-19 positive. 6. Thrombocytopenia, improving 7. persistent azotemia could be related to steroids, improving 8. leukocytosis improving Plan . Extubated on 01/12/2020, now on room air, tolerating well continue BS antibiotics, will need to continue IV dosing untill able to take po intake Reduce steroids to daily dosing Follow cardiology recs Follow renal recs thrombocytopenia due to sepsis, improving start PPN for nutrition as pt. is unable to swallow PT/OT Ok to move out of ICU today if ok with other consults CODE: DNR ABBEY BEEBE MD Jan 13, 2020 09:07
[2020-01-13] MEDS: FAMOTIDINE 20 MG/2 ML VIAL IVP SCH (09:45)
[2020-01-13] MEDS: AMINO AC 3%/ELECTROLYTE/GLYCER 1,000 ML IV SCH ×2 (09:49→21:13)
[2020-01-13] MEDS: INSULIN GLARGINE SYRINGE. SQ SCH ×2 (10:27→21:12)
[2020-01-13] MEDS: INSULIN LISPRO 300 UNITS/3 ML VIAL. SQ SCH ×3 (10:28→18:00)
--- NOTE | 2020-01-13 10:53 | PDOC ---
PROGRESS NOTES Date of Service: DATE: 01/13/20 TIME: 10:51 Chief Complaint Chief Complaint Severe respiratory failure secondary to COVID-19 History of the following; History Dementia, essential hypertension, hyperlipidemia, Raynaud's. Hyperthyroidism, status post thyroidectomy. Hypernatremia secondary to insensible losses Plan: follow recommendations from design and sales consultant extubated on 01/12/2020 Stress ulcer prophylaxis, scds, off SQ heparin 2/2 low plt count continue antibiotics Follow cardiology recs Follow renal recs continued azotemia improving thrombocytopenia due to sepsis, improving clinically improving but still critically ill Discussed with RN and RT. Chart reviewed. Labs reviewed and imaging reviewed. May need to increase water in order to address hypernatremia patient most likely has had a progression of her dementia, we will continue to monitor her mental status currently remains pretty obtunded continue with supportive measures further recommendations based on clinical course discussed with RN History of Present Illness History of Present Illness 01/12/2020 No acute events reported overnight, case discussed with nursing staff patient in no acute distress no complaints during my visit Very guarded prognosis does not seem to be progressing at all hopefully family members realize the guarded prognosis and we can transition to a comfort measures only type of treatment plan 01/11/2020 No acute events reported overnight, case discussed with nursing staff patient in no acute distress no complaints during my visit 01/10/2020 Patient with no acute events reported overnight, patient remains intubated unable to proceed with weaning trial follow recommendations from pulmonary design and sales consultant 01/09/2020 Patient seen and examined in the [facility] [address] unit She is still on the vent Assist-control/16/4 50/40% with 5 of PEEP and she is satting 99% She is sedated with PRN Versed Still critically ill Discussed with RN Chart review 01/08/2020 Patient seen and examined in the ICU [facility] [address] unit She remains mechanically ventilated Assist-control/16/4 50/40% with 5 of PEEP Chart reviewed Discussed with RN She remains critically ill 01/07/2020 Patient seen and examined She remains in the [facility] [address] ICU on the vent Assist-control/16/4 50/40% with 5 of PEEP Discussed with RN Chart reviewed She is still critically ill 01/06/2020 Patient seen and examined in the [facility] [address] ICU She remains mechanically ventilated Assist-control/16/4 50/40% with 5 of PEEP Discussed with RN Chart reviewed She remains critically ill 01/05/2020 Patient seen and examined Intubated, on vent AC/16/450/40% FiO2 w/t 5 PEEP and sedated with Precedex and propafol Successfully weaned off pressors OG tube at 35cc/hour Discussed with RN Charts reviewed 01/04/2020 Patient seen and examined Intubated, on vent AC/16/450/40% FiO2 w/t 5 PEEP and sedated with Precedex Discussed with RN Charts reviewed 01/03/2020 Patient seen and examined Intubated, on vent AC/16/450/40% FiO2 w/t 5 PEEP and sedated with Fentanyl OG tube at 20cc/hour Discussed with RN Charts reviewed Vitals Vitals Vital Signs Date Time Temp Pulse Resp B/P (MAP) Pulse Ox O2 Delivery O2 Flow Rate FiO2 01/13/20 05:36 56 01/13/20 04:10 98.6 98.6 01/13/20 04:10 14 149/83 (105) 96 Room Air 01/13/20 00:01 3.0 Physical Exam Physical Exam General: Other (sedated) Heart: Regular rate (SB 40s) Lungs: Crackles Abdomen: Soft Extremities: No cyanosis Skin: No breakdown General: Other (sedated) Heart: Regular rate (SB 40s) Abdomen: Soft Extremities: No cyanosis Skin: No breakdown Labs LABS Laboratory Tests Test 01/12/20 13:55 01/12/20 21:00 01/13/20 10:03 Glucose (Fingerstick) 234 mg/dL (70-99) 246 mg/dL (70-99) 252 mg/dL (70-99) Comment Review of Relevant I have reviewed the following items aislinn (where applicable) has been applied. Labs Laboratory Tests Test 01/11/20 10:55 01/11/20 12:34 01/11/20 16:50 01/11/20 18:08 Vancomycin Level Trough 10.3 mcg/mL (10.0-20.0) Vancomycin Last Dose Date 01/10/2020 Vancomycin Last Dose Time 1100 Glucose (Fingerstick) 227 mg/dL (70-99) 241 mg/dL (70-99) O2 Saturation 98 % (92-99) Arterial Blood pH 7.49 (7.35-7.45) Arterial Blood pCO2 at Patient Temp 23 mmHg (35-46) Arterial Blood pO2 at Patient Temp 108 mmHg (65-108) Arterial Blood HCO3 17 mmol/L (21-28) Arterial Blood Base Excess -5 mmol/L (-3-3) FiO2 40/cpap 10-5 Test 01/11/20 23:40 01/12/20 05:30 01/12/20 05:32 01/12/20 08:34 Glucose (Fingerstick) 220 mg/dL (70-99) 235 mg/dL (70-99) White Blood Count 16.1 x10^3/uL (4.0-11.0) Red Blood Count 3.38 x10^6/uL (3.50-5.40) Hemoglobin 10.4 g/dL (12.0-15.5) Hematocrit 31.6 % (36.0-47.0) Mean Corpuscular Volume 93 fL (79-100) Mean Corpuscular Hemoglobin 31 pg (25-35) Mean Corpuscular Hemoglobin Concent 33 g/dL (31-37) Red Cell Distribution Width 14.2 % (11.5-14.5) Platelet Count 137 x10^3/uL (140-400) Neutrophils (%) (Auto) 92 % (31-73) Lymphocytes (%) (Auto) 4 % (24-48) Monocytes (%) (Auto) 3 % (0-9) Eosinophils (%) (Auto) 0 % (0-3) Basophils (%) (Auto) 0 % (0-3) Neutrophils # (Auto) 14.9 x10^3/uL (1.8-7.7) Lymphocytes # (Auto) 0.7 x10^3/uL (1.0-4.8) Monocytes # (Auto) 0.6 x10^3/uL (0.0-1.1) Eosinophils # (Auto) 0.0 x10^3/uL (0.0-0.7) Basophils # (Auto) 0.0 x10^3/uL (0.0-0.2) Sodium Level 149 mmol/L (136-145) Potassium Level 3.3 mmol/L (3.5-5.1) Chloride Level 117 mmol/L (98-107) Carbon Dioxide Level 26 mmol/L (21-32) Anion Gap 6 (6-14) Blood Urea Nitrogen 27 mg/dL (7-20) Creatinine 0.7 mg/dL (0.6-1.0) Estimated GFR (Cockcroft-Gault) 97.7 Glucose Level 259 mg/dL (70-99) Calcium Level 7.9 mg/dL (8.5-10.1) O2 Saturation 96 % (92-99) Arterial Blood pH 7.46 (7.35-7.45) Arterial Blood pCO2 at Patient Temp 27 mmHg (35-46) Arterial Blood pO2 at Patient Temp 85 mmHg (65-108) Arterial Blood HCO3 19 mmol/L (21-28) Arterial Blood Base Excess -4 mmol/L (-3-3) FiO2 40 Test 01/12/20 13:55 01/12/20 21:00 01/13/20 10:03 Glucose (Fingerstick) 234 mg/dL (70-99) 246 mg/dL (70-99) 252 mg/dL (70-99) Laboratory Tests Test 01/12/20 13:55 01/12/20 21:00 01/13/20 10:03 Glucose (Fingerstick) 234 mg/dL (70-99) 246 mg/dL (70-99) 252 mg/dL (70-99) Medications Current Medications Norepinephrine Bitartrate 8 mg/ Dextrose 258 ml @ 12.674 mls/ hr CONT PRN IV PER PROTOCOL Last administered on 01/01/20at 02:25; Start 01/01/20 at 02:15; Stop 01/01/20 at 03:19; Status DC Midazolam HCl 100 mg/Sodium Chloride 100 ml @ 1 mls/hr CONT PRN IV SEE I/O RECORD Last administered on 01/05/20at 08:43; Start 01/01/20 at 02:15; Stop 01/13/20 at 09:01; Status DC Norepinephrine Bitartrate 16 mg/ Dextrose 266 ml @ 6.534 mls/ hr CONT PRN IV PER PROTOCOL Last administered on 01/02/20at 08:40; Start 01/01/20 at 03:30; Stop 01/05/20 at 09:35; Status DC Epinephrine HCl 5 mg/Sodium Chloride 255 ml @ 20.043 mls/ hr CONT PRN IV SEE I/O RECORD Last administered on 01/01/20at 10:17; Start 01/01/20 at 03:30; Stop 01/01/20 at 12:00; Status DC Sodium Chloride 1,000 ml @ 60 mls/hr [id number] IV Last administered on 01/01/20at 04:07; Start 01/01/20 at 03:45; Stop 01/01/20 at 13:22; Status DC Vasopressin 20 unit/Dextrose 101 ml @ 12 mls/hr CONT PRN IV SEE I/O RECORD Last administered on 01/03/20at 23:16; Start 01/01/20 at 04:15; Stop 01/05/20 at 09:35; Status DC Phenylephrine HCl 50 mg/Sodium Chloride 255 ml @ 10.022 mls/ hr CONT PRN IV SEE I/O RECORD Last administered on 01/01/20at 05:42; Start 01/01/20 at 05:30; Stop 01/05/20 at 09:35; Status DC Fentanyl Citrate (Fentanyl 2ml Vial) 25 mcg PRN Q1HR PRN IV SEE COMMENTS; Start 01/01/20 at 07:00; Stop 01/13/20 at 09:01; Status DC Fentanyl Citrate (Fentanyl 2ml Vial) 50 mcg PRN Q1HR PRN IV SEE COMMENTS Last administered on 01/08/20at 23:42; Start 01/01/20 at 07:00; Stop 01/13/20 at 09:01; Status DC Sodium Bicarbonate (Sodium Bicarb Adult 8.4% Syr) 50 meq 1X ONCE IV Last administered on 01/01/20at 09:18; Start 01/01/20 at 08:45; Stop 01/01/20 at 08:46; Status DC Sodium Bicarbonate (Sodium Bicarb Adult 8.4% Syr) 50 meq 1X ONCE IV Last administered on 01/01/20at 09:18; Start 01/01/20 at 08:45; Stop 01/01/20 at 08:46; Status DC Enoxaparin Sodium (Lovenox 30mg Syringe) 30 mg Q24H SQ ; Start 01/01/20 at 10:15; Stop 01/01/20 at 10:12; Status DC Famotidine (Pepcid Vial) 20 mg DAILY IVP Last administered on 01/13/20at 09:45; Start 01/01/20 at 11:00 Heparin Sodium (Porcine) (Heparin Sodium) 5,000 unit BID SQ Last administered on 01/01/20at 21:12; Start 01/01/20 at 11:00; Stop 01/03/20 at 10:40; Status DC Epinephrine HCl 10 mg/Sodium Chloride 250 ml @ 9.825 mls/ hr CONT PRN IV SEE I/O RECORD Last administered on 01/01/20at 11:54; Start 01/01/20 at 10:30; Stop 01/13/20 at 09:01; Status DC Sodium Chloride 1,000 ml @ 150 mls/hr 1X ONCE IV Last administered on 01/01/20at 12:21; Start 01/01/20 at 12:00; Stop 01/01/20 at 18:39; Status DC Vancomycin HCl (Vanco Per Pharmacy) 1 each PRN DAILY PRN MC SEE COMMENTS Last administered on 01/13/20at 07:36; Start 01/01/20 at 14:00 Piperacillin Sod/ Tazobactam Sod (Zosyn Per Pharmacy) 1 each PRN DAILY PRN MC SEE COMMENTS; Start 01/01/20 at 14:00 Methylprednisolone Sodium Succinate (SOLU-Medrol 125MG VIAL) 60 mg Q8HRS IV Last administered on 01/05/20at 05:34; Start 01/01/20 at 14:00; Stop 01/05/20 at 09:35; Status DC Piperacillin Sod/ Tazobactam Sod 2.25 gm/Sodium Chloride 50 ml @ 100 mls/hr Q8HRS IV Last administered on 01/05/20at 05:34; Start 01/01/20 at 14:30; Stop 01/05/20 at 11:54; Status DC Vancomycin HCl 1.5 gm/Sodium Chloride 500 ml @ 250 mls/hr 1X ONCE IV Last administered on 01/01/20at 16:43; Start 01/01/20 at 15:00; Stop 01/01/20 at 16:59; Status DC Sodium Chloride 1,000 ml @ 150 mls/hr Q6H40M IV Last administered on 01/07/20at 06:08; Start 01/01/20 at 19:00; Stop 01/07/20 at 13:22; Status DC Vancomycin HCl (Vancomycin Random Level) 1 each 1X ONCE MC Last administered on 01/03/20at 06:00; Start 01/03/20 at 06:00; Stop 01/03/20 at 06:01; Status DC Potassium Chloride/Water 100 ml @ 100 mls/hr Q1H IV Last administered on 01/02/20at 11:57; Start 01/02/20 at 11:00; Stop 01/02/20 at 12:59; Status DC Atropine Sulfate (ATROPINE 1mg SYRINGE) 1 mg STK-MED ONCE .ROUTE ; Start 01/02/20 at 12:55; Stop 01/02/20 at 12:55; Status DC Insulin Human Lispro (HumaLOG) 0-5 UNITS Q6HRS SQ Last administered on 01/12/20at 05:51; Start 01/02/20 at 18:30; Stop 01/12/20 at 17:58; Status DC Dextrose (Dextrose 50%-Water Syringe) 12.5 gm PRN Q15MIN PRN IV SEE COMMENTS; Start 01/02/20 at 18:15 Vancomycin HCl 1 gm/Sodium Chloride 250 ml @ 250 mls/hr Q36H IV Last adm inistered on 01/03/20at 07:59; Start 01/03/20 at 08:00; Stop 01/04/20 at 09:50; Status DC Potassium Chloride/Water 100 ml @ 100 mls/hr Q1H IV Last administered on 01/03/20at 10:59; Start 01/03/20 at 09:00; Stop 01/03/20 at 10:59; Status DC Sodium Phosphate 20 mmol/Sodium Chloride 256.6667 ml @ 64.167 m... 1X ONCE IV Last administered on 01/03/20at 12:29; Start 01/03/20 at 12:00; Stop 01/03/20 at 15:59; Status DC Magnesium Sulfate 100 ml @ 25 mls/hr 1X ONCE IV Last administered on 01/04/20at 07:34; Start 01/04/20 at 07:30; Stop 01/04/20 at 11:29; Status DC Potassium Chloride/Water 100 ml @ 100 mls/hr Q1H IV Last administered on 01/04/20at 08:41; Start 01/04/20 at 07:30; Stop 01/04/20 at 09:29; Status DC Sodium Bicarbonate (Sodium Bicarb Adult 8.4% Syr) 100 meq 1X ONCE IV Last administered on 01/04/20at 09:10; Start 01/04/20 at 09:00; Stop 01/04/20 at 09:01; Status DC Propofol 100 ml @ 1.2 mls/hr CONT PRN IV SEE I/O RECORD Last administered on 01/04/20at 09:11; Start 01/04/20 at 09:00; Stop 01/07/20 at 16:32; Status DC Vancomycin HCl 1 gm/Sodium Chloride 250 ml @ 250 mls/hr Q24H IV Last administered on 01/11/20at 11:31; Start 01/04/20 at 11:00; Stop 01/11/20 at 13:17; Status DC Vancomycin HCl (Vancomycin Trough Level) 1 each 1X ONCE MC ; Start 01/06/20 at 10:30; Stop 01/06/20 at 10:31; Status DC Dexmedetomidine HCl 400 mcg/ Sodium Chloride 100 ml @ 4 mls/hr CONT PRN IV SEE COMMENTS Last administered on 01/04/20at 10:56; Start 01/04/20 at 10:00; Stop 01/13/20 at 09:01; Status DC Sodium Chloride 500 ml @ 500 mls/hr 1X PRN PRN IV SEE COMMENTS; Start 01/04/20 at 10:00 Atropine Sulfate (ATROPINE 0.5mg SYRINGE) 0.5 mg PRN Q5MIN PRN IV SEE COMMENTS; Start 01/04/20 at 10:00; Stop 01/13/20 at 09:01; Status DC Sodium Bicarbonate (Sodium Bicarb Adult 8.4% Syr) 100 meq 1X ONCE IV Last administered on 01/04/20at 13:29; Start 01/04/20 at 13:30; Stop 01/04/20 at 13:31; Status DC Potassium Phosphate 13.6 mmol/Sodium Chloride 254.5333 ml @ 127.... Q2H IV Last administered on 01/05/20at 11:14; Start 01/05/20 at 09:00; Stop 01/05/20 at 13:05; Status DC Methylprednisolone Sodium Succinate (SOLU-Medrol 125MG VIAL) 40 mg Q8HRS IV Last administered on 01/13/20at 05:39; Start 01/05/20 at 14:00; Stop 01/13/20 at 09:01; Status DC Sodium Chloride 500 ml @ 500 mls/hr 1X ONCE IV Last administered on 01/05/20at 12:29; Start 01/05/20 at 09:45; Stop 01/05/20 at 10:44; Status DC Piperacillin Sod/ Tazobactam Sod 2.25 gm/Sodium Chloride 50 ml @ 100 mls/hr Q6HRS IV Last administered on 01/06/20at 05:31; Start 01/05/20 at 12:00; Stop 01/06/20 at 09:43; Status DC Potassium Chloride/Water 100 ml @ 100 mls/hr Q1H IV Last administered on 01/05/20at 17:37; Start 01/05/20 at 16:00; Stop 01/05/20 at 17:59; Status DC Piperacillin Sod/ Tazobactam Sod 3.375 gm/Sodium Chloride 50 ml @ 100 mls/hr Q6HRS IV Last administered on 01/13/20at 05:40; Start 01/06/20 at 12:00 Fentanyl Citrate 30 ml @ 0 mls/hr CONT PRN IV SEE PROTOCOL Last administered on 01/07/20at 00:07; Start 01/06/20 at 12:00; Stop 01/13/20 at 09:01; Status DC Furosemide (Lasix) 40 mg 1X ONCE IVP Last administered on 01/07/20at 13:38; Start 01/07/20 at 14:00; Stop 01/07/20 at 14:01; Status DC Propofol 100 ml @ 1.337 mls/ hr CONT PRN IV SEE I/O RECORD; Start 01/07/20 at 16:30; Stop 01/13/20 at 09:01; Status DC Digoxin (Lanoxin) 500 mcg 1X ONCE IV Last administered on 01/09/20at 00:08; Start 01/09/20 at 00:30; Stop 01/09/20 at 00:31; Status DC Digoxin (Lanoxin) 250 mcg 1X ONCE IV Last administered on 01/09/20at 02:46; Start 01/09/20 at 03:00; Stop 01/09/20 at 03:01; Status DC Enoxaparin Sodium (Lovenox 40mg Syringe) 40 mg Q24H SQ Last administered on 01/12/20at 14:29; Start 01/09/20 at 14:00 Potassium Chloride/Water 100 ml @ 100 mls/hr Q1H IV Last administered on 01/09/20at 16:24; Start 01/09/20 at 15:00; Stop 01/09/20 at 16:59; Status DC Vancomycin HCl (Vancomycin Trough Level) 1 each 1X ONCE MC Last administered on 01/11/20at 10:30; Start 01/11/20 at 10:30; Stop 01/11/20 at 10:31; Status DC Sodium Bicarbonate (Sodium Bicarb Adult 8.4% Syr) 50 meq 1X ONCE IV Last administered on 01/11/20at 09:50; Start 01/11/20 at 09:30; Stop 01/11/20 at 09:31; Status DC Vancomycin HCl 1.25 gm/Sodium Chloride 250 ml @ 167 mls/hr Q24H IV ; Start 01/12/20 at 12:00; Status Cancel Vancomycin HCl 1.5 gm/Sodium Chloride 500 ml @ 250 mls/hr Q24H IV Last administered on 01/12/20at 13:17; Start 01/12/20 at 12:00 Vancomycin HCl (Vancomycin Trough Level) 1 each 1X ONCE MC ; Start 01/14/20 at 11:30; Stop 01/14/20 at 11:31; Status Cancel Insulin Human Lispro (HumaLOG) 0-5 UNITS QIDACHS SQ Last administered on 01/13/20at 10:28; Start 01/12/20 at 21:00 Insulin Glargine (Lantus Syringe) 10 unit BID SQ Last administered on 01/13/20at 10:27; Start 01/13/20 at 09:00 Vancomycin HCl (Vancomycin Trough Level) 1 each 1X ONCE MC ; Start 01/14/20 at 11:30; Stop 01/14/20 at 11:31 Methylprednisolone Sodium Succinate (SOLU-Medrol 40MG VIAL) 40 mg DAILY IV ; Start 01/14/20 at 09:00 Amino Acids/ Glycerin/ Electrolytes 1,000 ml @ 80 mls/hr [id number] IV Last administered on 01/13/20at 09:49; Start 01/13/20 at 10:00 Vitals/I & O Vital Sign - Last 24 Hours 01/12/20 01/12/20 01/12/20 01/12/20 11:00 12:00 12:00 13:00 Temp 98.6 98.6 Pulse 56 62 68 Resp 14 14 14 B/P (MAP) 141/70 (93) 134/72 (92) 98/89 (92) Pulse Ox 99 100 100 O2 Delivery Nasal Cannula Nasal Cannula Nasal Cannula Nasal Cannula O2 Flow Rate 3.0 3.0 3.0 3.0 01/12/20 01/12/20 01/12/20 01/12/20 14:00 15:00 16:00 16:00 Temp 98.1 98.1 Pulse 53 51 62 Resp 14 12 16 B/P (MAP) 163/73 (103) 145/76 (99) 137/69 (91) Pulse Ox 100 96 96 O2 Delivery Nasal Cannula Room Air Room Air Room Air O2 Flow Rate 3.0 01/12/20 01/12/20 01/12/20 01/12/20 17:00 18:00 19:16 19:20 Temp 98.5 98.5 Pulse 66 62 60 Resp 17 17 B/P (MAP) 157/89 (111) 138/71 (93) 140/65 (90) Pulse Ox 97 95 94 O2 Delivery Room Air Room Air Room Air Room Air O2 Flow Rate 3.0 01/12/20 01/12/20 01/12/20 01/12/20 19:58 21:05 22:03 22:59 Temp 98.5 98.5 98.5 98.5 Pulse 60 62 68 68 Resp 23 17 B/P (MAP) 146/77 (100) 141/88 (105) 147/81 (103) 147/81 (103) Pulse Ox 93 95 96 96 O2 Delivery Room Air Room Air Room Air Room Air O2 Flow Rate 3.0 3.0 01/12/20 01/13/20 01/13/20 01/13/20 23:59 00:01 00:57 02:02 Temp 98.5 97.8 98.5 97.8 Pulse 58 56 68 Resp 15 B/P (MAP) 147/76 (99) 145/83 (103) 145/83 (103) Pulse Ox 96 95 94 O2 Delivery Room Air Room Air Room Air Room Air O2 Flow Rate 3.0 3.0 01/13/20 01/13/20 01/13/20 01/13/20 03:02 04:10 04:10 05:36 Temp 97.8 98.6 97.8 98.6 Pulse 62 55 56 Resp 14 B/P (MAP) 145/74 (97) 149/83 (105) Pulse Ox 94 96 O2 Delivery Room Air Room Air Intake and Output0 01/12/20 01/12/20 01/13/20 14:59 22:59 06:59 Intake Total 75 ml 0 ml 0 ml Output Total 240 ml 130 ml 360 ml Balance -165 ml -130 ml -360 ml Nutrition Consultation Dietary Evaluation: Recommendations by RD: Dietary education by RD, Increase Calorie Intake Comments: Continue w/TFs as currently ordered for nutrition needs while pt remains intubated Expected Outcomes/Goals: New goal 01/02: TFs to meet >65% est needs while pt remains intubated - met, goal ongoing Malnutrition Findings: Body Fat Depletion (Non Severe: Mild Depletion Weight Status: Appropriate Justicifation of Admission Dx: Justifications for Admission: Justification of Admission Dx: Yes Respiratory Failure: Mechanical Ventilation ISABELLA MORA MD Jan 13, 2020 10:53
[2020-01-13] MEDS: VANCOMYCIN 1.5 GM in IV NORMAL SALINE 500ML BAG 500 ML IV SCH (11:16)
[2020-01-13] MEDS: ENOXAPARIN 40 MG/0.4 ML SYRINGE. SQ SCH (15:01)
[2020-01-14] MEDS: PIPERACILLIN/TAZOBACTAM 3.375 GM in IV NORMAL SALINE 50ML 50 ML IV SCH ×5 (00:03→23:26)
[2020-01-14 03:30] VITALS: BP 118/67
[2020-01-14] MEDS: INSULIN LISPRO 300 UNITS/3 ML VIAL. SQ SCH ×4 (06:00→17:00)
[2020-01-14 07:25] VITALS: BP 110/52
--- NOTE | 2020-01-14 08:55 | PDOC ---
PULMONARY PROGRESS NOTES DATE: 01/14/20 TIME: 08:53 Subjective Extubated on 01/12/2020 Room air no overnight concerns from nursing Vitals Vital Signs Date Time Temp Pulse Resp B/P (MAP) Pulse Ox O2 Delivery O2 Flow Rate FiO2 01/14/20 07:25 99.1 66 20 110/52 (71) 94 Room Air 99.1 01/13/20 19:45 3.0 Comments visual exam done due to COVID pandemia on vent no accessory muscle use no paradoxical abd motion RRR no rash no edema Labs Laboratory Tests Test 01/12/20 13:55 01/12/20 21:00 01/13/20 10:03 01/13/20 18:32 Glucose (Fingerstick) 234 mg/dL (70-99) 246 mg/dL (70-99) 252 mg/dL (70-99) 167 mg/dL (70-99) Test 01/14/20 00:19 Glucose (Fingerstick) 150 mg/dL (70-99) Laboratory Tests Test 01/13/20 10:03 01/13/20 18:32 01/14/20 00:19 Glucose (Fingerstick) 252 mg/dL (70-99) 167 mg/dL (70-99) 150 mg/dL (70-99) Comments CXR 01/07 reviewed small LLL effusion Impression . 1. Acute hypoxic respiratory failure secondary to multisystem organ failure from COVID pneumonia and acute lung injury---resolved 2. Severe metabolic acidosis, likely secondary to acute kidney injury and shock/ lactic acidosis--improved 3. Acute kidney injury. improving 4. Abnormal chest x-ray consistent with COVID-19 pneumonia., improved 5. COVID-19 positive. 6. Thrombocytopenia, improving 7. persistent azotemia could be related to steroids, improving 8. leukocytosis improving Plan . Extubated on 01/12/2020, remains on Room air continue BS antibiotics, will need to continue IV dosing until able to take po intake Continue steroids for total of 10 day course Follow cardiology recs Follow renal recs Cont. PPN for nutrition as pt. is unable to swallow-- may need feeding tube PT/OT D/W RN and Blake Tobias to D/C back to SNF from our standpoint CODE: [email or web address] DAVIS MD Jan 14, 2020 08:55
[2020-01-14] MEDS ORDERED: SCOPOLAMINE 1.5MG PATCH. TD SCH (09:00)
--- NOTE | 2020-01-14 09:25 | PDOC ---
[facility] PROGRESS NOTE Date of Service DOS: DATE: 01/14/20 TIME: 09:25 Chief Complaint Chief Complaint Severe respiratory failure secondary to COVID-19 History Dementia, essential hypertension, hyperlipidemia, Raynaud's. Hyperthyroidism, status post thyroidectomy. Hypernatremia secondary to insensible losses Hypokalemia Leukocytosis, sepsis POA 2/2 COVID 19 Plan: follow recommendations from service delivery consultant extubated on 01/12/2020 Stress ulcer prophylaxis, scds, off SQ heparin 2/2 low plt count continue antibiotics Follow cardiology recs Follow renal recs continued azotemia improving thrombocytopenia due to sepsis, improving clinically improving but still critically ill Discussed with RN and RT. Chart reviewed. Labs reviewed and imaging reviewed. May need to increase water in order to address hypernatremia patient most likely has had a progression of her dementia, we will continue to monitor her mental status currently remains pretty obtunded continue with supportive measures further recommendations based on clinical course discussed with RN History of Present Illness History of Present Illness Transferred from ICU 01/13/2020. She is not verbally responding to me, withdraws to pain, not requiring any O2. No complaints. WBC still elevated. K 3.2. Family would like DNR and return to SNF, not interested in discussing hospice at this time. 01/12/2020 No acute events reported overnight, case discussed with nursing staff patient in no acute distress no complaints during my visit Very guarded prognosis does not seem to be progressing at all hopefully family members realize the guarded prognosis and we can transition to a comfort measures only type of treatment plan 01/11/2020 No acute events reported overnight, case discussed with nursing staff patient in no acute distress no complaints during my visit 01/10/2020 Patient with no acute events reported overnight, patient remains intubated unable to proceed with weaning trial follow recommendations from pulmonary service delivery consultant 01/09/2020 Patient seen and examined in the [facility] unit She is still on the vent Assist-control//4 50/40% with 5 of PEEP and she is satting 99% She is sedated with PRN Versed Still critically ill Discussed with RN Chart review 01/08/2020 Patient seen and examined in the ICU [place] [address] unit She remains mechanically ventilated Assist-control/16/4 50/40% with 5 of PEEP Chart reviewed Discussed with RN She remains critically ill 01/07/2020 Patient seen and examined She remains in the [place] [address] ICU on the vent Assist-control/16/4 50/40% with 5 of PEEP Discussed with RN Chart reviewed She is still critically ill 01/06/2020 Patient seen and examined in the [place] [address] ICU She remains mechanically ventilated Assist-control/16/4 50/40% with 5 of PEEP Discussed with RN Chart reviewed She remains critically ill 01/05/2020 Patient seen and examined Intubated, on vent AC/16/450/40% FiO2 w/t 5 PEEP and sedated with Precedex and propafol Successfully weaned off pressors OG tube at 35cc/hour Discussed with RN Charts reviewed 01/04/2020 Patient seen and examined Intubated, on vent AC/16/450/40% FiO2 w/t 5 PEEP and sedated with Precedex Discussed with RN Charts reviewed 01/03/2020 Patient seen and examined Intubated, on vent AC/16/450/40% FiO2 w/t 5 PEEP and sedated with Fentanyl OG tube at 20cc/hour Discussed with RN Charts reviewed Vitals/I&O Vitals/I&O: Vital Signs Date Time Temp Pulse Resp B/P (MAP) Pulse Ox O2 Delivery O2 Flow Rate FiO2 01/14/20 07:25 99.1 66 20 110/52 (71) 94 Room Air 99.1 01/13/20 19:45 3.0 I & O 01/13/20 01/13/20 01/14/20 15:00 23:00 07:00 Intake Total 550 ml 409 ml 503 ml Output Total 2450 ml 500 ml Balance 550 ml -2041 ml 3 ml Physical Exam Physical Exam: General: Other (sedated) Heart: Regular rate (SB 40s) Lungs: Crackles Abdomen: Soft Extremities: No cyanosis Skin: No breakdown General: Other (sedated) Heart: Regular rate (SB 40s) Abdomen: Soft Extremities: No cyanosis Skin: No breakdown Labs Labs: Laboratory Tests Test 01/13/20 10:03 01/13/20 18:32 01/14/20 00:19 Glucose (Fingerstick) 252 mg/dL (70-99) 167 mg/dL (70-99) 150 mg/dL (70-99) Comment Review of Relevant I have reviewed the following items aislinn (where applicable) has been applied. Medications: Current Medications Medications (Trade) Dose Ordered Sig/Pita Route PRN Reason Start Time Stop Time Status Last Admin Dose Admin Amino Acids/ Glycerin/ Electrolytes 1,000 ml @ 80 mls/hr [id number] IV 01/13/20 10:00 01/13/20 21:13 Justicifation of Admission Dx: Justifications for Admission: Justification of Admission Dx: Yes Respiratory Failure: Mechanical Ventilation MALISSA LOPEZ MD Jan 14, 2020 09:25
[2020-01-14 09:36] LABS: BASO % 0 % (0-3); CALCIUM 7.5 mg/dL (8.5-10.1); CREATININE 0.8 mg/dL (0.6-1.0); EOS # 0.1 x10^3/uL (0.0-0.7); EOS % 1 % (0-3); GFR 83.7; HEMATOCRIT 30.5 % (36.0-47.0); LYMPH # 2.1 x10^3/uL (1.0-4.8); LYMPH % 13 % (24-48); MEAN CORPUSCULAR HEMOGLOBIN 31 pg (25-35); MEAN CORPUSCULAR HGB CONC 33 g/dL (31-37); MEAN CORPUSCULAR VOLUME 95 fL (79-100); MONO # 0.4 x10^3/uL (0.0-1.1); MONO % 3 % (0-9); NEUT % 84 % (31-73); PLATELET COUNT 129 x10^3/uL (140-400); POTASSIUM 3.2 mmol/L (3.5-5.1); RED BLOOD COUNT 3.23 x10^6/uL (3.50-5.40); RED CELL DISTRIBUTION WIDTH 14.4 % (11.5-14.5); WHITE BLOOD COUNT 16.6 x10^3/uL (4.0-11.0)
[2020-01-14] MEDS: FAMOTIDINE 20 MG/2 ML VIAL IVP SCH (10:47)
[2020-01-14] MEDS: methylPREDNISolone SOD SUCC PF 40 MG/ML VIAL. IV SCH (10:47)
[2020-01-14] MEDS: INSULIN GLARGINE SYRINGE. SQ SCH ×2 (10:49→23:27)
[2020-01-14] MEDS: AMINO AC 3%/ELECTROLYTE/GLYCER 1,000 ML IV SCH (10:49)
[2020-01-14 11:22] VITALS: BP 132/62
[2020-01-14] MEDS: VANCOMYCIN PER PHARMACY MC PRN ×2 (13:04→13:13)
--- NOTE | 2020-01-14 13:07 | NUR ---
Pharmacy Vancomycin Dosing Note S:Consulted to monitor and dose vancomycin started 01/01/20. O:SALLIE RHOADES is a 79 year old F with Sepsis Pneumonia . Height: 5 feet, 3 inches Weight: 101.0 kg [place] Body Weight: 52.40 Adjusted Body Weight: 71.84 Dosing Weight: Other Antibiotics: ZOSYN LABS: Last BUN: 27 Last Creatinine: 0.8 Creatinine Clearance: 52 mL/min Last WBC: 16.6 Last Procalcitonin: - Tmax (past 24 hours): 99.1 Microbiology: 01/03 NONE - originally went to [facility]. Unsure if cultures drawn there I/O: 1462/2950 Drug Levels: Last Trough level: 11.0 on 01/11/20 at 1200 Last dose given 01/13/20 at 1116 Vancomycin Dosing: Loading Dose: x1 Dosing Weight: Target Trough: 15-20 A: Based on trough of 11.0: P: 1. Increase Vancomycin to 2000 mg IV q24h. 2. Follow up Trough levels as needed. 3. Pharmacy will continue to monitor, follow and adjust therapy as needed. Esa Mulligan, [facility], 01/14/20 [id number]
[2020-01-14] MEDS: VANCOMYCIN 2 GM in IV NORMAL SALINE 500ML BAG 500 ML IV SCH (13:46)
[2020-01-14] MEDS: ENOXAPARIN 40 MG/0.4 ML SYRINGE. SQ SCH (13:46)
[2020-01-14 15:23] VITALS: BP 136/62
[2020-01-14] MEDS: POTASSIUM CHLORIDE 40 MEQ in IV DEXTROSE 5% 1,000 ML IV SCH (17:24)
[2020-01-14 19:20] VITALS: BP 148/73
[2020-01-14 23:27] VITALS: BP 170/65
[2020-01-15] MEDS: AMINO AC 3%/ELECTROLYTE/GLYCER 1,000 ML IV SCH ×2 (00:58→12:30)
[2020-01-15 03:15] VITALS: BP 164/85
[2020-01-15] MEDS: PIPERACILLIN/TAZOBACTAM 3.375 GM in IV NORMAL SALINE 50ML 50 ML IV SCH ×3 (05:25→17:23)
[2020-01-15] MEDS: INSULIN LISPRO 300 UNITS/3 ML VIAL. SQ SCH ×4 (06:00→18:00)
[2020-01-15 07:20] VITALS: BP 121/64
[2020-01-15] MEDS: FAMOTIDINE 20 MG/2 ML VIAL IVP SCH (08:51)
[2020-01-15] MEDS: methylPREDNISolone SOD SUCC PF 40 MG/ML VIAL. IV SCH (08:52)
[2020-01-15] MEDS: VANCOMYCIN PER PHARMACY MC PRN (09:23)
[2020-01-15] MEDS: POTASSIUM CHLORIDE 40 MEQ in IV DEXTROSE 5% 1,000 ML IV SCH (10:05)
[2020-01-15] MEDS: INSULIN GLARGINE SYRINGE. SQ SCH ×2 (10:09→22:14)
[2020-01-15 10:47] LABS: CREATININE 0.8 mg/dL (0.6-1.0); GFR 83.7
[2020-01-15 11:32] VITALS: BP 137/56
--- NOTE | 2020-01-15 13:22 | NUR ---
REBEKAH following. Spoke with RN and reviewed chart. Pt transferred from ICU and a referral had been made to [facility]. Pt appears to still meet criteria for a LTACH and family is not interested in comfort care at this time per chart review. Pt remains on IV abx and is COVID positive. REBEKAH phoned and faxed updated clinical information to Karen at [facility]. Pt accepted at [facility] per Karen. REBEKAH notified RN and Dr. Jackson. Pt not ready for discharge today. REBEKAH to continue following.
[2020-01-15] MEDS: VANCOMYCIN 2 GM in IV NORMAL SALINE 500ML BAG 500 ML IV SCH (14:06)
[2020-01-15] MEDS: ENOXAPARIN 40 MG/0.4 ML SYRINGE. SQ SCH (14:06)
--- NOTE | 2020-01-15 15:07 | PDOC ---
[facility] PROGRESS NOTE Date of Service DOS: DATE: 01/15/20 TIME: 15:01 Chief Complaint Chief Complaint Severe respiratory failure secondary to COVID-19 History Dementia, essential hypertension, hyperlipidemia, Raynaud's. Hyperthyroidism, status post thyroidectomy. Hypernatremia secondary to insensible losses Hypokalemia Leukocytosis, sepsis POA 2/2 COVID 19 Plan: follow recommendations from bridal stylist sales consultant extubated on 01/12/2020 Stress ulcer prophylaxis, scds, off SQ heparin 2/2 low plt count continue antibiotics Follow cardiology recs Follow renal recs continued azotemia improving thrombocytopenia due to sepsis, improving clinically improving but still critically ill Lovenox for DVT prophylaxis ADA diet DNR Discussed with RN and SW Dispo : Pending discharge to intermediate facility Surrogate decision maker is Chris Oneill History of Present Illness History of Present Illness 01/15/2020 No acute events overnight. Patient appears to be in severe dementia. Patient is saturating 98% on room air. Patient's family's has still not decided whether to go through hospice Transferred from ICU 01/13/2020. She is not verbally responding to me, withdraws to pain, not requiring any O2. No complaints. WBC still elevated. K 3.2. Family would like DNR and return to SNF, not interested in discussing hospice at this time. 01/12/2020 No acute events reported overnight, case discussed with nursing staff patient in no acute distress no complaints during my visit Very guarded prognosis does not seem to be progressing at all hopefully family members realize the guarded prognosis and we can transition to a comfort measures only type of treatment plan 01/11/2020 No acute events reported overnight, case discussed with nursing staff patient in no acute distress no complaints during my visit 01/10/2020 Patient with no acute events reported overnight, patient remains intubated unable to proceed with weaning trial follow recommendations from pulmonary bridal stylist sales consultant 01/09/2020 Patient seen and examined in the COVID-19 unit She is still on the vent Assist-control//4 50/40% with 5 of PEEP and she is satting 99% She is sedated with PRN Versed Still critically ill Discussed with RN Chart review 01/08/2020 Patient seen and examined in the ICU [facility]-19 unit She remains mechanically ventilated Assist-control/16/4 50/40% with 5 of PEEP Chart reviewed Discussed with RN She remains critically ill 01/07/2020 Patient seen and examined She remains in the [place] [address] ICU on the vent Assist-control/16/4 50/40% with 5 of PEEP Discussed with RN Chart reviewed She is still critically ill 01/06/2020 Patient seen and examined in the [place] [address] ICU She remains mechanically ventilated Assist-control/16/4 50/40% with 5 of PEEP Discussed with RN Chart reviewed She remains critically ill 01/05/2020 Patient seen and examined Intubated, on vent AC/16/450/40% FiO2 w/t 5 PEEP and sedated with Precedex and propafol Successfully weaned off pressors OG tube at 35cc/hour Discussed with RN Charts reviewed 01/04/2020 Patient seen and examined Intubated, on vent AC/16/450/40% FiO2 w/t 5 PEEP and sedated with Precedex Discussed with RN Charts reviewed 01/03/2020 Patient seen and examined Intubated, on vent AC/16/450/40% FiO2 w/t 5 PEEP and sedated with Fentanyl OG tube at 20cc/hour Discussed with RN Charts reviewed Vitals/I&O Vitals/I&O: Vital Signs Date Time Temp Pulse Resp B/P (MAP) Pulse Ox O2 Delivery O2 Flow Rate FiO2 01/15/20 11:32 97.5 62 16 137/56 (83) 95 Room Air 97.5 01/14/20 08:00 3.0 I & O 01/14/20 01/14/20 01/15/20 15:00 23:00 07:00 Intake Total 1864 ml 1731 ml Output Total 550 ml Balance 1864 ml 1181 ml Physical Exam Physical Exam: General: Other (sedated) Heart: Regular rate (SB 40s) Lungs: Crackles Abdomen: Soft Extremities: No cyanosis Skin: No breakdown General: Other (sedated) Heart: Regular rate (SB 40s) Abdomen: Soft Extremities: No cyanosis Skin: No breakdown Labs Labs: Laboratory Tests Test 01/14/20 17:08 01/15/20 00:07 01/15/20 07:28 01/15/20 10:10 Glucose (Fingerstick) 87 mg/dL (70-99) 130 mg/dL (70-99) 189 mg/dL (70-99) Creatinine 0.8 mg/dL (0.6-1.0) Estimated GFR (Cockcroft-Gault) 83.7 Test 01/15/20 11:00 Glucose (Fingerstick) 190 mg/dL (70-99) Comment Review of Relevant I have reviewed the following items aislinn (where applicable) has been applied. Medications: Current Medications Medications (Trade) Dose Ordered Sig/Pita Route PRN Reason Start Time Stop Time Status Last Admin Dose Admin Potassium Chloride 40 meq/ Dextrose 1,020 ml @ 75 mls/hr [id number] IV 01/14/20 17:00 01/15/20 10:05 ESME CARY MD Jan 15, 2020 15:07
[2020-01-15 15:12] VITALS: BP 170/93
[2020-01-15 19:46] VITALS: BP 173/88
[2020-01-15 23:59] VITALS: BP 166/84
[2020-01-16] MEDS: PIPERACILLIN/TAZOBACTAM 3.375 GM in IV NORMAL SALINE 50ML 50 ML IV SCH ×3 (00:43→12:14)
[2020-01-16] MEDS: POTASSIUM CHLORIDE 40 MEQ in IV DEXTROSE 5% 1,000 ML IV SCH (00:43)
[2020-01-16] MEDS: AMINO AC 3%/ELECTROLYTE/GLYCER 1,000 ML IV SCH (00:44)
[2020-01-16 03:10] VITALS: BP 143/77
[2020-01-16] MEDS: INSULIN LISPRO 300 UNITS/3 ML VIAL. SQ SCH ×3 (06:00→12:00)
[2020-01-16 06:30] LABS: CALCIUM 7.1 mg/dL (8.5-10.1); CREATININE 0.8 mg/dL (0.6-1.0); GFR 83.7; MAGNESIUM 1.9 mg/dL (1.8-2.4); PHOSPHORUS 1.6 mg/dL (2.6-4.7); POTASSIUM 4.2 mmol/L (3.5-5.1)
[2020-01-16 07:10] VITALS: BP 147/76
[2020-01-16] MEDS: FAMOTIDINE 20 MG/2 ML VIAL IVP SCH (07:51)
[2020-01-16] MEDS: methylPREDNISolone SOD SUCC PF 40 MG/ML VIAL. IV SCH (07:51)
[2020-01-16] MEDS ORDERED: IV NORMAL SALINE 1000ML BAG 1,000 ML IV SCH (09:45)
--- NOTE | 2020-01-16 10:30 | NUR ---
Pt facility ([facility] in [place]) called this RN and stated that pt baseline is alert but not oriented, dementia is extremely progressed. She speaks minimally to nursing staff at the facility and she is normally in a wheelchair and on a regular diet.
[2020-01-16] MEDS: POTASSIUM PHOS,M-BASIC-D-BASIC 10 MMOL in IV NORMAL SALINE 100ML 100 ML IV SCH ×2 (10:45→12:15)
[2020-01-16] MEDS: INSULIN GLARGINE SYRINGE. SQ SCH (10:48)
[2020-01-16 11:10] VITALS: BP 174/84
--- NOTE | 2020-01-16 11:15 | NUR ---
Pt son, Alhaji called for update on mother this morning. This RN wanted to get telephone consent for outside DNR form and said stated to this RN that "I am okay for shocks and compressions" and that if his mother became unresponsive he would like nursing staff "to do everything possible" to save her. He also stated to this RN that he knew that his mother did not approve of a prolonged state of ventilation, he called it a "vegetable state." But clarified that if she needs the ventilator for a short amount of time, it is okay. Dr. Jackson notified. Code status changed to Full.
--- NOTE | 2020-01-16 11:48 | NUR ---
SW following. Spoke with RN and reviewed chart. Pt ready for discharge to [facility] today, 01/[address] Jackson. REBEKAH phoned and faxed discharge orders to Karen at [facility] , (fax). Packet of clinicals updated and ready to be sent with pt. RN notified family and will call report. Pt is a Full Code per family request per RN. REBEKAH did phone and fax completed Medical Necessity Form to [facility]. REBEKAH called and arranged for stretcher COVID positive transfer at 1600 with medical monitoring per IVs/PPN. RN and Karen at [facility] notified of transport time. No further SW needs at this time. Addendum: 01/16/20 at 1209 by MERI WELCH -See Medication Reconciliation/Physician Order Form for discharge instructions. Copy on chart.
--- NOTE | 2020-01-16 11:52 | SNU/HH DC ---
DISCHARGE ORDERS DISCHARGE INFORMATION: DISCHARGE DATE: Jan 16, 2020 CONDITION ON DISCHARGE: Guarded CODE STATUS: Code Status: Full DETENTION: SNF STAY <30 DAYS: Yes HOSPICE: HOSPICE: Yes HOSPICE EVAL & TREAT: Yes POST DISCHARGE ORDERS: ACTIVITY ORDERS: No restrictions WEIGHT BEARING STATUS: No restrictions DIET AFTER DISCHARGE: Cardiac FOLLOW-UP: LAB ORDERS FOR FOLLOW-UP: BMP and CBC TREATMENT/EQUIPMENT ORDERS: Physical Therapy For: Evalulation/Treatment Occupational Therapy For: Evaluation/Treatment Speech Language Pathology For: Evaluation/Treatment ESME CARY MD Jan 16, 2020 11:52
[2020-01-16] MEDS: VANCOMYCIN 2 GM in IV NORMAL SALINE 500ML BAG 500 ML IV SCH (13:49)
[2020-01-16] MEDS: ENOXAPARIN 40 MG/0.4 ML SYRINGE. SQ SCH (13:49)
--- NOTE | 2020-01-16 15:03 | PDOC3 ---
[facility]-Discharge Summary Date of Admission: Date of Admission: Jan 01, 2020 Date of Discharge: Date of Discharge: Jan 16, 2020 Admission Diagnosis: Admitting Diagnosis: Severe respiratory failure secondary to COVID-19 Discharge Diagnosis: Discharge Diagnosis: Severe respiratory failure secondary to COVID-19 History Dementia, essential hypertension, hyperlipidemia, Raynaud's. Hyperthyroidism, status post thyroidectomy. Hypernatremia secondary to insensible losses Hypokalemia Leukocytosis, sepsis POA 2/2 COVID 19 Consults: Consults: Pulmonology Hospital Course: Hospital Course: 79 years old who initially presented to [facility] Emergency Room in hypoxic respiratory failure. Her saturations are in the low 80s on 6 liters en route and was placed on a nonrebreather mask. She is known positive for COVID-19. She has severe dementia. The patient was kept in the ER, but due to lack of Intensive Care Unit beds, she was transferred to [facility] She was initially transferred to the ICU for further critical care management. She was eventually weaned off of mechanical ventilation by the and her vasopressors have been weaned off as well but this time. She was transferred to the ICU to the regular floor where she managed further by the medical team. Patient did not pass her speech swallow so she was started on PPN. Therefore PICC line was placed for that reason. Patient continues to be severely demented and should her prognosis is guarded. Several family discussions were held with the social and human services assistant and nurse case manager to determine whether the family wanted her to go under hospice care or continue with her current management. At this point, on her day of discharge family has decided to keep the patient full code and continue with life prolonging measurements. The rest of her hospital course was uneventful. Disposition: Disposition/Orders: D/C to Home, D/C to Another Facility Activity: Activity: Resume previous activity Diet: Diet: NPO Total Time: Total Time: Total time spent was 45 minutes in preparing scripts, discharge planning with SWI and RN and preparing this discharge summary Justicifation of Admission Dx: Justifications for Admission: Justification of Admission Dx: Yes Respiratory Failure: Mechanical Ventilation ESME CARY MD Jan 16, 2020 15:03
[2020-01-16 15:20] VITALS: BP 166/72
--- NOTE | 2020-01-16 17:45 | NUR ---
This RN spoke with [facility] and they stated that they do not have a confirmed time of when they will be able to pick pt up for transport but pt is first on the list to be picked up. Nursing Urban Gardening Specialist notified.
--- NOTE | 2020-01-16 17:45 | NUR ---
Pt son Alhaji notified of pt still being in hospital. Will continue to monitor.
--- NOTE | 2020-01-16 18:25 | NUR ---
Discharge Note: SALLIE RHOADES [address] [place] [address] Discharge instructions and discharge home medications reviewed with CHAITANYA Austin at [facility] and a copy given. All questions have been answered and understanding verbalized. Patient discharged to [facility] with [facility] via diane.
--- NOTE | 2020-01-16 18:25 | NUR ---
Discharge Note: DA RHOADES [facility] Discharge instructions and discharge home medications reviewed with Other facility and a copy given. All questions have been answered and understanding verbalized. The following instructions and handouts were given: Discontinued lines and drains: intact. Patient discharged to [facility]
--- NOTE | 2020-01-16 18:35 | NUR ---
This RN attempted to call sonAlhaji about discharge, and was unable to leave message.
== END 2020-01-16 18:25 | DRG 870 ==
LOC: 1 WEST ICU 01:48 → 6 SOUTH 01-13 15:10
PROVIDERS: ADMIT Family Medicine; ATTEND Family Medicine
PROC: 5A1955Z Respiratory Ventilation, Greater than 96 Consecutive Hours (ICD-10-PCS; principal; 2020-01-01)
PROC: 02HV33Z Insertion of Infusion Device into Superior Vena Cava, Percutaneous Approach (ICD-10-PCS; 2020-01-01)
PROC: 0BH17EZ Insertion of Endotracheal Airway into Trachea, Via Natural or Artificial Opening (ICD-10-PCS; 2020-01-01)
DX: A41.89 Other specified sepsis (principal); U07.1 COVID-19; J96.01 Acute respiratory failure with hypoxia; N17.0 Acute kidney failure with tubular necrosis; J12.89 Other viral pneumonia; D68.9 Coagulation defect, unspecified; E87.0 Hyperosmolality and hypernatremia; I50.30 Unspecified diastolic (congestive) heart failure; R57.9 Shock, unspecified; D69.6 Thrombocytopenia, unspecified; E78.5 Hyperlipidemia, unspecified; E87.6 Hypokalemia; E89.0 Postprocedural hypothyroidism; F02.80 Dementia in other diseases classified elsewhere, unspecified severity, without behavioral disturbance, psychotic disturbance, mood disturbance, and anxiety; D69.59 Other secondary thrombocytopenia; G30.9 Alzheimer's disease, unspecified; I11.0 Hypertensive heart disease with heart failure; I73.00 Raynaud's syndrome without gangrene; R65.20 Severe sepsis without septic shock; Z51.5 Encounter for palliative care; Z66 Do not resuscitate; Z82.49 Family history of ischemic heart disease and other diseases of the circulatory system; Z87.440 Personal history of urinary (tract) infections; Z90.49 Acquired absence of other specified parts of digestive tract; Z79.899 Other long term (current) drug therapy
CPT/HCPCS: 36415; 36600; 51798; 71045; 74018; 80048; 80053; 80202; 82565; 82805; 82962; 83605; 83735; 84100; 84443; 85007; 85025; 85027; 85610; 87493; 94002; 94003; 94640; 94760; J0171; J1160; J1644; J1650; J1815; J1940; J2250; J2370; J2543; J2704; J2920; J2930; J3010; J3370; J3475; J3480; J3490; J7030; J7040; J7050; J7060; G0378; U0003-CS